=== PATIENT | female | born 1960 | race Caucasian/White ===

== ENCOUNTER → 2017-11-23 | Outpatient (CLI) | payer OTHER | LOC: M SLEEP 19:18 | DX: G47.30 Sleep apnea, unspecified (principal) | CPT/HCPCS: 95810 ==

== ENCOUNTER 2018-07-24 17:16 | Inpatient (IN) | payer OTHER ==
[~2018-07-24] VITALS: Ht 167.6 cm; Wt 96.4 kg
[~2018-07-24 17:16] MED LIST: ASPI-161 PO; ASPI1TAB15 PO; ATOR40TA75 PO; CIPR-249 PO; CIPR250T3 PO; FLOM0.4C39 PO; FURO40TA2 PO; HYDR-3713 PO; LISI2.5T5 PO; METF500T13 PO; NIAC250C13 PO; OXYC-517 PO; PERC5TAB12 PO; PERCOCET PO; SOTA80TA2 PO; VICO5TAB16 PO; [UNRECOGNIZED DRUG - OTHER] TOP
--- NOTE | 2018-07-24 18:03 | REP ---
Clinical: Cough and dyspnea. Comparison: None. Findings: Cardiomegaly is appreciated. Indistinct pulmonary vasculature with cephalization along with bibasilar opacities suggesting atelectasis and effusions. No pneumothorax. Skeletal structures are intact. Impression: No prior examinations available for comparison. Findings suggest pulmonary vascular congestion including bibasilar opacities and pleural effusions. Correlation is required. Differential diagnosis would include multifocal pneumonia and chronic cardiomegaly. Electronically Signed by Renato Hatfield MD 07/24/2018 05:55 P
[2018-07-24 18:07] LABS: BASO % 0.3 % (0.0-1.0); EOS # 0.1 10^3/uL (0.0-0.50); EOS % 0.8 % (0.0-3.0); HEMATOCRIT 31.2 % (36.0-47.0); HEMOGLOBIN 8.8 g/dl (12.0-15.5); LYMPH # 1.3 10^3/uL (1.5-4.5); LYMPH % 17.4 % (24.0-44.0); MEAN CORPUSCULAR HEMOGLOBIN 29.4 pg (27.0-33.0); MEAN CORPUSCULAR HGB CONC 28.2 g/dl (32.0-36.5); MEAN CORPUSCULAR VOLUME 104.3 fl (80.0-96.0); MONO # 0.5 10^3/uL (0.0-0.8); MONO % 6.9 % (0.0-5.0); NEUTROPHILS # 5.4 10^3/uL (1.8-7.7); NEUTROPHILS % 74.2 % (36.0-66.0); PLATELET COUNT, AUTOMATED 248 10^3/uL (150-450); RED BLOOD COUNT 2.99 10^6/uL (4.00-5.40); WHITE BLOOD COUNT 7.2 10^3/uL (4.0-10.0)
[2018-07-24] MEDS ORDERED: FUROSEMIDE 100 MG/10 ML VIAL (J1940) IV ONE (18:15)
[2018-07-24 18:27] LABS: INR 1.19; PROTHROMBIN TIME 15.3 SECONDS (12.1-14.4)
[2018-07-24 18:34] LABS: ABG BASE EXCESS 3.9 (-2.0-2.0); ABG HCO3 31.3 MEQ/L (22.0-26.0); ABG O2 SATURATION 91.4 % (95.0-99.0); ABG PARTIAL PRESSURE O2 63.4 mmHg (75.0-100.0); ABG STANDARD HCO3 27.9 MEQ/L (22.0-26.0); ABG TOTAL CO2 33.3 MEQ/L (22.0-29.0); ABG pH (ARTERIAL) 7.305 UNITS (7.350-7.450)
[2018-07-24 18:34] LABS: ALBUMIN 3.2 GM/DL (3.2-5.2); BILIRUBIN,DIRECT 0.2 MG/DL (0.0-0.2); BILIRUBIN,TOTAL 0.6 MG/DL (0.2-1.0); CALCIUM LEVEL 9.1 MG/DL (8.5-10.1); CREATININE FOR GFR 1.12 MG/DL (0.55-1.30); GLOMERULAR FILTRATION RATE 53.6 (>51); POTASSIUM SERUM 4.5 MEQ/L (3.5-5.1); THYROID STIMULATING HORMONE 2.48 uIU/ML (0.358-3.740); TOTAL PROTEIN 6.5 GM/DL (6.4-8.2); TROPONIN I 0.02 NG/ML (< 0.10)
[2018-07-24 18:36] LABS: ABG PARTIAL PRESSURE CO2 64.4 mmHg (35.0-45.0)
--- NOTE | 2018-07-24 18:44 | REP ---
Clinical: Bilateral lower extremity swelling . Technique: Archuleta scale and color Doppler evaluation using linear high frequency transducer. Findings: Ultrasound examination of the right and left lower extremity deep venous structures from the common femoral vein to the popliteal vein demonstrates normal compressibility flow and wave patterns in response to respiration and augmentation. There is no evidence for deep venous thrombosis. Incidental bilateral duplicated mid femoral veins. Impression: No evidence for deep venous thrombosis. Electronically Signed by Renato Hatfield MD 07/24/2018 06:36 P
[2018-07-24] MEDS ORDERED: GLIM2TAB PO (19:02)
[2018-07-24] MEDS ORDERED: ASPI1TAB PO (19:02)
[2018-07-24] MEDS ORDERED: FERR325T3 PO (19:02)
[2018-07-24] MEDS ORDERED: METF-881 PO (19:02)
--- NOTE | 2018-07-24 19:26 | REP ---
Clinical: Hypoxia. Technique: Axial noncontrast images from the thoracic inlet to the upper abdomen with coronal and sagittal re-formations. Comparison: None. Findings: Marked cardiomegaly is appreciated along with cephalization, prominent pulmonary vasculature and diffuse interstitial prominence as well as moderate bilateral ill-defined infiltrates extending from the dee to the right middle lobe, right lower lobe, lingula and left lower lobe with small pleural effusion. No pneumothorax. No significant adenopathy. Musculoskeletal structures are intact. Pacemaker noted. Upper abdomen with normal bilateral adrenal glands. Impression: Findings described above most compatible with CHF/pulmonary edema. Less likely differential diagnosis includes multifocal pneumonia. Electronically Signed by Renato Hatfield MD 07/24/2018 07:16 P
[2018-07-24] MEDS ORDERED: GLUCAGON FOR INJ 1 MG VIAL (J1610) SC PRN (19:45)
[2018-07-24] MEDS ORDERED: DEXTROSE 50% 50 ML SYRINGE IV PRN (19:45)
[2018-07-24] MEDS ORDERED: GLUCOSE 4 GM CHEW TABLET PO PRN (19:45)
[2018-07-24] MEDS ORDERED: BISACODYL 10 MG SUPP PR PRN (19:45)
[2018-07-24] MEDS ORDERED: BISACODYL 5 MG TAB PO PRN (19:45)
--- NOTE | 2018-07-24 20:28 | HPEPDOC ---
[facility] Medical History & Physical Date of Admission Jul 24, 2018 Attending Physician: CHRISTAL TIMMONS MD History and Physical CHIEF COMPLAINT: [Shortness of breath] HISTORY OF PRESENT ILLNESS: [57 year old female was in a few past medical history of COPD chronically on 2 L nasal cannula, obesity, HEYDI, CHF who has a defibrillator and pacemaker combination diabetes, hyperlipidemia who presented complaining of shortness of breath for 1 week duration that worsened today. Patient states that her shortness of breath is also was positional. Patient unable to lie flat without shortness of breath does worsen. Patient also has dry cough. She also complained of chronic lotion recently which is unchanged. Patient also received received a new kitten for [place], and this kitten has been scratching her lower extremity. Patient was evaluated in the emergency room noted to be hypoxemic on her regular 2 L nasal cannula and therefore oxygen was increased to 4 L with good saturation. Patient received Lasix in the emergency room with good urine output. Patient had checks x-ray and CT of the chest which showed pulmonary edema. Patient being admitted for further evaluation and treatment. Otherwise patient denies of any complaint at this time. No fever, no diarrhea, or dysuria. Called by PCU after pt shortly arriving to PCU for altered mentation. Evaluated by the hospitalist team and found patient to be awake, alert, oriented x3. Unchanged from ED. Later contacted by PCU because per staff, Pt found hypoxic and hospitalist contacted. ABG obtained. Respiratory treatment previously ordered via computer for both standing order and PRN order. Vapotherm ordered for better oxygenation. Patient already started on lasix and steriod therapy. Called staff for hypoxemia in ABG po2 38.5 but pt with nml mentation and unchanged, no arrthymia , and not respiratory distress on examination but complained of abdominal discomfort. Bladder scan show 900cc urine, fuentes place, and pt feeling better. Respiratory therapy treatment not given at time of initial verbal request. Asked again and again until given. Called by staff due to low BP and responding only sternal rub, pt evaluated and found pt easily responds to tactile and verbal stimuli and answers questions appropriately. Pt kept awake all night due to these events. Pt states she is tired and otherwise no complaints. BP manually checked SBP after fuentes and good urine output. Lasix orders are with parameters. Pt gerardo be transfer to ICU for closer monitoring. Review system: Point review systems negative other than those described in HPI PMH: COPD on 2L nc at home, obesity, Heydi, CHF, HLD, DM, kidney stone SMH: cataract, kidney stone extraction, PPM/defibrillator Social history: Denies of smoking, drinking, drug abuse Family medical history: Noncontributory ALLERGIES: Please see below. Med list: See below PHYSICAL EXAMINATION: VITAL SIGNS: Please see below GENERAL APPEARANCE: Resting comfortably on oxygen HEENT: Normocephalic, PERRLA, Mucous moist, CARDIOVASCULAR: S1,S2, pulse present, regularly, regular, LUNGS: Equal decreased air entry b/l, no wheezes or crackles at the base bilaterally ABDOMEN: Soft, BS present, no tenderness, no guarding GENITOURINARY: No Fuentes EXTREMITIES: B/L +1 pitting edema, capillary refill present , bilateral lotion may scratch vanessa from her cats, multiple scratches scabbing no active bleeding and no overt signs of infection. SKIN: Warm, No fever NEUROLOGICAL: Cranial nerves grossly intact PSYCHIATRIC: Normal mood and affect for current situation LABORATORY DATA: See below. IMAGING: [LE Doppler: No evidence for deep venous thrombosis. CXR: No prior examinations available for comparison. Findings suggest pulmonary vascular congestion including bibasilar opacities and pleural effusions. Correlation is required. Differential diagnosis would include multifocal pneumonia and chronic cardiomegaly. CT chest: Findings described above most compatible with CHF/pulmonary edema. Less likely differential diagnosis includes multifocal pneumonia.] MICROBIOLOGY: Please see below. Assessment and plan: 57 year old female was in a few past medical history of COPD chronically on 2 L nasal cannula, obesity, HEYDI, CHF who has a defibrillator and pacemaker combination, diabetes, hyperlipidemia who presented complaining of shortness of breath found to be hypoxemic and admitted for CHF exacerbation. Acute resp failure with Hypoxemia and hypercapnia with acidosis, acute on chronic CHF exacerbation with COPD exacerbation -chronically on 2 liters nasal cannula, obesity, HEYDI, copd, chf -Oxygen, Vapotherm, RT -Lasix IV utilize, hold lisinopril for now, monitor renal function -iv steriod, empiric abx -I and O, daily weight -Echocardiogram -Resume sotalol once Lasix has been maximized and acute CHF resolved -Resume aspirin -ICU for closer monitoring Diabetes -Finger sick monitoring, sliding scale, hold by mouth medications, utilize long- acting insulin as needed LE scratches -Bacitracin/polymyxin ointment Hyperlipidemia, resume home statin Chronic anemia, resume iron DVT prophylaxis heparin subcutaneous Vital Signs Vital Signs Date Time Temp Pulse Resp B/P (MAP) Pulse Ox O2 Delivery O2 Flow Rate FiO2 07/24/18 19:17 89 95 07/24/18 18:04 18 127/69 (88) Nasal Cannula 4.0 07/24/18 17:30 96.6 Laboratory Data Labs 24H Laboratory Tests 2 07/24/18 17:45: Immature Granulocyte % (Auto) 0.4, White Blood Count 7.2, Red Blood Count 2.99L, Hemoglobin 8.8L, Hematocrit 31.2L, Mean Corpuscular Volume 104.3H, Mean Corpuscular Hemoglobin 29.4, Mean Corpuscular Hemoglobin Concent 28.2L, Red Cell Distribution Width 13.7, Platelet Count 248, Neutrophils (%) (Auto) 74.2H, Lym phocytes (%) (Auto) 17.4L, Monocytes (%) (Auto) 6.9H, Eosinophils (%) (Auto) 0.8, Basophils (%) (Auto) 0.3, Neutrophils # (Auto) 5.4, Lymphocytes # (Auto) 1.3L, Monocytes # (Auto) 0.5, Eosinophils # (Auto) 0.1, Basophils # (Auto) 0.0, Nucleated Red Blood Cells % (auto) 0.0, Prothrombin Time 15.3H, Prothromb Time International Ratio 1.19, Anion Gap 5L, Glomerular Filtration Rate 53.6, Lactic Acid Level 1.4, Calcium Level 9.1, Aspartate Amino Transf (AST/SGOT) 25, Alanine Aminotransferase (ALT/SGPT) 32, Alkaline Phosphatase 101, Total Bilirubin 0.6, Direct Bilirubin 0.2, Total Creatine Kinase 54, Creatine Kinase MB 3.0, Creatine Kinase MB Relative Index 5.00H, Troponin I 0.02, LC-Omm-P-Type Natriuretic Peptide 08201I, Total Protein 6.5, Albumin 3.2, Albumin/Globulin Ratio 0.97L, Thyroid Stimulating Hormone (TSH) 2.480 07/24/18 18:10: Blood Gas Bicarbonate Standard 27.9H, Arterial Blood pH 7.305L, Arterial Blood Partial Pressure CO2 64.4*H, Arterial Blood Partial Pressure O2 63.4L, Arterial Blood Total CO2 33.3H, Arterial Blood HCO3 31.3H, Arterial Blood Base Excess 3.9H, Arterial Blood Oxygen Saturation 91.4L CBC/BMP Laboratory Tests 07/24/18 17:45 Red Blood Count 2.99 L, Mean Corpuscular Volume 104.3 H, Mean Corpuscular Hemoglobin 29.4, Mean Corpuscular Hemoglobin Concent 28.2 L, Red Cell Distribution Width 13.7, Neutrophils (%) (Auto) 74.2 H, Lymphocytes (%) (Auto) 17.4 L, Monocytes (%) (Auto) 6.9 H, Eosinophils (%) (Auto) 0.8, Basophils (%) (Auto) 0.3, Neutrophils # (Auto) 5.4, Lymphocytes # (Auto) 1.3 L, Monocytes # (Auto) 0.5, Eosinophils # (Auto) 0.1, Basophils # (Auto) 0.0 Microbiology Microbiology 07/24/18 Blood Culture, Received Pending 07/24/18 Blood Culture, Received Pending 07/24/18 Respiratory Virus Panel (PCR) ([facility]) - Final, Complete Home Medications Scheduled (Sotalol HCl) 80 Mg Tab, 40 MG PO BID Aspirin (Aspirin 81) 81 Mg Tab, 81 MG PO DAILY Atorvastatin Calcium (Atorvastatin Calcium) 40 Mg Tab, 40 MG PO QPM Ferrous Sulfate (Ferrous Sulfate) 325 Mg Tab, 325 MG PO DAILY Furosemide (Furosemide) 40 Mg Tab, 40 MG PO DAILY Glimepiride (Glimepiride) 2 Mg Tab, 2 MG PO DAILY Lisinopril (Lisinopril) 2.5 Mg Tab, 2.5 MG PO QPM Metformin Hydrochloride (Metformin Hydrochloride E) 500 Mg Tab, 500 MG PO BID Niacin (Niacin) 250 Mg Cap, 500 MG PO DAILY Allergies Coded Allergies: No Known Allergies (Unverified , 07/24/18) HARPAL VENEGAS MD Jul 24, 2018 20:10
[2018-07-24] MEDS: HumaLOG INSULIN (NovoLOG) PER UNIT SC SCH (21:00)
[2018-07-24] MEDS: ATORVASTATIN 20 MG TAB PO SCH (22:09)
[2018-07-24] MEDS: POLYSPORIN TOPICAL OINTMENT 15GM TOP SCH (22:09)
[2018-07-24 23:59] VITALS: BP 120/69
[2018-07-25] VITALS (20 sets, daily range): BP systolic 87–125; BP diastolic 49–79
[2018-07-25 00:26] LABS: ABG BASE EXCESS 3.7 (-2.0-2.0); ABG O2 SATURATION 88.6 % (95.0-99.0); ABG PARTIAL PRESSURE CO2 69.6 mmHg (35.0-45.0); ABG PARTIAL PRESSURE O2 59.6 mmHg (75.0-100.0); ABG STANDARD HCO3 27.6 MEQ/L (22.0-26.0); ABG TOTAL CO2 34.2 MEQ/L (22.0-29.0); ABG pH (ARTERIAL) 7.281 UNITS (7.350-7.450)
[2018-07-25] MEDS: FUROSEMIDE 40 MG/4 ML VIAL (J1940) IV SCH ×3 (01:08→07:59)
[2018-07-25 01:11] LABS: MB/CK RELATIVE INDEX 3.92 (< OR =4); TROPONIN I 0.03 NG/ML (< 0.10)
[2018-07-25] MEDS ORDERED: IPRATROPIUM 0.5MG/ALBUTEROL 2.5MG INH SOL UD 3ML (DUONEB)(J7620) NEB PRN (03:00)
[2018-07-25 03:35] LABS: ABG BASE EXCESS 4.1 (-2.0-2.0); ABG HCO3 31.5 MEQ/L (22.0-26.0); ABG O2 SATURATION 72.2 % (95.0-99.0); ABG STANDARD HCO3 27.6 MEQ/L (22.0-26.0); ABG TOTAL CO2 33.4 MEQ/L (22.0-29.0); ABG pH (ARTERIAL) 7.322 UNITS (7.350-7.450)
[2018-07-25 03:36] LABS: ABG PARTIAL PRESSURE CO2 62.2 mmHg (35.0-45.0)
[2018-07-25] MEDS: ACETAMINOPHEN TAB 650MG DOSE (2X325MG) PO PRN (03:36)
[2018-07-25 03:37] LABS: ABG PARTIAL PRESSURE O2 38.5 mmHg (75.0-100.0)
[2018-07-25] MEDS ORDERED: AZITHROMYCIN INJ 500 MG, VIAL MATE ADAPTER 1 EACH in D5W 250 ML IV SCH (04:00)
[2018-07-25] MEDS: methylPREDNISolone INJ 125 MG/2 ML VIAL (J2930) IV SCH ×2 (04:49→12:07)
[2018-07-25] MEDS: HEPARIN SOD (PORCINE) 5000 UNITS/ML VIAL SC SCH ×3 (04:50→22:27)
[2018-07-25 05:07] LABS: ABG BASE EXCESS 5.6 (-2.0-2.0); ABG O2 SATURATION 90.7 % (95.0-99.0); ABG PARTIAL PRESSURE O2 62.2 mmHg (75.0-100.0); ABG STANDARD HCO3 29.4 MEQ/L (22.0-26.0); ABG pH (ARTERIAL) 7.325 UNITS (7.350-7.450)
[2018-07-25 05:11] LABS: ABG PARTIAL PRESSURE CO2 64.8 mmHg (35.0-45.0)
[2018-07-25 06:02] LABS: HEMATOCRIT 37.6 % (36.0-47.0); HEMOGLOBIN 10.7 g/dl (12.0-15.5); MEAN CORPUSCULAR HEMOGLOBIN 29.2 pg (27.0-33.0); MEAN CORPUSCULAR HGB CONC 28.5 g/dl (32.0-36.5); MEAN CORPUSCULAR VOLUME 102.5 fl (80.0-96.0); PLATELET COUNT, AUTOMATED 232 10^3/uL (150-450); RED BLOOD COUNT 3.67 10^6/uL (4.00-5.40); WHITE BLOOD COUNT 7.7 10^3/uL (4.0-10.0)
[2018-07-25 06:22] LABS: CALCIUM LEVEL 8.7 MG/DL (8.5-10.1); CREATININE FOR GFR 1.36 MG/DL (0.55-1.30); FREE THYROXINE INDEX 2.8 % (1.3-4.8); GLOMERULAR FILTRATION RATE 42.8 (>51); POTASSIUM SERUM 4.3 MEQ/L (3.5-5.1); THYROID STIMULATING HORMONE 1.37 uIU/ML (0.358-3.740); THYROXINE (T4) 8.1 UG/DL (4.5-12.0)
[2018-07-25] MEDS: IPRATROPIUM 0.5MG/ALBUTEROL 2.5MG INH SOL UD 3ML (DUONEB)(J7620) NEB SCH ×3 (08:05→20:51)
--- NOTE | 2018-07-25 08:05 | ECGEPIP ---
Stationary ECG Study [facility] - ED Test Date: 2018-07-24 Pat Name: GLADYS RODARTE Department: Room: [place] [address] Gender: F Chief Operating Officer: francisco javier : 1960 Requested By: Mable Madrigal Order Number: [id number] Reading MD: Mable Madrigal Measurements Intervals [place] Rate: 83 P: 54 OR: 164 QRS: 215 QRSD: 232 T: 78 QT: 492 QTc: 579 Interpretive Statements ELECTRONIC VENTRICULAR PACEMAKER ABNORMAL RHYTHM ECG UNDERLYING SINUS RHYTHM INCREASED RATE 05/31/12 Electronically Signed On 07-25-2018 8:04:44 EST by Mable Madrigal
[2018-07-25 08:56] LABS: ABG BASE EXCESS 4.4 (-2.0-2.0); ABG HCO3 32.3 MEQ/L (22.0-26.0); ABG O2 SATURATION 94.2 % (95.0-99.0); ABG PARTIAL PRESSURE O2 77.1 mmHg (75.0-100.0); ABG STANDARD HCO3 28.4 MEQ/L (22.0-26.0); ABG TOTAL CO2 34.3 MEQ/L (22.0-29.0); ABG pH (ARTERIAL) 7.305 UNITS (7.350-7.450)
[2018-07-25 08:58] LABS: ABG PARTIAL PRESSURE CO2 66.3 mmHg (35.0-45.0)
[2018-07-25 09:29] LABS: MB/CK RELATIVE INDEX 6.67 (< OR =4); TROPONIN I 0.35 NG/ML (< 0.10)
[2018-07-25] MEDS: POLYSPORIN TOPICAL OINTMENT 15GM TOP SCH ×3 (09:31→20:43)
[2018-07-25] MEDS: NYSTATIN 100,000 UNITS/GM TOPICAL PWD 15 GM TOP SCH ×2 (09:31→20:42)
[2018-07-25] MEDS: ASPIRIN 81 MG ENTERIC TAB PO SCH (09:33)
[2018-07-25] MEDS: HumaLOG INSULIN (NovoLOG) PER UNIT SC SCH ×4 (09:33→20:43)
[2018-07-25] MEDS: FERROUS SULFATE 325MG TAB PO SCH (09:33)
[2018-07-25] MEDS ORDERED: FLUCONAZOLE 200 MG in APPROPRIATE DILUENT 1 EA IV ONE (11:00)
--- NOTE | 2018-07-25 13:11 | IPNPDOC ---
Text Note Date of Service The patient was seen on 07/25/18. NOTE SUBJECTIVE: Patient very somnolent again this am as per nurses difficult to wake her up. During my interview i could wake her up by sternal rub one and calling her name and some shaking of her shoulders. After waking up she was conversant, oriented and could give a correct history. Knew where she was. Denied any weakness any where, denied any pain , denied any swallowing difficulty or any difficulty in speaking. Said her breathing was better. Says she has been having trouble breathing for a week and worst over the past 3 days. Said that she was very tired so was sleeping deeply. Repeat ABG did not show any significant change from prior. PHYSICAL EXAMINATION: VITAL SIGNS: Please see below GENERAL APPEARANCE: Resting comfortably on oxygen HEENT: Normocephalic, PERRLA, Mucous moist, CARDIOVASCULAR: S1,S2, pulse present, regularly, regular, LUNGS: Equal decreased air entry b/l, no wheezes or crackles at the base bilaterally ABDOMEN: Soft, BS present, no tenderness, no guarding GENITOURINARY: No Mcleod EXTREMITIES: trace edema, capillary refill present , bilateral lotion may scratch vanessa from her cats, multiple scratches scabbing no active bleeding and no overt signs of infection. SKIN: Warm, No fever NEUROLOGICAL: Cranial nerves grossly intact PSYCHIATRIC: Normal mood and affect for current situation LABORATORY DATA adn RADIOLOGY : Reviewed Assessment and plan: 57 year old female was in a few past medical history of COPD chronically on 2 L nasal cannula, obesity, HEYDI, CHF who has a defibrillator and pacemaker combination diabetes, hyperlipidemia who presented complaining of shortness of breath for 1 week duration that worsened today. Patient states that her shortness of breath is also was positional. Patient unable to lie flat without shortness of breath does worsen. Patient also has dry cough. She also complained of chronic lotion recently which is unchanged. Patient also received received a new kitten for [employer], and this kitten has been scratching her lower extremity. Patient was evaluated in the emergency room noted to be hypoxemic on her regular 2 L nasal cannula and therefore oxygen was increased to 4 L with good saturation. Patient received Lasix in the emergency room with good urine output. Patient had checks x-ray and CT of the chest which showed pulmonary edema. Patient being admitted for further evaluation and treatment. Otherwise patient denies of any complaint at this time. No fever, no diarrhea, or dysuria. Acute on chronic Resp failure with Hypoxemia and hypercapnia due to CHF exacerbation which precipitated copd exacerbation. continue vapotherm continue lasix and nebs and steroids and azithromycin. CHF with AICD in place now with exacerbation had good diuresis overnight. will reduced dose of lasix. I and O, daily weight Echocardiogram COPD with chronic hypoxic respiratory failure. continue with oxygen supplementation to keep sats around 88. continue steroids, nebs and azithromycin. Intertriginous candidiasis will give fluconazole and nystatin. Obesity complicating care. patient does not have HEYDI. Sleep study showed normal sleep pattern with snoring. Diabetes Finger sick monitoring, sliding scale, utilize long-acting insulin as needed continue glimepiride. Afib will resume betablocker H/O bilateral stag horn calculi s/p b/l lithotripsy in the past. LE scratches Bacitracin/polymyxin ointment Hyperlipidemia, resume home statin Chronic anemia, resume iron DVT prophylaxis heparin subcutaneous VS,Fishbone, I+O VS, Fishbone, I+O Laboratory Tests 07/24/18 17:45 Red Blood Count 2.99 L, Mean Corpuscular Volume 104.3 H, Mean Corpuscular Hemoglobin 29.4, Mean Corpuscular Hemoglobin Concent 28.2 L, Red Cell Distribution Width 13.7, Neutrophils (%) (Auto) 74.2 H, Lymphocytes (%) (Auto) 17.4 L, Monocytes (%) (Auto) 6.9 H, Eosinophils (%) (Auto) 0.8, Basophils (%) (Auto) 0.3, Neutrophils # (Auto) 5.4, Lymphocytes # (Auto) 1.3 L, Monocytes # (Auto) 0.5, Eosinophils # (Auto) 0.1, Basophils # (Auto) 0.0 07/25/18 05:35 Red Blood Count 3.67 L, Mean Corpuscular Volume 102.5 H, Mean Corpuscular Hemoglobin 29.2, Mean Corpuscular Hemoglobin Concent 28.5 L, Red Cell Distribution Width 13.6, Calcium Level 8.7 Vital Signs Date Time Temp Pulse Resp B/P (MAP) Pulse Ox O2 Delivery O2 Flow Rate FiO2 07/25/18 11:52 92 30.0 55 07/25/18 11:09 78 103/55 (71) 07/25/18 06:47 99.1 15 07/25/18 00:00 Nasal Cannula I&O- Last 24 Hours up to 6 AM 07/25/18 06:00 Output Total 1050 ml Balance -1050 ml CHRISTAL TIMMONS MD Jul 25, 2018 13:11
[2018-07-25] MEDS ORDERED: FUROSEMIDE 40 MG/4 ML VIAL (J1940) IV SCH (17:00)
[2018-07-25 17:01] LABS: MB/CK RELATIVE INDEX 6.18 (< OR =4); TROPONIN I 0.41 NG/ML (< 0.10)
[2018-07-25] MEDS: ATORVASTATIN 20 MG TAB PO SCH (20:43)
[2018-07-25] MEDS: methylPREDNISolone INJ 40 MG/1 ML VIAL (J2920) IV SCH (20:44)
[2018-07-25 23:36] LABS: MB/CK RELATIVE INDEX 4.7 (< OR =4); TROPONIN I 0.26 NG/ML (< 0.10)
[2018-07-26] VITALS (12 sets, daily range): BP systolic 84–130; BP diastolic 47–77
[2018-07-26] MEDS: IPRATROPIUM 0.5MG/ALBUTEROL 2.5MG INH SOL UD 3ML (DUONEB)(J7620) NEB SCH ×4 (02:11→20:11)
[2018-07-26] MEDS: methylPREDNISolone INJ 40 MG/1 ML VIAL (J2920) IV SCH ×3 (04:43→19:57)
[2018-07-26 04:52] LABS: HEMATOCRIT 32.7 % (36.0-47.0); HEMOGLOBIN 9.5 g/dl (12.0-15.5); MEAN CORPUSCULAR HEMOGLOBIN 29.1 pg (27.0-33.0); MEAN CORPUSCULAR HGB CONC 29.1 g/dl (32.0-36.5); PLATELET COUNT, AUTOMATED 268 10^3/uL (150-450); RED BLOOD COUNT 3.27 10^6/uL (4.00-5.40); WHITE BLOOD COUNT 4.5 10^3/uL (4.0-10.0)
[2018-07-26 04:58] LABS: CALCIUM LEVEL 8.8 MG/DL (8.5-10.1); CREATININE FOR GFR 1.45 MG/DL (0.55-1.30); GLOMERULAR FILTRATION RATE 39.8 (>51); POTASSIUM SERUM 4.1 MEQ/L (3.5-5.1)
[2018-07-26] MEDS: HEPARIN SOD (PORCINE) 5000 UNITS/ML VIAL SC SCH ×3 (05:51→21:48)
--- NOTE | 2018-07-26 06:22 | ECHO ---
DATE OF PROCEDURE: 07/25/2018 DATE OF : 1960 AGE: 57 GENDER: Female. HEIGHT: 66 inches WEIGHT: 213 pounds BODY SURFACE AREA: 2.05 meters squared INPATIENT: ICU Room 3209 REFERRING PHYSICIAN: Dr. Andra Núñez INDICATION: Dyspnea. MEASUREMENTS: 2-D Measurements: RV: 4.0 cm LV: 6.6 cm Septum: 1.2 cm Posterior wall: 1.2 cm Aortic root: 2.5 cm LA: 5.5 cm LVEF: 15% Doppler Measurements: AV: 1.5 m/s LVOT: 0.88 m/s LVOT diameter: 2.0 cm MV - E 100 A 57 EA 1.8:1 Early mitral deceleration time: 158 ms E prime: 6 E/E prime ratio: 16.7 PV: 0.7 m/s RVSP: 50-55 mmHg IVC: 2.2 cm COMMENTS: Normal sinus rhythm with atrial sensing and tracking and biventricular pacing with paced QRS complexes having a right bundle branch block (RBBB) configuration. Technically difficult study in light of the patient's body habitus, but diagnostically useful information was still obtained. Prominently dilated left ventricle with borderline left ventricular hypertrophy. Multiple segmental wall motion abnormalities: Preserved proximal and mid anterior and septal motion with akinesis of the distal anterior wall apex and most of the inferior wall. Prominently dilated left atrium with Doppler evidence of an impairment of LV diastolic function and elevated mean left atrial pressure in the range of 20 mmHg. Right heart chambers upper limits of normal with normal right ventricular free wall motion with Doppler evidence of at least moderate pulmonary hypertension. IVC size upper limits of normal with reduced respiratory collapse in keeping with elevated central venous pressure. Mild aortic valvular sclerosis with adequate separation, but premature cusp closure in keeping with reduced forward stroke volume. Normal aortic root size. Moderate calcification with thickening of the mitral annulus with "low flow" appearance to leaflet excursion, but no more than very mild mitral insufficiency. Normal appearing tricuspid valve with mild insufficiency. Pacing leads could be visualized traversing right heart structures, but no other apparent intracardiac mass. Small pericardial effusion posteriorly with no evidence of cardiac chamber compression.
[2018-07-26] MEDS: GLIMEPIRIDE 2 MG TAB PO SCH (07:59)
[2018-07-26] MEDS: HumaLOG INSULIN (NovoLOG) PER UNIT SC SCH ×4 (08:00→20:12)
[2018-07-26 08:02] LABS: ABG BASE EXCESS 9.3 (-2.0-2.0); ABG HCO3 35.4 MEQ/L (22.0-26.0); ABG O2 SATURATION 91.6 % (95.0-99.0); ABG PARTIAL PRESSURE CO2 57.3 mmHg (35.0-45.0); ABG PARTIAL PRESSURE O2 61.6 mmHg (75.0-100.0); ABG STANDARD HCO3 32.9 MEQ/L (22.0-26.0); ABG TOTAL CO2 37.2 MEQ/L (22.0-29.0); ABG pH (ARTERIAL) 7.409 UNITS (7.350-7.450)
[2018-07-26] MEDS: FERROUS SULFATE 325MG TAB PO SCH (09:10)
[2018-07-26] MEDS: LEVEMIR (INSULIN DETEMIR) 1 UNITS/0.01ML SC SCH (09:10)
[2018-07-26] MEDS: ASPIRIN 81 MG ENTERIC TAB PO SCH (09:10)
[2018-07-26] MEDS: AZITHROMYCIN 250 MG TAB PO SCH (09:10)
[2018-07-26] MEDS: NYSTATIN 100,000 UNITS/GM TOPICAL PWD 15 GM TOP SCH ×2 (09:10→19:58)
[2018-07-26] MEDS: POLYSPORIN TOPICAL OINTMENT 15GM TOP SCH ×3 (09:11→19:59)
[2018-07-26] MEDS: FLUCONAZOLE 50MG TABLET PO SCH (12:28)
--- NOTE | 2018-07-26 21:02 | IPNPDOC ---
Text Note Date of Service The patient was seen on 07/26/18. NOTE SUBJECTIVE: Patient awake and alert this am . sitting up in bed says feels bet cj, says that feels more awake and can focus normally which she said she could not do yesterday. No fever or chills, good urine output PHYSICAL EXAMINATION: VITAL SIGNS: Please see below GENERAL APPEARANCE: Resting comfortably on oxygen HEENT: Normocephalic, PERRLA, Mucous moist, CARDIOVASCULAR: S1,S2, pulse present, regularly, regular, LUNGS: Equal decreased air entry b/l, no wheezes or crackles at the base bilaterally ABDOMEN: Soft, BS present, no tenderness, no guarding GENITOURINARY: No Mcleod EXTREMITIES: trace edema, capillary refill present , bilateral lotion may scratch vanessa from her cats, multiple scratches scabbing no active bleeding and no overt signs of infection. SKIN: Warm, No fever NEUROLOGICAL: Cranial nerves grossly intact PSYCHIATRIC: Normal mood and affect for current situation LABORATORY DATA adn RADIOLOGY : Reviewed Assessment and plan: 57 year old female was in a few past medical history of COPD chronically on 2 L nasal cannula, obesity, HEYDI, CHF who has a defibrillator and pacemaker combination diabetes, hyperlipidemia who presented complaining of shortness of breath for 1 week duration that worsened today. Patient states that her shortness of breath is also was positional. Patient unable to lie flat without shortness of breath does worsen. Patient also has dry cough. She also complained of chronic lotion recently which is unchanged. Patient also received received a new kitten for [employer], and this kitten has been scratching her lower extremity. Patient was evaluated in the emergency room noted to be hypoxemic on her regular 2 L nasal cannula and therefore oxygen was increased to 4 L with good saturation. Patient received Lasix in the emergency room with good urine output. Patient had checks x-ray and CT of the chest which showed pulmonary edema. Patient being admitted for further evaluation and treatment. Otherwise patient denies of any complaint at this time. No fever, no diarrhea, or dysuria. Acute on chronic Resp failure with Hypoxemia and hypercapnia due to CHF exacerbation which precipitated copd exacerbation. Off vapotherm was on CPAP overnight. Patient does not Hve CPAP at night. Will get ABG in the Pm. Am ABG showed improvement. continue lasix and nebs and steroids and azithromycin. Acute on chronic systolic and diastolic CHF with AICD in place now with exacerbation Ef of 15% had good diuresis overnight. will reduced dose of lasix. I and O, daily weight Echocardiogram Elevated troponin due to CHF exacerbation with demand ischemia. Elevation had a flat curve no high peak. COPD with chronic hypoxic respiratory failure with moderate to severe pulmonary hypertension continue with oxygen supplementation to keep sats around 88. continue steroids, nebs and azithromycin. Intertriginous candidiasis will give fluconazole and nystatin. Obesity complicating care. patient does not have HYEDI. Sleep study showed normal sleep pattern with snoring. Diabetes Finger sick monitoring, sliding scale, utilize long-acting insulin as needed continue glimepiride. Afib will resume betablocker H/O bilateral stag horn calculi s/p b/l lithotripsy in the past. LE scratches Bacitracin/polymyxin ointment Hyperlipidemia, resume home statin Chronic anemia, resume iron DVT prophylaxis heparin subcutaneous VS,Fishbone, I+O VS, Fishbone, I+O Laboratory Tests 07/26/18 04:06 Red Blood Count 3.27 L, Mean Corpuscular Volume 100.0 H, Mean Corpuscular Hemoglobin 29.1, Mean Corpuscular Hemoglobin Concent 29.1 L, Red Cell Distribution Width 13.6, Calcium Level 8.8 Vital Signs Date Time Temp Pulse Resp B/P (MAP) Pulse Ox O2 Delivery O2 Flow Rate FiO2 07/26/18 16:00 2.0 07/26/18 16:00 101 20 127/72 (90) 96 Nasal Cannula 07/26/18 12:00 98.0 07/26/18 02:10 35 I&O- Last 24 Hours up to 6 AM 07/26/18 06:00 Intake Total 955 ml Output Total 2435 ml Balance -1480 ml CHRISTAL TIMMONS MD Jul 26, 2018 21:01
[2018-07-27] MEDS: methylPREDNISolone INJ 40 MG/1 ML VIAL (J2920) IV SCH ×2 (03:46→12:13)
[2018-07-27] MEDS: IPRATROPIUM 0.5MG/ALBUTEROL 2.5MG INH SOL UD 3ML (DUONEB)(J7620) NEB SCH ×4 (03:49→20:00)
[2018-07-27 04:00] VITALS: BP 105/58
[2018-07-27 05:00] LABS: HEMATOCRIT 33.3 % (36.0-47.0); HEMOGLOBIN 9.8 g/dl (12.0-15.5); MEAN CORPUSCULAR HEMOGLOBIN 29.3 pg (27.0-33.0); MEAN CORPUSCULAR HGB CONC 29.4 g/dl (32.0-36.5); MEAN CORPUSCULAR VOLUME 99.4 fl (80.0-96.0); PLATELET COUNT, AUTOMATED 289 10^3/uL (150-450); RED BLOOD COUNT 3.35 10^6/uL (4.00-5.40); WHITE BLOOD COUNT 5.1 10^3/uL (4.0-10.0)
[2018-07-27 05:23] LABS: CREATININE FOR GFR 1.27 MG/DL (0.55-1.30); GLOMERULAR FILTRATION RATE 46.3 (>51); POTASSIUM SERUM 3.7 MEQ/L (3.5-5.1)
[2018-07-27] MEDS: HEPARIN SOD (PORCINE) 5000 UNITS/ML VIAL SC SCH ×3 (05:57→20:53)
[2018-07-27 08:00] VITALS: BP 103/57
[2018-07-27] MEDS: FLUCONAZOLE 50MG TABLET PO SCH (08:39)
[2018-07-27] MEDS: ASPIRIN 81 MG ENTERIC TAB PO SCH (08:39)
[2018-07-27] MEDS: AZITHROMYCIN 250 MG TAB PO SCH (08:40)
[2018-07-27] MEDS: LEVEMIR (INSULIN DETEMIR) 1 UNITS/0.01ML SC SCH ×2 (08:40→20:54)
[2018-07-27] MEDS: FERROUS SULFATE 325MG TAB PO SCH (08:40)
[2018-07-27] MEDS: GLIMEPIRIDE 2 MG TAB PO SCH (08:40)
[2018-07-27] MEDS: NYSTATIN 100,000 UNITS/GM TOPICAL PWD 15 GM TOP SCH ×2 (08:41→20:53)
[2018-07-27] MEDS: POLYSPORIN TOPICAL OINTMENT 15GM TOP SCH ×3 (08:42→20:53)
[2018-07-27] MEDS: HumaLOG INSULIN (NovoLOG) PER UNIT SC SCH ×4 (08:52→20:54)
[2018-07-27] MEDS ORDERED: FUROSEMIDE 40 MG/4 ML VIAL (J1940) IV SCH (09:00)
[2018-07-27 09:32] LABS: ABG BASE EXCESS 10.5 (-2.0-2.0); ABG HCO3 37.5 MEQ/L (22.0-26.0); ABG O2 SATURATION 98.7 % (95.0-99.0); ABG PARTIAL PRESSURE O2 149.3 mmHg (75.0-100.0); ABG STANDARD HCO3 34.3 MEQ/L (22.0-26.0); ABG TOTAL CO2 39.5 MEQ/L (22.0-29.0); ABG pH (ARTERIAL) 7.383 UNITS (7.350-7.450)
[2018-07-27 09:35] LABS: ABG PARTIAL PRESSURE CO2 64.4 mmHg (35.0-45.0)
[2018-07-27] MEDS: ACETAMINOPHEN TAB 650MG DOSE (2X325MG) PO PRN (09:51)
[2018-07-27 12:00] VITALS: BP 119/67
--- NOTE | 2018-07-27 12:43 | IPNPDOC ---
Text Note Date of Service The patient was seen on 07/27/18. NOTE SUBJECTIVE: Patient awake and alert this am . sitting up in bed says feels bet ter. No complaints this morning. No fever or chills, goood urine output, sugars are uncontrolled. No Chest pain or cough. PHYSICAL EXAMINATION: VITAL SIGNS: Please see below GENERAL APPEARANCE: Resting comfortably on oxygen HEENT: Normocephalic, PERRLA, Mucous moist, CARDIOVASCULAR: S1,S2, pulse present, regularly, regular, LUNGS: Equal decreased air entry b/l, no wheezes or crackles at the base bilaterally ABDOMEN: Soft, BS present, no tenderness, no guarding GENITOURINARY: No Mcleod EXTREMITIES: trace edema, capillary refill present , bilateral lotion may scratch vanessa from her cats, multiple scratches scabbing no active bleeding and no overt signs of infection. SKIN: Warm, No fever NEUROLOGICAL: Cranial nerves grossly intact PSYCHIATRIC: Normal mood and affect for current situation LABORATORY DATA adn RADIOLOGY : Reviewed Assessment and plan: 57 year old female was in a few past medical history of COPD chronically on 2 L nasal cannula, obesity, HEYDI, CHF who has a defibrillator and pacemaker combination diabetes, hyperlipidemia who presented complaining of shortness of breath for 1 week duration that worsened today. Patient states that her shortness of breath is also was positional. Patient unable to lie flat without shortness of breath does worsen. Patient also has dry cough. She also complained of chronic lotion recently which is unchanged. Patient also received received a new kitten for [employer], and this kitten has been scratching her lower extremity. Patient was evaluated in the emergency room noted to be hypoxemic on her regular 2 L nasal cannula and therefore oxygen was increased to 4 L with good saturation. Patient received Lasix in the emergency room with good urine output. Patient had checks x-ray and CT of the chest which showed pulmonary edema. Patient being admitted for further evaluation and treatment. Otherwise patient denies of any complaint at this time. No fever, no diarrhea, or dysuria. Acute on chronic Resp failure with Hypoxemia and hypercapnia due to CHF exacerbation which precipitated copd exacerbation. Off vapotherm was on CPAP overnight. Patient does not Hve CPAP at night. Will get ABG in the Pm. Am ABG showed improvement. continue lasix and nebs and steroids and azithromycin. Acute on chronic systolic and diastolic CHF with AICD in place now with exacerbation Ef of 15% had good diuresis overnight. will reduced dose of lasix. I and O, daily weight Elevated troponin due to CHF exacerbation with demand ischemia. Elevation had a flat curve no high peak. COPD with chronic hypoxic respiratory failure with moderate to severe pulmonary hypertension continue with oxygen supplementation to keep sats around 88. continue steroids, nebs and azithromycin. Intertriginous candidiasis will give fluconazole and nystatin. Obesity complicating care. patient does not have HEYDI. Sleep study showed normal sleep pattern with snoring. Diabetes uncontrolled now due to steroids. Finger sick monitoring, sliding scale, Levemir bid. continue glimepiride. Afib has pacemaker and AICD in place all paced complexes. betablocker on hold. H/O bilateral stag horn calculi s/p b/l lithotripsy in the past. LE scratches Bacitracin/polymyxin ointment Hyperlipidemia, resume home statin Chronic anemia, resume iron DVT prophylaxis heparin subcutaneous VS,Fishbone, I+O VS, Fishbone, I+O Laboratory Tests 07/27/18 04:39 Red Blood Count 3.35 L, Mean Corpuscular Volume 99.4 H, Mean Corpuscular Hemoglobin 29.3, Mean Corpuscular Hemoglobin Concent 29.4 L, Red Cell Distribution Width 13.9, Calcium Level 9.0 Vital Signs Date Time Temp Pulse Resp B/P (MAP) Pulse Ox O2 Delivery O2 Flow Rate FiO2 07/27/18 08:00 2.0 07/27/18 08:00 97.1 76 18 103/57 (72) 97 Nasal Cannula 07/26/18 02:10 35 I&O- Last 24 Hours up to 6 AM 07/27/18 06:00 Intake Total 600 ml Output Total 1675 ml Balance -1075 ml CHRISTAL TIMMONS MD Jul 27, 2018 12:43
[2018-07-27 16:00] VITALS: BP 122/78
[2018-07-27 18:00] VITALS: BP 125/78
[2018-07-27 22:00] VITALS: BP 134/63
[2018-07-28] VITALS (7 sets, daily range): BP systolic 116–126; BP diastolic 68–79
[2018-07-28] MEDS ORDERED: methylPREDNISolone INJ 40 MG/1 ML VIAL (J2920) IV SCH
[2018-07-28] MEDS: IPRATROPIUM 0.5MG/ALBUTEROL 2.5MG INH SOL UD 3ML (DUONEB)(J7620) NEB SCH ×4 (02:00→20:57)
[2018-07-28] MEDS: HEPARIN SOD (PORCINE) 5000 UNITS/ML VIAL SC SCH ×3 (05:40→21:28)
[2018-07-28 05:57] LABS: ABG BASE EXCESS 11.4 (-2.0-2.0); ABG HCO3 38.8 MEQ/L (22.0-26.0); ABG O2 SATURATION 92.9 % (95.0-99.0); ABG PARTIAL PRESSURE O2 70.8 mmHg (75.0-100.0); ABG TOTAL CO2 40.9 MEQ/L (22.0-29.0); ABG pH (ARTERIAL) 7.376 UNITS (7.350-7.450)
[2018-07-28 06:00] LABS: HEMATOCRIT 33.8 % (36.0-47.0); HEMOGLOBIN 9.8 g/dl (12.0-15.5); MEAN CORPUSCULAR HEMOGLOBIN 29.1 pg (27.0-33.0); MEAN CORPUSCULAR VOLUME 100.3 fl (80.0-96.0); PLATELET COUNT, AUTOMATED 253 10^3/uL (150-450); RED BLOOD COUNT 3.37 10^6/uL (4.00-5.40); WHITE BLOOD COUNT 5.8 10^3/uL (4.0-10.0)
[2018-07-28 06:02] LABS: ABG PARTIAL PRESSURE CO2 67.7 mmHg (35.0-45.0)
[2018-07-28 06:24] LABS: CALCIUM LEVEL 8.6 MG/DL (8.5-10.1); CREATININE FOR GFR 1.36 MG/DL (0.55-1.30); GLOMERULAR FILTRATION RATE 42.8 (>51); POTASSIUM SERUM 3.9 MEQ/L (3.5-5.1)
[2018-07-28] MEDS: FLUCONAZOLE 50MG TABLET PO SCH (08:40)
[2018-07-28] MEDS: ASPIRIN 81 MG ENTERIC TAB PO SCH (08:40)
[2018-07-28] MEDS: AZITHROMYCIN 250 MG TAB PO SCH (08:40)
[2018-07-28] MEDS: GLIMEPIRIDE 2 MG TAB PO SCH (08:40)
[2018-07-28] MEDS: FERROUS SULFATE 325MG TAB PO SCH (08:40)
[2018-07-28] MEDS: LEVEMIR (INSULIN DETEMIR) 1 UNITS/0.01ML SC SCH ×2 (08:41→21:29)
[2018-07-28] MEDS: HumaLOG INSULIN (NovoLOG) PER UNIT SC SCH ×4 (08:41→21:29)
[2018-07-28] MEDS: NYSTATIN 100,000 UNITS/GM TOPICAL PWD 15 GM TOP SCH ×2 (08:42→21:30)
[2018-07-28] MEDS: POLYSPORIN TOPICAL OINTMENT 15GM TOP SCH ×3 (08:42→21:30)
--- NOTE | 2018-07-28 15:04 | IPNPDOC ---
Text Note Date of Service The patient was seen on 07/28/18. NOTE SUBJECTIVE: Patientsays feels very good today. Had a good nights rest. Sitting up by the side of the bed. No complaints this morning. No fever or chills, goood urine output, sugars are uncontrolled. No Chest pain or cough. PHYSICAL EXAMINATION: VITAL SIGNS: Please see below GENERAL APPEARANCE: sitting comfortably on oxygen by the side of the bed HEENT: Normocephalic, PERRLA, Mucous moist, CARDIOVASCULAR: S1,S2, pulse present, regularly, regular, LUNGS: Equal decreased air entry b/l, no wheezes or crackles at the base bilaterally ABDOMEN: Soft, BS present, no tenderness, no guarding GENITOURINARY: No Mcleod EXTREMITIES: trace edema, capillary refill present , bilateral lotion may scratch vanessa from her cats, multiple scratches scabbing no active bleeding and no overt signs of infection. SKIN: Warm, No fever NEUROLOGICAL: Cranial nerves grossly intact PSYCHIATRIC: Normal mood and affect for current situation LABORATORY DATA adn RADIOLOGY : Reviewed Assessment and plan: 57 year old female was in a few past medical history of COPD chronically on 2 L nasal cannula, obesity, HEYDI, CHF who has a defibrillator and pacemaker combination diabetes, hyperlipidemia who presented complaining of shortness of breath for 1 week duration that worsened today. Patient states that her shortness of breath is also was positional. Patient unable to lie flat without shortness of breath does worsen. Patient also has dry cough. She also complained of chronic lotion recently which is unchanged. Patient also received received a new kitten for [employer], and this kitten has been scratching her lower extremity. Patient was evaluated in the emergency room noted to be hypoxemic on her regular 2 L nasal cannula and therefore oxygen was increased to 4 L with good saturation. Patient received Lasix in the emergency room with good urine output. Patient had checks x-ray and CT of the chest which showed pulmonary edema. Patient being admitted for further evaluation and treatment. Otherwise patient denies of any complaint at this time. No fever, no diarrhea, or dysuria. Acute on chronic Resp failure with Hypoxemia and hypercapnia due to CHF exacerbation which precipitated copd exacerbation. ABG stable with chronic CO2 retensionin 60s and hypoxia reuiring 2 liters of oxygen. continue nebs and steroids and azithromycin. Acute on chronic systolic and diastolic CHF with AICD in place now with exacerbation Ef of 15% had good diuresis overnight. will hold lasix today I and O, daily weight Elevated troponin due to CHF exacerbation with demand ischemia. Elevation had a flat curve no high peak. COPD with chronic hypoxic and hypercarbic respiratory failure with moderate to severe pulmonary hypertension continue with oxygen supplementation to keep sats around 88. continue steroids, nebs and azithromycin. Funguria patient already on fluconazole for intertriginous candidiasis Intertriginous candidiasis will give fluconazole and nystatin. Obesity with possibly obesity hypoventilation with chronic CO2 retention. complicating care. patient does not have HEYDI. Sleep study showed normal sleep pattern with snoring. Diabetes uncontrolled now due to steroids. Finger sick monitoring, sliding scale, Levemir bid. continue glimepiride. Afib has pacemaker and AICD in place all paced complexes. betablocker on hold. H/O bilateral stag horn calculi s/p b/l lithotripsy in the past. LE scratches Bacitracin/polymyxin ointment Hyperlipidemia, resume home statin Chronic anemia, resume iron DVT prophylaxis heparin subcutaneous VS,Fishbone, I+O VS, Fishbone, I+O Laboratory Tests 07/28/18 05:40 Red Blood Count 3.37 L, Mean Corpuscular Volume 100.3 H, Mean Corpuscular Hemoglobin 29.1, Mean Corpuscular Hemoglobin Concent 29.0 L, Red Cell Distribution Width 14.0, Calcium Level 8.6 Vital Signs Date Time Temp Pulse Resp B/P (MAP) Pulse Ox O2 Delivery O2 Flow Rate FiO2 07/28/18 14:00 98.3 94 20 119/77 (91) 97 Nasal Cannula 2.0 07/26/18 02:10 35 I&O- Last 24 Hours up to 6 AM 07/28/18 06:00 Intake Total 960 ml Output Total 2014 ml Balance -1055 ml CHRISTAL TIMMONS MD Jul 28, 2018 15:04
[2018-07-29 02:00] VITALS: BP 107/65
[2018-07-29] MEDS: IPRATROPIUM 0.5MG/ALBUTEROL 2.5MG INH SOL UD 3ML (DUONEB)(J7620) NEB SCH ×2 (02:23→08:17)
[2018-07-29 06:00] VITALS: BP 117/73
[2018-07-29] MEDS: HEPARIN SOD (PORCINE) 5000 UNITS/ML VIAL SC SCH ×3 (06:17→22:02)
[2018-07-29 06:28] LABS: HEMATOCRIT 34.7 % (36.0-47.0); HEMOGLOBIN 10.2 g/dl (12.0-15.5); MEAN CORPUSCULAR HEMOGLOBIN 29.7 pg (27.0-33.0); MEAN CORPUSCULAR HGB CONC 29.4 g/dl (32.0-36.5); MEAN CORPUSCULAR VOLUME 100.9 fl (80.0-96.0); PLATELET COUNT, AUTOMATED 247 10^3/uL (150-450); RED BLOOD COUNT 3.44 10^6/uL (4.00-5.40); WHITE BLOOD COUNT 6.7 10^3/uL (4.0-10.0)
[2018-07-29 06:58] LABS: CALCIUM LEVEL 8.7 MG/DL (8.5-10.1); CREATININE FOR GFR 1.24 MG/DL (0.55-1.30); GLOMERULAR FILTRATION RATE 47.6 (>51); POTASSIUM SERUM 3.5 MEQ/L (3.5-5.1)
[2018-07-29] MEDS ORDERED: predniSONE 20 MG TAB PO SCH (09:00)
[2018-07-29] MEDS: ASPIRIN 81 MG ENTERIC TAB PO SCH (09:01)
[2018-07-29] MEDS: AZITHROMYCIN 250 MG TAB PO SCH (09:01)
[2018-07-29] MEDS: FLUCONAZOLE 50MG TABLET PO SCH (09:01)
[2018-07-29] MEDS: FERROUS SULFATE 325MG TAB PO SCH (09:01)
[2018-07-29] MEDS: GLIMEPIRIDE 2 MG TAB PO SCH (09:02)
[2018-07-29] MEDS: NYSTATIN 100,000 UNITS/GM TOPICAL PWD 15 GM TOP SCH ×2 (09:03→22:04)
[2018-07-29] MEDS: LEVEMIR (INSULIN DETEMIR) 1 UNITS/0.01ML SC SCH ×2 (09:03→22:04)
[2018-07-29] MEDS: HumaLOG INSULIN (NovoLOG) PER UNIT SC SCH ×4 (09:03→21:00)
[2018-07-29] MEDS: POLYSPORIN TOPICAL OINTMENT 15GM TOP SCH ×3 (09:04→22:05)
[2018-07-29] MEDS ORDERED: MIRALAX *UNIT DOSE* 17GM PACKET PO ONE (11:00)
--- NOTE | 2018-07-29 12:58 | IPNPDOC ---
Text Note Date of Service The patient was seen on 07/29/18. NOTE SUBJECTIVE: Patient says feels very good today. Had a good nights rest. No co mplaints this morning. No fever or chills, good urine output, sugars are uncontrolled. No Chest pain or cough. PHYSICAL EXAMINATION: VITAL SIGNS: Please see below GENERAL APPEARANCE: sitting comfortably on oxygen by the side of the bed HEENT: Normocephalic, PERRLA, Mucous moist, CARDIOVASCULAR: S1,S2, pulse present, regularly, regular, LUNGS: Equal decreased air entry b/l, no wheezes or crackles at the base bilaterally ABDOMEN: Soft, BS present, no tenderness, no guarding GENITOURINARY: No Mcleod EXTREMITIES: trace edema, capillary refill present , bilateral lotion may scratch vanessa from her cats, multiple scratches scabbing no active bleeding and no overt signs of infection. SKIN: Warm, No fever NEUROLOGICAL: Cranial nerves grossly intact PSYCHIATRIC: Normal mood and affect for current situation LABORATORY DATA adn RADIOLOGY : Reviewed Assessment and plan: 57 year old female was in a few past medical history of COPD chronically on 2 L nasal cannula, obesity, HEYDI, CHF who has a defibrillator and pacemaker combination diabetes, hyperlipidemia who presented complaining of shortness of breath for 1 week duration that worsened today. Patient states that her shortness of breath is also was positional. Patient unable to lie flat without shortness of breath does worsen. Patient also has dry cough. She also complained of chronic lotion recently which is unchanged. Patient also received received a new kitten for [employer], and this kitten has been scratching her lower extremity. Patient was evaluated in the emergency room noted to be hypoxemic on her regular 2 L nasal cannula and therefore oxygen was increased to 4 L with good saturation. Patient received Lasix in the emergency room with good urine output. Patient had checks x-ray and CT of the chest which showed pulmonary edema. Patient being admitted for further evaluation and treatment. Otherwise patient denies of any complaint at this time. No fever, no diarrhea, or dysuria. Acute on chronic Resp failure with Hypoxemia and hypercapnia due to CHF exacerbation which precipitated copd exacerbation. ABG stable with chronic CO2 retention in 60s and hypoxia requiring 2 liters of oxygen. continue nebs and steroids and azithromycin. Acute on chronic systolic and diastolic CHF with AICD in place now with exacerbation Ef of 15% had good diuresis overnight. will hold lasix today I and O, daily weight Elevated troponin due to CHF exacerbation with demand ischemia. Elevation had a flat curve no high peak. COPD with chronic hypoxic and hypercarbic respiratory failure with moderate to severe pulmonary hypertension continue with oxygen supplementation to keep sats around 88. continue steroids, nebs and azithromycin. Funguria patient already on fluconazole for intertriginous candidiasis Intertriginous candidiasis will give fluconazole and nystatin. Obesity with possibly obesity hypoventilation with chronic CO2 retention. complicating care. patient does not have HEYDI. Sleep study showed normal sleep pattern with snoring. Diabetes uncontrolled now due to steroids. Finger sick monitoring, sliding scale, Levemir bid. continue glimepiride. Afib has pacemaker and AICD in place all paced complexes. betablocker on hold. H/O bilateral stag horn calculi s/p b/l lithotripsy in the past. LE scratches Bacitracin/polymyxin ointment Hyperlipidemia, resume home statin Chronic anemia, resume iron DVT prophylaxis heparin subcutaneous VS,Fishbone, I+O VS, Fishbone, I+O Laboratory Tests 07/29/18 06:08 Red Blood Count 3.44 L, Mean Corpuscular Volume 100.9 H, Mean Corpuscular Hemoglobin 29.7, Mean Corpuscular Hemoglobin Concent 29.4 L, Red Cell Distribution Width 13.9, Calcium Level 8.7 Vital Signs Date Time Temp Pulse Resp B/P (MAP) Pulse Ox O2 Delivery O2 Flow Rate FiO2 07/29/18 06:00 96.4 87 16 117/73 (88) 96 Nasal Cannula 2.0 07/26/18 02:10 35 I&O- Last 24 Hours up to 6 AM 07/29/18 06:00 Intake Total 2170 ml Output Total 1780 ml Balance 390 ml CHRISTAL TIMMONS MD Jul 29, 2018 12:58
[2018-07-29 14:00] VITALS: BP 123/73
[2018-07-29 22:00] VITALS: BP 120/74
[2018-07-30] MEDS: IPRATROPIUM 0.5MG/ALBUTEROL 2.5MG INH SOL UD 3ML (DUONEB)(J7620) NEB SCH ×4 (00:47→23:00)
[2018-07-30] MEDS: HEPARIN SOD (PORCINE) 5000 UNITS/ML VIAL SC SCH ×3 (05:11→22:27)
[2018-07-30 06:00] VITALS: BP 124/77
[2018-07-30 06:16] LABS: HEMATOCRIT 37.5 % (36.0-47.0); MEAN CORPUSCULAR HEMOGLOBIN 29.5 pg (27.0-33.0); MEAN CORPUSCULAR HGB CONC 29.3 g/dl (32.0-36.5); MEAN CORPUSCULAR VOLUME 100.5 fl (80.0-96.0); PLATELET COUNT, AUTOMATED 313 10^3/uL (150-450); RED BLOOD COUNT 3.73 10^6/uL (4.00-5.40); WHITE BLOOD COUNT 9.8 10^3/uL (4.0-10.0)
[2018-07-30 06:33] LABS: CALCIUM LEVEL 9.4 MG/DL (8.5-10.1); CREATININE FOR GFR 1.09 MG/DL (0.55-1.30); GLOMERULAR FILTRATION RATE 55.3 (>51); POTASSIUM SERUM 3.8 MEQ/L (3.5-5.1)
[2018-07-30] MEDS: FERROUS SULFATE 325MG TAB PO SCH (08:40)
[2018-07-30] MEDS: GLIMEPIRIDE 2 MG TAB PO SCH (08:40)
[2018-07-30] MEDS: FLUCONAZOLE 50MG TABLET PO SCH (08:41)
[2018-07-30] MEDS: predniSONE 10 MG TAB PO SCH (08:41)
[2018-07-30] MEDS: AZITHROMYCIN 250 MG TAB PO SCH (08:41)
[2018-07-30] MEDS: ASPIRIN 81 MG ENTERIC TAB PO SCH (08:41)
[2018-07-30] MEDS: HumaLOG INSULIN (NovoLOG) PER UNIT SC SCH ×4 (08:42→21:00)
[2018-07-30] MEDS: POLYSPORIN TOPICAL OINTMENT 15GM TOP SCH ×3 (08:43→22:28)
[2018-07-30] MEDS: LEVEMIR (INSULIN DETEMIR) 1 UNITS/0.01ML SC SCH ×2 (08:43→22:28)
[2018-07-30] MEDS: NYSTATIN 100,000 UNITS/GM TOPICAL PWD 15 GM TOP SCH ×2 (08:43→22:29)
[2018-07-30] MEDS: FUROSEMIDE 40 MG TAB PO SCH (12:41)
[2018-07-30 14:00] VITALS: BP 125/82
--- NOTE | 2018-07-30 20:20 | IPNPDOC ---
Text Note Date of Service The patient was seen on 07/30/18. NOTE SUBJECTIVE: No complaints this morning. sleeping comfortably. Appetite improv ing, no bowel movements today. No fever or chills, good urine output, sugars are uncontrolled. No Chest pain or cough. Having good urine output aftr removing the fuentes cath yesterday. PHYSICAL EXAMINATION: VITAL SIGNS: Please see below GENERAL APPEARANCE: lying in bed in no acute distress. HEENT: Normocephalic, PERRLA, Mucous moist, CARDIOVASCULAR: S1,S2, pulse present, regularly, regular, LUNGS: Equal decreased air entry b/l, no wheezes or crackles at the base bilaterally ABDOMEN: Soft, BS present, no tenderness, no guarding GENITOURINARY: No Fuentes EXTREMITIES: trace edema, capillary refill present , bilateral lotion may scratch vanessa from her cats, multiple scratches scabbing no active bleeding and no overt signs of infection. SKIN: Warm, No fever NEUROLOGICAL: Cranial nerves grossly intact PSYCHIATRIC: Normal mood and affect for current situation LABORATORY DATA adn RADIOLOGY : Reviewed Assessment and plan: 57 year old female was in a few past medical history of COPD chronically on 2 L nasal cannula, obesity, HEYDI, CHF who has a defibrillator and pacemaker combination diabetes, hyperlipidemia who presented complaining of shortness of breath for 1 week duration that worsened today. Patient states that her shortness of breath is also was positional. Patient unable to lie flat without shortness of breath does worsen. Patient also has dry cough. She also complained of chronic lotion recently which is unchanged. Patient also received received a new kitten for [employer], and this kitten has been scratching her lower extremity. Patient was evaluated in the emergency room noted to be hypoxemic on her regular 2 L nasal cannula and therefore oxygen was increased to 4 L with good saturation. Patient received Lasix in the emergency room with good urine output. Patient had checks x-ray and CT of the chest which showed pulmonary edema. Patient being admitted for further evaluation and treatment. Otherwise patient denies of any complaint at this time. No fever, no diarrhea, or dysuria. Acute on chronic Resp failure with Hypoxemia and hypercapnia due to CHF exacerbation which precipitated copd exacerbation. ABG stable with chronic CO2 retention in 60s and hypoxia requiring 2 liters of oxygen. continue nebs and steroids and azithromycin. Acute on chronic systolic and diastolic CHF with AICD in place now with exacerbation Ef of 15% resume home dose of lasix. I and O, daily weight Elevated troponin due to CHF exacerbation with demand ischemia. Elevation had a flat curve no high peak. COPD with chronic hypoxic and hypercarbic respiratory failure with moderate to severe pulmonary hypertension continue with oxygen supplementation to keep sats around 88. continue steroids, nebs , finished course of azithromycin. Funguria patient already on fluconazole for intertriginous candidiasis Intertriginous candidiasis will give fluconazole and nystatin. Obesity with possibly obesity hypoventilation with chronic CO2 retention. complicating care. patient does not have HEYDI. Sleep study showed normal sleep pattern with snoring. Diabetes uncontrolled now due to steroids. Finger sick monitoring, sliding scale, Levemir bid. continue glimepiride. Afib has pacemaker and AICD in place all paced complexes. will restart sotalol H/O bilateral stag horn calculi s/p b/l lithotripsy in the past. LE scratches Bacitracin/polymyxin ointment Hyperlipidemia, resume home statin Chronic anemia, resume iron DVT prophylaxis heparin subcutaneous VS,Fishbone, I+O VS, Fishbone, I+O Laboratory Tests 07/30/18 05:48 Red Blood Count 3.73 L, Mean Corpuscular Volume 100.5 H, Mean Corpuscular Hemoglobin 29.5, Mean Corpuscular Hemoglobin Concent 29.3 L, Red Cell Distribution Width 13.9, Calcium Level 9.4 Vital Signs Date Time Temp Pulse Resp B/P (MAP) Pulse Ox O2 Delivery O2 Flow Rate FiO2 07/30/18 14:00 96.8 91 20 125/82 (96) 95 Nasal Cannula 0.5 07/26/18 02:10 35 I&O- Last 24 Hours up to 6 AM 07/30/18 06:00 Intake Total 1786 ml Output Total 1050 ml Balance 736 ml CHRISTAL TIMMONS MD Jul 30, 2018 20:20
[2018-07-30 22:00] VITALS: BP 120/75
[2018-07-30] MEDS: SOTALOL 40MG PER 1/2 TABLET PO SCH (22:27)
[2018-07-31] MEDS: ACETAMINOPHEN TAB 650MG DOSE (2X325MG) PO PRN (02:39)
[2018-07-31 05:57] LABS: HEMATOCRIT 34.5 % (36.0-47.0); HEMOGLOBIN 10.4 g/dl (12.0-15.5); MEAN CORPUSCULAR HEMOGLOBIN 29.6 pg (27.0-33.0); MEAN CORPUSCULAR HGB CONC 30.1 g/dl (32.0-36.5); MEAN CORPUSCULAR VOLUME 98.3 fl (80.0-96.0); PLATELET COUNT, AUTOMATED 261 10^3/uL (150-450); RED BLOOD COUNT 3.51 10^6/uL (4.00-5.40)
[2018-07-31 06:00] VITALS: BP 116/78
[2018-07-31 06:09] LABS: CALCIUM LEVEL 8.9 MG/DL (8.5-10.1); CREATININE FOR GFR 1.1 MG/DL (0.55-1.30); GLOMERULAR FILTRATION RATE 54.7 (>51); POTASSIUM SERUM 3.9 MEQ/L (3.5-5.1)
[2018-07-31] MEDS: HEPARIN SOD (PORCINE) 5000 UNITS/ML VIAL SC SCH ×3 (06:35→22:31)
[2018-07-31] MEDS: HumaLOG INSULIN (NovoLOG) PER UNIT SC SCH ×4 (07:30→21:00)
[2018-07-31] MEDS: IPRATROPIUM 0.5MG/ALBUTEROL 2.5MG INH SOL UD 3ML (DUONEB)(J7620) NEB SCH ×3 (08:11→20:25)
[2018-07-31 08:37] LABS: ABG BASE EXCESS 11.9 (-2.0-2.0); ABG HCO3 37.9 MEQ/L (22.0-26.0); ABG O2 SATURATION 96.9 % (95.0-99.0); ABG PARTIAL PRESSURE O2 84.3 mmHg (75.0-100.0); ABG STANDARD HCO3 35.6 MEQ/L (22.0-26.0); ABG TOTAL CO2 39.6 MEQ/L (22.0-29.0); ABG pH (ARTERIAL) 7.448 UNITS (7.350-7.450)
[2018-07-31] MEDS: POLYSPORIN TOPICAL OINTMENT 15GM TOP SCH ×3 (08:37→22:33)
[2018-07-31] MEDS: NYSTATIN 100,000 UNITS/GM TOPICAL PWD 15 GM TOP SCH ×2 (08:37→22:32)
[2018-07-31] MEDS: FUROSEMIDE 40 MG TAB PO SCH (08:37)
[2018-07-31] MEDS: BISACODYL 5 MG TAB PO SCH (08:38)
[2018-07-31] MEDS: predniSONE 10 MG TAB PO SCH (08:38)
[2018-07-31] MEDS: FLUCONAZOLE 50MG TABLET PO SCH (08:38)
[2018-07-31] MEDS: ASPIRIN 81 MG ENTERIC TAB PO SCH (08:38)
[2018-07-31] MEDS: FERROUS SULFATE 325MG TAB PO SCH (08:38)
[2018-07-31] MEDS: GLIMEPIRIDE 2 MG TAB PO SCH (08:38)
[2018-07-31] MEDS: LEVEMIR (INSULIN DETEMIR) 1 UNITS/0.01ML SC SCH ×2 (08:39→22:32)
[2018-07-31] MEDS: SOTALOL 40MG PER 1/2 TABLET PO SCH ×2 (08:39→22:33)
[2018-07-31] MEDS ORDERED: BISACODYL 5 MG TAB PO SCH (09:00)
--- NOTE | 2018-07-31 10:57 | IPNPDOC ---
Text Note Date of Service The patient was seen on 07/31/18. NOTE SUBJECTIVE: No complaints this morning. sleeping comfortably. Appetite improv ing, no bowel movements today. No fever or chills, good urine output, sugars are uncontrolled. No Chest pain or cough. Having good urine output after removing the fuentes cath . Said she sat up in chair yesterday and had gone for a walk. Her ABG this morning looks good with CO2 level lower than before. Pateint has not been on any CPAP support last 3 days. PHYSICAL EXAMINATION: VITAL SIGNS: Please see below GENERAL APPEARANCE: lying in bed in no acute distress. HEENT: Normocephalic, PERRLA, Mucous moist, CARDIOVASCULAR: S1,S2, pulse present, regularly, regular, LUNGS: Equal decreased air entry b/l, no wheezes or crackles at the base bilaterally ABDOMEN: Soft, BS present, no tenderness, no guarding GENITOURINARY: No Fuentes EXTREMITIES: trace edema, capillary refill present , bilateral lotion may scratch vanessa from her cats, multiple scratches scabbing no active bleeding and no overt signs of infection. SKIN: Warm, No fever NEUROLOGICAL: Cranial nerves grossly intact PSYCHIATRIC: Normal mood and affect for current situation LABORATORY DATA adn RADIOLOGY : Reviewed Assessment and plan: 57 year old female was in a few past medical history of COPD chronically on 2 L nasal cannula, obesity, HEYDI, CHF who has a defibrillator and pacemaker combination diabetes, hyperlipidemia who presented complaining of shortness of breath for 1 week duration that worsened today. Patient states that her shortness of breath is also was positional. Patient unable to lie flat without shortness of breath does worsen. Patient also has dry cough. She also complained of chronic lotion recently which is unchanged. Patient also received received a new kitten for [employer], and this kitten has been scratching her lower extremity. Patient was evaluated in the emergency room noted to be hypoxemic on her regular 2 L nasal cannula and therefore oxygen was increased to 4 L with good saturation. Patient received Lasix in the emergency room with good urine output. Patient had checks x-ray and CT of the chest which showed pulmonary edema. Patient being admitted for further evaluation and treatment. Otherwise patient denies of any complaint at this time. No fever, no diarrhea, or dysuria. Acute on chronic Resp failure with Hypoxemia and hypercapnia due to CHF exacerbation which precipitated copd exacerbation. ABG stable with chronic CO2 retention in 60s and hypoxia requiring 2 liters of oxygen. continue nebs and steroids and azithromycin. Acute on chronic systolic and diastolic CHF with AICD in place now with exacerbation Ef of 15% resume home dose of lasix. I and O, daily weight Elevated troponin due to CHF exacerbation with demand ischemia. Elevation had a flat curve no high peak. COPD with chronic hypoxic and hypercarbic respiratory failure with moderate to severe pulmonary hypertension continue with oxygen supplementation to keep sats around 88. continue steroids, nebs , finished course of azithromycin. Funguria finished 7 days of fluconazole Intertriginous candidiasis finished 7 days of fluconazole continue nystatin. Obesity with possibly obesity hypoventilation with chronic CO2 retention. complicating care. patient does not have HEYDI. Sleep study showed normal sleep pattern with snoring. Diabetes uncontrolled now due to steroids. Finger sick monitoring, sliding scale, Levemir bid. continue glimepiride. Afib has pacemaker and AICD in place all paced complexes. will restart sotalol H/O bilateral stag horn calculi s/p b/l lithotripsy in the past. LE scratches Bacitracin/polymyxin ointment Hyperlipidemia, resume home statin Chronic anemia, resume iron DVT prophylaxis heparin subcutaneous VS,Fishbone, I+O VS, Fishbone, I+O Laboratory Tests 07/31/18 05:29 Red Blood Count 3.51 L, Mean Corpuscular Volume 98.3 H, Mean Corpuscular Hemoglobin 29.6, Mean Corpuscular Hemoglobin Concent 30.1 L, Red Cell Distribution Width 13.8, Calcium Level 8.9 Vital Signs Date Time Temp Pulse Resp B/P (MAP) Pulse Ox O2 Delivery O2 Flow Rate FiO2 07/31/18 08:47 2.0 07/31/18 08:39 87 120/67 07/31/18 06:00 97.3 16 96 Room Air 07/26/18 02:10 35 I&O- Last 24 Hours up to 6 AM 07/31/18 06:00 Intake Total 1456 ml Output Total 1550 ml Balance -94 ml CHRISTAL TIMMONS MD Jul 31, 2018 10:57
[2018-07-31 14:00] VITALS: BP 140/62
[2018-07-31 22:00] VITALS: BP 99/60
[2018-08-01] MEDS: HEPARIN SOD (PORCINE) 5000 UNITS/ML VIAL SC SCH ×3 (05:41→21:10)
[2018-08-01 06:00] VITALS: BP 108/66
[2018-08-01 06:02] LABS: HEMATOCRIT 34.9 % (36.0-47.0); HEMOGLOBIN 10.4 g/dl (12.0-15.5); MEAN CORPUSCULAR HEMOGLOBIN 29.3 pg (27.0-33.0); MEAN CORPUSCULAR HGB CONC 29.8 g/dl (32.0-36.5); MEAN CORPUSCULAR VOLUME 98.3 fl (80.0-96.0); PLATELET COUNT, AUTOMATED 217 10^3/uL (150-450); RED BLOOD COUNT 3.55 10^6/uL (4.00-5.40); WHITE BLOOD COUNT 6.6 10^3/uL (4.0-10.0)
[2018-08-01 06:36] LABS: CALCIUM LEVEL 9.1 MG/DL (8.5-10.1); CREATININE FOR GFR 1.03 MG/DL (0.55-1.30); MB/CK RELATIVE INDEX 3.59 (< OR =4); POTASSIUM SERUM 3.7 MEQ/L (3.5-5.1); TROPONIN I 0.08 NG/ML (< 0.10)
[2018-08-01] MEDS: GLIMEPIRIDE 2 MG TAB PO SCH (07:24)
[2018-08-01] MEDS: HumaLOG INSULIN (NovoLOG) PER UNIT SC SCH ×4 (07:24→21:10)
[2018-08-01] MEDS: IPRATROPIUM 0.5MG/ALBUTEROL 2.5MG INH SOL UD 3ML (DUONEB)(J7620) NEB SCH ×3 (08:03→23:44)
[2018-08-01] MEDS: LEVEMIR (INSULIN DETEMIR) 1 UNITS/0.01ML SC SCH ×2 (09:00→21:11)
[2018-08-01] MEDS: FUROSEMIDE 40 MG TAB PO SCH (09:26)
[2018-08-01] MEDS: predniSONE 10 MG TAB PO SCH (09:26)
[2018-08-01] MEDS: ASPIRIN 81 MG ENTERIC TAB PO SCH (09:26)
[2018-08-01] MEDS: SOTALOL 40MG PER 1/2 TABLET PO SCH ×2 (09:26→21:09)
[2018-08-01] MEDS: FERROUS SULFATE 325MG TAB PO SCH (09:26)
[2018-08-01] MEDS: BISACODYL 5 MG TAB PO SCH (09:26)
[2018-08-01] MEDS: POLYSPORIN TOPICAL OINTMENT 15GM TOP SCH ×3 (09:27→21:11)
[2018-08-01] MEDS: NYSTATIN 100,000 UNITS/GM TOPICAL PWD 15 GM TOP SCH ×2 (09:27→21:10)
--- NOTE | 2018-08-01 10:26 | IPNPDOC ---
Date Seen The patient was seen on 08/01/18. Progress Note SUBJECTIVE: failed voiding trial with 900 ml pvr per rn. had good bm. still w difficulty ambulating w le weakness. no c/o dizziness or lightheadedness. no chest pain pressure or tightness. sob unchanged from yesterday. PHYSICAL EXAMINATION: VITAL SIGNS: Please see below GENERAL APPEARANCE: lying in bed in no acute distress. HEENT: Normocephalic, PERRLA, Mucous moist, CARDIOVASCULAR: S1,S2, pulse present, regularly, regular, LUNGS: Equal decreased air entry b/l, no wheezes or crackles at the base bilaterally ABDOMEN: Soft, BS present, no tenderness, no guarding GENITOURINARY: No Mcleod EXTREMITIES: trace edema, capillary refill present , bilateral lotion may scratch vanessa from her cats, multiple scratches scabbing no active bleeding and no overt signs of infection. SKIN: Warm, No fever NEUROLOGICAL: Cranial nerves grossly intact PSYCHIATRIC: Normal mood and affect for current situation LABORATORY DATA adn RADIOLOGY : Reviewed Assessment and plan: 57 year old female was in a few past medical history of COPD chronically on 2 L nasal cannula, obesity, HEYDI, CHF who has a defibrillator and pacemaker combination diabetes, hyperlipidemia who presented complaining of shortness of breath for 1 week duration that worsened today. Patient states that her shortness of breath is also was positional. Patient unable to lie flat without shortness of breath does worsen. Patient also has dry cough. She also complained of chronic lotion recently which is unchanged. Patient also received received a new kitten for [employer], and this kitten has been scratching her lower extremity. Patient was evaluated in the emergency room noted to be hypoxemic on her regular 2 L nasal cannula and therefore oxygen was increased to 4 L with good saturation. Patient received Lasix in the emergency room with good urine output. Patient had checks x-ray and CT of the chest which showed pulmonary edema. Patient being admitted for further evaluation and treatment. Otherwise patient denies of any complaint at this time. No fever, no diarrhea, or dysuria. Acute on chronic Resp failure with Hypoxemia and hypercapnia due to CHF exacerbation which precipitated copd exacerbation. ABG stable with chronic CO2 retention in 60s and hypoxia requiring 2 liters of oxygen. continue nebs and steroids and azithromycin. Acute on chronic systolic and diastolic CHF with AICD in place now with exacerbation Ef of 15% resume home dose of lasix. I and O, daily weight add spironolactone. fluid restrict Elevated troponin due to CHF exacerbation with demand ischemia. Elevation had a flat curve no high peak. COPD with chronic hypoxic and hypercarbic respiratory failure with moderate to severe pulmonary hypertension continue with oxygen supplementation to keep sats around 88. continue steroids, nebs , finished course of azithromycin. Funguria finished 7 days of fluconazole Intertriginous candidiasis finished 7 days of fluconazole continue nystatin. Obesity with possibly obesity hypoventilation with chronic CO2 retention. complicating care. patient does not have HEYDI. Sleep study showed normal sleep pattern with snoring. Diabetes uncontrolled now due to steroids. Finger sick monitoring, sliding scale, Levemir bid. continue glimepiride. Afib has pacemaker and AICD in place all paced complexes. will restart sotalol H/O bilateral stag horn calculi s/p b/l lithotripsy in the past. LE scratches Bacitracin/polymyxin ointment Hyperlipidemia, resume home statin Chronic anemia, resume iron DVT prophylaxis heparin subcutaneous VS, Fishbone, I+O VS, I&O, 24H, Fishbone Vital Signs/I&O Vital Signs Date Time Temp Pulse Resp B/P (MAP) Pulse Ox O2 Delivery O2 Flow Rate FiO2 08/01/18 09:26 63 108/66 08/01/18 06:00 96.5 16 94 Nasal Cannula 2.0 07/26/18 02:10 35 I&O- Last 24 Hours up to 6 AM 08/01/18 05:59 Intake Total 1540 ml Output Total 2935 ml Balance -1395 ml Laboratory Data 24H LABS Laboratory Tests 2 07/31/18 11:25: Bedside Glucose (Misc Panel) 145H 07/31/18 16:31: Bedside Glucose (Misc Panel) 207H 07/31/18 21:41: Bedside Glucose (Misc Panel) 161H 08/01/18 05:43: Nucleated Red Blood Cells % (auto) 0.0, Anion Gap 6L, Glomerular Filtration Rate 59.0, Blood Urea Nitrogen 48H, Creatinine 1.03, Sodium Level 145, Potassium Level 3.7, Chloride Level 99, Carbon Dioxide Level 40H, Calcium Level 9.1, Total Creatine Kinase 39, Creatine Kinase MB 1.0, Creatine Kinase MB Relative Index 3.59, Troponin I 0.08, IA-Vyj-D-Type Natriuretic Peptide 10769M CBC/BMP Laboratory Tests 08/01/18 05:43 Red Blood Count 3.55 L, Mean Corpuscular Volume 98.3 H, Mean Corpuscular Hemoglobin 29.3, Mean Corpuscular Hemoglobin Concent 29.8 L, Red Cell Distribution Width 13.7, Calcium Level 9.1, Total Creatine Kinase 39 Microbiology Microbiology 07/24/18 Blood Culture - Final, Complete NO GROWTH AFTER 5 DAYS 07/24/18 Blood Culture - Final, Complete NO GROWTH AFTER 5 DAYS 07/24/18 Respiratory Virus Panel (PCR) (JUMANA) - Final, Complete 07/27/18 Urine Culture - Final, Complete Yeast Like Organism JOAQUIN DOCKERY MD Aug 01, 2018 10:26
[2018-08-01] MEDS: SPIRONOLACTONE 25 MG TAB PO SCH ×2 (12:57→18:09)
[2018-08-01 14:00] VITALS: BP 112/72
[2018-08-01 22:00] VITALS: BP 112/68
[2018-08-02] MEDS: HEPARIN SOD (PORCINE) 5000 UNITS/ML VIAL SC SCH ×3 (05:12→21:13)
[2018-08-02 06:00] VITALS: BP 107/64
[2018-08-02] MEDS ORDERED: TAMSULOSIN 0.4 MG CAP PO ONE (06:15)
[2018-08-02 06:29] LABS: HEMATOCRIT 37.1 % (36.0-47.0); HEMOGLOBIN 11.1 g/dl (12.0-15.5); MEAN CORPUSCULAR HEMOGLOBIN 29.4 pg (27.0-33.0); MEAN CORPUSCULAR HGB CONC 29.9 g/dl (32.0-36.5); MEAN CORPUSCULAR VOLUME 98.1 fl (80.0-96.0); PLATELET COUNT, AUTOMATED 266 10^3/uL (150-450); RED BLOOD COUNT 3.78 10^6/uL (4.00-5.40); WHITE BLOOD COUNT 9.4 10^3/uL (4.0-10.0)
[2018-08-02 06:51] LABS: CALCIUM LEVEL 9.2 MG/DL (8.5-10.1); CREATININE FOR GFR 1.16 MG/DL (0.55-1.30); GLOMERULAR FILTRATION RATE 51.4 (>51)
[2018-08-02] MEDS: IPRATROPIUM 0.5MG/ALBUTEROL 2.5MG INH SOL UD 3ML (DUONEB)(J7620) NEB SCH ×2 (07:19→15:38)
[2018-08-02] MEDS: HumaLOG INSULIN (NovoLOG) PER UNIT SC SCH ×4 (07:30→21:13)
[2018-08-02] MEDS: SPIRONOLACTONE 25 MG TAB PO SCH ×2 (09:39→17:00)
[2018-08-02 09:40] VITALS: BP 130/68
[2018-08-02] MEDS: SOTALOL 40MG PER 1/2 TABLET PO SCH ×2 (09:42→21:12)
[2018-08-02] MEDS: ASPIRIN 81 MG ENTERIC TAB PO SCH (09:44)
[2018-08-02] MEDS: BISACODYL 5 MG TAB PO SCH (09:44)
[2018-08-02] MEDS: predniSONE 10 MG TAB PO SCH (09:44)
[2018-08-02] MEDS: FERROUS SULFATE 325MG TAB PO SCH (09:44)
[2018-08-02] MEDS: GLIMEPIRIDE 2 MG TAB PO SCH (09:44)
[2018-08-02] MEDS: FUROSEMIDE 40 MG TAB PO SCH (09:44)
[2018-08-02] MEDS: LEVEMIR (INSULIN DETEMIR) 1 UNITS/0.01ML SC SCH ×2 (09:45→21:12)
[2018-08-02] MEDS: POLYSPORIN TOPICAL OINTMENT 15GM TOP SCH ×3 (09:45→21:14)
[2018-08-02] MEDS: NYSTATIN 100,000 UNITS/GM TOPICAL PWD 15 GM TOP SCH ×2 (09:45→21:14)
--- NOTE | 2018-08-02 10:58 | IPNPDOC ---
Date Seen The patient was seen on 08/02/18. Progress Note SUBJECTIVE: Pt continues to have urine retention with high post void residuals requiring catheterization. no c/o chest pain, pressure, tightness, dizziness or lightheadedness. no significant weight loss despite increased dose of spironolactone and lasix. lasix changed to iv q6hrs with holding parameters for better diuresis. PHYSICAL EXAMINATION: VITAL SIGNS: Please see below GENERAL APPEARANCE: lying in bed in no acute distress. HEENT: Normocephalic, PERRLA, Mucous moist, CARDIOVASCULAR: S1,S2, pulse present, regularly, regular, LUNGS: Equal decreased air entry b/l, no wheezes or crackles at the base bilaterally ABDOMEN: Soft, BS present, no tenderness, no guarding GENITOURINARY: No Mcleod EXTREMITIES: trace edema, capillary refill present , bilateral lotion may scratch vanessa from her cats, multiple scratches scabbing no active bleeding and no overt signs of infection. SKIN: Warm, No fever NEUROLOGICAL: Cranial nerves grossly intact PSYCHIATRIC: Normal mood and affect for current situation LABORATORY DATA adn RADIOLOGY : Reviewed Assessment and plan: 57 year old female was in a few past medical history of COPD chronically on 2 L nasal cannula, obesity, HEYDI, CHF who has a defibrillator and pacemaker combination diabetes, hyperlipidemia who presented complaining of shortness of breath for 1 week duration that worsened today. Patient states that her shortness of breath is also was positional. Patient unable to lie flat without shortness of breath does worsen. Patient also has dry cough. She also complained of chronic lotion recently which is unchanged. Patient also received received a new kitten for [employer], and this kitten has been scratching her lower extremity. Patient was evaluated in the emergency room noted to be hypoxemic on her regular 2 L nasal cannula and therefore oxygen was increased to 4 L with good saturation. Patient received Lasix in the emergency room with good urine output. Patient had checks x-ray and CT of the chest which showed pulmonar y edema. Patient being admitted for further evaluation and treatment. Otherwise patient denies of any complaint at this time. No fever, no diarrhea, or dysuria. Acute on chronic Resp failure with Hypoxemia and hypercapnia due to CHF exacerbation which precipitated copd exacerbation. ABG stable with chronic CO2 retention in 60s and hypoxia requiring 2 liters of oxygen. continue nebs and steroids and azithromycin. Acute on chronic systolic and diastolic CHF with AICD in place now with exacer bation Ef of 15% lasix iv q6hrs. I and O, daily weight spironolactone. fluid restrict Urine retention requiring frequent catheterization started onflomax 08/02/17 Elevated troponin due to CHF exacerbation with demand ischemia. Elevation had a flat curve no high peak. COPD with chronic hypoxic and hypercarbic respiratory failure with moderate to severe pulmonary hypertension continue with oxygen supplementation to keep sats around 88. continue steroids, nebs , finished course of azithromycin. Funguria finished 7 days of fluconazole Intertriginous candidiasis finished 7 days of fluconazole continue nystatin. Obesity with possibly obesity hypoventilation with chronic CO2 retention. complicating care. patient does not have HEYDI. Sleep study showed normal sleep pattern with snoring. Diabetes uncontrolled now due to steroids. Finger sick monitoring, sliding scale, Levemir bid. continue glimepiride. Afib has pacemaker and AICD in place all paced complexes. will restart sotalol H/O bilateral stag horn calculi s/p b/l lithotripsy in the past. LE scratches Bacitracin/polymyxin ointment Hyperlipidemia, resume home statin Chronic anemia, resume iron DVT prophylaxis heparin subcutaneous disposition: await PT clearance. pending clinical improvement. potentially tuesday. VS, I&O, 24H, Fishbone Vital Signs/I&O Vital Signs Date Time Temp Pulse Resp B/P (MAP) Pulse Ox O2 Delivery O2 Flow Rate FiO2 08/02/18 09:42 80 138/68 08/02/18 07:19 Nasal Cannula 08/02/18 06:00 97.0 16 100 2.0 I&O- Last 24 Hours up to 6 AM 08/02/18 05:59 Intake Total 1300 ml Output Total 1225 ml Balance 75 ml Laboratory Data 24H LABS Laboratory Tests 2 08/01/18 12:15: Bedside Glucose (Misc Panel) 233H 08/01/18 17:07: Bedside Glucose (Misc Panel) 264H 08/01/18 20:56: Bedside Glucose (Misc Panel) 266H 08/02/18 06:05: Nucleated Red Blood Cells % (auto) 0.0, Anion Gap 4L, Glomerular Filtration Rate 51.4, Blood Urea Nitrogen 52H, Creatinine 1.16, Sodium Level 144, Potassium Level 4.0, Chloride Level 99, Carbon Dioxide Level 41H, Calcium Level 9.2 CBC/BMP Laboratory Tests 08/02/18 06:05 Red Blood Count 3.78 L, Mean Corpuscular Volume 98.1 H, Mean Corpuscular Hemoglobin 29.4, Mean Corpuscular Hemoglobin Concent 29.9 L, Red Cell Distribution Width 13.7, Calcium Level 9.2 Microbiology Microbiology 07/24/18 Blood Culture - Final, Complete NO GROWTH AFTER 5 DAYS 07/24/18 Blood Culture - Final, Complete NO GROWTH AFTER 5 DAYS 07/24/18 Respiratory Virus Panel (PCR) (JUMANA) - Final, Complete 07/27/18 Urine Culture - Final, Complete Yeast Like Organism JOAQUIN DOCKERY MD Aug 02, 2018 10:52
[2018-08-02] MEDS: FUROSEMIDE 20 MG/2 ML VIAL (J1940) IV SCH ×2 (12:31→18:00)
[2018-08-02 14:00] VITALS: BP 110/80
[2018-08-02] MEDS: ATORVASTATIN 20 MG TAB PO SCH (21:12)
[2018-08-02 22:00] VITALS: BP 111/56
[2018-08-03] MEDS: FUROSEMIDE 20 MG/2 ML VIAL (J1940) IV SCH
[2018-08-03 00:01] LABS: CREATININE FOR GFR 1.69 MG/DL (0.55-1.30); GLOMERULAR FILTRATION RATE 33.3 (>51)
[2018-08-03 00:02] LABS: CALCIUM LEVEL 8.9 MG/DL (8.5-10.1); MAGNESIUM LEVEL 2.1 MG/DL (1.8-2.4); POTASSIUM SERUM 4.3 MEQ/L (3.5-5.1)
[2018-08-03 06:00] VITALS: BP 156/89
[2018-08-03] MEDS: HEPARIN SOD (PORCINE) 5000 UNITS/ML VIAL SC SCH ×3 (06:36→21:54)
[2018-08-03 06:38] LABS: HEMATOCRIT 34.3 % (36.0-47.0); HEMOGLOBIN 10.1 g/dl (12.0-15.5); MEAN CORPUSCULAR HEMOGLOBIN 28.9 pg (27.0-33.0); MEAN CORPUSCULAR HGB CONC 29.4 g/dl (32.0-36.5); MEAN CORPUSCULAR VOLUME 98.3 fl (80.0-96.0); PLATELET COUNT, AUTOMATED 225 10^3/uL (150-450); RED BLOOD COUNT 3.49 10^6/uL (4.00-5.40)
[2018-08-03 07:02] LABS: CALCIUM LEVEL 9.2 MG/DL (8.5-10.1); CREATININE FOR GFR 1.31 MG/DL (0.55-1.30); GLOMERULAR FILTRATION RATE 44.7 (>51); POTASSIUM SERUM 3.8 MEQ/L (3.5-5.1)
[2018-08-03] MEDS: HumaLOG INSULIN (NovoLOG) PER UNIT SC SCH ×4 (07:30→21:55)
[2018-08-03] MEDS: IPRATROPIUM 0.5MG/ALBUTEROL 2.5MG INH SOL UD 3ML (DUONEB)(J7620) NEB SCH ×2 (07:42)
[2018-08-03] MEDS: NYSTATIN 100,000 UNITS/GM TOPICAL PWD 15 GM TOP SCH ×2 (09:00→22:51)
[2018-08-03] MEDS ORDERED: FUROSEMIDE 40 MG TAB PO SCH (09:00)
[2018-08-03] MEDS: POLYSPORIN TOPICAL OINTMENT 15GM TOP SCH ×3 (09:00→21:54)
[2018-08-03 09:07] VITALS: BP 83/47
--- NOTE | 2018-08-03 09:13 | IPNPDOC ---
Date Seen The patient was seen on 08/03/18. Progress Note SUBJECTIVE: Pt had better diuresis but has hypotension this morning. no c/o dizziness or lightheadedness. pt's creatinine is improved. being given ns 500 ml iv bolus for hypotension. c/o fatigue. no c/o sob or chest pain. discharge postponed until blood pressure is improved and physical therapy has cleared the patient. PHYSICAL EXAMINATION: VITAL SIGNS: Please see below GENERAL APPEARANCE: lying in bed in no acute distress. HEENT: Normocephalic, PERRLA, Mucous moist, CARDIOVASCULAR: S1,S2, pulse present, regularly, regular, LUNGS: Equal decreased air entry b/l, no wheezes or crackles at the base bilaterally ABDOMEN: Soft, BS present, no tenderness, no guarding GENITOURINARY: No Mcleod EXTREMITIES: trace edema, capillary refill present , bilateral lotion may scratch vanessa from her cats, multiple scratches scabbing no active bleeding and no overt signs of infection. SKIN: Warm, No fever NEUROLOGICAL: Cranial nerves grossly intact PSYCHIATRIC: Normal mood and affect for current situation LABORATORY DATA adn RADIOLOGY : Reviewed Assessment and plan: 57 year old female was in a few past medical history of COPD chronically on 2 L nasal cannula, obesity, HEYDI, CHF who has a defibrillator and pacemaker combination diabetes, hyperlipidemia who presented complaining of shortness of breath for 1 week duration that worsened today. Patient states that her shortness of breath is also was positional. Patient unable to lie flat without shortness of breath does worsen. Patient also has dry cough. She also complained of chronic lotion recently which is unchanged. Patient also received received a new kitten for [employer], and this kitten has been scratching her lower extremity. Patient was evaluated in the emergency room noted to be hypoxemic on her regular 2 L nasal cannula and therefore oxygen was increased to 4 L with good saturation. Patient received Lasix in the emergency room with good urine output. Patient had checks x-ray and CT of the chest which showed pulmonary edema. Patient being admitted for further evaluation and treatment. Otherwise patient denies of any complaint at this time. No fever, no diarrhea, or dysuria. Acute on chronic Resp failure with Hypoxemia and hypercapnia due to CHF exacerbation which precipitated copd exacerbation. ABG stable with chronic CO2 retention in 60s and hypoxia requiring 2 liters of oxygen. continue nebs and steroids and azithromycin. Acute on chronic systolic and diastolic CHF with AICD in place now with exacerbation Ef of 15% s/p lasix iv q6hrs. I and O, daily weight s/p spironolactone. fluid restrict Hypotension due to overdiuresis 08/03/18 s/p ns 500ml iv bolus 08/03/18, lasix and spironolactone discontinued. sotalol with holding parameters. no signs of infection no ischemic complaints and denies chest pain or sob. no dizziness or lightheadedness. Urine retention requiring frequent catheterization started onflomax 08/02/17 Elevated troponin due to CHF exacerbation with demand ischemia. Elevation had a flat curve no high peak. COPD with chronic hypoxic and hypercarbic respiratory failure with moderate to severe pulmonary hypertension continue with oxygen supplementation to keep sats around 88. continue steroids, nebs , finished course of azithromycin. Funguria finished 7 days of fluconazole Intertriginous candidiasis finished 7 days of fluconazole continue nystatin. Obesity with possibly obesity hypoventilation with chronic CO2 retention. complicating care. patient does not have HEYDI. Sleep study showed normal sleep pattern with snoring. Diabetes uncontrolled now due to steroids. Finger sick monitoring, sliding scale, Levemir bid. continue glimepiride. Afib has pacemaker and AICD in place all paced complexes. will restart sotalol H/O bilateral stag horn calculi s/p b/l lithotripsy in the past. LE scratches Bacitracin/polymyxin ointment Hyperlipidemia, resume home statin Chronic anemia, resume iron DVT prophylaxis heparin subcutaneous disposition: await PT clearance. pending clinical improvement. VS, I&O, 24H, Laureanobone Vital Signs/I&O Vital Signs Date Time Temp Pulse Resp B/P (MAP) Pulse Ox O2 Delivery O2 Flow Rate FiO2 08/03/18 06:00 96.7 64 17 156/89 (111) 97 Nasal Cannula 2.0 I&O- Last 24 Hours up to 6 AM 08/03/18 06:00 Intake Total 820 ml Output Total 2350 ml Balance -1530 ml Laboratory Data 24H LABS Laboratory Tests 2 08/02/18 11:18: Bedside Glucose (Misc Panel) 175H 08/02/18 16:35: Bedside Glucose (Misc Panel) 305H 08/02/18 19:32: Bedside Glucose (Misc Panel) 320H 08/02/18 22:49: Anion Gap 5L, Glomerular Filtration Rate 33.3L, Blood Urea Nitrogen 60H, Creatinine 1.69H, Sodium Level 141, Potassium Level 4.3, Chloride Level 97L, Carbon Dioxide Level 39H, Calcium Level 8.9, Magnesium Level 2.1 08/03/18 06:11: Nucleated Red Blood Cells % (auto) 0.0, Anion Gap 3L, Glomerular Filtration Rate 44.7L, Blood Urea Nitrogen 55H, Creatinine 1.31H, Sodium Level 142, Potassium Level 3.8, Chloride Level 98, Carbon Dioxide Level 41H, Calcium Level 9.2 CBC/BMP Laboratory Tests 08/02/18 22:49 Calcium Level 8.9 08/03/18 06:11 Calcium Level 9.2, Red Blood Count 3.49 L, Mean Corpuscular Volume 98.3 H, Mean Corpuscular Hemoglobin 28.9, Mean Corpuscular Hemoglobin Concent 29.4 L, Red Cell Distribution Width 13.8 Microbiology Microbiology 07/24/18 Blood Culture - Final, Complete NO GROWTH AFTER 5 DAYS 07/24/18 Blood Culture - Final, Complete NO GROWTH AFTER 5 DAYS 07/24/18 Respiratory Virus Panel (PCR) (JUMANA) - Final, Complete 07/27/18 Urine Culture - Final, Complete Yeast Like Organism JOAQUIN DOCKERY MD Aug 03, 2018 08:44
[2018-08-03] MEDS ORDERED: NS 500 ML IV ONE ×2 (09:15→20:30)
[2018-08-03] MEDS: ASPIRIN 81 MG ENTERIC TAB PO SCH (09:58)
[2018-08-03] MEDS: FERROUS SULFATE 325MG TAB PO SCH (09:58)
[2018-08-03] MEDS: predniSONE 10 MG TAB PO SCH (09:58)
[2018-08-03] MEDS: GLIMEPIRIDE 2 MG TAB PO SCH (09:59)
[2018-08-03] MEDS: BISACODYL 5 MG TAB PO SCH (09:59)
[2018-08-03] MEDS: LEVEMIR (INSULIN DETEMIR) 1 UNITS/0.01ML SC SCH ×2 (10:00→21:54)
[2018-08-03 10:15] VITALS: BP 93/62
[2018-08-03 10:59] VITALS: BP_SYST 103; BP_SYST 109; BP_DIAS 58
[2018-08-03 13:50] VITALS: BP 98/60
[2018-08-03 16:32] LABS: CALCIUM LEVEL 8.6 MG/DL (8.5-10.1); CREATININE FOR GFR 1.61 MG/DL (0.55-1.30); GLOMERULAR FILTRATION RATE 35.2 (>51)
[2018-08-03 16:33] LABS: POTASSIUM SERUM 4.8 MEQ/L (3.5-5.1)
[2018-08-03] MEDS: ATORVASTATIN 20 MG TAB PO SCH (21:53)
[2018-08-03] MEDS: TAMSULOSIN 0.4 MG CAP PO SCH (21:53)
[2018-08-03 22:00] VITALS: BP 104/58
[2018-08-04 00:19] LABS: CALCIUM LEVEL 8.7 MG/DL (8.5-10.1); CREATININE FOR GFR 1.5 MG/DL (0.55-1.30); GLOMERULAR FILTRATION RATE 38.2 (>51); POTASSIUM SERUM 4.7 MEQ/L (3.5-5.1)
[2018-08-04 05:31] LABS: HEMATOCRIT 33.6 % (36.0-47.0); MEAN CORPUSCULAR HEMOGLOBIN 29.6 pg (27.0-33.0); MEAN CORPUSCULAR HGB CONC 29.8 g/dl (32.0-36.5); MEAN CORPUSCULAR VOLUME 99.4 fl (80.0-96.0); PLATELET COUNT, AUTOMATED 233 10^3/uL (150-450); RED BLOOD COUNT 3.38 10^6/uL (4.00-5.40); WHITE BLOOD COUNT 7.6 10^3/uL (4.0-10.0)
[2018-08-04] MEDS: HEPARIN SOD (PORCINE) 5000 UNITS/ML VIAL SC SCH ×3 (05:39→22:04)
[2018-08-04 05:57] LABS: CALCIUM LEVEL 8.5 MG/DL (8.5-10.1); CREATININE FOR GFR 1.14 MG/DL (0.55-1.30); GLOMERULAR FILTRATION RATE 52.5 (>51); POTASSIUM SERUM 4.4 MEQ/L (3.5-5.1)
[2018-08-04 06:00] VITALS: BP 108/61
[2018-08-04] MEDS: IPRATROPIUM 0.5MG/ALBUTEROL 2.5MG INH SOL UD 3ML (DUONEB)(J7620) NEB SCH ×3 (08:38→15:24)
[2018-08-04] MEDS: BISACODYL 5 MG TAB PO SCH (08:40)
[2018-08-04] MEDS: GLIMEPIRIDE 2 MG TAB PO SCH (08:40)
[2018-08-04] MEDS: predniSONE 10 MG TAB PO SCH (08:40)
[2018-08-04] MEDS: FERROUS SULFATE 325MG TAB PO SCH (08:40)
[2018-08-04] MEDS: ASPIRIN 81 MG ENTERIC TAB PO SCH (08:41)
[2018-08-04] MEDS: LEVEMIR (INSULIN DETEMIR) 1 UNITS/0.01ML SC SCH ×2 (08:41→22:03)
[2018-08-04] MEDS: NYSTATIN 100,000 UNITS/GM TOPICAL PWD 15 GM TOP SCH ×2 (08:42→22:04)
[2018-08-04] MEDS: HumaLOG INSULIN (NovoLOG) PER UNIT SC SCH ×4 (08:42→22:03)
[2018-08-04] MEDS: POLYSPORIN TOPICAL OINTMENT 15GM TOP SCH ×3 (08:42→22:04)
--- NOTE | 2018-08-04 09:34 | REP ---
Chest x-ray: Two views. History: Shortness of breath. Rule out CHF. Comparison study: July 24, 2018. Findings: A multi lead pacemaker is again noted in the right heart via the left side. Cardiomegaly is observed unchanged. There is bilateral perihilar plate-like atelectasis. There is no visible pleural effusion or pulmonary edema. Pulmonary vasculature is not increased. Impression: Cardiomegaly with multi lead pacemaker. Bilateral perihilar plate-like atelectasis. No evidence of pleural effusion or pulmonary edema. Electronically Signed by Vincent Burgos MD 08/04/2018 09:25 A
[2018-08-04] MEDS: FUROSEMIDE 20 MG/2 ML VIAL (J1940) IV SCH ×2 (10:34→17:41)
[2018-08-04] MEDS: SOTALOL 40MG PER 1/2 TABLET PO SCH (10:34)
--- NOTE | 2018-08-04 12:04 | IPNPDOC ---
Date Seen The patient was seen on 08/04/18. Progress Note SUBJECTIVE: Lasix and sotalol were discontinued on 08/03/18 due to severe hypotension requiring 1liter ns iv bolus. no c/o sob overnight. states she is feeling better but very weak, and unstable on her feet. "I feel unsteady." Pt has not passed physical therapy and remains fatigued. No c/o chest pain, sob, palpitations, lightheadedness, nausea, vomiting, feeling of impending doom, epigastric discomfort, diaphoresis, fever, or chills. No other issues per RN. low dose lasix and sotalol resumed this morning with holding paramaters, and discharge postponed due to severe weakness, with patient most likely being discharged to acute rehab either at [facility] or at a different facility next week. no discharge plans over the weekend, will await clinical improvement. Creatinine is back to baseline, but will need to further monitor pt's respiratory status in light of CHF and renal failure. PHYSICAL EXAMINATION: VITAL SIGNS: Please see below GENERAL APPEARANCE: lying in bed in no acute distress. HEENT: Normocephalic, PERRLA, Mucous moist, CARDIOVASCULAR: S1,S2, pulse present, regularly, regular, LUNGS: Equal decreased air entry b/l, no wheezes or crackles at the base bilaterally ABDOMEN: Soft, BS present, no tenderness, no guarding GENITOURINARY: No Mcleod EXTREMITIES: trace edema, capillary refill present , bilateral lotion may scratch vanessa from her cats, multiple scratches scabbing no active bleeding and no overt signs of infection. SKIN: Warm, No fever NEUROLOGICAL: Cranial nerves grossly intact PSYCHIATRIC: Normal mood and affect for current situation LABORATORY DATA adn RADIOLOGY : Reviewed Assessment and plan: 57 year old female was in a few past medical history of COPD chronically on 2 L nasal cannula, obesity, HEYDI, CHF who has a defibrillator and pacemaker combination diabetes, hyperlipidemia who presented complaining of shortness of breath for 1 week duration that worsened today. Patient states that her shortness of breath is also was positional. Patient unable to lie flat without shortness of breath does worsen. Patient also has dry cough. She also complained of chronic lotion recently which is unchanged. Patient also received received a new kitten for [employer], and this kitten has been scratching her lower extremity. Patient was evaluated in the emergency room noted to be hypoxemic on her regular 2 L nasal cannula and therefore oxygen was increased to 4 L with good saturation. Patient received Lasix in the emergency room with good urine output. Patient had checks x-ray and CT of the chest which showed pulmonary edema. Patient being admitted for further evaluation and treatment. Otherwise patient denies of any complaint at this time. No fever, no diarrhea, or dysuria. Acute on chronic Resp failure with Hypoxemia and hypercapnia due to CHF exacerbation which precipitated copd exacerbation. ABG stable with chronic CO2 retention in 60s and hypoxia requiring 2 liters of oxygen. continue nebs and steroids and azithromycin. Acute on chronic systolic and diastolic CHF with AICD in place now with exacerbation Ef of 15% s/p lasix iv q6hrs. s/p 1liter ns bolus on 08/03/18 due to hypotension. resumed low dose lasix 08/04/18 once creatinine returned to baseline with holding parameter on lasix to prevent further overdiuresis and dehydration. I and O, daily weight s/p spironolactone. fluid restrict Hypotension due to overdiuresis 08/03/18 s/p ns 500ml iv bolus 08/03/18, lasix and spironolactone discontinued. sotalol with holding parameters. no signs of infection no ischemic complaints and denies chest pain or sob. no dizziness or lightheadedness. Urine retention requiring frequent catheterization started onflomax 08/02/17 Elevated troponin due to CHF exacerbation with demand ischemia. Elevation had a flat curve no high peak. COPD with chronic hypoxic and hypercarbic respiratory failure with moderate to severe pulmonary hypertension continue with oxygen supplementation to keep sats around 88. continue steroids, nebs , finished course of azithromycin. Funguria finished 7 days of fluconazole Intertriginous candidiasis finished 7 days of fluconazole continue nystatin. Obesity with possibly obesity hypoventilation with chronic CO2 retention. complicating care. patient does not have HEYDI. Sleep study showed normal sleep pattern with snoring. Diabetes uncontrolled now due to steroids. Finger sick monitoring, sliding scale, Levemir bid. continue glimepiride. Afib has pacemaker and AICD in place all paced complexes. will restart sotalol H/O bilateral stag horn calculi s/p b/l lithotripsy in the past. LE scratches Bacitracin/polymyxin ointment Hyperlipidemia, resume home statin Chronic anemia, resume iron DVT prophylaxis heparin subcutaneous disposition: await PT clearance. pending clinical improvement. no plans for discharge this weekend. most likely will need acute rehab. VS, I&O, 24H, Fishbone Vital Signs/I&O Vital Signs Date Time Temp Pulse Resp B/P (MAP) Pulse Ox O2 Delivery O2 Flow Rate FiO2 08/04/18 10:34 84 96/50 08/04/18 06:00 96.8 18 93 Nasal Cannula 2.0 08/03/18 11:20 99 I&O- Last 24 Hours up to 6 AM 08/04/18 05:59 Intake Total 1140 ml Output Total 825 ml Balance 315 ml Laboratory Data 24H LABS Laboratory Tests 2 08/03/18 15:59: Anion Gap 6L, Glomerular Filtration Rate 35.2L, Blood Urea Nitrogen 59H, Crea tinine 1.61H, Sodium Level 143, Potassium Level 4.8#, Chloride Level 99, Carbon Dioxide Level 38H, Calcium Level 8.6 08/03/18 23:43: Anion Gap 5L, Glomerular Filtration Rate 38.2L, Blood Urea Nitrogen 62H, Creatinine 1.50H, Sodium Level 144, Potassium Level 4.7, Chloride Level 101, Carbon Dioxide Level 38H, Calcium Level 8.7, QY-Fda-C-Type Natriuretic Peptide 6226H 08/04/18 05:19: Anion Gap 3L, Glomerular Filtration Rate 52.5, Blood Urea Nitrogen 58H, Cr eatinine 1.14, Sodium Level 145, Potassium Level 4.4, Chloride Level 102, Carbon Dioxide Level 40H, Calcium Level 8.5, Nucleated Red Blood Cells % (auto) 0.0 CBC/BMP Laboratory Tests 08/03/18 15:59 Calcium Level 8.6 08/03/18 23:43 Calcium Level 8.7 08/04/18 05:19 Calcium Level 8.5, Red Blood Count 3.38 L, Mean Corpuscular Volume 99.4 H, Mean Corpuscular Hemoglobin 29.6, Mean Corpuscular Hemoglobin Concent 29.8 L, Red Cell Distribution Width 13.8 Microbiology Microbiology 07/27/18 Urine Culture - Final, Complete Yeast Like Organism JOAQUIN DOCKERY MD Aug 04, 2018 12:04
[2018-08-04 14:00] VITALS: BP 117/66
[2018-08-04 17:42] VITALS: BP 129/76
[2018-08-04 22:00] VITALS: BP 114/57
[2018-08-04] MEDS: ATORVASTATIN 20 MG TAB PO SCH (22:02)
[2018-08-04] MEDS: TAMSULOSIN 0.4 MG CAP PO SCH (22:02)
[2018-08-05] MEDS: HEPARIN SOD (PORCINE) 5000 UNITS/ML VIAL SC SCH ×3 (05:31→21:53)
[2018-08-05 06:00] VITALS: BP 112/62
[2018-08-05 06:07] LABS: HEMATOCRIT 32.5 % (36.0-47.0); HEMOGLOBIN 9.7 g/dl (12.0-15.5); MEAN CORPUSCULAR HEMOGLOBIN 29.6 pg (27.0-33.0); MEAN CORPUSCULAR HGB CONC 29.8 g/dl (32.0-36.5); MEAN CORPUSCULAR VOLUME 99.1 fl (80.0-96.0); PLATELET COUNT, AUTOMATED 227 10^3/uL (150-450); RED BLOOD COUNT 3.28 10^6/uL (4.00-5.40); WHITE BLOOD COUNT 6.8 10^3/uL (4.0-10.0)
[2018-08-05 06:27] LABS: CALCIUM LEVEL 9.2 MG/DL (8.5-10.1); CREATININE FOR GFR 1.14 MG/DL (0.55-1.30); GLOMERULAR FILTRATION RATE 52.5 (>51)
[2018-08-05] MEDS: HumaLOG INSULIN (NovoLOG) PER UNIT SC SCH ×4 (07:30→21:54)
[2018-08-05] MEDS: POLYSPORIN TOPICAL OINTMENT 15GM TOP SCH ×3 (08:09→21:54)
[2018-08-05] MEDS: NYSTATIN 100,000 UNITS/GM TOPICAL PWD 15 GM TOP SCH ×2 (08:09→21:54)
[2018-08-05] MEDS: SOTALOL 40MG PER 1/2 TABLET PO SCH (08:10)
[2018-08-05] MEDS: ASPIRIN 81 MG ENTERIC TAB PO SCH (08:10)
[2018-08-05] MEDS: predniSONE 10 MG TAB PO SCH (08:11)
[2018-08-05] MEDS: FERROUS SULFATE 325MG TAB PO SCH (08:11)
[2018-08-05] MEDS: GLIMEPIRIDE 2 MG TAB PO SCH (08:11)
[2018-08-05] MEDS: FUROSEMIDE 20 MG/2 ML VIAL (J1940) IV SCH ×2 (08:12→17:09)
[2018-08-05] MEDS: LEVEMIR (INSULIN DETEMIR) 1 UNITS/0.01ML SC SCH ×2 (08:12→21:53)
[2018-08-05] MEDS: BISACODYL 5 MG TAB PO SCH (08:13)
[2018-08-05] MEDS: IPRATROPIUM 0.5MG/ALBUTEROL 2.5MG INH SOL UD 3ML (DUONEB)(J7620) NEB SCH ×4 (08:25→15:41)
--- NOTE | 2018-08-05 10:17 | IPNPDOC ---
Date Seen The patient was seen on 08/05/18. Progress Note SUBJECTIVE: "I feel alright." no issues overnight. denies PND, orthopnea or dyspnea on exertion. no c/o sob overnight. states she is feeling better but very weak, and unstable on her feet. "I feel unsteady." Pt has not passed physical therapy and remains fatigued. No c/o chest pain, sob, palpitations, lightheadedness, nausea, vomiting, feeling of impending doom, epigastric discomfort, diaphoresis, fever, or chills. No other issues per RN. low dose lasix and sotalol resumed with holding paramaters, and discharge postponed due to severe weakness, with patient most likely being discharged to acute rehab either at [facility] or at a different facility next week. no discharge plans over the weekend, will await clinical improvement. Creatinine is back to baseline, but will need to further monitor pt's respiratory status in light of CHF and renal failure. PHYSICAL EXAMINATION: VITAL SIGNS: Please see below GENERAL APPEARANCE: lying in bed in no acute distress. HEENT: Normocephalic, PERRLA, Mucous moist, CARDIOVASCULAR: S1,S2, pulse present, regularly, regular, LUNGS: Equal decreased air entry b/l, no wheezes or crackles at the base bilaterally ABDOMEN: Soft, BS present, no tenderness, no guarding GENITOURINARY: No Mcleod EXTREMITIES: trace edema, capillary refill present , bilateral lotion may scratch vanessa from her cats, multiple scratches scabbing no active bleeding and no overt signs of infection. SKIN: Warm, No fever NEUROLOGICAL: Cranial nerves grossly intact PSYCHIATRIC: Normal mood and affect for current situation LABORATORY DATA adn RADIOLOGY : Reviewed Assessment and plan: 57 year old female was in a few past medical history of COPD chronically on 2 L nasal cannula, obesity, HEYDI, CHF who has a defibrillator and pacemaker combination diabetes, hyperlipidemia who presented complaining of shortness of breath for 1 week duration that worsened today. Patient states that her shortness of breath is also was positional. Patient unable to lie flat without shortness of breath does worsen. Patient also has dry cough. She also complained of chronic lotion recently which is unchanged. Patient also received received a new kitten for [employer], and this kitten has been scratching her lower extremity. Patient was evaluated in the emergency room noted to be hypoxemic on her regular 2 L nasal cannula and therefore oxygen was increased to 4 L with good saturation. Patient received Lasix in the emergency room with good urine output. Patient had checks x-ray and CT of the chest which showed pulmonary edema. Patient being admitted for further evaluation and treatment. O therwise patient denies of any complaint at this time. No fever, no diarrhea, or dysuria. Acute on chronic Resp failure with Hypoxemia and hypercapnia due to CHF exacerbation which precipitated copd exacerbation. ABG stable with chronic CO2 retention in 60s and hypoxia requiring 2 liters of oxygen. continue nebs and steroids and azithromycin. Acute on chronic systolic and diastolic CHF with AICD in place now with exacerbation Ef of 15% s/p lasix iv q6hrs. s/p 1liter ns bolus on 08/03/18 due to hypotension. resumed low dose lasix 08/04/18 once creatinine returned to baseline with holding parameter on lasix to prevent further overdiuresis and dehydration. I and O, daily weight s/p spironolactone. fluid restrict Hypotension due to overdiuresis 08/03/18 s/p ns 500ml iv bolus 08/03/18, lasix and spironolactone discontinued. sotalol with holding parameters. no signs of infection no ischemic complaints and denies chest pain or sob. no dizziness or lightheadedness. Urine retention requiring frequent catheterization started onflomax 08/02/17 Elevated troponin due to CHF exacerbation with demand ischemia. Elevation had a flat curve no high peak. COPD with chronic hypoxic and hypercarbic respiratory failure with moderate to severe pulmonary hypertension continue with oxygen supplementation to keep sats around 88. continue steroids, nebs , finished course of azithromycin. Funguria finished 7 days of fluconazole Intertriginous candidiasis finished 7 days of fluconazole continue nystatin. Obesity with possibly obesity hypoventilation with chronic CO2 retention. complicating care. patient does not have HEYDI. Sleep study showed normal sleep pattern with snoring. Diabetes uncontrolled now due to steroids. Finger sick monitoring, sliding scale, Levemir bid. continue glimepiride. Afib has pacemaker and AICD in place all paced complexes. will restart sotalol H/O bilateral stag horn calculi s/p b/l lithotripsy in the past. LE scratches Bacitracin/polymyxin ointment Hyperlipidemia, resume home statin Chronic anemia, resume iron DVT prophylaxis heparin subcutaneous disposition: await PT clearance. pending clinical improvement. no plans for discharge this weekend. most likely will need acute rehab. VS, I&O, 24H, Fishbone Vital Signs/I&O Vital Signs Date Time Temp Pulse Resp B/P (MAP) Pulse Ox O2 Delivery O2 Flow Rate FiO2 08/05/18 09:00 2.0 99 08/05/18 08:10 82 125/74 08/05/18 06:00 96.9 18 98 Nasal Cannula I&O- Last 24 Hours up to 6 AM 08/05/18 06:00 Intake Total 980 ml Output Total 1475 ml Balance -495 ml Laboratory Data 24H LABS Laboratory Tests 2 08/04/18 16:36: Bedside Glucose (Misc Panel) 307H 08/05/18 05:28: Nucleated Red Blood Cells % (auto) 0.0, Anion Gap 5L, Glomerular Filtration Rate 52.5, Blood Urea Nitrogen 52H, Creatinine 1.14, Sodium Level 144, Potassium Level 4.0, Chloride Level 101, Carbon Dioxide Level 38H, Calcium Level 9.2 CBC/BMP Laboratory Tests 08/05/18 05:28 Red Blood Count 3.28 L, Mean Corpuscular Volume 99.1 H, Mean Corpuscular Hemoglobin 29.6, Mean Corpuscular Hemoglobin Concent 29.8 L, Red Cell Distribution Width 13.9, Calcium Level 9.2 Microbiology Microbiology 07/27/18 Urine Culture - Final, Complete Yeast Like Organism JOAQUIN DOCKERY MD Aug 05, 2018 10:17
[2018-08-05 10:26] VITALS: BP 107/58
[2018-08-05 14:41] VITALS: BP 114/66
[2018-08-05] MEDS: TAMSULOSIN 0.4 MG CAP PO SCH (21:53)
[2018-08-05] MEDS: ATORVASTATIN 20 MG TAB PO SCH (21:53)
[2018-08-05 22:00] VITALS: BP 105/60
[2018-08-06] MEDS: HEPARIN SOD (PORCINE) 5000 UNITS/ML VIAL SC SCH ×3 (05:05→20:47)
[2018-08-06 06:00] VITALS: BP 100/61
[2018-08-06] MEDS: HumaLOG INSULIN (NovoLOG) PER UNIT SC SCH ×4 (07:30→20:48)
[2018-08-06 07:42] LABS: BASO % 0.1 % (0.0-1.0); EOS % 0.1 % (0.0-3.0); HEMATOCRIT 34.3 % (36.0-47.0); LYMPH # 1.8 10^3/uL (1.5-4.5); MEAN CORPUSCULAR HEMOGLOBIN 29.2 pg (27.0-33.0); MEAN CORPUSCULAR HGB CONC 29.2 g/dl (32.0-36.5); MEAN CORPUSCULAR VOLUME 100.3 fl (80.0-96.0); MONO # 0.5 10^3/uL (0.0-0.8); MONO % 6.5 % (0.0-5.0); NEUTROPHILS # 5.5 10^3/uL (1.8-7.7); NEUTROPHILS % 68.9 % (36.0-66.0); PLATELET COUNT, AUTOMATED 247 10^3/uL (150-450); RED BLOOD COUNT 3.42 10^6/uL (4.00-5.40)
[2018-08-06] MEDS: FUROSEMIDE 20 MG/2 ML VIAL (J1940) IV SCH (07:48)
[2018-08-06] MEDS: SOTALOL 40MG PER 1/2 TABLET PO SCH (07:48)
[2018-08-06 07:49] LABS: CALCIUM LEVEL 9.3 MG/DL (8.5-10.1); CREATININE FOR GFR 1.18 MG/DL (0.55-1.30); GLOMERULAR FILTRATION RATE 50.4 (>51); POTASSIUM SERUM 4.4 MEQ/L (3.5-5.1)
[2018-08-06] MEDS: IPRATROPIUM 0.5MG/ALBUTEROL 2.5MG INH SOL UD 3ML (DUONEB)(J7620) NEB SCH ×3 (08:01→11:47)
[2018-08-06] MEDS: GLIMEPIRIDE 2 MG TAB PO SCH (08:51)
[2018-08-06] MEDS: ASPIRIN 81 MG ENTERIC TAB PO SCH (08:51)
[2018-08-06] MEDS: predniSONE 10 MG TAB PO SCH (08:51)
[2018-08-06] MEDS: FERROUS SULFATE 325MG TAB PO SCH (08:52)
[2018-08-06] MEDS: POLYSPORIN TOPICAL OINTMENT 15GM TOP SCH ×3 (08:52→20:48)
[2018-08-06] MEDS: BISACODYL 5 MG TAB PO SCH (08:52)
[2018-08-06] MEDS: LEVEMIR (INSULIN DETEMIR) 1 UNITS/0.01ML SC SCH ×2 (08:52→20:48)
[2018-08-06] MEDS: NYSTATIN 100,000 UNITS/GM TOPICAL PWD 15 GM TOP SCH ×2 (08:52→20:48)
[2018-08-06 14:00] VITALS: BP 114/60
--- NOTE | 2018-08-06 16:24 | IPNPDOC ---
Date Seen The patient was seen on 08/06/18. Progress Note SUBJECTIVE: "I'm doing alright." no issues overnight. denies PND, orthopnea or dyspnea on exertion. pt has been net negative for the past 48hours. on fluid restriction and strict i/o. no c/o sob overnight. states she is feeling better but very weak, and unstable on her feet. "I feel unsteady." Pt has not passed physical therapy and remains fatigued. No c/o chest pain, sob, palpitations, lightheadedness, nausea, vomiting, feeling of impending doom, epigastric discomfort, diaphoresis, fever, or chills. No other issues per RN. low dose lasix and sotalol resumed with holding paramaters, and discharge postponed due to severe weakness, with patient most likely being discharged to acute rehab either at [facility] or at a different facility next week. no discharge plans over the weekend, will await clinical improvement. Creatinine is back to baseline, but will need to further monitor pt's respiratory status in light of CHF and renal failure. PHYSICAL EXAMINATION: VITAL SIGNS: Please see below GENERAL APPEARANCE: lying in bed in no acute distress. HEENT: Normocephalic, PERRLA, Mucous moist, CARDIOVASCULAR: S1,S2, pulse present, regularly, regular, LUNGS: Equal decreased air entry b/l, no wheezes or crackles at the base bilaterally ABDOMEN: Soft, BS present, no tenderness, no guarding GENITOURINARY: No Mcleod EXTREMITIES: trace edema, capillary refill present , bilateral lotion may scra tch vanessa from her cats, multiple scratches scabbing no active bleeding and no overt signs of infection. SKIN: Warm, No fever NEUROLOGICAL: Cranial nerves grossly intact PSYCHIATRIC: Normal mood and affect for current situation LABORATORY DATA adn RADIOLOGY : Reviewed Assessment and plan: 57 year old female was in a few past medical history of COPD chronically on 2 L nasal cannula, obesity, HEYDI, CHF who has a defibrillator and pacemaker combination diabetes, hyperlipidemia who presented complaining of shortness of breath for 1 week duration that worsened today. Patient states that her shortness of breath is also was positional. Patient unable to lie flat without shortness of breath does worsen. Patient also has dry cough. She also complained of chronic lotion recently which is unchanged. Patient also received received a new kitten for [employer], and this kitten has been scratching her lower extremity. Patient was evaluated in the emergency room noted to be hypoxemic on her regular 2 L nasal cannula and therefore oxygen was increased to 4 L with good saturation. Patient received Lasix in the emergency room with good urine output. Patient had checks x-ray and CT of the chest which showed pulmonary edema. Patient being admitted for further evaluation and treatment. Otherwise patient denies of any complaint at this time. No fever, no diarrhea, or dysuria. Acute on chronic Resp failure with Hypoxemia and hypercapnia due to CHF exacerbation which precipitated copd exacerbation. ABG stable with chronic CO2 retention in 60s and hypoxia requiring 2 liters of oxygen. continue nebs and steroids and azithromycin. Acute on chronic systolic and diastolic CHF with AICD in place now with exacerbation Ef of 15% s/p lasix iv q6hrs. s/p 1liter ns bolus on 08/03/18 due to hypotension. resumed low dose lasix 08/04/18 once creatinine returned to baseline with holding parameter on lasix to prevent further overdiuresis and dehydration. I and O, daily weight s/p spironolactone. fluid restrict Hypotension due to overdiuresis 08/03/18 s/p ns 500ml iv bolus 08/03/18, lasix and spironolactone discontinued. sotalol with holding parameters. no signs of infection no ischemic complaints and denies chest pain or sob. no dizziness or lightheadedness. Urine retention requiring frequent catheterization started onflomax 08/02/17 Elevated troponin due to CHF exacerbation with demand ischemia. Elevation had a flat curve no high peak. COPD with chronic hypoxic and hypercarbic respiratory failure with moderate to severe pulmonary hypertension continue with oxygen supplementation to keep sats around 88. continue steroids, nebs , finished course of azithromycin. Funguria finished 7 days of fluconazole Intertriginous candidiasis finished 7 days of fluconazole continue nystatin. Obesity with possibly obesity hypoventilation with chronic CO2 retention. complicating care. patient does not have HEYDI. Sleep study showed normal sleep pattern with snoring. Diabetes uncontrolled now due to steroids. Finger sick monitoring, sliding scale, Levemir bid. continue glimepiride. Afib has pacemaker and AICD in place all paced complexes. will restart sotalol H/O bilateral stag horn calculi s/p b/l lithotripsy in the past. LE scratches Bacitracin/polymyxin ointment Hyperlipidemia, resume home statin Chronic anemia, resume iron DVT prophylaxis heparin subcutaneous disposition: await PT clearance. pending clinical improvement. no plans for discharge this weekend. most likely will need acute rehab. VS, I&O, 24H, Fishbone Vital Signs/I&O Vital Signs Date Time Temp Pulse Resp B/P (MAP) Pulse Ox O2 Delivery O2 Flow Rate FiO2 08/06/18 14:00 98.8 78 20 114/60 (78) 97 Nasal Cannula 2.0 08/06/18 09:00 I&O- Last 24 Hours up to 6 AM 08/06/18 06:00 Intake Total 960 ml Output Total 2050 ml Balance -1090 ml Laboratory Data 24H LABS Laboratory Tests 2 08/05/18 20:32: Bedside Glucose (Misc Panel) 282H 08/06/18 06:07: Bedside Glucose (Misc Panel) 100 08/06/18 07:08: Immature Granulocyte % (Auto) 1.4, White Blood Count 8.0, Red Blood Count 3.42L, Hemoglobin 10.0L, Hematocrit 34.3L, Mean Corpuscular Volume 100.3H, Mean Corpuscular Hemoglobin 29.2, Mean Corpuscular Hemoglobin Concent 29.2L, Red Cell Distribution Width 13.9, Platelet Count 247, Neutrophils (%) (Auto) 68.9H, Lymphocytes (%) (Auto) 23.0L, Monocytes (%) (Auto) 6.5H, Eosinophils (%) (Auto) 0.1, Basophils (%) (Auto) 0.1, Neutrophils # (Auto) 5.5, Lymphocytes # (Auto) 1.8, Monocytes # (Auto) 0.5, Eosinophils # (Auto) 0.0, Basophils # (Auto) 0.0, Nucleated Red Blood Cells % (auto) 0.0, Anion Gap 5L, Glomerular Filtration Rate 50.4L, Blood Urea Nitrogen 57H, Creatinine 1.18, Sodium Level 145, Potassium Level 4.4, Chloride Level 101, Carbon Dioxide Level 39H, Calcium Level 9.3, Magnesium Level 2.0 CBC/BMP Laboratory Tests 08/06/18 07:08 Red Blood Count 3.42 L, Mean Corpuscular Volume 100.3 H, Mean Corpuscular Hemoglobin 29.2, Mean Corpuscular Hemoglobin Concent 29.2 L, Red Cell Distribution Width 13.9, Neutrophils (%) (Auto) 68.9 H, Lymphocytes (%) (Auto) 23.0 L, Monocytes (%) (Auto) 6.5 H, Eosinophils (%) (Auto) 0.1, Basophils (%) (Auto) 0.1, Neutrophils # (Auto) 5.5, Lymphocytes # (Auto) 1.8, Monocytes # (Auto) 0.5, Eosinophils # (Auto) 0.0, Basophils # (Auto) 0.0, Calcium Level 9.3 Microbiology Microbiology 07/27/18 Urine Culture - Final, Complete Yeast Like Organism JOAQUIN DOCKERY MD Aug 06, 2018 16:21
[2018-08-06] MEDS: TAMSULOSIN 0.4 MG CAP PO SCH (20:47)
[2018-08-06] MEDS: ATORVASTATIN 20 MG TAB PO SCH (20:47)
[2018-08-06 22:00] VITALS: BP 113/68
[2018-08-07] MEDS: HEPARIN SOD (PORCINE) 5000 UNITS/ML VIAL SC SCH ×3 (05:07→20:40)
[2018-08-07 06:00] VITALS: BP 113/68
[2018-08-07] MEDS: IPRATROPIUM 0.5MG/ALBUTEROL 2.5MG INH SOL UD 3ML (DUONEB)(J7620) NEB SCH ×4 (07:24→20:28)
[2018-08-07] MEDS: HumaLOG INSULIN (NovoLOG) PER UNIT SC SCH ×4 (07:30→20:42)
[2018-08-07] MEDS ORDERED: ONDANSETRON 4MG/2ML VIAL (J2405) As Ordered ONE (08:12)
[2018-08-07] MEDS ORDERED: dexameTHASONE 4 MG/ML 1ML VIAL (J1100) As Ordered ONE (08:12)
[2018-08-07] MEDS ORDERED: MORPHINE PRES-FREE INJ 10 MG/10 ML VIAL (J2274) As Ordered ONE (08:12)
[2018-08-07] MEDS ORDERED: KETOROLAC 60 MG/2 ML VIAL (J1885) As Ordered ONE (08:12)
[2018-08-07] MEDS ORDERED: OXYTOCIN INJ 10 UNITS/ML VIAL (J2590) As Ordered ONE (08:12)
[2018-08-07] MEDS ORDERED: PHENYLephrine HCL 500 MCG/5 ML (100MCG/ML) SYRINGE (J2370) As Ordered ONE (08:12)
[2018-08-07] MEDS ORDERED: ePHEDrine SULFATE 25 MG/5 ML(5MG/ML) SYRINGE As Ordered ONE (08:12)
[2018-08-07] MEDS: GLIMEPIRIDE 2 MG TAB PO SCH (08:16)
[2018-08-07 08:32] VITALS: BP 102/64
[2018-08-07] MEDS ORDERED: LEVEMIR (INSULIN DETEMIR) 1 UNITS/0.01ML As Ordered ONE (10:40)
[2018-08-07] MEDS: SOTALOL 40MG PER 1/2 TABLET PO SCH (10:46)
[2018-08-07] MEDS: FUROSEMIDE 20 MG TAB PO SCH (10:47)
[2018-08-07] MEDS: BISACODYL 5 MG TAB PO SCH (10:47)
[2018-08-07] MEDS: FERROUS SULFATE 325MG TAB PO SCH (10:48)
[2018-08-07] MEDS: ASPIRIN 81 MG ENTERIC TAB PO SCH (10:48)
[2018-08-07] MEDS: LEVEMIR (INSULIN DETEMIR) 1 UNITS/0.01ML SC SCH ×2 (10:48→20:40)
[2018-08-07] MEDS: predniSONE 10 MG TAB PO SCH (10:48)
--- NOTE | 2018-08-07 10:48 | IPNPDOC ---
Date Seen The patient was seen on 08/07/18. Progress Note SUBJECTIVE: Pt was started on Diflucan for Yeast in the urine. "I'm doing alright." no issues overnight. denies PND, orthopnea or dyspnea on exertion. pt has been net negative for the past 48hours. on fluid restriction and strict i/o.no c/o sob overnight. states she is feeling better but very weak, and unstable on her feet. "I feel unsteady." Pt has not passed physical therapy and remains fatigued. No c/o chest pain, sob, palpitations, lightheadedness, nausea, vomiting, feeling of impending doom, epigastric discomfort, diaphoresis, fever, or chills. No other issues per RN. low dose lasix and sotalol resumed with holding paramaters, and discharge postponed due to severe weakness, with patient most likely being discharged to acute rehab either at [facility] or at a different facility next week. no discharge plans over the weekend, will await clinical improvement. Creatinine is back to baseline, but will need to further monitor pt's respiratory status in light of CHF and renal failure. PHYSICAL EXAMINATION: VITAL SIGNS: Please see below GENERAL APPEARANCE: lying in bed in no acute distress. HEENT: Normocephalic, PERRLA, Mucous moist, CARDIOVASCULAR: S1,S2, pulse present, regularly, regular, LUNGS: Equal decreased air entry b/l, no wheezes or crackles at the base bilaterally ABDOMEN: Soft, BS present, no tenderness, no guarding GENITOURINARY: No Mcleod EXTREMITIES: trace edema, capillary refill present , bilateral lotion may scratch vanessa from her cats, multiple scratches scabbing no active bleeding and no overt signs of infection. SKIN: Warm, No fever NEUROLOGICAL: Cranial nerves grossly intact PSYCHIATRIC: Normal mood and affect for current situation LABORATORY DATA adn RADIOLOGY : Reviewed Assessment and plan: 57 year old female was in a few past medical history of COPD chronically on 2 L nasal cannula, obesity, HEYDI, CHF who has a defibrillator and pacemaker combination diabetes, hyperlipidemia who presented complaining of shortness of breath for 1 week duration that worsened today. Patient states that her shortness of breath is also was positional. Patient unable to lie flat without shortness of breath does worsen. Patient also has dry cough. She also complained of chronic lotion recently which is unchanged. Patient also received received a new kitten for [employer], and this kitten has been scratching her lower extremity. Patient was evaluated in the emergency room noted to be hypoxemic on her regular 2 L nasal cannula and therefore oxygen was increased to 4 L with good saturation. Patient received Lasix in the emergency room with good urine output. Patient had checks x-ray and CT of the chest which showed pulmonary edema. Patient being admitted for further evaluation and treatment. Otherwise patient denies of any complaint at this time. No fever, no diarrhea, or dysuria. Acute on chronic Resp failure with Hypoxemia and hypercapnia due to CHF exacerbation which precipitated copd exacerbation. ABG stable with chronic CO2 retention in 60s and hypoxia requiring 2 liters of oxygen. continue nebs and steroids and azithromycin. Acute on chronic systolic and diastolic CHF with AICD in place now with exacerbation Ef of 15% s/p lasix iv q6hrs. s/p 1liter ns bolus on 08/03/18 due to hypotension. resumed low dose lasix 08/04/18 once creatinine returned to baseline with holding parameter on lasix to prevent further overdiuresis and dehydration. I and O, daily weight s/p spironolactone. fluid restrict Yeast in urine diflucan x 7days. Hypotension due to overdiuresis 08/03/18 s/p ns 500ml iv bolus 08/03/18, lasix and spironolactone discontinued. sotalol with holding parameters. no signs of infection no ischemic complaints and denies chest pain or sob. no dizziness or lightheadedness. Urine retention requiring frequent catheterization started onflomax 08/02/17 Elevated troponin due to CHF exacerbation with demand ischemia. Elevation had a flat curve no high peak. COPD with chronic hypoxic and hypercarbic respiratory failure with moderate to severe pulmonary hypertension continue with oxygen supplementation to keep sats around 88. continue steroids, nebs , finished course of azithromycin. Funguria finished 7 days of fluconazole Intertriginous candidiasis finished 7 days of fluconazole continue nystatin. Obesity with possibly obesity hypoventilation with chronic CO2 retention. complicating care. patient does not have HEYDI. Sleep study showed normal sleep pattern with snoring. Diabetes uncontrolled now due to steroids. Finger sick monitoring, sliding scale, Levemir bid. continue glimepiride. Afib has pacemaker and AICD in place all paced complexes. will restart sotalol H/O bilateral stag horn calculi s/p b/l lithotripsy in the past. LE scratches Bacitracin/polymyxin ointment Hyperlipidemia, resume home statin Chronic anemia, resume iron DVT prophylaxis heparin subcutaneous disposition: await PT clearance. pending clinical improvement. no plans for discharge this weekend. most likely will need acute rehab. VS, I&O, 24H, Fishbone Vital Signs/I&O Vital Signs Date Time Temp Pulse Resp B/P (MAP) Pulse Ox O2 Delivery O2 Flow Rate FiO2 08/07/18 06:00 97.1 68 20 113/68 (83) 100 Nasal Cannula 2.0 08/06/18 09:00 I&O- Last 24 Hours up to 6 AM 08/07/18 06:00 Intake Total 1248 ml Output Total 2660 ml Balance -1412 ml Laboratory Data 24H LABS Laboratory Tests 2 08/07/18 05:55: Bedside Glucose (Misc Panel) 102 JOAQUIN DOCKERY MD Aug 07, 2018 08:52
[2018-08-07] MEDS: FLUCONAZOLE 100 MG TAB PO SCH (10:49)
[2018-08-07] MEDS: NYSTATIN 100,000 UNITS/GM TOPICAL PWD 15 GM TOP SCH ×2 (10:49→20:42)
[2018-08-07] MEDS: POLYSPORIN TOPICAL OINTMENT 15GM TOP SCH ×3 (10:49→20:42)
[2018-08-07 12:55] VITALS: BP 115/69
[2018-08-07 14:00] VITALS: BP 117/65
[2018-08-07] MEDS: ATORVASTATIN 20 MG TAB PO SCH (20:39)
[2018-08-07] MEDS: TAMSULOSIN 0.4 MG CAP PO SCH (20:40)
[2018-08-07 22:00] VITALS: BP 116/58
[2018-08-08] MEDS: HEPARIN SOD (PORCINE) 5000 UNITS/ML VIAL SC SCH ×3 (05:30→20:44)
[2018-08-08 06:00] VITALS: BP 133/74
[2018-08-08] MEDS: GLIMEPIRIDE 2 MG TAB PO SCH (08:01)
[2018-08-08] MEDS: predniSONE 10 MG TAB PO SCH (08:02)
[2018-08-08] MEDS: HumaLOG INSULIN (NovoLOG) PER UNIT SC SCH ×4 (08:02→20:44)
[2018-08-08] MEDS: FLUCONAZOLE 100 MG TAB PO SCH (08:02)
[2018-08-08] MEDS: SOTALOL 40MG PER 1/2 TABLET PO SCH (08:02)
[2018-08-08] MEDS: FUROSEMIDE 20 MG TAB PO SCH (08:03)
[2018-08-08] MEDS: ASPIRIN 81 MG ENTERIC TAB PO SCH (08:03)
[2018-08-08] MEDS: FERROUS SULFATE 325MG TAB PO SCH (08:03)
[2018-08-08] MEDS: POLYSPORIN TOPICAL OINTMENT 15GM TOP SCH ×3 (08:04→20:44)
[2018-08-08] MEDS: NYSTATIN 100,000 UNITS/GM TOPICAL PWD 15 GM TOP SCH ×2 (08:04→20:44)
[2018-08-08] MEDS: LEVEMIR (INSULIN DETEMIR) 1 UNITS/0.01ML SC SCH ×2 (08:04→20:46)
[2018-08-08] MEDS: IPRATROPIUM 0.5MG/ALBUTEROL 2.5MG INH SOL UD 3ML (DUONEB)(J7620) NEB SCH ×3 (08:10→23:16)
[2018-08-08] MEDS: BISACODYL 5 MG TAB PO SCH (08:13)
[2018-08-08 14:00] VITALS: BP 106/62
[2018-08-08] MEDS: TAMSULOSIN 0.4 MG CAP PO SCH (20:46)
[2018-08-08] MEDS: ATORVASTATIN 20 MG TAB PO SCH (20:46)
[2018-08-08 22:00] VITALS: BP 125/72
--- NOTE | 2018-08-09 00:27 | IPNPDOC ---
Text Note Date of Service The patient was seen on 08/09/18. NOTE SUBJECTIVE: Pateint slowly getting stronger. She says that she had gone for walks in the corridor. No fever or chills, no chest pain or sob . Continue to have indwelling fuentes. PHYSICAL EXAMINATION: VITAL SIGNS: Please see below GENERAL APPEARANCE: lying in bed in no acute distress. HEENT: Normocephalic, PERRLA, Mucous moist, CARDIOVASCULAR: S1,S2, pulse present, regularly, regular, LUNGS: Equal decreased air entry b/l, no wheezes or crackles at the base bilaterally ABDOMEN: Soft, BS present, no tenderness, no guarding GENITOURINARY: No Fuentes EXTREMITIES: trace edema, capillary refill present , bilateral lotion may scratch vanessa from her cats, multiple scratches scabbing no active bleeding and no overt signs of infection. SKIN: Warm, No fever NEUROLOGICAL: Cranial nerves grossly intact PSYCHIATRIC: Normal mood and affect for current situation LABORATORY DATA adn RADIOLOGY : Reviewed Assessment and plan: 57 year old female was in a few past medical history of COPD chronically on 2 L nasal cannula, obesity, HEYDI, CHF who has a defibrillator and pacemaker combination diabetes, hyperlipidemia who presented complaining of shortness of breath for 1 week duration that worsened today. Patient states that her shortness of breath is also was positional. Patient unable to lie flat without shortness of breath does worsen. Patient also has dry cough. She also complained of chronic lotion recently which is unchanged. Patient also received received a new kitten for [employer], and this kitten has been scratching her lower extremity. Patient was evaluated in the emergency room noted to be hypoxemic on her regular 2 L nasal cannula and therefore oxygen was increased to 4 L with good saturation. Patient received Lasix in the emergency room with good urine output. Patient had checks x-ray and CT of the chest which showed pulmonary edema. Patient being admitted for further evaluation and treatment. Otherwise patient denies of any complaint at this time. No fever, no diarrhea, or dysuria. Acute on chronic Resp failure with Hypoxemia and hypercapnia due to CHF exacerbation which precipitated copd exacerbation. ABG stable with chronic CO2 retention in 60s and hypoxia requiring 2 liters of oxygen. continue nebs and steroids and azithromycin. Acute on chronic systolic and diastolic CHF with AICD in place now with exacerbation EF of 15% Patient was initially aggressively diuresed and this this lead to overdiuresis with hypotension needing s/p 1liter ns bolus on 08/03/18 due to hypotension. resumed low dose lasix 08/04/18 I and O, daily weight Funguria finished 7 days of fluconazole from Jul 25 to Jul 30 will stop the new course now. Urine retention requiring frequent catheterization failed trial of void twice in this hospitalization started on flomax 08/02/17. Will retry after 7 days of flomax. Elevated troponin due to CHF exacerbation with demand ischemia. Elevation had a flat curve no high peak. COPD with chronic hypoxic and hypercarbic respiratory failure with moderate to severe pulmonary hypertension continue with oxygen supplementation to keep sats around 88. continue steroids, nebs , finished course of azithromycin. will continue to slow wean prednisone . Now dose educed to 20 mg. Intertriginous candidiasis finished 7 days of fluconazole continue nystatin. Obesity with possibly obesity hypoventilation with chronic CO2 retention. complicating care. patient does not have HEYDI. Sleep study showed normal sleep pattern with snoring. Diabetes uncontrolled now due to steroids. Finger sick monitoring, sliding scale, Levemir bid. continue glimepiride. Afib has pacemaker and AICD in place all paced complexes. On sotalol H/O bilateral stag horn calculi s/p b/l lithotripsy in the past. LE scratches Bacitracin/polymyxin ointment Hyperlipidemia, resume home statin Chronic anemia, resume iron DVT prophylaxis heparin subcutaneous disposition: await PT clearance. VS,Fishbone, I+O VS, Fishbone, I+O Vital Signs Date Time Temp Pulse Resp B/P (MAP) Pulse Ox O2 Delivery O2 Flow Rate FiO2 08/08/18 22:00 98.2 79 18 125/72 (89) 99 Nasal Cannula 2.0 08/06/18 09:00 I&O- Last 24 Hours up to 6 AM 08/09/18 06:00 Intake Total 720 ml Output Total 950 ml Balance -230 ml CHRISTAL TIMMONS MD Aug 09, 2018 00:27
[2018-08-09 05:39] LABS: EOS % 0.1 % (0.0-3.0); HEMATOCRIT 30.6 % (36.0-47.0); HEMOGLOBIN 9.3 g/dl (12.0-15.5); LYMPH # 1.5 10^3/uL (1.5-4.5); LYMPH % 19.2 % (24.0-44.0); MEAN CORPUSCULAR HEMOGLOBIN 29.2 pg (27.0-33.0); MEAN CORPUSCULAR HGB CONC 30.4 g/dl (32.0-36.5); MEAN CORPUSCULAR VOLUME 96.2 fl (80.0-96.0); MONO # 0.5 10^3/uL (0.0-0.8); MONO % 5.7 % (0.0-5.0); NEUTROPHILS # 5.9 10^3/uL (1.8-7.7); PLATELET COUNT, AUTOMATED 219 10^3/uL (150-450); RED BLOOD COUNT 3.18 10^6/uL (4.00-5.40)
[2018-08-09] MEDS: HEPARIN SOD (PORCINE) 5000 UNITS/ML VIAL SC SCH ×3 (05:48→21:43)
[2018-08-09 06:00] VITALS: BP 131/69
[2018-08-09 06:00] LABS: CREATININE FOR GFR 1.26 MG/DL (0.55-1.30); GLOMERULAR FILTRATION RATE 46.8 (>51); POTASSIUM SERUM 4.7 MEQ/L (3.5-5.1)
[2018-08-09] MEDS: HumaLOG INSULIN (NovoLOG) PER UNIT SC SCH ×4 (07:30→21:43)
[2018-08-09] MEDS: IPRATROPIUM 0.5MG/ALBUTEROL 2.5MG INH SOL UD 3ML (DUONEB)(J7620) NEB SCH ×2 (08:01→15:28)
[2018-08-09] MEDS: LEVEMIR (INSULIN DETEMIR) 1 UNITS/0.01ML SC SCH (08:35)
[2018-08-09] MEDS: BISACODYL 5 MG TAB PO SCH (08:36)
[2018-08-09] MEDS: predniSONE 10 MG TAB PO SCH (08:36)
[2018-08-09] MEDS: FERROUS SULFATE 325MG TAB PO SCH (08:36)
[2018-08-09] MEDS: SOTALOL 40MG PER 1/2 TABLET PO SCH (08:36)
[2018-08-09] MEDS: GLIMEPIRIDE 2 MG TAB PO SCH (08:37)
[2018-08-09] MEDS: NYSTATIN 100,000 UNITS/GM TOPICAL PWD 15 GM TOP SCH ×2 (08:37→21:44)
[2018-08-09] MEDS: FUROSEMIDE 20 MG TAB PO SCH (08:37)
[2018-08-09] MEDS: POLYSPORIN TOPICAL OINTMENT 15GM TOP SCH ×3 (08:37→21:44)
[2018-08-09] MEDS: ASPIRIN 81 MG ENTERIC TAB PO SCH (08:37)
--- NOTE | 2018-08-09 12:26 | IPNPDOC ---
Text Note Date of Service The patient was seen on 08/09/18. NOTE SUBJECTIVE: Patient slowly getting stronger. She says that she had gone for w alks in the corridor. No fever or chills, no chest pain or sob . Continue to have indwelling fuentes. will give trial of void tomorrow. PHYSICAL EXAMINATION: VITAL SIGNS: Please see below GENERAL APPEARANCE: lying in bed in no acute distress. HEENT: Normocephalic, PERRLA, Mucous moist, CARDIOVASCULAR: S1,S2, pulse present, regularly, regular, LUNGS: Equal decreased air entry b/l, no wheezes or crackles at the base bilaterally ABDOMEN: Soft, BS present, no tenderness, no guarding GENITOURINARY: No Fuentes EXTREMITIES: trace edema, capillary refill present , bilateral lotion may scratch vanessa from her cats, multiple scratches scabbing no active bleeding and no overt signs of infection. SKIN: Warm, No fever NEUROLOGICAL: Cranial nerves grossly intact PSYCHIATRIC: Normal mood and affect for current situation LABORATORY DATA adn RADIOLOGY : Reviewed Assessment and plan: 57 year old female was in a few past medical history of COPD chronically on 2 L nasal cannula, obesity, HEYDI, CHF who has a defibrillator and pacemaker combination diabetes, hyperlipidemia who presented complaining of shortness of breath for 1 week duration that worsened today. Patient states that her shortness of breath is also was positional. Patient unable to lie flat without shortness of breath does worsen. Patient also has dry cough. She also complained of chronic lotion recently which is unchanged. Patient also received received a new kitten for [employer], and this kitten has been scratching her lower extremity. Patient was evaluated in the emergency room noted to be hypoxemic on her regular 2 L nasal cannula and therefore oxygen was increased to 4 L with good saturation. Patient received Lasix in the emergency room with good urine output. Patient had checks x-ray and CT of the chest which showed pulm onary edema. Patient being admitted for further evaluation and treatment. Otherwise patient denies of any complaint at this time. No fever, no diarrhea, or dysuria. Acute on chronic Resp failure with Hypoxemia and hypercapnia due to CHF exacerbation which precipitated copd exacerbation. ABG stable with chronic CO2 retention in 60s and hypoxia requiring 2 liters of oxygen. continue nebs and steroids and azithromycin. Acute on chronic systolic and diastolic CHF with AICD in place now with exa cerbation EF of 15% Patient was initially aggressively diuresed and this this lead to overdiuresis w ith hypotension needing s/p 1liter ns bolus on 08/03/18 due to hypotension. resumed low dose lasix 08/04/18 I and O, daily weight Funguria finished 7 days of fluconazole from Jul 25 to Jul 30 will stop the new course now. Urine retention requiring frequent catheterization failed trial of void twice in this hospitalization started on flomax 08/02/17. Will retry after 7 days of flomax. Elevated troponin due to CHF exacerbation with demand ischemia. Elevation had a flat curve no high peak. COPD with chronic hypoxic and hypercarbic respiratory failure with moderate to severe pulmonary hypertension continue with oxygen supplementation to keep sats around 88. continue steroids, nebs , finished course of azithromycin. will continue to slow wean prednisone . Now dose educed to 20 mg. Intertriginous candidiasis finished 7 days of fluconazole continue nystatin. Obesity with possibly obesity hypoventilation with chronic CO2 retention. complicating care. patient does not have HEYDI. Sleep study showed normal sleep pattern with snoring. Diabetes uncontrolled now due to steroids. Finger sick monitoring, sliding scale, Levemir bid. continue glimepiride. Afib has pacemaker and AICD in place all paced complexes. On sotalol H/O bilateral stag horn calculi s/p b/l lithotripsy in the past. LE scratches Bacitracin/polymyxin ointment Hyperlipidemia, resume home statin Chronic anemia, resume iron DVT prophylaxis heparin subcutaneous disposition: await PT clearance. VS,Laureanobone, I+O VS, Fishbone, I+O Laboratory Tests 08/09/18 05:24 Red Blood Count 3.18 L, Mean Corpuscular Volume 96.2 H, Mean Corpuscular Hemoglobin 29.2, Mean Corpuscular Hemoglobin Concent 30.4 L, Red Cell Distribution Width 13.7, Neutrophils (%) (Auto) 74.0 H, Lymphocytes (%) (Auto) 19.2 L, Monocytes (%) (Auto) 5.7 H, Eosinophils (%) (Auto) 0.1, Basophils (%) (Auto) 0.0, Neutrophils # (Auto) 5.9, Lymphocytes # (Auto) 1.5, Monocytes # (Auto) 0.5, Eosinophils # (Auto) 0.0, Basophils # (Auto) 0.0, Calcium Level 9.0 Vital Signs Date Time Temp Pulse Resp B/P (MAP) Pulse Ox O2 Delivery O2 Flow Rate FiO2 08/09/18 09:45 2.0 08/09/18 08:36 72 131/69 08/09/18 06:00 97.5 18 96 Nasal Cannula 08/06/18 09:00 I&O- Last 24 Hours up to 6 AM 08/09/18 06:00 Intake Total 870 ml Output Total 1450 ml Balance -580 ml CHRISTAL TIMMONS MD Aug 09, 2018 12:26
[2018-08-09 14:00] VITALS: BP 105/60
[2018-08-09] MEDS: TAMSULOSIN 0.4 MG CAP PO SCH (21:43)
[2018-08-09] MEDS: ATORVASTATIN 20 MG TAB PO SCH (21:43)
[2018-08-09 22:00] VITALS: BP 110/70
[2018-08-10 06:00] VITALS: BP 107/54
[2018-08-10] MEDS: HEPARIN SOD (PORCINE) 5000 UNITS/ML VIAL SC SCH ×3 (06:00→21:32)
[2018-08-10 06:32] LABS: BASO % 0.1 % (0.0-1.0); EOS % 0.3 % (0.0-3.0); HEMATOCRIT 32.1 % (36.0-47.0); HEMOGLOBIN 9.6 g/dl (12.0-15.5); LYMPH # 1.6 10^3/uL (1.5-4.5); LYMPH % 22.4 % (24.0-44.0); MEAN CORPUSCULAR HEMOGLOBIN 29.4 pg (27.0-33.0); MEAN CORPUSCULAR HGB CONC 29.9 g/dl (32.0-36.5); MEAN CORPUSCULAR VOLUME 98.5 fl (80.0-96.0); MONO # 0.5 10^3/uL (0.0-0.8); MONO % 6.6 % (0.0-5.0); NEUTROPHILS # 4.9 10^3/uL (1.8-7.7); PLATELET COUNT, AUTOMATED 201 10^3/uL (150-450); RED BLOOD COUNT 3.26 10^6/uL (4.00-5.40); WHITE BLOOD COUNT 6.9 10^3/uL (4.0-10.0)
[2018-08-10 07:04] LABS: CALCIUM LEVEL 8.8 MG/DL (8.5-10.1); CREATININE FOR GFR 1.26 MG/DL (0.55-1.30); GLOMERULAR FILTRATION RATE 46.8 (>51); POTASSIUM SERUM 4.3 MEQ/L (3.5-5.1)
[2018-08-10] MEDS: IPRATROPIUM 0.5MG/ALBUTEROL 2.5MG INH SOL UD 3ML (DUONEB)(J7620) NEB SCH ×3 (08:01→15:40)
[2018-08-10] MEDS: LEVEMIR (INSULIN DETEMIR) 1 UNITS/0.01ML SC SCH (08:52)
[2018-08-10] MEDS: predniSONE 10 MG TAB PO SCH (08:52)
[2018-08-10] MEDS: BISACODYL 5 MG TAB PO SCH (08:52)
[2018-08-10] MEDS: ASPIRIN 81 MG ENTERIC TAB PO SCH (08:52)
[2018-08-10] MEDS: GLIMEPIRIDE 2 MG TAB PO SCH (08:52)
[2018-08-10] MEDS: NYSTATIN 100,000 UNITS/GM TOPICAL PWD 15 GM TOP SCH ×2 (08:53→21:30)
[2018-08-10] MEDS: SOTALOL 40MG PER 1/2 TABLET PO SCH (08:53)
[2018-08-10] MEDS: POLYSPORIN TOPICAL OINTMENT 15GM TOP SCH ×3 (08:53→21:30)
[2018-08-10] MEDS: FERROUS SULFATE 325MG TAB PO SCH (08:54)
[2018-08-10] MEDS: FUROSEMIDE 20 MG TAB PO SCH (09:00)
[2018-08-10] MEDS: HumaLOG INSULIN (NovoLOG) PER UNIT SC SCH ×4 (09:02→21:32)
[2018-08-10 10:00] VITALS: BP 117/65
[2018-08-10 14:00] VITALS: BP 130/61
[2018-08-10] MEDS: ATORVASTATIN 20 MG TAB PO SCH (21:29)
[2018-08-10] MEDS: TAMSULOSIN 0.4 MG CAP PO SCH (21:29)
[2018-08-10 22:00] VITALS: BP 124/66
--- NOTE | 2018-08-10 23:22 | IPNPDOC ---
Text Note Date of Service The patient was seen on 08/10/18. NOTE SUBJECTIVE: Patient slowly getting stronger. She says that she had gone for w alks in the corridor. No fever or chills, no chest pain or sob . getting a trial of void today. PHYSICAL EXAMINATION: VITAL SIGNS: Please see below GENERAL APPEARANCE: lying in bed in no acute distress. HEENT: Normocephalic, PERRLA, Mucous moist, CARDIOVASCULAR: S1,S2, pulse present, regularly, regular, LUNGS: Equal decreased air entry b/l, no wheezes or crackles at the base bilaterally ABDOMEN: Soft, BS present, no tenderness, no guarding GENITOURINARY: No Mcleod EXTREMITIES: trace edema, capillary refill present , bilateral lotion may scratch vanessa from her cats, multiple scratches scabbing no active bleeding and no overt signs of infection. SKIN: Warm, No fever NEUROLOGICAL: Cranial nerves grossly intact PSYCHIATRIC: Normal mood and affect for current situation LABORATORY DATA adn RADIOLOGY : Reviewed Assessment and plan: 57 year old female was in a few past medical history of C OPD chronically on 2 L nasal cannula, obesity, HEYDI, CHF who has a defibrillator and pacemaker combination diabetes, hyperlipidemia who presented complaining of shortness of breath for 1 week duration that worsened today. Patient states that her shortness of breath is also was positional. Patient unable to lie flat without shortness of breath does worsen. Patient also has dry cough. She also complained of chronic lotion recently which is unchanged. Patient also received received a new kitten for [employer], and this kitten has been scratching her lower extremity. Patient was evaluated in the emergency room noted to be hypoxemic on her regular 2 L nasal cannula and therefore oxygen was increased to 4 L with good saturation. Patient received Lasix in the emergency room with good urine output. Patient had checks x-ray and CT of the chest which showed pulmonary edema. Patient being admitted for further evaluation and treatment. Otherwise patient denies of any complaint at this time. No fever, no diarrhea, or dysuria. Acute on chronic Resp failure with Hypoxemia and hypercapnia due to CHF exacerbation which precipitated copd exacerbation. ABG stable with chronic CO2 retention in 60s and hypoxia requiring 2 liters of oxygen. continue nebs and steroids and azithromycin. Acute on chronic systolic and diastolic CHF with AICD in place now with exacerbation EF of 15% Patient was initially aggressively diuresed and this this lead to overdiuresis with hypotension needing s/p 1liter ns bolus on 08/03/18 due to hypotension. resumed low dose lasix 08/04/18 I and O, daily weight Funguria finished 7 days of fluconazole from Jul 25 to Jul 30 will stop the new course now. Urine retention requiring frequent catheterization failed trial of void twice in this hospitalization started on flomax 08/02/17. will give trial of void today. Elevated troponin due to CHF exacerbation with demand ischemia. Elevation had a flat curve no high peak. COPD with chronic hypoxic and hypercarbic respiratory failure with moderate to severe pulmonary hypertension continue with oxygen supplementation to keep sats around 88. continue steroids, nebs , finished course of azithromycin. will continue to slow wean prednisone . Now dose educed to 20 mg. Intertriginous candidiasis finished 7 days of fluconazole continue nystatin. Obesity with possibly obesity hypoventilation with chronic CO2 retention. complicating care. patient does not have HEYDI. Sleep study showed normal sleep pattern with snoring. Diabetes uncontrolled now due to steroids. Finger sick monitoring, sliding scale, Levemir bid. continue glimepiride. Afib has pacemaker and AICD in place all paced complexes. On sotalol H/O bilateral stag horn calculi s/p b/l lithotripsy in the past. LE scratches Bacitracin/polymyxin ointment Hyperlipidemia, resume home statin Chronic anemia, resume iron DVT prophylaxis heparin subcutaneous disposition: await PT clearance. VS,Fishbone, I+O VS, Fishbone, I+O Laboratory Tests 08/10/18 05:17 Red Blood Count 3.26 L, Mean Corpuscular Volume 98.5 H, Mean Corpuscular Hemoglobin 29.4, Mean Corpuscular Hemoglobin Concent 29.9 L, Red Cell Distribution Width 14.0, Neutrophils (%) (Auto) 70.0 H, Lymphocytes (%) (Auto) 22.4 L, Monocytes (%) (Auto) 6.6 H, Eosinophils (%) (Auto) 0.3, Basophils (%) (Auto) 0.1, Neutrophils # (Auto) 4.9, Lymphocytes # (Auto) 1.6, Monocytes # (Auto) 0.5, Eosinophils # (Auto) 0.0, Basophils # (Auto) 0.0, Calcium Level 8.8 Vital Signs Date Time Temp Pulse Resp B/P (MAP) Pulse Ox O2 Delivery O2 Flow Rate FiO2 08/10/18 14:00 97.8 88 18 130/61 (84) 93 Nasal Cannula 2.0 08/06/18 09:00 I&O- Last 24 Hours up to 6 AM 08/10/18 06:00 Intake Total 2068 ml Output Total 1200 ml Balance 868 ml CHRISTAL TIMMONS MD Aug 10, 2018 23:22
[2018-08-11] MEDS: HEPARIN SOD (PORCINE) 5000 UNITS/ML VIAL SC SCH (05:55)
[2018-08-11 06:00] VITALS: BP 119/66
[2018-08-11 06:10] LABS: BASO % 0.1 % (0.0-1.0); EOS % 0.5 % (0.0-3.0); HEMOGLOBIN 9.5 g/dl (12.0-15.5); LYMPH # 1.8 10^3/uL (1.5-4.5); LYMPH % 20.6 % (24.0-44.0); MEAN CORPUSCULAR HEMOGLOBIN 29.3 pg (27.0-33.0); MEAN CORPUSCULAR HGB CONC 30.6 g/dl (32.0-36.5); MEAN CORPUSCULAR VOLUME 95.7 fl (80.0-96.0); MONO # 0.6 10^3/uL (0.0-0.8); MONO % 6.6 % (0.0-5.0); NEUTROPHILS # 6.1 10^3/uL (1.8-7.7); NEUTROPHILS % 71.5 % (36.0-66.0); PLATELET COUNT, AUTOMATED 223 10^3/uL (150-450); RED BLOOD COUNT 3.24 10^6/uL (4.00-5.40); WHITE BLOOD COUNT 8.5 10^3/uL (4.0-10.0)
[2018-08-11 06:46] LABS: CALCIUM LEVEL 9.5 MG/DL (8.5-10.1); CREATININE FOR GFR 1.27 MG/DL (0.55-1.30); GLOMERULAR FILTRATION RATE 46.3 (>51); POTASSIUM SERUM 4.9 MEQ/L (3.5-5.1)
[2018-08-11] MEDS ORDERED: FLOM0.4C39 PO (07:07)
[2018-08-11] MEDS ORDERED: SOTA80TA2 PO (07:07)
[2018-08-11] MEDS ORDERED: PRED10TA2 PO (07:07)
[2018-08-11] MEDS: HumaLOG INSULIN (NovoLOG) PER UNIT SC SCH ×2 (07:30→12:18)
[2018-08-11] MEDS: IPRATROPIUM 0.5MG/ALBUTEROL 2.5MG INH SOL UD 3ML (DUONEB)(J7620) NEB SCH ×2 (07:53)
[2018-08-11] MEDS: GLIMEPIRIDE 2 MG TAB PO SCH (08:31)
[2018-08-11] MEDS: FUROSEMIDE 20 MG TAB PO SCH (08:31)
[2018-08-11] MEDS: FERROUS SULFATE 325MG TAB PO SCH (08:31)
[2018-08-11] MEDS: NYSTATIN 100,000 UNITS/GM TOPICAL PWD 15 GM TOP SCH (08:32)
[2018-08-11] MEDS: BISACODYL 5 MG TAB PO SCH (08:32)
[2018-08-11] MEDS: ASPIRIN 81 MG ENTERIC TAB PO SCH (08:32)
[2018-08-11] MEDS: predniSONE 10 MG TAB PO SCH (08:32)
[2018-08-11] MEDS: POLYSPORIN TOPICAL OINTMENT 15GM TOP SCH (08:32)
[2018-08-11 08:33] VITALS: BP 119/66
[2018-08-11] MEDS: LEVEMIR (INSULIN DETEMIR) 1 UNITS/0.01ML SC SCH (08:33)
[2018-08-11] MEDS: SOTALOL 40MG PER 1/2 TABLET PO SCH (08:33)
--- NOTE | 2018-08-12 00:59 | DS.PDOC ---
Discharge Summary General Date of Admission Jul 24, 2018 at 19:41 Date of Discharge 08/11/18 Attending Physician: CHRISTAL TIMMONS MD Discharge Summary PROCEDURES PERFORMED DURING STAY: [None]. DISCHARGE DIAGNOSES: Acute on chronic systolic and diastolic heart failure AICD Copd exacerbation Acute on chronic respiratory failure with hypoxia and hypercarbia Urinary retention resolved Funguria Intertriginous candidiasis Obesity with possible obesity hypoventilation Diabetes Hypertension Hyperlipidemia Bilateral Stag horn renal calculi with h/o lithotripsy A fib chronic anemia COMPLICATIONS/CHIEF COMPLAINT: Acute Exacerbation Of Chf. HISTORY OF PRESENT ILLNESS: Please see history and physical HOSPITAL COURSE: 57 year old female was in a few past medical history of COPD chronically on 2 L nasal cannula, obesity, HEYDI, CHF who has a defibrillator and pacemaker combination diabetes, hyperlipidemia who presented complaining of shortness of breath for 1 week duration that worsened today. Patient states that her shortness of breath is also was positional. Patient unable to lie flat without shortness of breath does worsen. Patient also has dry cough. She also complained of chronic lotion recently which is unchanged. Patient also received received a new kitten for [employer], and this kitten has been scratching her lower extremity. Patient was evaluated in the emergency room noted to be hypoxemic on her regular 2 L nasal cannula and therefore oxygen was increased to 4 L with good saturation. Patient received Lasix in the emergency room with good urine output. Patient had checks x-ray and CT of the chest which showed pulmonary edema. Patient being admitted for CHF exacerbation. Acute on chronic Resp failure with Hypoxemia and hypercapnia due to CHF exacerbation which precipitated copd exacerbation. ABG stable with chronic CO2 retention in 50s and hypoxia requiring 2 liters of oxygen. continue nebs and steroids and azithromycin. Acute on chronic systolic and diastolic CHF with AICD in place now with exacerbation EF of 15% Patient was initially aggressively diuresed and this this lead to overdiuresis with hypotension needing s/p 1liter ns bolus on 08/03/18 due to hypotension. resumed low dose lasix 08/04/18 I and O, daily weight Funguria finished 7 days of fluconazole from Jul 25 to Jul 30 will stop the new course now. Urine retention requiring frequent catheterization failed trial of void twice in this hospitalization started on flomax 08/02/17. succesfully passed trial of void and cath was removed. Elevated troponin due to CHF exacerbation with demand ischemia. Elevation had a flat curve no high peak. COPD with chronic hypoxic and hypercarbic respiratory failure with moderate to severe pulmonary hypertension continue with oxygen supplementation to keep sats around 88. continue steroids, nebs , finished course of azithromycin. will continue to slow wean prednisone . Now dose educed to 20 mg. Intertriginous candidiasis finished 7 days of fluconazole continue nystatin. Obesity with possibly obesity hypoventilation with chronic CO2 retention. complicating care. patient does not have HEYDI. Sleep study showed normal sleep pattern with snoring. Diabetes uncontrolled now due to steroids. Finger sick monitoring, sliding scale, Levemir bid. continue glimepiride. Afib has pacemaker and AICD in place all paced complexes. On sotalol H/O bilateral stag horn calculi s/p b/l lithotripsy in the past. LE scratches Bacitracin/polymyxin ointment Hyperlipidemia, resume home statin Chronic anemia, resume iron DISCHARGE MEDICATIONS: Please see below. ALLERGIES: Please see below. PHYSICAL EXAMINATION ON DISCHARGE: VITAL SIGNS: Please see below. GENERAL APPEARANCE: lying in bed in no acute distress. HEENT: Normocephalic, PERRLA, Mucous moist, CARDIOVASCULAR: S1,S2, pulse present, regularly, regular, LUNGS: Equal decreased air entry b/l, no wheezes or crackles at the base bilaterally ABDOMEN: Soft, BS present, no tenderness, no guarding GENITOURINARY: No Mcleod EXTREMITIES: trace edema, capillary refill present , bilateral lotion may scratch vanessa from her cats, multiple scratches scabbing no active bleeding and no overt signs of infection. SKIN: Warm, No fever NEUROLOGICAL: Cranial nerves grossly intact PSYCHIATRIC: Normal mood and affect LABORATORY DATA: Please see below. PROGNOSIS: Fair ACTIVITY: [As tolerated]. DIET: As tolerated DISPOSITION: 01 Home, Self-Care. DISCHARGE INSTRUCTIONS: Follow up with PMD in 1 week DISCHARGE CONDITION: [Stable]. TIME SPENT ON DISCHARGE: Greater than 30 minutes. Vital Signs/I&Os Vital Signs Date Time Temp Pulse Resp B/P (MAP) Pulse Ox O2 Delivery O2 Flow Rate FiO2 08/11/18 09:00 2.0 08/11/18 08:33 74 119/66 08/11/18 06:00 96.8 20 96 Nasal Cannula 08/06/18 09:00 I&O- Last 24 Hours up to 6 AM 08/12/18 06:00 Intake Total 718 ml Output Total 475 ml Balance 243 ml Laboratory Data Labs 24H Laboratory Tests 2 08/11/18 05:20: Immature Granulocyte % (Auto) 0.7, White Blood Count 8.5, Red Blood Count 3.24L, Hemoglobin 9.5L, Hematocrit 31.0L, Mean Corpuscular Volume 95.7, Mean Corpuscular Hemoglobin 29.3, Mean Corpuscular Hemoglobin Concent 30.6L, Red Cell Distribution Width 14.2, Platelet Count 223, Neutrophils (%) (Auto) 71.5H, Lymphocytes (%) (Auto) 20.6L, Monocytes (%) (Auto) 6.6H, Eosinophils (%) (Auto) 0.5, Basophils (%) (Auto) 0.1, Neutrophils # (Auto) 6.1, Lymphocytes # (Auto) 1.8, Monocytes # (Auto) 0.6, Eosinophils # (Auto) 0.0, Basophils # (Auto) 0.0, Nucleated Red Blood Cells % (auto) 0.0, Anion Gap 5L, Glomerular Filtration Rate 46.3L, Blood Urea Nitrogen 59H, Creatinine 1.27, Sodium Level 142, Potassium Level 4.9, Chloride Level 103, Carbon Dioxide Level 34H, Calcium Level 9.5 08/11/18 11:21: Bedside Glucose (Misc Panel) 322H CBC/BMP Laboratory Tests 08/11/18 05:20 Red Blood Count 3.24 L, Mean Corpuscular Volume 95.7, Mean Corpuscular Hemoglobin 29.3, Mean Corpuscular Hemoglobin Concent 30.6 L, Red Cell Distribution Width 14.2, Neutrophils (%) (Auto) 71.5 H, Lymphocytes (%) (Auto) 20.6 L, Monocytes (%) (Auto) 6.6 H, Eosinophils (%) (Auto) 0.5, Basophils (%) (Auto) 0.1, Neutrophils # (Auto) 6.1, Lymphocytes # (Auto) 1.8, Monocytes # (Auto) 0.6, Eosinophils # (Auto) 0.0, Basophils # (Auto) 0.0, Calcium Level 9.5 FSBS Laboratory Tests Test 08/11/18 11:21 Range/Units Bedside Glucose (Misc Panel) 322 70-105 MG/DL Discharge Medications Scheduled (Sotalol HCl) 80 Mg Tab, 40 MG PO DAILY Aspirin (Aspirin 81) 81 Mg Tab, 81 MG PO DAILY, (Reported) Atorvastatin Calcium (Atorvastatin Calcium) 40 Mg Tab, 40 MG PO QPM, (Reported) Ferrous Sulfate (Ferrous Sulfate) 325 Mg Tab, 325 MG PO DAILY, (Reported) Furosemide (Furosemide) 40 Mg Tab, 40 MG PO DAILY, (Reported) Glimepiride (Glimepiride) 2 Mg Tab, 2 MG PO DAILY, (Reported) Lisinopril (Lisinopril) 2.5 Mg Tab, 2.5 MG PO QPM, (Reported) Metformin Hydrochloride (Metformin Hydrochloride E) 500 Mg Tab, 500 MG PO BID, (Reported) Niacin (Niacin) 250 Mg Cap, 500 MG PO DAILY, (Reported) Prednisone (Prednisone) 10 Mg Tab, 10 MG PO ASDIRECTED 1 tab daily for 7 days then 1/2 daily for 7 days then stop Tamsulosin Hydrochloride (Flomax) 0.4 Mg Cap, 0.4 MG PO QHS Allergies Coded Allergies: No Known Allergies (Unverified , 07/24/18) CHRISTAL TIMMONS MD Aug 12, 2018 00:59
== END 2018-08-11 13:13 | disposition home health service (06) | DRG 133 ==
LOC: M ED 17:16 → M ED INP 19:41 → M PCU 21:38 → M ICU 07-25 06:41 → M PCU 07-26 20:46 → M MSPAV 07-27 15:59
PROVIDERS: ADMIT Internal Medicine; ATTEND Internal Medicine Nephrology
DX: J96.21 Acute and chronic respiratory failure with hypoxia (principal); I50.43 Acute on chronic combined systolic (congestive) and diastolic (congestive) heart failure; I95.9 Hypotension, unspecified; E87.2 Acidosis; E66.2 Morbid (severe) obesity with alveolar hypoventilation; E11.65 Type 2 diabetes mellitus with hyperglycemia; I27.20 Pulmonary hypertension, unspecified; J44.1 Chronic obstructive pulmonary disease with (acute) exacerbation; I48.91 Unspecified atrial fibrillation; B37.2 Candidiasis of skin and nail; J96.22 Acute and chronic respiratory failure with hypercapnia; D64.9 Anemia, unspecified; E78.5 Hyperlipidemia, unspecified; Z98.1 Arthrodesis status; Z87.442 Personal history of urinary calculi; Z95.810 Presence of automatic (implantable) cardiac defibrillator; Z79.82 Long term (current) use of aspirin; Z79.84 Long term (current) use of oral hypoglycemic drugs; Z68.32 Body mass index [BMI] 32.0-32.9, adult; R33.9 Retention of urine, unspecified; B37.49 Other urogenital candidiasis; R26.89 Other abnormalities of gait and mobility; Z79.899 Other long term (current) drug therapy

== ENCOUNTER 2018-08-25 11:54 | Inpatient (IN) | payer OTHER ==
[2018-08-25] VITALS (17 sets, daily range): BP systolic 77–109; BP diastolic 41–63
[~2018-08-25] VITALS: Ht 167.6 cm; Wt 95.5 kg
[~2018-08-25 11:54] MED LIST changes: +ASPI1TAB PO; +FERR325T3 PO; +GLIM2TAB PO; +METF-881 PO; +PRED10TA2 PO
[2018-08-25] MEDS ORDERED: DILUENT IV ONE (12:15)
[2018-08-25] MEDS ORDERED: NS IV ONE (12:15)
[2018-08-25] MEDS ORDERED: cefTRIAXone SOD 2 GM in D5W MINI-BAG PLUS 50 ML IV ONE (12:15)
[2018-08-25 12:24] LABS: BASO % 0.1 % (0.0-1.0); EOS # 0.1 10^3/uL (0.0-0.50); HEMATOCRIT 32.3 % (36.0-47.0); HEMOGLOBIN 9.4 g/dl (12.0-15.5); LYMPH # 2.3 10^3/uL (1.5-4.5); LYMPH % 33.1 % (24.0-44.0); MEAN CORPUSCULAR HGB CONC 29.1 g/dl (32.0-36.5); MEAN CORPUSCULAR VOLUME 99.7 fl (80.0-96.0); MONO # 0.5 10^3/uL (0.0-0.8); MONO % 7.7 % (0.0-5.0); NEUTROPHILS % 57.4 % (36.0-66.0); PLATELET COUNT, AUTOMATED 203 10^3/uL (150-450); RED BLOOD COUNT 3.24 10^6/uL (4.00-5.40)
[2018-08-25 12:34] LABS: INR 1.16
[2018-08-25 12:35] LABS: PARTIAL THROMBOPLASTIN TIME 26.6 SECONDS (25.4-37.6)
--- NOTE | 2018-08-25 12:35 | REP ---
Clinical: Sepsis. Comparison: 08/04/2018. Findings: Examination is significantly limited by positioning and underpenetration. Cardiomegaly is again noted. Left lower lobe opacities suggesting elements of consolidation are suspected along with possible mild pulmonary vascular congestion. Impression: Cardiomegaly with findings to suggest pulmonary vascular congestion and left lower lobe consolidation. Electronically Signed by Renato Hatfield MD 08/25/2018 12:28 P
[2018-08-25 12:38] LABS: ABG BASE EXCESS -12.2 (-2.0-2.0); ABG HCO3 14.6 MEQ/L (22.0-26.0); ABG O2 SATURATION 96.3 % (95.0-99.0); ABG PARTIAL PRESSURE CO2 36.6 mmHg (35.0-45.0); ABG PARTIAL PRESSURE O2 90.6 mmHg (75.0-100.0); ABG STANDARD HCO3 14.7 MEQ/L (22.0-26.0); ABG TOTAL CO2 15.7 MEQ/L (22.0-29.0)
[2018-08-25 12:41] LABS: ABG pH (ARTERIAL) 7.218 UNITS (7.350-7.450)
[2018-08-25 12:59] LABS: ALBUMIN 2.9 GM/DL (3.2-5.2); ALT/SGPT 27 U/L (12-78); AMYLASE 73 U/L (25-115); BILIRUBIN,DIRECT < 0.1 MG/DL (0.0-0.2); BILIRUBIN,TOTAL 0.3 MG/DL (0.2-1.0); BLOOD UREA NITROGEN 64 MG/DL (7-18); C REACTIVE PROTEIN QUANTITATIV < 0.30 MG/DL (0.00-0.30); CALCIUM LEVEL 8.5 MG/DL (8.5-10.1); CARBON DIOXIDE LEVEL 20 MEQ/L (21-32); CHLORIDE LEVEL 104 MEQ/L (98-107); CPK CREATINE PHOSPHOKINASE 71 U/L (26-192); CREATININE FOR GFR 6.05 MG/DL (0.55-1.30); GLOMERULAR FILTRATION RATE 7.6 (>51); GLUCOSE, FASTING 89 MG/DL (70-100); MAGNESIUM LEVEL 1.8 MG/DL (1.8-2.4); MB/CK RELATIVE INDEX 5.35 (< OR =4); PHOSPHORUS LEVEL 4.4 MG/DL (2.5-4.9); POTASSIUM SERUM 4.4 MEQ/L (3.5-5.1); SODIUM LEVEL 140 MEQ/L (136-145); TOTAL PROTEIN 5.4 GM/DL (6.4-8.2); TROPONIN I 0.09 NG/ML (< 0.10)
[2018-08-25] MEDS ORDERED: NIAC500T5 PO (13:03)
[2018-08-25] MEDS ORDERED: SOTA80TA2 PO (13:03)
[2018-08-25] MEDS ORDERED: FLOM0.4C39 PO (13:03)
[2018-08-25] MEDS ORDERED: BASA100I SC (13:04)
[2018-08-25] MEDS ORDERED: PRED10TA2 PO (13:07)
[2018-08-25 14:24] LABS: AMORPHOUS SEDIMENT SMALL (NEGATIVE); APPEARANCE, URINE TURBID (CLEAR); BACTERIA, URINE AUTO NEGATIVE (NEGATIVE); BILIRUBIN, URINE AUTO 1+ (NEGATIVE); BLOOD, URINE BLOOD 1+ (NEGATIVE); COLOR, URINE YELLOW (YELLOW); GLUCOSE, URINE (UA) AUTO NEGATIVE (NEGATIVE); KETONE, URINE AUTO NEGATIVE (NEGATIVE); LEUKOCYTE ESTERASE, URINE AUTO 3+ (NEGATIVE); NITRITE, URINE AUTO NEGATIVE (NEGATIVE); PROTEIN, URINE AUTO 3+ mg/dL (NEGATIVE); RBC, URINE AUTO 13 /HPF (0-3); RENAL EPITHELIAL CELLS 1 /HPF; SPECIFIC GRAVITY URINE AUTO 1.022 (1.002-1.035); SQUAMOUS EPITHELIAL CELL UR AU 12 /HPF (0-6); WBC, URINE AUTO TNTC /HPF (0-3)
--- NOTE | 2018-08-25 14:26 | REP ---
Clinical: Status post line placement . Comparison: 08/25/2018 at 01:53 p.m. Findings: Right IJ line with tip in the right atrium. Cardiomegaly with evidence for pulmonary vascular congestion and left lower lobe consolidation remain unchanged. Layering left effusion cannot be excluded. No pneumothorax. Impression: Right IJ line with tip in the right atrium. Cardiomegaly, pulmonary vascular congestion/edema and left lower lobe consolidation remains stable. Electronically Signed by Renato Hatfield MD 08/25/2018 02:18 P
--- NOTE | 2018-08-25 14:28 | REP ---
Clinical: Right elbow trauma . Technique: AP, lateral, bilateral oblique views of the right elbow. Findings: No acute fracture or dislocation is appreciated. Subcutaneous emphysema in the soft tissues of the antecubital region are suggested. No foreign body identified. Joint spaces appear relatively normal. Impression: Subcutaneous emphysema. No acute fracture or dislocation. No obvious foreign body. Electronically Signed by Renato Hatfield MD 08/25/2018 02:20 P
[2018-08-25] MEDS ORDERED: GLUCAGON FOR INJ 1 MG VIAL (J1610) SC PRN (14:30)
[2018-08-25] MEDS ORDERED: DEXTROSE 50% 50 ML SYRINGE IV PRN (14:30)
[2018-08-25] MEDS ORDERED: GLUCOSE 4 GM CHEW TABLET PO PRN (14:30)
[2018-08-25] MEDS ORDERED: NS 1,000 ML IV SCH (15:00)
[2018-08-25 15:07] LABS: INFLUENZA A AMPLIFICATION NEGATIVE (NEGATIVE); INFLUENZA B AMPLIFICATION NEGATIVE (NEGATIVE)
[2018-08-25] MEDS ORDERED: NOREPINEPHRINE BITARTRATE 8 MG in D5W 492 ML IV SCH (15:40)
[2018-08-25] MEDS ORDERED: NOREPINEPHRINE 4 MG/4 ML AMP As Ordered ONE (15:40)
--- NOTE | 2018-08-25 15:46 | REP ---
CT chest without contrast: History: Renal failure. Comparison is made with today's chest x-ray. Findings: Pasteurizing Supervisor view shows a cardiac pacemaker. There is no evidence of pneumothorax. No hydrothorax is seen. Moderate cardiac enlargement is observed. A left-sided transvenous pacemaker is seen in the right heart. No hilar or mediastinal mass is seen. There is a right internal jugular central venous line. There are areas of atelectasis in the left lower and upper lobes. There is overall some volume loss in the left hemithorax. There are minimal dependent atelectatic changes in the right lower lobe. No definite mass or infiltrate. Main pulmonary artery is larger than the ascending aorta, 3.9 versus 2.8 cm. This raises the question of pulmonary arterial hypertension. No bony lesion is seen. Impression: Cardiomegaly with pacemaker. Dilated main pulmonary artery question pulmonary arterial hypertension. Patchy atelectasis in the left lower lobe and upper lobe and to a lesser extent, the right lower lobe. Electronically Signed by Vincent Burgos MD 08/25/2018 03:55 P
--- NOTE | 2018-08-25 15:51 | HPE ---
DATE OF ADMISSION: 08/25/2018 This is a 58-year-old female with history of hypertension, diabetes, hyperlipidemia, on chronic oxygen dependent chronic obstructive pulmonary disease (COPD) requiring 2 liters nasal cannula, and congestive heart failure (CHF) with an ejection fraction of 15%, who presents to the emergency room with dizziness, which has been going on for approximately one day and a half. Today was a very severe episode. She came to the Emergency room (ER) for evaluation. In the ER, she was found to be hypotensive with systolic blood pressure of 62/36. Patient was given a bolus of intravenous (IV) fluids and is currently on normal saline 125 mL/hour. She currently does not have any dizziness. She also does complain that she has been having diarrhea for the last three days, with poor oral intake and at the same time has been taking her lisinopril and Lasix. Subsequently, she was found to have a positive urinalysis (UA) for a urinary tract infection (UTI) and was given a gram of Rocephin. She will be admitted for further management. PAST MEDICAL HISTORY: 1. Hypertension. 2. Diabetes. 3. Hyperlipidemia. 4. History of chronic systolic heart failure with ejection fraction of 15% status post primary pacemaker and defibrillator placement. She has no known drug allergies. FAMILY HISTORY: Noncontributory. SOCIAL HISTORY: Patient denies tobacco, alcohol or illicit drugs. MEDICATIONS: She takes at home are as follows: - aspirin 81 mg orally daily - atorvastatin 40 mg orally daily - Basaglar Kwikpen 14 units subcutaneously at bedtime - ferrous sulfate 325 mg orally in the evening - Lasix 40 mg orally daily - glimepiride 2 mg orally daily - lisinopril 2.5 mg orally daily - metformin 1000 mg orally twice daily - niacin 500 mg orally daily - prednisone 10 mg orally daily - sotalol 80 mg orally daily - tamsulosin 0.4 mg orally at bedtime REVIEW OF SYSTEMS: Negative for all 10 major systems except what has been mentioned in the history of present illness (HPI). VITAL SIGNS: Blood pressure 62/36, heart rate 82 regular, respiratory rate 19, temperature 96.2, oxygen saturation 100% on 2 liters nasal cannula. HEAD: Atraumatic, normocephalic. NECK: Supple. No jugular venous distention (JVD). LUNGS: Clear to auscultation. HEART: S1, S2. Normal. No murmurs appreciated. ABDOMEN: Soft. Positive bowel sounds. EXTREMITIES: No pedal edema. SKIN: Intact. NEUROLOGIC EXAMINATION: Patient awake, alert and oriented times three. LABORATORIES: WBC 7, hemoglobin 9.4, hematocrit 32.3, platelets 203,000. Sodium 140, potassium 4.4, chloride 104, CO2 20, anion gap 6, BUN 64, creatinine 6.05, glucose 89, lactic acid 9.2, magnesium 1.8. Troponin 0.09. Chest x-ray shows right internal jugular (IJ) line with tip in the right atrium, cardiomegaly with pulmonary vascular congestion. IMPRESSION: 1. Acute kidney injury (KWAME). 2. Hypotension. 3. Urinary tract infection (UTI). PLAN: Patient is to be admitted to the intensive care unit (ICU). We will give her another bolus of IV fluids, 500 mL, and we will give her a total of 3 liters. If she does not improve in her blood pressure, we are going to start her on pressors. We will continue the IV Rocephin, 1 gram daily and follow urine cultures and sensitivity. The KWAME is likely secondary to ischemic acute tubular necrosis (ATN) from hypotension as well as volume depletion and we will be following BUN and creatinine trends. At this time, there is no need for emergent dialysis. We will avoid all nephrotoxic medications. Nephrology is on board. Patient is to have mean arterial pressure (MAP) of greater than 65% at all times. We will hold her Lasix and lisinopril for now, as well as her sotalol, and also hold all her diabetic medication and put her on a sliding scale. We will continue the rest of her preadmission medications and continue her care in the ICU. TOTAL CRITICAL CARE TIME: 40 minutes.
--- NOTE | 2018-08-25 16:03 | REP ---
CT abdomen and pelvis with out IV or oral contrast: History: Renal failure. Comparison CT study April 28, 2016. Findings: Preliminary digital ironer sock radiograph demonstrates an unremarkable bowel gas pattern. The liver and the spleen are normal in size homogeneous in texture. There is pneumobilia again with a small quantity of air in the gallbladder. This is less prominent than on the prior study and not a new finding. There is a small stable benign right adrenal adenoma, 2.0 cm in greatest diameter. No pancreatic abnormalities observed. There is no evidence of hydronephrosis on either side. There is minimal vascular calcification. No intrarenal nephrolithiasis is seen. There is a Mcleod catheter in the urinary bladder along with a few bubbles of air. 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 The lesion has its epicenter slightly to the right of mid pelvis but it is difficult to tell which ovary it originates from. It is essentially unchanged. This may actually be a left ovarian dermoid. Uterus is normal. Right ovary appears to be seen separate from the a fat and calcium containing dermoid lesion. Small and large bowel loops are unremarkable. There is some edematous small bowel mesentery unchanged from the prior study. Impression: No evidence of hydronephrosis or urinary tract calculus. Mcleod catheter in place. Large ovarian dermoid again seen, 11.4 cm in greatest diameter. Pneumobilia again noted. Electronically Signed by Vincent Burgos MD 08/28/2018 07:56 A
[2018-08-25] MEDS ORDERED: NS 500 ML IV ONE (17:00)
--- NOTE | 2018-08-25 18:25 | RO ---
DATE OF PROCEDURE: 08/25/2018 PREPROCEDURE DIAGNOSIS: hypotension POSTPROCEDURE DIAGNOSIS: hypotension OPERATIVE PROCEDURE: Internal jugular central line. PROCEDURE MANAGER BAKERY: Soni Jarquin DO ATTENDING PHYSICIAN: Mercy Brush MD who was in attendance for the procedure. AUDIO VISUAL COORDINATOR: none ANESTHESIA: 1% local Consent was obtained from the patient prior to the procedure. Indication, risks, and benefits were explained at length. The consent can be found in the chart. DESCRIPTION OF PROCEDURE: The [facility] central line insertion infectious form was completed by the independent observer, starting with first hand washing prior to starting with sterile technique. A time out was performed. My hands were washed immediately prior to the procedure. I wore a surgical mask with protective eyewear, full gown and sterile gloves throughout the procedure. The patient was placed in Trendelenburg position. The right chest region was prepped using Chlorhexidine scrub and draped in a sterile fashion using a full drape and a sterile probe cover employed. The medial and lateral heads of the sternocleidomastoid was identified as was the carotid pulse. The internal jugular vein was identified using the ultrasound. Anesthesia was achieved over the vein using 1% lidocaine. Using real-time out of plane guidance, the transducer needle was inserted into the internal jugular vein under direct ultrasound visualization. Venous blood was withdrawn. This syringe was removed and a guidewire was advanced into the inducer needle. The guidewire was visualized in the internal jugular vein by the ultrasound. Small incision was made in the skin with a scalpel and the inducer needle was exchanged for a dilator over the guidewire. After appropriate dilatation was made, the dilator was exchanged for a wire for triple lumen central venous catheter. The wire was removed and the catheter was sutured in place. A sterile throw view shield was placed over the catheter at the insertion site. The patient tolerated the procedure without any hemodynamic compromise. At the time of procedure completion all ports were aspirated and flushed properly. The postprocedure chest x-ray was pending at this time. ESTIMATED BLOOD LOSS: 10 mL. My faculty preceptor for this patient encounter was physically present during the encounter and was fully available. All aspects of the patient interview, examination, medical decision making process, and medical care plan development were reviewed and approved by the faculty preceptor. The faculty preceptor is aware and concurs with the plan as stated in the body of this note and will attest to such by his/her co-signature. I have both independently examined this patient as well as reviewed the note I have discussed in detail the findings and plan of treatment as documented in the note. I will continue to follow the patient and offer further guidance to the patients care as necessary during this hospital stay. Mercy GARCIA
[2018-08-25 18:39] LABS: ALBUMIN 2.7 GM/DL (3.2-5.2); CALCIUM LEVEL 7.3 MG/DL (8.5-10.1); CREATININE FOR GFR 5.58 MG/DL (0.55-1.30); GLOMERULAR FILTRATION RATE 8.4 (>51); PHOSPHORUS LEVEL 4.1 MG/DL (2.5-4.9); POTASSIUM SERUM 4.8 MEQ/L (3.5-5.1)
[2018-08-25] MEDS: ATORVASTATIN 20 MG TAB PO SCH (20:16)
[2018-08-25] MEDS: SODIUM BICARBONATE 75 MEQ in NS 0.45% 1,000 ML IV SCH (20:17)
[2018-08-25] MEDS: HumaLOG INSULIN (NovoLOG) PER UNIT SC SCH (20:59)
[2018-08-25] MEDS ORDERED: TAMSULOSIN 0.4 MG CAP PO SCH (21:00)
[2018-08-25] MEDS ORDERED: FERROUS SULFATE 325MG TAB PO SCH (21:00)
--- NOTE | 2018-08-25 21:26 | CR ---
DATE OF CONSULTATION: 08/25/2018 REASON FOR CONSULTATION: Acute renal failure superimposed on chronic kidney disease in this lady with multiple chronic medical problems. HISTORY OF PRESENT ILLNESS: Ms. Marie is a 58-year-old female with known history of hypertension, type 2 diabetes, hyperlipidemia, COPD, history of systolic congestive heart failure with ejection fraction of 15%, history of chronic kidney disease with baseline creatinine of about 1.2 and history of urinary tract infection during recent hospitalization. He was discharged from [facility] just couple of weeks ago when she was admitted with congestive heart failure and was diuresed. Her creatinine at discharge was 1.26 mg/dl. The patient was discharged on diuretic and she reports that she kept taking all her medications. She was also on low-dose OPHELIA inhibitor because of her systolic congestive heart failure and has been on metformin and glimepiride for diabetes. She fell today and was very weak due to which she was brought to the emergency room and found to have a creatinine of about six. A nephrology consultation was requested by the ER physician and the patient is now seen in the intensive care unit. PAST MEDICAL AND SURGICAL HISTORY: Significant for: 1. Longstanding history of diabetes. 2. Hypertension. 3. Severe systolic congestive heart failure with ejection fraction 15% status post AICD placement. 4. History of hyperlipidemia. 5. History of chronic kidney disease. 6. History of anemia. 7. History of morbid obesity. MEDICATIONS: Her home medications include aspirin 81 mg daily, atorvastatin 40 mg daily, insulin 14 units at bedtime, ferrous sulfate 325 mg in the evening, Lasix 40 mg daily, glimepiride 2 mg daily, lisinopril 2.5 mg daily, metformin 1000 mg twice a day, niacin 500 mg daily, prednisone 5 mg daily, sotalol 80 mg daily and tamsulosin 0.4 mg at bedtime. PERSONAL AND SOCIAL HISTORY: The patient denies any tobacco, alcohol or drug use. FAMILY HISTORY: Negative for end-stage renal disease. REVIEW OF SYSTEMS: The patient denies any fever or chills. She reports that she was feeling somewhat lightheaded and dizzy for couple of days but went to bed feeling well last night. This morning she felt weak and fell. On arrival to the emergency room her blood pressure was in 60s. She denies any vomiting or diarrhea. Ears, nose and throat are unremarkable. Cardiovascular system is significant for severe systolic congestive heart failure. She denies any chest pain or dyspnea. Respiratory system is negative for cough or hemoptysis. GI system is negative for vomiting, diarrhea or abdominal pain. system is significant for decreased urine output. She was recently treated for a urinary tract infection. She denies any flank pain or hematuria. Endocrine system is significant for type 2 diabetes. There is no history of thyroid problems. Hematological system is significant for anemia but no excessive bleeding or bruising. Musculoskeletal system is negative for any significant lower extremity edema. Neurological system is negative for seizures or stroke. Skin is negative for rash or ulcers. PHYSICAL EXAMINATION: Temperature 97.7 degrees Fahrenheit, heart rate 84 per minute and respiratory rate 20 per minute. Blood pressure is now in 90/50 mmHg and oxygen saturation is 98% on 2 liters oxygen. She has a right internal jugular vein central line in place. Head is atraumatic. Neck is supple and JVD is not elevated. Heart: Sounds are regular and without a pericardial friction rub. Lungs: Sound clear to auscultation. Abdomen: Soft, obese and nontender. Bowel sounds are normal. Extremities have no cyanosis or clubbing. Skin has no rash or ulcers. Neurologically she is awake and able to answer questions. She has no focal neurological deficit. LABORATORY DATA: Sodium 140, potassium 4.4, CO2 20, BUN 64 and creatinine 6.05. Lactic acid level 9.2, calcium 8.5 and phosphorus 4.4. Troponin is 0.09, total protein 5.4 and albumin 2.9. Amylase is 73. Urinalysis showed 2+ protein 1+ blood. She is too numerous to count WBCs and 13 RBCs. WBC count 7.0, hemoglobin 9.4 and hematocrit 30, chest CT scan done in the emergency room showed cardiomegaly and a dilated main pulmonary artery with minimal atelectasis at bases. CT scan of abdomen and pelvis was negative for hydronephrosis. She has a large dermoid cyst in the ovaries. PROBLEMS: 1. Acute renal failure superimposed on chronic kidney disease. The patient had a serum creatinine of 1.26 at the time of last discharge couple of weeks ago. Now she has acute renal failure most likely related to medications and hypotension probably caused by sepsis. She is still quite hypotensive despite being on Levophed drip in intensive care unit and also has received 3 liters of IV normal saline. We are going to give her another fluid bolus of 500 normal saline in view of CVP of 5and will continue with IV fluid. I am going to switch her to sodium bicarbonate drip to treat her mild metabolic acidosis. 2. Septic shock. The patient is still somewhat hypotensive though improved after receiving 3 liters of normal saline. She is also on Levophed drip. We will continue with IV fluid hydration and continue to monitor her lactic acid and other labs. 3. Metabolic acidosis. She does have mild metabolic acidosis related to acute renal failure and sepsis. She is being started on sodium bicarbonate drip with 75 mEq of sodium bicarbonate in each liter of half-normal saline. We will run it at 100 per hour for now. We should use the same fluid for fluid boluses if needed. 4. Sepsis probably she has urosepsis as she was recently treated for urinary tract infection and urinalysis has too numerous to count WBCs. She does not have any other convincing evidence for other source of sepsis. She is being treated with ceftriaxone which is appropriate pending blood and urine cultures. At this point we are going to monitor her renal function and electrolyte for next 12 hours. There is no emergent need for starting dialysis tonight. However, it is quite likely that she might require dialysis unless her kidney function improves. Thank you for involving me in the care of Mrs. Marie. Nephrology service will follow her along with you.
[2018-08-26] VITALS (57 sets, daily range): BP systolic 80–119; BP diastolic 44–66
[2018-08-26] MEDS: NOREPINEPHRINE BITARTRATE 8 MG in D5W 492 ML IV SCH ×2 (01:35→19:15)
[2018-08-26 05:22] LABS: BASO % 0.1 % (0.0-1.0); EOS # 0.1 10^3/uL (0.0-0.50); EOS % 1.2 % (0.0-3.0); HEMATOCRIT 29.4 % (36.0-47.0); LYMPH # 2.5 10^3/uL (1.5-4.5); LYMPH % 33.6 % (24.0-44.0); MEAN CORPUSCULAR HEMOGLOBIN 29.8 pg (27.0-33.0); MEAN CORPUSCULAR HGB CONC 30.6 g/dl (32.0-36.5); MEAN CORPUSCULAR VOLUME 97.4 fl (80.0-96.0); MONO # 0.7 10^3/uL (0.0-0.8); MONO % 8.9 % (0.0-5.0); NEUTROPHILS # 4.2 10^3/uL (1.8-7.7); NEUTROPHILS % 55.5 % (36.0-66.0); PLATELET COUNT, AUTOMATED 201 10^3/uL (150-450); RED BLOOD COUNT 3.02 10^6/uL (4.00-5.40); WHITE BLOOD COUNT 7.5 10^3/uL (4.0-10.0)
[2018-08-26 05:40] LABS: CALCIUM LEVEL 7.2 MG/DL (8.5-10.1); CREATININE FOR GFR 5.39 MG/DL (0.55-1.30); GLOMERULAR FILTRATION RATE 8.7 (>51); POTASSIUM SERUM 4.3 MEQ/L (3.5-5.1)
[2018-08-26] MEDS: SODIUM BICARBONATE 75 MEQ in NS 0.45% 1,000 ML IV SCH (06:20)
[2018-08-26] MEDS: HumaLOG INSULIN (NovoLOG) PER UNIT SC SCH ×4 (07:30→20:44)
--- NOTE | 2018-08-26 08:41 | ECGEPIP ---
Stationary ECG Study [facility] - ED Test Date: 2018-08-25 Pat Name: GLADYS RODARTE Department: Room: - Gender: F Supervisor Insecticide: ASHLEY : [id number] Requested By: Mable Madrigal Order Number: [id number] Reading MD: Mable Madrigal Measurements Intervals [place] Rate: 80 P: 148 SC: 78 QRS: 194 QRSD: 141 T: 0 QT: 241 QTc: 278 Interpretive Statements ELECTRONIC VENTRICULAR PACEMAKER ABNORMAL RHYTHM ECG SIMILAR 07/24/18 Electronically Signed On 08-26-2018 8:41:26 EST by Mable Madrigal
[2018-08-26] MEDS: NIACIN 100 MG TAB PO SCH (08:43)
[2018-08-26] MEDS: ASPIRIN 81 MG ENTERIC TAB PO SCH (08:43)
[2018-08-26] MEDS: cefTRIAXone SOD 1 GM in D5W MINI-BAG PLUS 50 ML IV SCH (08:44)
[2018-08-26] MEDS ORDERED: predniSONE 5 MG TAB PO SCH (09:00)
[2018-08-26] MEDS ORDERED: D5W 1,000 ML IV SCH (10:30)
--- NOTE | 2018-08-26 10:42 | IPN ---
DATE OF SERVICE: 08/26/2018 PRIMARY CARE PROVIDER: ADAMARIS Posada [place] Frank was seen in intensive care unit (ICU). She was admitted to the hospitalist service with acute renal failure. She was just hospitalized. Discharged a few weeks ago when she was admitted with congestive heart failure (CHF). She has a history of a dilated cardiomyopathy. Apparently, ejection fraction is 15%. She had a cardiac catheterization done on 06/03/[address] Yip in [place]. Left main was normal. Left anterior descending (LAD) had a mild 50% to 56% proximal lesion. Left circumflex had no significant disease. Right coronary artery (RCA) had no significant disease. There was no intervention felt necessary for the mild LAD stenosis. Today, she feels better. She still seems very lethargic but says she is not short of breath. PHYSICAL EXAMINATION: 101/55, pulse 75, temperature 98.7. Pressure is supported by Levophed. General appearance: Lethargic but answers questions. HEENT: Unremarkable. Neck: Supple. Lungs: Decreased breath sounds but clear. Heart: Regular rhythm. 2/6 holosystolic murmur at the apex. Abdomen: Soft, nontender. No masses. No peripheral edema. LABORATORIES: White count 7.5, hemoglobin 9, platelets 201. Sodium 139, potassium 4.3, BUN 60, creatinine 5.3, glucose 82. Blood sugar is 64 this morning. IMPRESSION: 1. Acute renal failure secondary to dehydration. Angiotensin-converting enzyme (OPHELIA) inhibitor therapy, metformin therapy. She is receiving normal saline with bicarbonate. Nephrology is involved. Appreciate the input. Renal function is only minimally improved from yesterday. 2. Hypotensive shock. The etiology is unknown. It could be urinary tract infection. It could be from the profound metabolic acidosis. She is on Levophed drip and intravenous (IV) fluids. 3. Type 2 diabetes. She takes metformin as an outpatient, which could have contributed to the metabolic acidosis. Also, is on Basaglar 14 units at bedtime and glimepiride 2 mg daily. She is hypoglycemic now. We are going to add some dextrose to her IV fluids. With the renal failure, the glimepiride and the basal insulin will have a prolonged duration of action. 4. Chronic steroid therapy. She apparently is on prednisone 5 mg daily at home. I do not have access to her outpatient records. I am not sure why she is on chronic steroid therapy, but this looks to have been discontinued. In the face of the hypotension, I think she needs some steroid support. I have ordered hydrocortisone for her, 50 mg IV once and then 25 mg IV twice a day. 5. Hyperlipidemia. She is on atorvastatin 40 mg daily. 6. Anemia, probably from chronic disease. It looks like she is on iron as an outpatient. I have ordered iron studies. 7. She looks hypothyroid. Will check some thyroid functions. 8. Question of urinary tract infection (UTI). She is on ceftriaxone, pending results of urine culture.
[2018-08-26 10:50] LABS: FREE T4 0.8 NG/DL (0.76-1.46); THYROID STIMULATING HORMONE 0.792 uIU/ML (0.358-3.740)
[2018-08-26] MEDS ORDERED: HYDROCORTISONE 100 MG/2 ML VIAL (J1720) IV ONE (11:00)
[2018-08-26] MEDS: D5W/0.45% SODIUM CHLORIDE 1,000 ML IV SCH (12:49)
[2018-08-26 16:38] LABS: ALBUMIN 2.4 GM/DL (3.2-5.2); CALCIUM LEVEL 7.1 MG/DL (8.5-10.1); CREATININE FOR GFR 4.93 MG/DL (0.55-1.30); GLOMERULAR FILTRATION RATE 9.7 (>51); PHOSPHORUS LEVEL 3.5 MG/DL (2.5-4.9); POTASSIUM SERUM 4.5 MEQ/L (3.5-5.1)
[2018-08-26] MEDS: ATORVASTATIN 20 MG TAB PO SCH (20:17)
[2018-08-26] MEDS: HYDROCORTISONE 100 MG/2 ML VIAL (J1720) IV SCH (20:17)
[2018-08-27] VITALS (15 sets, daily range): BP systolic 85–130; BP diastolic 47–65
[2018-08-27] MEDS: D5W/0.45% SODIUM CHLORIDE 1,000 ML IV SCH (01:53)
[2018-08-27 04:44] LABS: CALCIUM LEVEL 6.9 MG/DL (8.5-10.1); CREATININE FOR GFR 4.54 MG/DL (0.55-1.30); GLOMERULAR FILTRATION RATE 10.6 (>51); POTASSIUM SERUM 3.7 MEQ/L (3.5-5.1)
[2018-08-27 05:01] LABS: HEMATOCRIT 26.9 % (36.0-47.0); HEMOGLOBIN 8.5 g/dl (12.0-15.5); MEAN CORPUSCULAR HGB CONC 31.6 g/dl (32.0-36.5); MEAN CORPUSCULAR VOLUME 95.1 fl (80.0-96.0); PLATELET COUNT, AUTOMATED 148 10^3/uL (150-450); RED BLOOD COUNT 2.83 10^6/uL (4.00-5.40)
[2018-08-27] MEDS: HumaLOG INSULIN (NovoLOG) PER UNIT SC SCH ×4 (08:17→20:41)
--- NOTE | 2018-08-27 08:37 | CCN ---
DATE OF SERVICE: 08/26/2018 SUBJECTIVE: The patient was seen and examined at the bedside today morning in the intensive care unit (ICU). The patient is awake. She is hemodynamically more stable. She is still requiring Levophed. She continues to be on intravenous (IV) fluid hydration. Actually, two fluids are running at this point: IV bicarbonate drip at 100 mL/h and D5W at 150 an hour. The patient's lactic acidosis is slowly improving. She was oliguric yesterday. However, she is nonoliguric at this point, and she is making around 60-70 mL of urine an hour this morning when I saw her. The patient was hypoglycemic in the morning. She was started on hydrocortisone because of history of prednisone use in the past, and that is why she was started on D5 in the morning, as well. The patient reports feeling very weak and tired. Otherwise, she denies any active complaints at this point. OBJECTIVE: Vital signs: Temperature is 99.2 degrees Fahrenheit, blood pressure 98/56, pulse is 80, respiratory rate of 18, saturating 92% on nasal cannula at 2 liters. Intake and output: Urine output recorded since overnight is 1. 7 liters. Weight in the bed scale is 90 kg. PHYSICAL EXAMINATION: General: The patient is awake, alert, oriented times two, lying in bed, no apparent distress. Head and neck examination: Extraocular muscles intact. Pupils are equally round and reactive to light. Periorbital edema is noted. Neck is supple. There is no jugular venous distention (JVD). Cardiovascular: S1, S2, no edema of the bilateral lower extremities. Respiratory: Chest is clear to auscultation bilaterally. Bilaterally good air entry. No rales or rhonchi. Abdomen: Is soft. Positive bowel sounds. Nontender. No organomegaly. Musculoskeletal: No clubbing or cyanosis. Pulses are 2+. 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 Power is 5/5 in bilateral upper extremities. Psychiatric: The patient has a depressed mood at this point. LABORATORY RESULTS: Complete blood count (CBC) showed a WBC of 7.5, hemoglobin is 9, platelets are 201. INR is 1.16. Her glucose level was 64. Basic metabolic profile (BMP) today morning showed sodium 139, potassium 4.3, chloride 106, bicarbonate 21, BUN 60, creatinine is 5.3 (it was 5.5 yesterday), calcium 7.2. MICROBIOLOGY: Blood cultures are negative so far. Urine cultures are pending. Respiratory viral panel is negative. CURRENT INPATIENT MEDICATIONS: The patient is currently on IV Rocephin. She was on IV D5W and IV bicarbonate drip, both running at 100 mL/h. I have changed her IV fluids to D5 half-normal saline at 75 mL/h. She is also on Levophed infusion. She is on aspirin 81 mg daily, Lipitor 40 mg nightly. I have stopped her oral iron pill. She was given hydrocortisone 50 mg IV times one dose and started on hydrocortisone 25 mg IV twice a day. She is also on niacin 500 mg by mouth daily. Prednisone daily has been stopped today morning. ASSESSMENT AND PLAN: 1. Shock. The patient came in with hypotension, lactic acidosis, acute renal failure. She is empirically being treated for septic shock secondary to urinary tract infection. Urine cultures are pending. She is on IV Rocephin. However, I strongly believe that shock might be secondary to a combination of metformin-induced lactic acidosis and a urinary tract infection. However, since after she was hydrated overnight and started on Levophed, she is starting to make urine now. There is no urgent need of hemodialysis at this point. Continue Levophed and try to maintain a mean arterial pressure (MAP) above 60. She has been aggressively hydrated overnight. I am changing the IV fluid to D5 half-normal saline at 75 an hour. 2. Acute renal failure superimposed on chronic kidney disease. The patient was discharged with a creatinine of 1.2 a few weeks ago. Acute renal failure is likely secondary to a combination of use of a low-dose angiotensin-converting enzyme (OPHELIA) inhibitor, metformin-induced lactic acidosis, and possible urinary tract infection, as well. Her central venous pressure (CVP) is close to 10, and she has history of heart failure. I am decreasing the IV fluid rate to D5 half-normal saline at 75 mL/h. The patient is nonoliguric at this point, and I am very hopeful that the patient will make renal recovery without needing a renal replacement therapy. 3. Metabolic acidosis. It is secondary to a combination of renal failure and lactic acidosis. The patient was getting IV bicarbonate fluid up until today morning. Bicarbonate level has improved to 21. I have stopped the IV bicarbonate and changed the IV fluid to D5 half-normal saline at 75 mL/h. I am going to check the lactic acid level tomorrow morning, as well. 4. Diabetes mellitus type 2. The patient was receiving metformin as outpatient. She has severe lactic acidosis. Avoid use of metformin at this point. Okay to continue insulin. However, the patient was hypoglycemic in the morning, and she had to be started on D5-containing fluids. 5. Chronic steroid dependence. The patient was on prednisone 5 mg daily when she arrived. She is hypoglycemic and hypotensive. She has been started on hydrocortisone 25 mg IV twice a day by the primary team. Continue current dose. 6. Anemia and chronic kidney disease. Hemoglobin level is slightly suboptimal. No need of blood transfusion at this point. I am going to check her iron levels tomorrow morning. TOTAL CRITICAL CARE TIME SPENT: In the management of this patient today morning in the ICU was 50 minutes.
[2018-08-27] MEDS: NIACIN 100 MG TAB PO SCH (09:41)
[2018-08-27] MEDS: ASPIRIN 81 MG ENTERIC TAB PO SCH (09:41)
[2018-08-27] MEDS: cefTRIAXone SOD 1 GM in D5W MINI-BAG PLUS 50 ML IV SCH (09:42)
[2018-08-27] MEDS: HYDROCORTISONE 100 MG/2 ML VIAL (J1720) IV SCH ×2 (09:42→20:41)
[2018-08-27] MEDS: POTASSIUM CHLORIDE INJ 10 MEQ in NS 0.45% 1,000 ML IV SCH (14:27)
[2018-08-27] MEDS: ACETAMINOPHEN TAB 650MG DOSE (2X325MG) PO PRN (18:31)
[2018-08-27 18:40] LABS: PERCENT SATURATION 22.6 % (13.2-45.0)
[2018-08-27] MEDS: ATORVASTATIN 20 MG TAB PO SCH (20:41)
[2018-08-28] VITALS (7 sets, daily range): BP systolic 99–130; BP diastolic 51–61
[2018-08-28] MEDS: POTASSIUM CHLORIDE INJ 10 MEQ in NS 0.45% 1,000 ML IV SCH (03:13)
[2018-08-28 06:54] LABS: HEMATOCRIT 25.2 % (36.0-47.0); MEAN CORPUSCULAR HEMOGLOBIN 29.5 pg (27.0-33.0); MEAN CORPUSCULAR HGB CONC 31.7 g/dl (32.0-36.5); PLATELET COUNT, AUTOMATED 147 10^3/uL (150-450); RED BLOOD COUNT 2.71 10^6/uL (4.00-5.40); WHITE BLOOD COUNT 3.8 10^3/uL (4.0-10.0)
[2018-08-28 07:03] LABS: CREATININE FOR GFR 3.28 MG/DL (0.55-1.30); GLOMERULAR FILTRATION RATE 15.4 (>51); POTASSIUM SERUM 3.7 MEQ/L (3.5-5.1)
[2018-08-28] MEDS: HumaLOG INSULIN (NovoLOG) PER UNIT SC SCH ×4 (07:30→20:07)
[2018-08-28] MEDS: cefTRIAXone SOD 2 GM in D5W MINI-BAG PLUS 50 ML IV SCH (08:02)
[2018-08-28] MEDS: ASPIRIN 81 MG ENTERIC TAB PO SCH (08:02)
[2018-08-28] MEDS: HYDROCORTISONE 100 MG/2 ML VIAL (J1720) IV SCH ×2 (08:03→20:05)
[2018-08-28] MEDS: NIACIN 100 MG TAB PO SCH (08:03)
[2018-08-28] MEDS: ACETAMINOPHEN TAB 650MG DOSE (2X325MG) PO PRN ×2 (09:43→18:05)
--- NOTE | 2018-08-28 11:14 | IPN ---
DATE: 08/28/2018 Ibis is seen in ICU. She continues to improve from her acute renal failure, secondary to dehydration, metformin therapy and OPHELIA inhibitor therapy. She was in hypotensive shock when she was admitted. She has grown out E. Coli, which was pansensitive on her urine culture. She feels the best she has today in quite a while. She denies any chest pain or shortness of breath. She has a little bit of upper abdominal discomfort that is mild. PHYSICAL EXAMINATION: 103/54, pulse is 71, respiratory rate is 18, 97% oxygen saturation. General appearance: Resting comfortably in no distress. No jugular venous distention (JVD). Lungs clear. Heart regular rate and rhythm. Abdomen soft, nontender, no masses. No peripheral edema. LABS: White count 3.8, hemoglobin 8, platelets 147. Sodium 141, potassium 3.7, creatinine is down to 3.28, blood sugar is 162. IMPRESSION: 1. Acute renal failure superimposed on chronic kidney disease. Baseline creatinine is 1.2. Renal function is improved with hydration, discontinuing the metformin, discontinuing the OPHELIA inhibitor, and treating the urinary tract infection. 2. E. coli UTI. She is on Rocephin 2 grams IV daily for this, which should be sufficient coverage. 3. Diabetes. Blood sugars are in the 200 range. She was on some D5 after admission, which has been discontinued. She is sliding scale with coverage. 4. Chronic steroid therapy. She was on this as an outpatient for unknown indications. She is on hydrocortisone 25 mg IV twice a day currently. She could probably restart oral prednisone tomorrow. 5. Hyperlipidemia. Continue atorvastatin 40 mg daily. She is also on niacin for some reason, which we can discontinue. No cardiovascular benefit shown for taking niacin. Dr. Jj will be assuming her care tomorrow.
--- NOTE | 2018-08-28 13:33 | IPN ---
DATE: 08/27/2018 Ibis is putting out good urine now. Her renal function is a little better than yesterday. Creatinine has fallen from 6 to 5.4 to 4.5 over the last few days. Blood sugars have remained 200 to 300. She is not running any fevers. Denies any shortness of breath. PHYSICAL EXAMINATION: VITAL SIGNS: Stable. No fever. LUNGS: Clear. HEART: Regular rhythm. ABDOMEN: Soft, nontender. EXTREMITIES: Trace peripheral edema. Urine output was 2 liters yesterday. IMPRESSION: 1. Acute renal failure secondary to dehydration, metabolic acidosis from metformin and OPHELIA inhibitor therapy. Nephrology is involved. Appreciate the input. We are adjusting her medications. 2. Hypotensive shock. Levophed has been weaned. She is still on IV fluids. 3. Diabetes. She is on D5 because of Basaglar and glimepiride she received yesterday. At this point, her blood sugars are elevated and I do not think that she needs D5 anymore and it has been discontinued. 4. Chronic steroid therapy. She takes prednisone 5 mg daily at home for unknown indication and I have no outpatient records. She is on hydrocortisone 25 mg IV twice a day here. 5. Anemia. It looks like anemia of chronic disease. Iron studies were ordered. Continue atorvastatin. 6. Question of urinary tract infection (UTI). Urine culture grew out Escherichia (E) coli . She is currently on ceftriaxone, which should be satisfactory. 7. Reported diarrhea. GI panel is negative.
[2018-08-28] MEDS: HEPARIN SOD (PORCINE) 5000 UNITS/ML VIAL SQ SCH ×2 (14:16→20:07)
--- NOTE | 2018-08-28 14:26 | IPN ---
DATE: 08/27/2018 SUBJECTIVE: The patient was seen and examined at the bedside today morning in the intensive care unit (ICU). The last 24 hour events were noted. Levophed was stopped late last night. She is hemodynamically stable. She was sitting up on the sofa. Her urine output is improving. She is making more than 100 mL of urine an hour. Lactic acid level is also improving. The patient denies any active complaints, but reports that her appetite is not good and she did not eat much today during breakfast time. OBJECTIVE: VITAL SIGNS: Temperature is 97.8 degrees Fahrenheit, blood pressure 100/65, pulse is 77, respiratory rate of 18, saturating 92% on 2 liters via nasal cannula. INTAKE AND OUTPUT: Urine output recorded as 2.1 liters since overnight. Weight on the bed scale is not available. PHYSICAL EXAMINATION: GENERAL: The patient is awake, alert, oriented times three, sitting up in bed, so far not in distress. HEAD AND NECK EXAMINATION: Extraocular muscles intact. Pupils are equally round and reactive to light. Mucous membranes are moist. NECK: Supple. There is no jugular venous distention (JVD). CARDIOVASCULAR: S1, S2, regular rate. No edema of the bilateral lower extremities. RESPIRATORY: Chest is clear to auscultation bilaterally. Bilateral equal air entry. No rales or rhonchi. ABDOMEN: Soft. Positive bowel sounds. Nontender. No organomegaly. MUSCULOSKELETAL: No clubbing or cyanosis. Pulses are 2+. SOLAR PROJECT MANAGER: No focal deficit. Power is 5/5 in all extremities. PSYCH: Normal mood and affect. LABORATORY REVIEW: CBC showed a WBC of 4, hemoglobin 8.5, platelets 148. BMP showed sodium 136, potassium 3.7, chloride 102, bicarbonate 24, BUN 57, creatinine is 4.5, lactic acid was 2.2 in the morning, calcium is 6.9, iron is 54, TIBC 239, transferrin saturation is 22.6, ferritin is 63. MICROBIOLOGY: Urine culture is growing E. Coli which is sensitive to ceftriaxone. CURRENT INPATIENT MEDICATIONS: The patient's medications were all reviewed by me. IV Rocephin has been changed to 2 grams every 24 hours. Her IV fluids have been changed to 1/2 normal saline plus 10 mEq of KCL at 75 mL an hour. No change in the medications today as compared with yesterday. ASSESSMENT AND PLAN: 1. Septic shock. The patient was started on Levophed on admission. Levophed has been weaned off. Urine culture is growing E. coli which is sensitive to Rocephin. The Rocephin dose has been increased to 2 grams daily. 2. Acute renal failure superimposed on chronic kidney disease. It is secondary to a combination of use of angiotensin-converting enzyme (OPHELIA) inhibitors, metformin poisoning and urinary tract infection causing septic shock. Patient is nonoliguric at this point. I have changed the IV fluid to potassium chloride with half normal saline at 75 mL an hour. Continue to encourage oral hydration as well. 3. Metabolic acidosis. Secondary to a combination of lactic acidosis and renal failure. Bicarb level is improving. Continue IV fluid hydration. No need of IV bicarb administration at this point. 4. Diabetes mellitus type 2. Avoid further use of metformin in acute renal failure and lactic acidosis. Continue insulin sliding scale as needed. Oral diet is being started. D5 containing fluids are being stopped now. 5. Chronic steroid dependence. The patient is currently on hydrocortisone, a.m. cortisol level was done today morning, but is still pending. Glucose levels are better controlled. Blood pressure has improved. 6. Anemia and chronic kidney disease. Iron levels are adequate. Ferritin levels are borderline. I would avoid giving her IV iron at this point in sepsis. Transfuse as needed for hemoglobin 8 or below. Total critical care time spent in the management of this patient in the ICU today morning was 45 minutes.
[2018-08-28] MEDS ORDERED: hydrOXYzine 10 MG TAB PO ONE (20:00)
[2018-08-28] MEDS: ATORVASTATIN 20 MG TAB PO SCH (20:06)
[2018-08-29] VITALS (7 sets, daily range): BP systolic 91–112; BP diastolic 55–65
[2018-08-29 05:11] LABS: HEMATOCRIT 26.5 % (36.0-47.0); HEMOGLOBIN 8.2 g/dl (12.0-15.5); MEAN CORPUSCULAR HEMOGLOBIN 29.4 pg (27.0-33.0); MEAN CORPUSCULAR HGB CONC 30.9 g/dl (32.0-36.5); PLATELET COUNT, AUTOMATED 144 10^3/uL (150-450); RED BLOOD COUNT 2.79 10^6/uL (4.00-5.40); WHITE BLOOD COUNT 3.4 10^3/uL (4.0-10.0)
[2018-08-29 05:32] LABS: CALCIUM LEVEL 7.3 MG/DL (8.5-10.1); CREATININE FOR GFR 2.49 MG/DL (0.55-1.30); GLOMERULAR FILTRATION RATE 21.2 (>51); POTASSIUM SERUM 3.8 MEQ/L (3.5-5.1)
[2018-08-29] MEDS: HumaLOG INSULIN (NovoLOG) PER UNIT SC SCH ×4 (07:30→20:14)
--- NOTE | 2018-08-29 08:49 | IPN ---
DATE: 08/28/2018 SUBJECTIVE: The patient was seen and examined at the bedside today morning in the intensive care unit (ICU). She was sitting on the sofa. Her renal function is improving. She is improving urine output. Creatinine is down to 3.2. She is afebrile and hemodynamically stable. OBJECTIVE: VITAL SIGNS: Temperature is 98.2 degrees Fahrenheit, blood pressure 103/55, pulse is 74, respiratory rate of 18, saturating 100% on nasal cannula at 1 liter. INTAKE AND OUTPUT: Urine output recorded as 2.4 liters yesterday and 2.2 liters so far today since overnight. Weight on the bed scale is 91.6 kg. PHYSICAL EXAMINATION: GENERAL: The patient is awake, alert, oriented times three, sitting up on the sofa. No apparent distress. HEAD AND NECK EXAMINATION: Extraocular muscles intact. Pupils are equally round and reactive to light. Mucous membranes are moist. NECK: Supple. There is no jugular venous distention (JVD). She has a right IJ triple lumen catheter. CARDIOVASCULAR: S1, S2, regular rate. No edema of the bilateral lower extremities. RESPIRATORY: Chest is clear to auscultation bilaterally. Bilateral equal air entry. No rales or rhonchi. ABDOMEN: Soft, obese. Positive bowel sounds. Nontender. No organomegaly. GENITOURINARY: She has an indwelling Mcleod catheter. Urine in the bag is clear. MUSCULOSKELETAL: No clubbing or cyanosis. Pulses are 2+. CENTRAL NERVOUS SYSTEM (NURSERY SCHOOL ATTENDANT): No focal deficit. Power is 5/5 in all extremities. LABORATORY REVIEW: CBC showed a WBC of 3.8, hemoglobin 8, platelets 147. BMP showed sodium 141, potassium 3.7, chloride 107, bicarbonate 25, BUN 48, creatinine is 3.2, it was 4.5 yesterday. Calcium is 7. CURRENT INPATIENT MEDICATIONS: The patient's medications were all reviewed by me. IV fluids have been stopped now. She continues to be on IV ceftriaxone. No other change in the medications today as compared with yesterday. ASSESSMENT AND PLAN: 1. Status post septic shock. Shock is resolved now. Levophed is weaned off. She is on IV antibiotic for Escherichia (E) coli . IV fluids have been stopped. Renal function is slowly improving. 2. Acute renal failure superimposed on chronic kidney disease. The patient has a good urine output. Continue to hold angiotensin-converting enzyme (OPHELIA) inhibitors at this point. Avoid further use of metformin because of renal failure and lactic acidosis. Continue IV antibiotics. Encourage oral hydration. Because of history of heart failure, IV fluids are being stopped now. 3. Diabetes mellitus type 2. Avoid further use of metformin because of lactic acidosis and acute renal failure. 4. Chronic steroid dependence. The patient is currently on hydrocortisone 25 mg IV twice a day. Steroids are being slowly tapered down now starting from tomorrow. 5. Anemia of chronic kidney disease. Hemoglobin is 8. Transfuse as needed for hemoglobin below 8.
[2018-08-29] MEDS: HEPARIN SOD (PORCINE) 5000 UNITS/ML VIAL SQ SCH ×2 (08:53→20:14)
[2018-08-29] MEDS: HYDROCORTISONE 100 MG/2 ML VIAL (J1720) IV SCH (08:53)
[2018-08-29] MEDS: ASPIRIN 81 MG ENTERIC TAB PO SCH (08:53)
[2018-08-29] MEDS: cefTRIAXone SOD 2 GM in D5W MINI-BAG PLUS 50 ML IV SCH (08:54)
--- NOTE | 2018-08-29 11:59 | IPN ---
DATE: 08/29/2018 SUBJECTIVE: The patient tells me that she is feeling significantly better. She has no specific complaints at this time. OBJECTIVE: VITAL SIGNS: Temperature 97.2, pulse 82, respiratory rate 16, blood pressure 107/64, oxygen saturation 95% on 1 liter nasal cannula. GENERAL: She is an obese, middle aged female sitting in her chair. She does not appear to be in any acute distress. She is awake, alert and oriented times three. HEENT: Cranial nerves II through XII grossly intact. She has moist mucous membranes. No elevation of central venous pressure (CVP). CARDIOVASCULAR EXAM: S1 and S2 regular. RESPIRATORY EXAM: Clear. ABDOMINAL EXAM: Grossly obese. EXTREMITIES: She does have 1+ edema in all four extremities. LABORATORY STUDIES: WBC 3.4, hemoglobin 8.2, platelet count 144. Chemistry panel - sodium 145, potassium 3.8, chloride 110, bicarb 26, BUN 14, creatinine 2.4, down from 3.2. Lactic acid from 08/27/2018 was 1.5. Microbiology: Her urine culture is positive for pansensitive E. Coli. Otherwise, GI PCR panels are negative and blood cultures are negative. IMAGING: The patient had a chest x-ray that revealed right IJ with the tip in the right atrium. Cardiomegaly. Pulmonary vascular congestion/edema with left lower lobe Consolidation, which was stable. She also had an elbow x-ray that revealed some subcutaneous emphysema, not able to clinically correlate today on exam. She also had a CT scan of the abdomen and pelvis with contrast that revealed no hydronephrosis and a large ovarian dermoid at 11.4 cm in greatest diameter and pneumobilia. She also had a CT scan of the chest that revealed cardiomegaly with a pacemaker, dilated main pulmonary artery. Questionable pulmonary arterial hypertension. Patchy atelectasis in the left lower lobe and upper lobe, and to a lesser extent the right lower lobe. ASSESSMENT/PLAN: This is a 58-year-old female who initially presented with septic shock secondary to a urinary source. 1. Septic shock secondary to urinary source. She is now resolved. She is hemodynamically stable. She was weaned off pressors. She appears to be volume overloaded this time. She does appear to be auto diuresing. Nephrology's help is greatly appreciated. She is now hemodynamically stable. For the time being she is on levofloxacin. Her dose is renally adjusted. Antibiotics have already been transitioned this morning by the nephrology service. She is mildly pancytopenic today. We will follow her counts closely as antibiotics have already been adjusted. I have ordered a peripheral smear. 2. Acute renal failure. Likely secondary to septic shock, appears to be improving. No further need for IV fluids. Metabolic acidosis is essentially resolved. 3. Pacemaker dependence. Rate is controlled. She cannot tell me why she has a pacemaker. 4. Steroid dependence. She is currently on Solu-Medrol. I suspect that she could be transitioned to by mouth hydrocortisone. She is unable to tell me why she is on prednisone at home, but she only takes 5 mg daily. 5. Type 2 diabetes. Fingersticks are well controlled at this time. 6. Anemia of chronic disease. Stable. No indication for transfusion. 7. Fluid overload. Likely related to renal failure and fluid resuscitation during shock presentation. Continue to monitor closely as she diureses. 8. Dyslipidemia. She is on Lipitor. 9. Deep vein thrombosis (DVT) prophylaxis. She is on heparin. DISPOSITION: Pending clinical improvement, I will downgrade her to the progressive care unit at this time.
[2018-08-29] MEDS: HYDROCORTISONE 5MG TABLET PO SCH (20:14)
[2018-08-29] MEDS: ATORVASTATIN 20 MG TAB PO SCH (20:14)
[2018-08-30] VITALS: BP 102/65
[2018-08-30 04:00] VITALS: BP 102/65
[2018-08-30 05:07] LABS: HEMATOCRIT 26.4 % (36.0-47.0); HEMOGLOBIN 8.1 g/dl (12.0-15.5); MEAN CORPUSCULAR HEMOGLOBIN 29.7 pg (27.0-33.0); MEAN CORPUSCULAR HGB CONC 30.7 g/dl (32.0-36.5); MEAN CORPUSCULAR VOLUME 96.7 fl (80.0-96.0); PLATELET COUNT, AUTOMATED 157 10^3/uL (150-450); RED BLOOD COUNT 2.73 10^6/uL (4.00-5.40); WHITE BLOOD COUNT 3.4 10^3/uL (4.0-10.0)
[2018-08-30 05:26] LABS: CALCIUM LEVEL 7.6 MG/DL (8.5-10.1); CREATININE FOR GFR 1.82 MG/DL (0.55-1.30); GLOMERULAR FILTRATION RATE 30.5 (>51); POTASSIUM SERUM 3.7 MEQ/L (3.5-5.1)
[2018-08-30] MEDS ORDERED: LevoFLOXacin 500 MG TABLET PO ONE (06:00)
--- NOTE | 2018-08-30 07:49 | IPN ---
DATE OF SERVICE: 08/29/2018 SUBJECTIVE: Patient was seen and examined at the bedside today morning in the intensive care unit (ICU). She is afebrile and hemodynamically stable. She is making very good amount of urine. Renal function continues to improve. Creatinine is down to 2.4. Her Mcleod catheter was removed yesterday. Her triple lumen catheter was also removed. She continues to be neutropenic and she is receiving IV ceftriaxone for urinary tract infection. OBJECTIVE: VITAL SIGNS: Temperature is 98 degrees Fahrenheit, blood pressure 110/58, pulse is 77, respiratory rate of 18, saturating 97% on nasal cannula. INTAKE AND OUTPUT: Urine output recorded as 2.4 liters yesterday and 700 mL so far today since overnight. Weight on the bed scale is 93.1 kg. PHYSICAL EXAMINATION: GENERAL: The patient is awake, alert, oriented times two, sitting up on the sofa, in no apparent distress. HEAD AND NECK EXAMINATION: Extraocular muscles intact. Pupils are equally round and reactive to light. Mucous membranes are moist. NECK: Supple. There is no jugular venous distention (JVD). Right IJ triple lumen catheter has been removed. CARDIOVASCULAR: S1 and S2, regular rate. No edema of the bilateral lower extremities. RESPIRATORY: Chest is clear to auscultation bilaterally. Bilateral equal air entry. No rales or rhonchi. ABDOMEN: Soft, obese. Positive bowel sounds. Nontender. No organomegaly. GENITOURINARY: Mcleod catheter has been removed. MUSCULOSKELETAL: No clubbing or cyanosis. Pulses are 2+. CENTRAL NERVOUS SYSTEM (HEALTHCARE ECONOMICS CONSULTANT): No focal deficit. Power is 5/5 in all extremities. LABORATORY REVIEW: CBC showed a WBC of 3.4, hemoglobin 8.2, platelets 144. BMP showed sodium 145, potassium 3.8, chloride 110, bicarbonate 26, BUN 42, creatinine is 2.4 and it was 3.2 yesterday. Calcium 7.3. PATHOLOGY: Peripheral smear was done today which showed low normal platelet count. No platelet aggregate were noted. Multifactorial anemia. Mild leukopenia. Morphology was within normal limits. CURRENT INPATIENT MEDICATIONS: The patient's medications were all reviewed by me. IV ceftriaxone was stopped today. He was started on Levaquin 500 mg one dose and then 250 mg by mouth daily. Hydrocortisone IV has been stopped and she has been started on oral hydrocortisone 15 mg in the morning and 5 mg in the evening. ASSESSMENT AND PLAN: 1. Acute renal failure superimposed on chronic kidney disease. The patient's renal function continues to improve. She has a very good urine output. Acid base status and volume status is optimized. Continue to encourage oral hydration. 2. Chronic steroid dependence. Because of hypotension and shock and hypoglycemia, the patient was started on IV hydrocortisone. I have started the patient on hydrocortisone oral 15 mg in the morning and 5 mg in the evening. I would slowly taper it down. 3. Diabetes mellitus type 2. Avoid further use of metformin because of lactic acidosis. Continue insulin sliding scale. 4. Urinary tract infection. The patient was on IV ceftriaxone. She is developing pancytopenia. I have stopped the ceftriaxone and started the patient on Levaquin. 5. Pancytopenia. I strongly believe it is medication induced. As mentioned above, ceftriaxone has been stopped and patient has been switched to fluoroquinolones. 6. Disposition. Patient can be down graded to progressive care unit (PCU) now.
[2018-08-30] MEDS: HumaLOG INSULIN (NovoLOG) PER UNIT SC SCH ×5 (07:56→21:00)
[2018-08-30 08:00] VITALS: BP 104/55
[2018-08-30] MEDS: HEPARIN SOD (PORCINE) 5000 UNITS/ML VIAL SQ SCH ×2 (08:16→20:51)
[2018-08-30] MEDS: ASPIRIN 81 MG ENTERIC TAB PO SCH (08:17)
[2018-08-30] MEDS: NYSTATIN 100,000 UNITS/GM TOPICAL PWD 15 GM TOP SCH ×2 (09:00→20:52)
[2018-08-30] MEDS ORDERED: HYDROCORTISONE 5MG TABLET PO SCH (09:00)
[2018-08-30 13:00] VITALS: BP 136/66
--- NOTE | 2018-08-30 15:02 | IPN ---
DATE: 08/30/2018 SUBJECTIVE: The patient tells me that she is feeling much better today. Tells me she is still swollen, but notes she has not had any fevers, chills, chest pain or shortness of breath. OBJECTIVE: VITAL SIGNS: Temperature 97.1, pulse 81, respiratory rate 18, blood pressure 104/55, oxygen saturation 97% on 1 liter nasal cannula. GENERAL: She is an obese, middle aged female sitting in a recliner. She is awake, alert and oriented times three, speaking in complete sentences. She does not appear to be in any acute distress. HEENT: Cranial nerves II through XII are grossly intact. She has moist mucous membranes. No elevation of her central venous pressure (CVP). CARDIOVASCULAR EXAM: S1 and S2 regular. RESPIRATORY EXAM: Fairly clear today. ABDOMINAL EXAM: Benign, obese. EXTREMITIES: 1+ edema throughout all four extremities, but improved. LABORATORY STUDIES: WBC 3.4, hemoglobin 8.1, platelet count 157. Chemistry panel - sodium 147, potassium 3.7, chloride 113, bicarb 26, BUN 33, creatinine 1.8. No new microbiology or imaging. ASSESSMENT/PLAN: This is a 58-year-old female who presented with septic shock secondary to a urinary source. 1. Septic shock secondary to a urinary source, now resolving. She is hemodynamically stable. She was weaned off pressors, transitioned to by mouth antibiotics. Nephrology's help has been greatly appreciated. At this time, I think she is stable for transfer to the medical/surgical floor. I suspect she should complete at least a 10 day course of antibiotics, given the severity of her presentation. 2. Pancytopenia. Likely related to antibiotic use and medication adverse affect. Nephrology's help has been greatly appreciated. She has been transitioned. There appears to be some stabilization. Her platelets are actually improved today. 3. Acute renal failure secondary to septic shock. Nephrology's help is greatly appreciated. No further need for IV fluids. She does appear to be diuresing on her own as her renal status improves. Her volume status is being optimized gradually over time. Metabolic acidosis has resolved as well. 3. Chronic steroid dependence. She has been tapered down to hydrocortisone twice a day. Why she takes prednisone mg daily remains fairly elusive at this time. 4. Systolic congestive heart failure (CHF). She is decompensated at this time. She has an ejection fraction of 15% and is status post an AICD and pacer. She normally follows with Dr. Terrazas. She did receive significant fluids and I suspect she will continue to improve. She is diuresing on her own with improvement of her renal function. Once again, nephrology's help is greatly appreciated. She is on furosemide normally at home as well as lisinopril and sotalol. Will defer to nephrology when it is okay to resume her lisinopril and furosemide. Given her significantly depressed ejection fraction, I am wondering if she wouldn't benefit from a transition to Entresto and possibly the addition of spironolactone in the future. 5. Diabetes mellitus Fingersticks are well controlled at this time. We are avoiding further use of metformin in the future given the significant lactic acidosis she presented with. She is normally on glimepiride and Basaglar KwikPen at home. 6. Dyslipidemia. She is on atorvastatin. The patient is on niacin. 7. Iron deficiency anemia. She is on ferrous sulfate. 8. Chronic steroid depence. The etiology for why she is on prednisone 5 mg daily is not immediately clear. She is unaware of this. I have been unable to find an answer in going through her records. For the time being, she is on hydrocortisone which will be weaned and tapered down back to her 5 mg daily dosing. 9. COPD. She is at her baseline respiratory status. She normally uses 2 liters at home. At this time, she is only requiring 1 liter. Curiously, it appears she is not on inhalers at home and not requiring them at this time either. 10. Chronic hypoxic respiratory failure. Etiology si somewhat confusing for me given this. 11. Suspected obstructive sleep apnea (HEYDI). She reportedly recent had a sleep study and was told she dos not require any CPAP. 12. Right elbow subcutaneous emphysema. No present on exam. 13. Ovarian dermoid, rather large. Did not appear to be obstructing her ureters, however she did appear to have a urinary tract infection. I think she would benefit from outpatient TRACTOR EXPERT follow-up. DISPOSITION: Pending PD clearance. She is improving at this time and she may be able to be discharged within the next 24-48 hours. I will transfer to the medical/surgical floor.
[2018-08-30 20:00] VITALS: BP 119/59
[2018-08-30] MEDS: HYDROCORTISONE 5MG TABLET PO SCH (20:52)
[2018-08-30] MEDS: ATORVASTATIN 20 MG TAB PO SCH (20:52)
[2018-08-31] MEDS: LevoFLOXacin 250 MG TABLET PO SCH (05:25)
[2018-08-31 06:00] VITALS: BP 101/56
[2018-08-31 06:00] LABS: HEMATOCRIT 26.4 % (36.0-47.0); MEAN CORPUSCULAR HEMOGLOBIN 29.5 pg (27.0-33.0); MEAN CORPUSCULAR HGB CONC 30.3 g/dl (32.0-36.5); MEAN CORPUSCULAR VOLUME 97.4 fl (80.0-96.0); PLATELET COUNT, AUTOMATED 187 10^3/uL (150-450); RED BLOOD COUNT 2.71 10^6/uL (4.00-5.40); WHITE BLOOD COUNT 3.7 10^3/uL (4.0-10.0)
[2018-08-31 06:18] LABS: CALCIUM LEVEL 7.7 MG/DL (8.5-10.1); CREATININE FOR GFR 1.43 MG/DL (0.55-1.30); GLOMERULAR FILTRATION RATE 40.3 (>51); POTASSIUM SERUM 4.9 MEQ/L (3.5-5.1)
[2018-08-31] MEDS: HEPARIN SOD (PORCINE) 5000 UNITS/ML VIAL SQ SCH ×2 (09:58→21:45)
[2018-08-31] MEDS: HumaLOG INSULIN (NovoLOG) PER UNIT SC SCH ×4 (09:59→21:46)
[2018-08-31] MEDS: HYDROCORTISONE 10 MG TAB PO SCH (10:00)
[2018-08-31] MEDS: NYSTATIN 100,000 UNITS/GM TOPICAL PWD 15 GM TOP SCH ×2 (10:00→21:45)
[2018-08-31] MEDS: ASPIRIN 81 MG ENTERIC TAB PO SCH (10:00)
--- NOTE | 2018-08-31 10:00 | IPN ---
DATE OF SERVICE: 08/30/2018 SUBJECTIVE: Patient was seen and examined at the bedside today morning. She is afebrile and hemodynamically stable. She has a very good urine amount. Renal function continues to improve. Creatinine is down to 1.8. She has developed mild hypernatremia at this point. She denies any other active complaints. OBJECTIVE: VITAL SIGNS: Temperature is 97.8 degrees Fahrenheit, blood pressure 136/66, pulse is 81, respiratory rate of 18, saturating 97% on nasal cannula at 1 liter. INTAKE AND OUTPUT: Urine output recorded as 1 liter yesterday and 975 mL so far today. Weight on the bed scale is 95.5 kg. PHYSICAL EXAMINATION: GENERAL: The patient is awake, alert, oriented times three, sitting up in the bed, in no apparent distress, wearing nasal cannula. HEAD AND NECK EXAMINATION: Extraocular muscles intact. Pupils are equally round and reactive to light. Mucous membranes are moist. NECK: Supple. There is no jugular venous distention (JVD). CARDIOVASCULAR: S1 and S2, regular rate. No murmur, rub or gallop. No edema of the bilateral lower extremities. RESPIRATORY: Chest is clear to auscultation bilaterally. Bilateral equal air entry. No rales or rhonchi. ABDOMEN: Soft, obese. Positive bowel sounds. Nontender. No organomegaly. MUSCULOSKELETAL: No clubbing or cyanosis. Pulses are 2+. CENTRAL NERVOUS SYSTEM (TILTING SAW OPERATOR): No focal deficit. Power is 5/5 in all extremities. LABORATORY REVIEW: CBC showed a WBC of 3.4, hemoglobin 8.1, platelets 157. BMP showed sodium 147, potassium 3.7, chloride 113, bicarbonate 26, BUN 33, creatinine is 1.8 and it was 2.yesterday, calcium 7.6. CURRENT INPATIENT MEDICATIONS: The patient's medications were all reviewed by me. I have decreased her a.m. hydrocortisone to 10 mg in the morning. ASSESSMENT AND PLAN: 1. Acute renal failure superimposed on chronic kidney disease. The patient is making a good amount of urine. Renal function continues to improve. Creatinine is down to 1.8. Continue to encourage oral hydration. 2. Hypernatremia. It is secondary to diuresis after renal improvement. Patient has a negative fluid balance for the last three days. I have encouraged her to drink more free water. I would avoid giving her D5W because she is diabetic as well. 3. Chronic steroid dependence. The patient was in shock and was hypotensive and hypoglycemic on arrival. She was started on IV hydrocortisone. She was started on oral hydrocortisone yesterday. I am slowly tapering the dose. From tomorrow onwards she will be on 10 mg in the morning and 5 mg in the evening. 4. Urinary tract infection. The patient is currently on Levaquin. Ceftriaxone was stopped because she was developing pancytopenia. 5. Diabetes mellitus type 2. Avoid further use of metformin because of renal failure and lactic acidosis. The rest of the management is as per primary team. 6. Anemia and neutropenia. The patient's ceftriaxone was stopped yesterday. Hemoglobin and white cell count is stable. Continue to monitor for now. MTDD
[2018-08-31 14:00] VITALS: BP 115/68
[2018-08-31] MEDS ORDERED: DARBEPOETIN 100 MCG/0.5 ML *NON-DIALYSIS* SYRINGE (J0881) SC SCH (21:00)
[2018-08-31] MEDS: HYDROCORTISONE 5MG TABLET PO SCH (21:45)
[2018-08-31] MEDS: ATORVASTATIN 20 MG TAB PO SCH (21:45)
[2018-08-31 22:00] VITALS: BP 98/47
--- NOTE | 2018-08-31 22:51 | IPN ---
DATE: 08/31/2018 SUBJECTIVE: The patient was seen and examined at the bedside today morning. She was sitting up in the bed. She is afebrile, hemodynamically stable. Her renal function continues to improve. Creatinine is 1.4 today. Her hemoglobin is stable. She denies any active complaints. OBJECTIVE: VITAL SIGNS: Temperature is 97.1 degrees Fahrenheit, blood pressure 115/68, pulse is 96, respiratory rate of 18, saturating 90% on 1 liter via nasal canula. Intake and output: Urine output recorded as 1.1 liter yesterday. 1 liter so far today since overnight. Weight in the bed scale is not available. PHYSICAL EXAMINATION: GENERAL: The patient is awake, alert and oriented times 3, sitting up in the bed in no apparent distress. HEAD AND NECK EXAM: Extraocular muscles intact. Pupils equally round and reactive to light. Mucous membranes are moist. Neck is supple. There is no jugular venous distension (JVD). CARDIOVASCULAR: S1, S2, regular rate. No edema of the bilateral lower extremities. RESPIRATORY: Chest is clear to auscultation bilaterally. Bilateral equal air entry. No rales or rhonchi. ABDOMEN: Soft, obese. Positive bowel sounds. Nontender. No organomegaly. MUSCULOSKELETAL: No clubbing or cyanosis. Pulses are 2+. CENTRAL NERVOUS SYSTEM: No focal deficit. Power is 5/5 in all extremities. LABORATORY REVIEW: Complete blood count (CBC) showed a white blood count (WBC) of 3.7, hemoglobin is 8, platelets of 187. Basic metabolic panel (BMP) showed sodium 147, potassium 4.9, chloride 113, bicarbonate 29, BUN 28, creatinine is 1.4, it was 1.8 yesterday. Calcium is 7.7. CURRENT INPATIENT MEDICATIONS: The patient's medications were all reviewed by me. Her hydrocortisone dose has been decreased to 10 mg in the morning and 5 mg in the evening. She continues to be on Levaquin. No other change in the medications today as compared with yesterday. ASSESSMENT AND PLAN: 1. Acute renal failure superimposed on chronic kidney disease. Renal function continues to improve. She has a very good urine output. Creatinine continues to downturn; it is down to 1.4 today. Continue to encourage oral hydration. 2. Hypernatremia. It is secondary to diuresis after renal improvement. Continue to encourage free water intake. Sodium is stable at 147. 3. Chronic steroid dependence. The patient was on prednisone when she came in. She was started on hydrocortisone after shock. Hydrocortisone dose is being slowly tapered down . 4. Anemia and neutropenia. The patient was on ceftriaxone, which might have contributed to this. White cell count is improving. Hemoglobin is stable at 8. The patient will be given a dose of Aranesp. 5. Diabetes mellitus type 2. Avoid use of metformin because of acute renal failure and recent lactic acidosis. The rest of the management as per primary team.
[2018-09-01] MEDS: LevoFLOXacin 250 MG TABLET PO SCH (05:44)
[2018-09-01 06:00] VITALS: BP 98/47
[2018-09-01 07:00] LABS: HEMATOCRIT 27.9 % (36.0-47.0); HEMOGLOBIN 8.3 g/dl (12.0-15.5); MEAN CORPUSCULAR HEMOGLOBIN 29.7 pg (27.0-33.0); MEAN CORPUSCULAR HGB CONC 29.7 g/dl (32.0-36.5); PLATELET COUNT, AUTOMATED 211 10^3/uL (150-450); RED BLOOD COUNT 2.79 10^6/uL (4.00-5.40)
[2018-09-01 07:22] LABS: CALCIUM LEVEL 8.1 MG/DL (8.5-10.1); CREATININE FOR GFR 1.28 MG/DL (0.55-1.30); GLOMERULAR FILTRATION RATE 45.8 (>51); POTASSIUM SERUM 4.7 MEQ/L (3.5-5.1)
[2018-09-01] MEDS: HEPARIN SOD (PORCINE) 5000 UNITS/ML VIAL SQ SCH ×2 (08:09→21:45)
[2018-09-01] MEDS: HYDROCORTISONE 10 MG TAB PO SCH (08:09)
[2018-09-01] MEDS: ASPIRIN 81 MG ENTERIC TAB PO SCH (08:09)
[2018-09-01] MEDS: HumaLOG INSULIN (NovoLOG) PER UNIT SC SCH ×4 (08:10→21:46)
[2018-09-01] MEDS: NYSTATIN 100,000 UNITS/GM TOPICAL PWD 15 GM TOP SCH ×2 (08:13→21:46)
[2018-09-01 14:00] VITALS: BP 121/58
[2018-09-01] MEDS: ATORVASTATIN 20 MG TAB PO SCH (21:45)
[2018-09-01] MEDS: HYDROCORTISONE 5MG TABLET PO SCH (21:45)
[2018-09-01 22:00] VITALS: BP 122/60
[2018-09-02] MEDS: LevoFLOXacin 250 MG TABLET PO SCH (05:47)
[2018-09-02 06:00] VITALS: BP 120/66
[2018-09-02 06:26] LABS: HEMATOCRIT 26.3 % (36.0-47.0); HEMOGLOBIN 7.8 g/dl (12.0-15.5); MEAN CORPUSCULAR HEMOGLOBIN 29.9 pg (27.0-33.0); MEAN CORPUSCULAR HGB CONC 29.7 g/dl (32.0-36.5); MEAN CORPUSCULAR VOLUME 100.8 fl (80.0-96.0); PLATELET COUNT, AUTOMATED 190 10^3/uL (150-450); RED BLOOD COUNT 2.61 10^6/uL (4.00-5.40); WHITE BLOOD COUNT 3.7 10^3/uL (4.0-10.0)
[2018-09-02 06:40] LABS: CALCIUM LEVEL 7.4 MG/DL (8.5-10.1); CREATININE FOR GFR 1.28 MG/DL (0.55-1.30); GLOMERULAR FILTRATION RATE 45.8 (>51); POTASSIUM SERUM 4.5 MEQ/L (3.5-5.1)
--- NOTE | 2018-09-02 06:55 | IPN ---
DATE OF SERVICE: 09/01/2018 SUBJECTIVE: The patient was seen and examined at the bedside today morning. Patient is afebrile, hemodynamically stable. Her renal function continues to improve. Creatinine is down to 1.2 today. OBJECTIVE: VITAL SIGNS: Temperature is 98.5 degrees Fahrenheit, blood pressure 98/47, pulse is 95, respiratory rate of 18, saturating 97% on nasal cannula at 1 liters. Intake and output: Urine output recorded as 1.4 liter yesterday. 225 mL so far today since overnight. Weight in the bed scale is not available. PHYSICAL EXAMINATION: GENERAL: The patient is awake, alert and oriented times three, sitting up in the bed in no apparent distress. HEAD AND NECK EXAM: Extraocular muscles intact. Pupils equally round and reactive to light. Mucous membranes are moist. Neck is supple. There is no jugular venous distension (JVD). CARDIOVASCULAR: S1, S2, regular rate. No edema of the bilateral lower extremities. RESPIRATORY: Chest is clear to auscultation bilaterally. Bilateral equal air entry. No rales or rhonchi. ABDOMEN: Soft, obese. Positive bowel sounds. Nontender. No organomegaly. MUSCULOSKELETAL: No clubbing or cyanosis. Pulses are 2+. CENTRAL NERVOUS SYSTEM: No focal deficit. Power is 5/5 in all extremities. LABORATORY REVIEW: Complete blood count (CBC) showed a white blood count (WBC) of 4, hemoglobin is 8.3, platelets of 211. Basic metabolic panel (BMP) showed sodium 146, potassium 4.7, chloride 112, bicarbonate 48, BUN 30, creatinine is 1.28, it was 1.4 yesterday. Calcium is 8.1. CURRENT INPATIENT MEDICATIONS: The patient's medications were all reviewed by me. She was started on Aranesp 100 mcg subcutaneous once a week yesterday. She is still on hydrocortisone 10 mg in the morning, 5 mg in the evening. She continues to be on Levaquin 250 mg by mouth daily. No other change in the medications today as compared with yesterday. ASSESSMENT AND PLAN: 1. Acute renal failure superimposed on chronic kidney disease. Patient's creatinine continues to improve, it is down to 1.2 today. Continue to encourage oral hydration. Electrolytes are improving. 2. Hypernatremia. Encourage oral free water intake. Sodium is 146 today which is improving. 3. Chronic steroid dependence. The patient was started on hydrocortisone stress dose because of shock and hyperglycemic when she came in. Hydrocortisone dose is slowly being tapered down. 4. Anemia and neutropenia. Ceftriaxone was stopped. Neutropenia is slowly improving. Patient was started on Aranesp injections once a week for anemia. Iron levels are adequate. 5. Diabetes mellitus type 2. Metformin was stopped because of lactic acidosis. Continue insulin sliding scale at this point. 6. Urinary tract infection. Patient has E. coli urinary tract infection sensitive to Levaquin. She is currently on oral dose of Levaquin.
[2018-09-02] MEDS: HYDROCORTISONE 5MG TABLET PO SCH ×2 (08:20→21:15)
[2018-09-02] MEDS: ASPIRIN 81 MG ENTERIC TAB PO SCH (08:20)
[2018-09-02] MEDS: HumaLOG INSULIN (NovoLOG) PER UNIT SC SCH ×4 (08:21→21:00)
[2018-09-02] MEDS: HEPARIN SOD (PORCINE) 5000 UNITS/ML VIAL SQ SCH ×2 (08:22→21:16)
[2018-09-02] MEDS: NYSTATIN 100,000 UNITS/GM TOPICAL PWD 15 GM TOP SCH ×2 (08:22→21:16)
[2018-09-02] MEDS ORDERED: FUROSEMIDE 40 MG/4 ML VIAL (J1940) IV ONE ×2 (12:00→16:45)
[2018-09-02 14:00] VITALS: BP 113/62
--- NOTE | 2018-09-02 14:23 | IPN ---
DATE: 09/02/2018 SUBJECTIVE: The patient tells me that she is a little bit wobbly when she tries to get up and walk around but otherwise she feels well and she is regaining her strength. No other specific complaints at this time. OBJECTIVE: VITAL SIGNS: Temperature 98.9, pulse 95, respiratory rate 20, blood pressure 120/66, oxygen saturation 100% on 1 liter. GENERAL: She is a pleasant, obese, female sitting on the edge of her bed. She does not appear to be in any acute distress. HEENT: Cranial nerves II through XII are grossly intact. She has moist mucous membranes. No elevation of her central venous pressure (CVP). CARDIOVASCULAR EXAM: S1 and S2 regular. RESPIRATORY EXAM: Fairly clear. ABDOMINAL EXAM: Benign. EXTREMITIES: 1+ edema bilaterally. LABORATORY STUDIES: WBC 3.7, hemoglobin 7.8, down from 8.3, platelet count 190. Chemistry panel - sodium 147, potassium 4.5, chloride 114, bicarbonate 28, BUN 30, creatinine 1.2. No new microbiology or imaging. ASSESSMENT/PLAN: This is a 58-year-old female with sepsis secondary to a urinary source. 1. Sepsis secondary to a urinary source. She did initially require pressors and aggressive fluids in the intensive care unit (ICU). She is hemodynamically stable. She has been transferred to the medical/surgical floor. She is now tolerating oral antibiotics and her infection is resolving. 2. Acute renal failure secondary to septic shock. I suspect that her renal function is at baseline. Nephrology's help is greatly appreciated. 3. Neutropenia and anemia. Initially I felt that her pancytopenia was related to her antibiotic use. She was transitioned to a different antibiotic and her platelets did improve, however, leukopenia has worsened slightly today where it was improving previously. Her anemia is slightly worsen today. Although looking back, her hemoglobin is 7.8 today and several days ago it was 8.0. I do not suspect any active bleeding; however, I will check iron studies. She did receive Aranesp. We are optimistic that this will improve. I did speak with nephrology today and we will transfuse her 2 units of packed red blood cell. He did consent and this was placed in the chart. 4. Decompensated severe systolic congestive heart failure (CHF). She is still mildly volume overloaded, but we are giving her 2 units of blood today. I did discuss with nephrology, we will provide her with 40 of IV Lasix in between the 2 units. We will defer to nephrology when they feel that she is able to restart her OPHELIA inhibitor. I think that she is somebody who could potentially benefit from Entresto and spironolactone should her blood pressure be able to tolerate it. 5. Chronic hypoxic respiratory failure secondary to chronic obstructive pulmonary disease (COPD). She is at her baseline respiratory status. 6. Chronic steroid dependence. She is on 5 mg of hydrocortisone twice a day. I suspect the next tapering could be down to 5 mg of prednisone daily, which is what she was doing at home prior to her hospitalization. 7. Dyslipidemia. She is on atorvastatin. 8. Iron deficiency anemia. As outlined above. She is also on iron sulfate. 9. Ovarian dermoid, rather large. I suspect that she would benefit from outpatient [facility] followup. 10. Diabetes mellitus. Fingersticks are well controlled at this time. DISPOSITION: Pending physical therapy (PT) clearance. I suspect that she may be able to go home within the next 24 to 48 hours.
--- NOTE | 2018-09-02 17:25 | IPN ---
DATE: 09/02/2018 SUBJECTIVE: The patient tells me that she has no specific complaints at this time. She feels a little bit weak but otherwise no complaints. OBJECTIVE: VITAL SIGNS: Temperature 96.9, pulse 80, respiratory rate 18, blood pressure (BP) 101/56, oxygen saturation 99% on 1 liter. GENERAL: She is a pleasant, obese female. She does not appear to be in acute distress. HEENT: Cranial nerves II-XII are grossly intact. She has moist mucous membranes. No elevation in central venous pressure (CVP). CARDIOVASCULAR: S1, S2, regular. RESPIRATORY: Fairly clear. ABDOMEN: Obese. EXTREMITIES: No clubbing or cyanosis. She has 1+ edema bilaterally. LABORATORY STUDIES: WBC 3.7, hemoglobin 8.0, platelet count 187. Chemistry panel: Sodium 147, potassium 4.9, chloride 113, bicarbonate 29, BUN 28, creatinine 1.4. No new imaging. ASSESSMENT AND PLAN: This is a 58-year-old female admitted with septic shock secondary to urinary source. 1. Septic shock secondary to urinary source. Appears to be resolving. She is hemodynamically stable. We have transitioned her to oral antibiotics. She has been downgraded and appears to be doing quite well at this time. I will have her work with physical therapy. 2. Pancytopenia, possibly related to antibiotic use. Nephrology's help has been appreciated. Continue to monitor closely. 3. Acute renal failure secondary to septic shock. Once again, nephrology's help has been greatly appreciated. She does appear to be improving. She does have some edema, but it does appear to be resolving without medications. 4. Chronic steroid dependence. Nephrology has tapered down on her steroids. I recommend tapering her back down to her baseline prednisone 5 mg by mouth daily. 5. Decompensated systolic congestive heart failure with ejection fraction 50%. She has an automatic implantable cardioverter-defibrillator (AICD) and pacer. Follows with Dr. Terrazas. She does not appear to be auto-diuresing. Will defer to nephrology once she is able to resume her home diuretics and angiotensin-converting enzyme (OPHELIA) inhibitor. Patient has a recovering renal function. 6. Diabetes mellitus. Fingersticks are well controlled. 7. Dyslipidemia. She is on atorvastatin. 8. Iron deficiency anemia. She is on ferrous sulfate and appears to be relatively stable. 9. Chronic obstructive pulmonary disease (COPD). She is at her baseline respiratory status and uses 2 liters at home. The patient as chronic hypoxic respiratory failure. 10. Right elbow subcutaneous emphysema. Not present on exam. 11. Ovarian dermoid. Recommend outpatient [facility] followup. DISPOSITION: Pending physical therapy (PT) clearance.
--- NOTE | 2018-09-02 17:31 | IPN ---
DATE: 09/01/2018 SUBJECTIVE: Once again, the patient has no further complaints today. She tells me she is doing well. OBJECTIVE: VITAL SIGNS: Temperature 98.5, pulse 95, respiratory rate 18, blood pressure 98/47, oxygen saturation 97% on 1 liter. GENERAL: She is a middle aged, obese, female sitting in a chair. She does not appear to be in any acute distress. HEENT: Cranial nerves II-XII are grossly intact. She has moist mucous membranes. No elevation of central venous pressure (CVP). CARDIOVASCULAR EXAM: S1, S2 regular. RESPIRATORY EXAM: Clear. ABDOMINAL EXAM: Obese. EXTREMITIES: Trace edema bilaterally, but improved from previous day's exam. LABORATORY STUDIES: WBC 4.0, hemoglobin 8.3, platelet count 211. Chemistry panel: Sodium 146, potassium 4.7, chloride 112, bicarbonate 28, BUN 30, creatinine 1.2. No new microbiology or imaging. ASSESSMENT AND PLAN: This is a 58-year-old female with sepsis secondary to urinary source, appears to be resolving. 1. Sepsis secondary to urinary source. She is hemodynamically stable. She is continued on antibiotics. She has been transitioned to levofloxacin and she is tolerating well. Her infection appears to be essentially resolved, though she should complete at least a 10 day course of antibiotics. Nephrology's help is greatly appreciated. 2. Leukopenia and anemia. Her platelets did improve with changing of antibiotic choice. It appears as though her white blood count (WBC) is improving as well. We will continue to monitor closely. 3. Acute renal failure secondary to septic shock. Appears to be resolving and approaching back to her basleine. Nephrology's help is greatly appreciated. 4. Steroid dependence. Patient is normally on prednisone 5 mg daily. Nephrology is gradually tapering down her hydrocortisone back to this dosing which I agree with. 5. Severe systolic congestive heart failure. She required significant fluid resuscitation when she initially presented in shock. She does appear to be diuresing fairly well. Will defer to nephrology when her renal function is able to support resumption of her home diuretic and angiotensin converting enzyme (OPHELIA) inhibitor. 6. Diabetes mellitus. Finger sticks are well controlled at this time. Metformin was held secondary to lactic acidosis, however I suspect it was related to her infection and she could likely resume it upon discharge. 7. Dyslipidemia. She is on atorvastatin and niacin. 8. Iron deficiency anemia. She is on ferrous sulfate. Appears as though nephrology is planning on providing her with Aranesp. 9. Chronic obstructive pulmonary disease (COPD). She is at her baseline respiratory status and has chronic hypoxic respiratory failure. 10. Ovarian dermoid. Recommend outpatient followup. 11. Hypernatremia. Will encourage by mouth water intake. DISPOSITION: Pending physical therapy (PT) clearance.
[2018-09-02] MEDS: ATORVASTATIN 20 MG TAB PO SCH (21:16)
[2018-09-02 22:00] VITALS: BP 121/62
[2018-09-03] MEDS: LevoFLOXacin 250 MG TABLET PO SCH (05:54)
[2018-09-03 06:00] VITALS: BP 106/74
[2018-09-03 06:29] LABS: HEMATOCRIT 32.5 % (36.0-47.0); MEAN CORPUSCULAR HEMOGLOBIN 29.5 pg (27.0-33.0); MEAN CORPUSCULAR HGB CONC 31.1 g/dl (32.0-36.5); PLATELET COUNT, AUTOMATED 181 10^3/uL (150-450); RED BLOOD COUNT 3.42 10^6/uL (4.00-5.40); WHITE BLOOD COUNT 4.5 10^3/uL (4.0-10.0)
[2018-09-03 06:54] LABS: HEMOGLOBIN 10.1 g/dl (12.0-15.5)
[2018-09-03 08:05] LABS: CALCIUM LEVEL 7.7 MG/DL (8.5-10.1); CREATININE FOR GFR 1.38 MG/DL (0.55-1.30); POTASSIUM SERUM 4.5 MEQ/L (3.5-5.1)
[2018-09-03] MEDS: HYDROCORTISONE 5MG TABLET PO SCH (08:21)
[2018-09-03] MEDS: ASPIRIN 81 MG ENTERIC TAB PO SCH (08:21)
[2018-09-03] MEDS: HumaLOG INSULIN (NovoLOG) PER UNIT SC SCH ×4 (08:21→21:00)
[2018-09-03] MEDS: NYSTATIN 100,000 UNITS/GM TOPICAL PWD 15 GM TOP SCH ×2 (08:22→20:22)
[2018-09-03] MEDS: HEPARIN SOD (PORCINE) 5000 UNITS/ML VIAL SQ SCH ×2 (08:22→20:22)
--- NOTE | 2018-09-03 11:26 | IPNPDOC ---
Date Seen The patient was seen on 09/03/18. Progress Note SUBJECTIVE: Patient tells me that she feels well she has no complaints today. She tells me she did receive a blood transfusion yesterday evening and she didn't break quite a bit of urine and she was up ambulating independently back and forth to the bathroom regularly OBJECTIVE PHYSICAL EXAMINATION: VITAL SIGNS: Please see below. GENERAL: Pleasant obese female appears older than stated age sitting in bed in no acute distress HEENT: Cranial nerves II through XII are grossly intact CARDIOVASCULAR: S1-S2 regular. RESPIRATORY: Clear to auscultation bilaterally ABDOMINAL: [obese bowel sounds are present abdomen soft.] EXTREMITIES: 1+ edema bilaterally LABORATORY DATA, IMAGING STUDIES, MICROBIOLOGY: Please see below. DVT prophylaxis ordered?: [Heparin] ASSESSMENT AND PLAN: This is a 58-year-old female with sepsis secondary to urinary source, appears to be resolving. 1. Sepsis secondary to urinary source. She is hemodynamically stable. She is continued on antibiotics. She has been transitioned to levofloxacin PO and she is tolerating well. Her infection appears to be essentially resolved, though she should complete at least a 10 day course of antibiotics today is day 9. Nephrology's help is greatly appreciated. 2. Leukopenia and anemia. Her platelets did improve with changing of antibiotic choice. It appears as though her white blood count (WBC) is stable, anemia is likely multifactorial, she received Aranesp and 2 units. Receives yesterday with a positive response I do not suspect any active bleeding or hemolysis. We will continue to monitor closely. 3. Acute renal failure secondary to septic shock. Appe[facility] to be resolving and [facility] Nephrology's help is greatly appreciated. 4. Steroid dependence. Patient is normally on prednisone 5 mg daily. Nephrology is gradually tapering down her hydrocortisone back to this dosing which I agree with. 5. Severe systolic congestive heart failure. She required significant fluid resuscitation when she initially presented in shock. She does appear to be diuresing fairly well. Will defer to nephrology when her renal function is able to support resumption of her home diuretic and angiotensin converting enzyme (OPHELIA) inhibitor. 6. Diabetes mellitus. Finger sticks are well controlled at this time. Metformin was held secondary to lactic acidosis, however I suspect it was related to her infection and she could likely resume it upon discharge. 7. Dyslipidemia. She is on atorvastatin and niacin. 8. Iron deficiency anemia. She is on ferrous sulfate. Appears as though nephrology is planning on providing her with Aranesp. 9. Chronic obstructive pulmonary disease (COPD). She is at her baseline respiratory status and has chronic hypoxic respiratory failure. 10. Ovarian dermoid. Recommend outpatient followup. 11. Hypernatremia. Will encourage by mouth water intake. DISPOSITION: Pending physical therapy (PT) clearance. VS, I&O, 24H, Fishbone Vital Signs/I&O Vital Signs Date Time Temp Pulse Resp B/P (MAP) Pulse Ox O2 Delivery O2 Flow Rate FiO2 09/03/18 06:00 98.9 76 18 106/74 (85) 99 1.0 I&O- Last 24 Hours up to 6 AM 09/03/18 06:00 Intake Total 1260 ml Output Total 1650 ml Balance -390 ml Laboratory Data 24H LABS Laboratory Tests 2 09/02/18 11:31: Bedside Glucose (Misc Panel) 169H 09/02/18 17:03: Bedside Glucose (Misc Panel) 211H 09/02/18 20:02: Bedside Glucose (Misc Panel) 222H 09/03/18 05:45: Nucleated Red Blood Cells % (auto) 0.4H, Anion Gap 6L, Glomerular Filtration Rate 42.0L, Blood Urea Nitrogen 31H, Creatinine 1.38H, Sodium Level 147H, Potassium Level 4.5, Chloride Level 112H, Carbon Dioxide Level 29, Calcium Level 7.7L 09/03/18 05:54: Bedside Glucose (Misc Panel) 144H CBC/BMP Laboratory Tests 09/03/18 05:45 Red Blood Count 3.42 L, Mean Corpuscular Volume 95.0, Mean Corpuscular Hemoglobin 29.5, Mean Corpuscular Hemoglobin Concent 31.1 L, Red Cell Distribution Width 17.4 H, Calcium Level 7.7 L Microbiology Microbiology 08/25/18 Blood Culture - Final, Complete NO GROWTH AFTER 5 DAYS 08/25/18 Blood Culture - Final, Complete NO GROWTH AFTER 5 DAYS 09/02/18 Stool Occult Blood (JUMANA) - Final, Complete 08/27/18 Gastrointestinal Tract Panel (PCR) - Final, Complete 08/25/18 Respiratory Virus Panel (PCR) (JUMANA) - Final, Complete 08/25/18 Urine Culture - Final, Complete Escherichia Coli NELLY GUTIERREZ MD Sep 03, 2018 11:26
[2018-09-03 14:00] VITALS: BP 131/62
--- NOTE | 2018-09-03 16:08 | IPN ---
DATE: 09/02/2018 SUBJECTIVE: The patient was seen and examined at the bedside this morning. Patient is afebrile, hemodynamically stable. Her renal function is stable. Creatinine is at 1.2. The patient's hemoglobin has dropped today as compared with yesterday. She denies any active bleeding, blood in the stool or melena at this point. OBJECTIVE: VITAL SIGNS: Temperature is 98.9 degrees Fahrenheit, blood pressure 120/66, pulse is 95, respiratory rate of 20, saturating 100% on 1 liter. Intake and output: Urine output recorded as 225 mL yesterday. Urine output recorded since overnight is 50 mL. The patient is having some unrecorded voids as well. Weight on the bed scale is not available. PHYSICAL EXAMINATION: GENERAL: The patient is awake, alert and oriented times three, sitting up in the bed in no apparent distress. HEAD AND NECK EXAM: Extraocular muscles intact. Pupils equally round and reactive to light. Mucous membranes are moist. Neck is supple. There is no jugular venous distension (JVD). CARDIOVASCULAR: S1, S2, regular rate. 1+ edema of the bilateral lower extremities. RESPIRATORY: Chest is clear to auscultation bilaterally. Bilateral equal air entry. No rales or rhonchi. ABDOMEN: Soft, obese. Positive bowel sounds. Nontender. No organomegaly. MUSCULOSKELETAL: No clubbing or cyanosis. Pulses are 2+. CENTRAL NERVOUS SYSTEM: No focal deficit. Power is 5/5 in all extremities. LABORATORY REVIEW: Complete blood count (CBC) showed a white blood count (WBC) of 3.7, hemoglobin is 7.8, platelets of 190. Basic metabolic panel (BMP) showed sodium 147, potassium 4.5, chloride 114, bicarbonate 28, BUN 30, creatinine is 1.2, calcium 7.4. CURRENT INPATIENT MEDICATIONS: The patient's medications were all reviewed by me. There is no change in the medication today as compared with yesterday. Hydrocortisone dose was changed to 5 mg by mouth twice a day yesterday. ASSESSMENT AND PLAN: 1. Acute renal failure superimposed on chronic kidney disease. Patient's renal function continues to improve. Creatinine is down to 1.2 and it is stable since yesterday. 2. Hypernatremia. Sodium level is around 146 to 147. Continue to encourage oral hydration. Hydrocortisone dose is being decreased. 3. Chronic steroid dependence. The patient was started on stress dose steroids during the shock. Hydrocortisone dose is slowly being tapered down, she is currently on 5 mg by mouth twice a day. 4. Anemia and neutropenia. The patient's neutropenia is mildly persistent; however, anemia has worsened. There are no signs of active bleeding. Stool occult blood done this morning is negative. The patient is going to get 2 units of packed red blood cell transfuion. She will get a dose of Lasix between transfusions. 5. Urinary tract infection. Patient is currently on Levaquin for UTI. 6. Diabetes mellitus type 2. Metformin was stopped on admission because of lactic acidosis. Continue insulin sliding scale. 7. Lower extremity edema. As mentioned above, the patient is going to get one dose of Lasix in between transfusions. If needed, the patient will be given more diuretics as needed.
[2018-09-03] MEDS: ATORVASTATIN 20 MG TAB PO SCH (20:22)
[2018-09-03 22:00] VITALS: BP 121/55
[2018-09-04 06:00] VITALS: BP 121/69
[2018-09-04 08:11] LABS: HEMOGLOBIN 10.4 g/dl (12.0-15.5); MEAN CORPUSCULAR HEMOGLOBIN 29.4 pg (27.0-33.0); MEAN CORPUSCULAR HGB CONC 30.6 g/dl (32.0-36.5); PLATELET COUNT, AUTOMATED 179 10^3/uL (150-450); RED BLOOD COUNT 3.54 10^6/uL (4.00-5.40); WHITE BLOOD COUNT 4.6 10^3/uL (4.0-10.0)
[2018-09-04 08:30] VITALS: BP 117/62
[2018-09-04 08:36] LABS: CALCIUM LEVEL 8.1 MG/DL (8.5-10.1); CREATININE FOR GFR 1.24 MG/DL (0.55-1.30); GLOMERULAR FILTRATION RATE 47.5 (>51); POTASSIUM SERUM 4.3 MEQ/L (3.5-5.1)
--- NOTE | 2018-09-04 09:06 | IPN ---
DATE OF SERVICE: 09/03/2018 SUBJECTIVE: The patient is seen and examined this morning at the bedside. She denies any acute overnight events or issues. She continues on 1 liter nasal cannula. She received 2 units of packed red blood cell transfusion yesterday. She reports she has been up and ambulating. VITAL SIGNS: Temperature 98.9, pulse 76, respiratory rate 18, blood pressure 106/74, saturating 99% on 1 liter nasal cannula. Intake yesterday 1200. Urine output yesterday 1350. Weight on the bed scale today is not recorded. GENERAL: Patient is seen sitting at the edge of the bed legs dangling, awake, alert, oriented, comfortable, in no acute distress. Extraocular muscles are intact. Tongue is moist. Neck is supple. Jugular veins are not elevated. Nasal cannula is in place. CARDIAC: S1 and S2, regular rate and rhythm. LUNGS: Clear to auscultation bilaterally. No crackles or rales. ABDOMEN: Obese. Soft. Nontender. EXTREMITIES: Show 1+ edema up to the ankle and mid sullivan. NEUROLOGIC: She is oriented and at baseline mentation. LABS: White count 4.5, hemoglobin 10.1, platelets 181. Sodium 147, potassium 4.5, bicarbonate 29, BUN 31, creatinine 1.3. INPATIENT MEDICATIONS: Reviewed by myself. No change from prior. PROBLEMS: 1. Acute kidney injury (KWAME) superimposed on chronic kidney disease (CKD) Stage 3. The patient's baseline creatinine appears to be in the low 1s and renal function has recovered to her prior baseline. Oral hydration is encouraged. At home, I note she is on several medications that can have renal effects, including lisinopril and metformin. She can certainly be resumed on lisinopril as an outpatient, however, I advised her that she should staff off of metformin as an outpatient given the significant lactic acidosis she had on this admission which was up to 9 and likely metformin toxicity did play a role in that in conjunction with the renal failure that she presented in. 2. Hypernatremia. Oral hydration is encouraged and her maintenance home diuretic of Lasix remains on hold. 3. Status post urosepsis. She is completing a course of oral Levaquin. She remains afebrile, hemodynamically stable and without leukocytosis. 4. Chronic steroid dependence. Hydrocortisone is being tapered and then she can continue back on her usual home dose of prednisone 5 mg daily. 5. Severe systolic congestive heart failure with left ventricular ejection fraction of 15% and with impairment of diastolic function as well. Her home diuretic Lasix 40 mg is presently held and as her hypernatremia improves her diuretic will be restarted.
[2018-09-04] MEDS: ASPIRIN 81 MG ENTERIC TAB PO SCH (09:26)
[2018-09-04] MEDS: HumaLOG INSULIN (NovoLOG) PER UNIT SC SCH ×4 (09:26→22:13)
[2018-09-04] MEDS: NYSTATIN 100,000 UNITS/GM TOPICAL PWD 15 GM TOP SCH ×2 (09:27→20:29)
[2018-09-04] MEDS: HEPARIN SOD (PORCINE) 5000 UNITS/ML VIAL SQ SCH ×2 (09:27→20:27)
--- NOTE | 2018-09-04 13:12 | IPNPDOC ---
Date Seen The patient was seen on 09/04/18. Progress Note SUBJECTIVE: Patient tells me that she feels she denies any shortness of breath she is not wearing oxygen today and is feeling well. She tells me she is up and then be living independently. OBJECTIVE PHYSICAL EXAMINATION: VITAL SIGNS: Please see below. GENERAL: Pleasant obese female appears older than stated age sitting in bed in no acute distress sitting on the edge of her bed comfortable HEENT: Cranial nerves II through XII are grossly intact CARDIOVASCULAR: S1-S2 regular. RESPIRATORY: Clear to auscultation bilaterally ABDOMINAL: obese bowel sounds are present abdomen soft. EXTREMITIES: Trace edema bilaterally LABORATORY DATA, IMAGING STUDIES, MICROBIOLOGY: Please see below. DVT prophylaxis ordered?: Heparin ASSESSMENT AND PLAN: This is a 58-year-old female with sepsis secondary to urinary source, appears to be resolving. 1. Sepsis secondary to urinary source. She is hemodynamically stable. She is continued on antibiotics. She has been transitioned to levofloxacin PO and she is tolerating well. Her infection appears to be essentially resolved, though she should complete at least a 10 day course of antibiotics today is day 10 DC antibiotics tomorrow. Nephrology's help is greatly appreciated. 2. Leukopenia and anemia. Her platelets did improve with changing of antibiotic choice. Leukopenia appears to be resolving as well her anemia has stabilized is likely multifactorial in nature she has received 2 units of PRBCs and Aranesp during her stay no evidence of any ongoing bleeding. 3. Acute renal failure secondary to septic shock. Appears to be resolved [facility]. Nephrology's help is greatly appreciated. 4. Steroid dependence. Patient is normally on prednisone 5 mg daily. Today we will transition her back to this 5. Severe systolic congestive heart failure. She required significant fluid resuscitation when she initially presented in shock. As per nephrology will resume her OPHELIA inhibitor diuretic upon discharge 6. Diabetes mellitus. Finger sticks are well controlled at this time. Metformin was held secondary to lactic acidosis, given that she daily nephrology suggest discontinuing this medication upon discharge as well 7. Dyslipidemia. She is on atorvastatin and niacin. 8. Iron deficiency anemia. As above 9. Chronic obstructive pulmonary disease (COPD). She is at her baseline respiratory status and has chronic hypoxic respiratory failure. 10. Ovarian dermoid. Recommend outpatient followup. 11. Hypernatremia. Resolved DISPOSITION: Pending physical therapy (PT) OT clearance. VS, I&O, 24H, Fishbone Vital Signs/I&O Vital Signs Date Time Temp Pulse Resp B/P (MAP) Pulse Ox O2 Delivery O2 Flow Rate FiO2 09/04/18 08:30 97.3 82 18 117/62 (80) 100 2.0 I&O- Last 24 Hours up to 6 AM 09/04/18 06:00 Intake Total 1620 ml Output Total 1400 ml Balance 220 ml Laboratory Data 24H LABS Laboratory Tests 2 09/03/18 16:38: Bedside Glucose (Misc Panel) 299H 09/03/18 20:32: Bedside Glucose (Misc Panel) 223H 09/04/18 07:49: Nucleated Red Blood Cells % (auto) 0.9H, Anion Gap 6L, Glomerular Filtration Rate 47.5L, Blood Urea Nitrogen 30H, Creatinine 1.24, Sodium Level 145, Potassium Level 4.3, Chloride Level 110H, Carbon Dioxide Level 29, Calcium Level 8.1L 09/04/18 07:53: Bedside Glucose (Misc Panel) 140H 09/04/18 11:39: Bedside Glucose (Misc Panel) 195H CBC/BMP Laboratory Tests 09/04/18 07:49 Red Blood Count 3.54 L, Mean Corpuscular Volume 96.0, Mean Corpuscular Hemoglobin 29.4, Mean Corpuscular Hemoglobin Concent 30.6 L, Red Cell Distribution Width 17.2 H, Calcium Level 8.1 L Microbiology Microbiology 08/25/18 Blood Culture - Final, Complete NO GROWTH AFTER 5 DAYS 08/25/18 Blood Culture - Final, Complete NO GROWTH AFTER 5 DAYS 09/02/18 Stool Occult Blood (JUMANA) - Final, Complete 08/27/18 Gastrointestinal Tract Panel (PCR) - Final, Complete 08/25/18 Respiratory Virus Panel (PCR) (JUMANA) - Final, Complete 08/25/18 Urine Culture - Final, Complete Escherichia Coli NELLY GUTIERREZ MD Sep 04, 2018 13:12
[2018-09-04 14:00] VITALS: BP 109/57
[2018-09-04] MEDS: predniSONE 5 MG TAB PO SCH (14:10)
[2018-09-04] MEDS: ATORVASTATIN 20 MG TAB PO SCH (20:27)
[2018-09-05 06:41] LABS: HEMOGLOBIN 9.8 g/dl (12.0-15.5); MEAN CORPUSCULAR HEMOGLOBIN 29.5 pg (27.0-33.0); MEAN CORPUSCULAR HGB CONC 29.7 g/dl (32.0-36.5); MEAN CORPUSCULAR VOLUME 99.4 fl (80.0-96.0); PLATELET COUNT, AUTOMATED 160 10^3/uL (150-450); RED BLOOD COUNT 3.32 10^6/uL (4.00-5.40)
[2018-09-05 07:05] LABS: CALCIUM LEVEL 8.3 MG/DL (8.5-10.1); CREATININE FOR GFR 1.07 MG/DL (0.55-1.30); GLOMERULAR FILTRATION RATE 56.3 (>51)
[2018-09-05] MEDS: HumaLOG INSULIN (NovoLOG) PER UNIT SC SCH ×4 (08:11→20:21)
[2018-09-05 09:00] VITALS: BP 108/62
[2018-09-05] MEDS: FUROSEMIDE 40 MG TAB PO SCH (09:00)
[2018-09-05] MEDS: predniSONE 5 MG TAB PO SCH (10:04)
[2018-09-05] MEDS: ASPIRIN 81 MG ENTERIC TAB PO SCH (10:04)
[2018-09-05] MEDS: HEPARIN SOD (PORCINE) 5000 UNITS/ML VIAL SQ SCH ×2 (10:05→20:22)
[2018-09-05] MEDS: NYSTATIN 100,000 UNITS/GM TOPICAL PWD 15 GM TOP SCH ×2 (10:05→20:21)
[2018-09-05 14:00] VITALS: BP 109/58
--- NOTE | 2018-09-05 15:57 | IPNPDOC ---
Text Note Date of Service The patient was seen on 09/05/18. NOTE Subjective: Patient was seen and examined at the bedside. Patient denies any chest pain, shortness breath or palpitations. Denies any nausea, vomiting, abdominal pain, constipation, diarrhea or discomfort with urination. She will be working with occupational therapy today. Objective: Vitals (See below) General: Lying in bed, no acute distress, comfortable, AAOx3 HEENT: NC, AT CVS: RRR, +S1S2 Lungs: Fair air entry b/l, -w/r/r Abdomen: Soft, ND, NT Extremities: Trace edema bilaterally, - Calf tenderness Assessment and plan: Sepsis - likely 2/2 UTI - Clinically patient has resolution of her symptoms; s/p Septic shock and pressure support - Resolution of lactic acidosis; No elevation of WBC - Urine culture 08/25: E. Coli - Has completed 10 day course of antibiotics s/p Pancytopenia - possibly 2/2 medications - White cell count and platelet count have appeared to improved. Hemoglobin remained stable. - No evidence of bleeding s/p Acute renal failure - likely 2/2 septic shock - Renal function now at baseline Steroid dependence - c/w Prednisoen 5 daily Severe systolic CHF - evidence of mild LE edema - Will resume Furosemide today - Will hold Lisinopril DM2 - c/w ISS - Hold metformin on discharge DLP - c/w Atorvastatin and Niacin LORI / AOCD - c/w Darbepoetin COPD - no evidence of exacerbation - c/w inhaled therapy as ordered Ovarian dermoid - Recommend outpatient f/u Hypernatremia (mild) DVT prophylaxis - c/w Heparin DISPOSITION: Pending physical therapy (PT) OT clearance. VS,Fishbone, I+O VS, Fishbone, I+O Laboratory Tests 09/05/18 06:25 Red Blood Count 3.32 L, Mean Corpuscular Volume 99.4 H, Mean Corpuscular Hemoglobin 29.5, Mean Corpuscular Hemoglobin Concent 29.7 L, Red Cell Distribution Width 16.7 H, Calcium Level 8.3 L Vital Signs Date Time Temp Pulse Resp B/P (MAP) Pulse Ox O2 Delivery O2 Flow Rate FiO2 09/05/18 11:27 1.0 09/05/18 09:00 97.6 80 18 108/62 (77) 100 I&O- Last 24 Hours up to 6 AM 09/05/18 06:00 Intake Total 1310 ml Output Total 550 ml Balance 760 ml MADELEINE HARRIS MD Sep 05, 2018 15:57
--- NOTE | 2018-09-05 19:51 | IPN ---
DATE: 09/04/2018 SUBJECTIVE: The patient is seen and examined this morning sitting at the edge of the bed and working with physical therapy (PT). Denies any acute overnight events or issues. Renal function is at her usual baseline and her hypernatremia has resolved. She notes her dyspnea on exertion is also at her usual baseline. VITAL SIGNS: Temperature 97.3, pulse 82, respiratory rate 18, blood pressure 117/62, saturating 100% on 2 liters nasal cannula. Intake yesterday was 1560, urine output yesterday was 1300, weight on the bed scale today is not recorded. GENERAL: Patient is seen sitting at the edge of the bed legs dangling, awake, alert, oriented times three, comfortable, in no acute distress. Extraocular muscles are intact. Tongue is moist. Neck is supple. Jugular veins are not elevated. Nasal cannula is in place. CARDIAC: S1 and S2, regular rate and rhythm. LUNGS: Clear to auscultation. No crackles or rales. ABDOMEN: Obese. Soft. No organomegaly. EXTREMITIES: Show 1+ ankle edema that extends up to the mid sullivan. NEUROLOGIC: She is oriented times three and at baseline mentation. Interactive and conversational. LABS: Sodium 145, potassium 4.3, BUN 30, creatinine 1.2, hemoglobin 10.4. INPATIENT MEDICATIONS: Reviewed by myself. No change from prior. PROBLEMS: 1. Acute kidney injury (KWAME) superimposed on chronic kidney disease (CKD) Stage 3 with subsequent renal recovery and her renal function is back to her usual baseline. Creatinine is 1.2 today. Her electrolytes are acceptable. Her hypernatremia has resolved. She is not suitable for metformin as an outpatient given the severe lactic acidosis on this admission with concomitant prior acute renal failure. She can be continued on her home iynqbkizmto-kplmtfdzvd-sionfw (OPHELIA) inhibitor and diuretic. 2. Hypernatremia, resolved with oral hydration. Sodium is 145 today and her Lasix can be resumed as an outpatient when she is discharged. 3. Severe systolic congestive heart failure (CHF) with left ventricular ejection fraction of 15% and with impairment of diastolic function as well. Her hypernatremia has now resolved. She is tolerating oral intake well and when she is discharged she can resume her usual home diuretic of Lasix 40 mg by mouth daily. 4. Chronic steroid use. Her hydrocortisone has been tapered and is off now. She can resume back her usual prednisone 5 mg daily. Nephrology signing off the case, please reconsult as needed.
[2018-09-05] MEDS: ATORVASTATIN 20 MG TAB PO SCH (20:19)
[2018-09-05 22:00] VITALS: BP 124/60
[2018-09-06 06:00] VITALS: BP 117/64
[2018-09-06 06:43] LABS: HEMATOCRIT 36.7 % (36.0-47.0); HEMOGLOBIN 10.8 g/dl (12.0-15.5); MEAN CORPUSCULAR HEMOGLOBIN 29.8 pg (27.0-33.0); MEAN CORPUSCULAR HGB CONC 29.4 g/dl (32.0-36.5); MEAN CORPUSCULAR VOLUME 101.1 fl (80.0-96.0); PLATELET COUNT, AUTOMATED 180 10^3/uL (150-450); RED BLOOD COUNT 3.63 10^6/uL (4.00-5.40); WHITE BLOOD COUNT 4.1 10^3/uL (4.0-10.0)
[2018-09-06 07:05] LABS: CALCIUM LEVEL 8.8 MG/DL (8.5-10.1); CREATININE FOR GFR 1.15 MG/DL (0.55-1.30); GLOMERULAR FILTRATION RATE 51.8 (>51); POTASSIUM SERUM 4.6 MEQ/L (3.5-5.1)
[2018-09-06] MEDS: FUROSEMIDE 40 MG TAB PO SCH (08:00)
[2018-09-06] MEDS: ASPIRIN 81 MG ENTERIC TAB PO SCH (08:00)
[2018-09-06] MEDS: predniSONE 5 MG TAB PO SCH (08:00)
[2018-09-06] MEDS: HEPARIN SOD (PORCINE) 5000 UNITS/ML VIAL SQ SCH (08:01)
[2018-09-06] MEDS: NYSTATIN 100,000 UNITS/GM TOPICAL PWD 15 GM TOP SCH (08:01)
[2018-09-06] MEDS: HumaLOG INSULIN (NovoLOG) PER UNIT SC SCH ×2 (08:01→12:58)
[2018-09-06] MEDS ORDERED: PRED5TA PO ×2 (14:06→18:07)
--- NOTE | 2018-09-06 14:18 | DS.PDOC ---
Discharge Summary General Date of Admission Aug 25, 2018 at 14:14 Date of Discharge 09/06/2018 Discharge Summary PROCEDURES PERFORMED DURING STAY: [None]. ADMITTING DIAGNOSES / DISCHARGE DIAGNOSES: Sepsis - likely 2/2 UTI s/p Pancytopenia - possibly 2/2 medications s/p Acute renal failure - likely 2/2 septic shock Steroid dependence Severe systolic CHF DM2 DLP LORI / AOCD COPD Ovarian dermoid Hypernatremia (mild) DVT prophylaxis COMPLICATIONS/CHIEF COMPLAINT: Hypotension / Fever / Chills HISTORY OF PRESENT ILLNESS: Patient is a 58 year old female with a PMHx of Systolic CHF (EF 15%) s/p AICD, HTN, DM2, DLP, COPD on 2L O2, who presented to the ER with complaints of weakness and dizziness. Patient was found to have a low blood pressure emergency room and urinalysis consistent with urinary tract infection. Patient was admitted to hospital service for further evaluation and treatment. She was initially placed in the ICU because of hypotension nonresponsive to fluids. HOSPITAL COURSE: Sepsis - likely 2/2 UTI - Clinically patient has resolution of her symptoms; s/p Septic shock and pressure support - Resolution of lactic acidosis; No elevation of WBC - Urine culture 08/25: E. Coli - Has completed 10 day course of antibiotics s/p Pancytopenia - possibly 2/2 medications - White cell count and platelet count have appeared to improved. Hemoglobin remained stable. - No evidence of bleeding s/p Acute renal failure - likely 2/2 septic shock - Renal function now at baseline Steroid dependence - c/w Prednisone 5 daily Severe systolic CHF - resolution of LE edema - c/w Furosemide - Will hold Lisinopril DM2 - c/w ISS - Hold metformin on discharge DLP - c/w Atorvastatin and Niacin LORI / AOCD - c/w Darbepoetin COPD - no evidence of exacerbation - c/w inhaled therapy as ordered Ovarian dermoid - Recommend outpatient f/u Hypernatremia (mild) DVT prophylaxis - c/w Heparin DISCHARGE MEDICATIONS: Please see below. ALLERGIES: Please see below. PHYSICAL EXAMINATION ON DISCHARGE: Vitals (See below) General: Lying in bed, no acute distress, comfortable, AAOx3 HEENT: NC, AT CVS: RRR, +S1S2 Lungs: Fair air entry b/l, no wheezing / rhonchi / rales Abdomen: Soft, ND, non-tender Extremities: No evidence of edema bilaterally, - Calf tenderness LABORATORY DATA: Please see below. ACTIVITY: [As tolerated]. DISCHARGE PLAN: Follow up with Dr. Roya Russell and Dr. Terrazas within 7 days Remain compliant with treatment plan and medications Return to the ER if you experience any problems. DISPOSITION: Home Health Service. DISCHARGE CONDITION: [Stable]. TIME SPENT ON DISCHARGE: Greater than [35] minutes. Vital Signs/I&Os Vital Signs Date Time Temp Pulse Resp B/P (MAP) Pulse Ox O2 Delivery O2 Flow Rate FiO2 09/06/18 09:00 2.0 09/06/18 06:00 96.6 59 19 117/64 (81) 98 I&O- Last 24 Hours up to 6 AM 09/06/18 06:00 Intake Total 1860 ml Output Total 1700 ml Balance 160 ml Laboratory Data Labs 24H Laboratory Tests 2 09/05/18 17:12: Bedside Glucose (Misc Panel) 322H 09/05/18 20:18: Bedside Glucose (Misc Panel) 237H 09/06/18 06:27: Nucleated Red Blood Cells % (auto) 0.5H, Anion Gap 6L, Glomerular Filtration Rate 51.8, Blood Urea Nitrogen 35H, Creatinine 1.15, Sodium Level 145, Potassium Level 4.6, Chloride Level 110H, Carbon Dioxide Level 29, Calcium Level 8.8 CBC/BMP Laboratory Tests 09/06/18 06:27 Red Blood Count 3.63 L, Mean Corpuscular Volume 101.1 H, Mean Corpuscular Hemoglobin 29.8, Mean Corpuscular Hemoglobin Concent 29.4 L, Red Cell Distribution Width 17.1 H, Calcium Level 8.8 FSBS Laboratory Tests Test 09/05/18 17:12 09/05/18 20:18 Range/Units Bedside Glucose (Misc Panel) 322 237 70-105 MG/DL Microbiology Microbiology 09/02/18 Stool Occult Blood (JUMANA) - Final, Complete 08/27/18 Gastrointestinal Tract Panel (PCR) - Final, Complete Discharge Medications Scheduled (Evelin Penn) 100 Unit/Ml Inj, 14 UNIT SC QHS, (Reported) Aspirin (Aspirin 81) 81 Mg Tab, 81 MG PO DAILY, (Reported) Atorvastatin Calcium (Atorvastatin Calcium) 40 Mg Tab, 40 MG PO QPM, (Reported) Ferrous Sulfate (Ferrous Sulfate) 325 Mg Tab, 325 MG PO QPM, (Reported) Furosemide (Furosemide) 40 Mg Tab, 40 MG PO DAILY, (Reported) Glimepiride (Glimepiride) 2 Mg Tab, 2 MG PO DAILY, (Reported) Niacin (Niacin) 500 Mg Tab, 500 MG PO DAILY, (Reported) Tamsulosin Hydrochloride (Flomax) 0.4 Mg Cap, 0.4 MG PO QHS, (Reported) Allergies Coded Allergies: No Known Allergies (Unverified , 07/24/18) MADELEINE HARRIS MD Sep 06, 2018 14:17
[2018-09-06] MEDS ORDERED: NIAC500T55 PO (18:07)
== END 2018-09-06 13:20 | disposition home health service (06) | DRG 720 ==
LOC: M ED 11:54 → EDBD 11:54 → M ED INP 14:14 → M ICU 16:04 → M MS5PR 08-30 12:40
PROVIDERS: ADMIT Internal Medicine; ATTEND Internal Medicine
PROC: 05HM33Z Insertion of Infusion Device into Right Internal Jugular Vein, Percutaneous Approach (ICD-10-PCS; principal; 2018-08-25)
PROC: 30233N1 Transfusion of Nonautologous Red Blood Cells into Peripheral Vein, Percutaneous Approach (ICD-10-PCS; 2018-09-02)
DX: A41.9 Sepsis, unspecified organism (principal); R65.21 Severe sepsis with septic shock; I50.23 Acute on chronic systolic (congestive) heart failure; D61.811 Other drug-induced pancytopenia; J96.11 Chronic respiratory failure with hypoxia; N17.9 Acute kidney failure, unspecified; E87.0 Hyperosmolality and hypernatremia; E87.2 Acidosis; I95.9 Hypotension, unspecified; I13.0 Hypertensive heart and chronic kidney disease with heart failure and stage 1 through stage 4 chronic kidney disease, or unspecified chronic kidney disease; N18.3 Chronic kidney disease, stage 3 (moderate); E11.22 Type 2 diabetes mellitus with diabetic chronic kidney disease; E11.649 Type 2 diabetes mellitus with hypoglycemia without coma; J44.9 Chronic obstructive pulmonary disease, unspecified; D27.1 Benign neoplasm of left ovary; B96.20 Unspecified Escherichia coli [E. coli] as the cause of diseases classified elsewhere; D63.1 Anemia in chronic kidney disease; F32.9 Major depressive disorder, single episode, unspecified; N39.0 Urinary tract infection, site not specified; E78.5 Hyperlipidemia, unspecified; Z95.810 Presence of automatic (implantable) cardiac defibrillator; Z79.82 Long term (current) use of aspirin; Z79.4 Long term (current) use of insulin; Z79.899 Other long term (current) drug therapy; Z79.52 Long term (current) use of systemic steroids; T38.3X5A Adverse effect of insulin and oral hypoglycemic [antidiabetic] drugs, initial encounter

== ENCOUNTER 2018-09-06 17:02 | Observation (INO) | payer OTHER ==
[~2018-09-06] VITALS: Ht 165.1 cm; Wt 95.5 kg
[~2018-09-06 17:02] MED LIST changes: +BASA100I SC; +NIAC500T5 PO; +PRED5TA PO
[2018-09-06] MEDS ORDERED: PRED5TA PO (18:07)
[2018-09-06] MEDS ORDERED: NIAC500T55 PO (18:07)
--- NOTE | 2018-09-06 18:10 | REP ---
RIGHT ANKLE: Four views of the right ankle are performed. I see no acute fracture or dislocation. There is mild posterior calcaneal spurring. The ankle mortise is anatomic. There is mild soft tissue swelling. IMPRESSION: No evidence of acute fracture or dislocation. Electronically Signed by Giorgio Archuleta MD 09/06/2018 08:21 P
[2018-09-06 21:09] LABS: HEMATOCRIT 35.9 % (36.0-47.0); MEAN CORPUSCULAR HEMOGLOBIN 30.2 pg (27.0-33.0); MEAN CORPUSCULAR HGB CONC 30.6 g/dl (32.0-36.5); MEAN CORPUSCULAR VOLUME 98.6 fl (80.0-96.0); PLATELET COUNT, AUTOMATED 210 10^3/uL (150-450); RED BLOOD COUNT 3.64 10^6/uL (4.00-5.40); WHITE BLOOD COUNT 5.4 10^3/uL (4.0-10.0)
[2018-09-06 21:22] LABS: CALCIUM LEVEL 9.1 MG/DL (8.5-10.1); CREATININE FOR GFR 1.04 MG/DL (0.55-1.30); GLOMERULAR FILTRATION RATE 58.1 (>51); POTASSIUM SERUM 5.1 MEQ/L (3.5-5.1)
[2018-09-06] MEDS ORDERED: GLUCAGON FOR INJ 1 MG VIAL (J1610) SC PRN (22:00)
[2018-09-06] MEDS ORDERED: DEXTROSE 50% 50 ML SYRINGE IV PRN (22:00)
[2018-09-06] MEDS ORDERED: GLUCOSE 4 GM CHEW TABLET PO PRN (22:00)
[2018-09-06] MEDS ORDERED: IPRATROPIUM 0.5MG/ALBUTEROL 2.5MG INH SOL UD 3ML (DUONEB)(J7620) NEB PRN (22:15)
[2018-09-06] MEDS: HEPARIN SOD (PORCINE) 5000 UNITS/ML VIAL SC SCH (22:53)
[2018-09-07 06:24] LABS: HEMATOCRIT 34.8 % (36.0-47.0); HEMOGLOBIN 10.7 g/dl (12.0-15.5); MEAN CORPUSCULAR HEMOGLOBIN 29.7 pg (27.0-33.0); MEAN CORPUSCULAR HGB CONC 30.7 g/dl (32.0-36.5); MEAN CORPUSCULAR VOLUME 96.7 fl (80.0-96.0); PLATELET COUNT, AUTOMATED 184 10^3/uL (150-450); WHITE BLOOD COUNT 5.1 10^3/uL (4.0-10.0)
--- NOTE | 2018-09-07 06:34 | HPE ---
DATE OF ADMISSION: 09/06/2018 CHIEF COMPLAINT: Generalized weakness and a mechanical fall at home after discharge today. HISTORY OF PRESENT ILLNESS: The patient is a 58-year-old female. She has significant past medical history of systolic congestive heart failure (CHF), status post AICD, hypertension, diabetes, hyperlipidemia, chronic obstructive pulmonary disease (COPD) on 2 liters of oxygen. She has an ovarian dermoid mass which she was recently diagnosed with on a recent admission and is scheduled for outpatient followup. Notably in patient's history, she had a recent stay here at [facility] where she was admitted to the intensive care unit (ICU) for septic shock secondary to an E. Coli urinary tract infection (UTI) with acute renal failure. She required intubation. The patient was admitted from 08/25/2018 to 09/06/2018. She was also pancytopenic which has since resolved. Everything was believed to be secondary to sepsis. She was discharged earlier today and went home. States she was utilizing her walker to ambulate to the bathroom when her knees gave out. She felt generalized weakness and deconditioning. She has no focal deficit. She denies cough, chest pain, shortness of breath, urinary symptoms, abdominal pain, constipation, or diarrhea. An ankle x-ray showed no evidence of acute fracture or dislocation. The patient is not in any pain at this point in time. The patient is amenable to the idea of rehabilitation. She is likely deconditioned from extensive ICU stay. PAST MEDICAL HISTORY: See history of present illness (HPI). PAST SURGICAL HISTORY: 1. AICD. 2. Cataract repair. ALLERGIES: No known drug allergies. HOME MEDICATIONS: - aspirin - Lipitor - ferrous sulfate - Lasix - Detemir 14 units - glimepiride - Niacin - Flomax SOCIAL HISTORY: Denies tobacco, alcohol or illicit drug use. FAMILY HISTORY: Heart disease. REVIEW OF SYSTEMS: A 12-point review of systems was completed, all of which were negative except those listed in the HPI. VITAL SIGNS ON ADMISSION: She is afebrile. Pulse 91. Respirations 16. Satting 100% on 2 liters nasal cannula. Blood pressure 121/60. PHYSICAL EXAMINATION: General: She is well nourished, in no apparent distress. Head: Normocephalic, atraumatic. Eyes: Extraocular movements are intact. Pupils equal, round and reactive to light. Neck: Supple. No jugular venous pulse (JVP). Lungs: Clear to auscultation. No crackles or wheezing. Cardiovascular: Regular rate and rhythm. Normal S1 and S2. No murmurs, gallops or rub. Abdomen: Soft. Nontender. Nondistended. Positive bowel sounds. No rebound or guarding. Extremities: No pitting edema or calf tenderness. Skin is intact. No rashes, lesions or breakdown. Neurological: Alert and oriented times three. No focal deficit appreciated on exam. LABS AND IMAGING DONE IN EMERGENCY ROOM: White count 5, hemoglobin/hematocrit (H/H) 11/35, platelet count 210. Chemistries show BUN and creatinine of 34 over 1.04, sodium 146, potassium within normal limits. Ankle imaging shows no evidence of acute fracture or dislocation. ASSESSMENT AND PLAN: 1. Generalized weakness after an extensive ICU stay, likely secondary to ICU deconditioning. Will also send a urinalysis (UA) to rule out any possible urinary tract infection. The patient has no pulmonary symptoms. Lungs sound clear. Will send a TSH. Will order physical therapy (PT) evaluation. homeowner association manager consult for the a.m. for clearance of chronic medical conditions. 2. For history of renal stones, continue tamsulosin. 3. For diabetes, continue Levemir insulin sliding scale. Hold glimepiride. 4. Congestive heart failure status post AICD, patient is euvolemic at this point. Continue her Lasix as well as aspirin. 5. Anemia. Continue ferrous sulfate. 6. Chronic obstructive pulmonary disease. Stable. Continue oxygen as needed. DuoNeb as needed. 7. Supportive deep vein thrombosis (DVT) prophylaxis. Heparin subcutaneous. 8. Gastrointestinal (GI) prophylaxis. Not indicated. 9. Diet. Cardiac, fluid restriction, diabetic diet. The patient to be admitted to medical-surgical, likely will need placement to rehabilitation.
[2018-09-07 06:58] LABS: CREATININE FOR GFR 1.02 MG/DL (0.55-1.30); GLOMERULAR FILTRATION RATE 59.5 (>51); POTASSIUM SERUM 4.4 MEQ/L (3.5-5.1); THYROID STIMULATING HORMONE 2.97 uIU/ML (0.358-3.740)
[2018-09-07] MEDS ORDERED: predniSONE 5 MG TAB PO SCH (09:00)
[2018-09-07] MEDS: HEPARIN SOD (PORCINE) 5000 UNITS/ML VIAL SC SCH ×3 (10:12→21:06)
[2018-09-07] MEDS: FUROSEMIDE 40 MG TAB PO SCH (10:13)
[2018-09-07] MEDS: ASPIRIN 81 MG ENTERIC TAB PO SCH (10:13)
[2018-09-07] MEDS: HumaLOG INSULIN (NovoLOG) PER UNIT SC SCH ×3 (10:14→17:34)
[2018-09-07 14:00] VITALS: BP 118/70
--- NOTE | 2018-09-07 14:36 | IPNPDOC ---
Text Note Date of Service The patient was seen on 09/07/18. NOTE Subjective: Patient is a 58-year-old female with a PMHx of Systolic CHF s/p AICD, HTN, DM2, DLP, COPD on 2L O2, Hx of Ovarian dermoid mass (Dx 04/2016) who presented to the ER after a recent discharge the same day. She was at home and noted that her knees buckled and she had fallen. She indicated that she had right ankle pain. EMS was called and patient was advised to come back to the emergency room for evaluation. In the emergency room, patient was evaluated by ER physician reported that the patient could not go back home because of physical deconditioning. Hospitalist service was called for evaluation and treatment. On patient's prior visit. She was admitted from August 25 to September 06 was admitted for septic shock secondary to urinary tract infection, required intubation and pressor support. Patient complete antibiotic course as an in patient and cleared physical therapy and occupational therapy and was subsequently discharged home. Patient was seen and examined at the bedside. . Currently she is seen in an emergency room hold her bed. She denies any chest pain, shortness of breath or palpitations. Denies nausea, vomiting, abdominal pain, constipation, diarrhea or discomfort with urination. Objective: Vitals (See below) General: Lying in bed, no acute distress, comfortable, AAOx3 HEENT: NC, AT CVS: RRR, +S1S2 Lungs: Fair air entry b/l, no auscultated evidence of wheezing, rhonchi, rales Abdomen: Soft, ND, NT Extremities: Trace edema bilaterally, - Calf tenderness Neuro: 5/5 muscle strength at bilateral upper / lower extremities Assessment and plan: Generalized deconditioning / weakness - Patient is described her knees buckling beneath her; not experienced any loss of consciousness - XR Ankle R 09/06: No evidence of acute fracture or dislocation. - Will get physical therapy and occupational therapy on board for further physical therapy - At this point patient is hesitant to go home; will likely need subacute rehabilitation s/p Sepsis - likely 2/2 UTI - s/p Septic shock and pressure support - Urine culture 08/25: E. Coli - Has completed 10 day course of antibiotics on prior admission Severe systolic CHF - evidence of mild LE edema - Will resume Furosemide today DM2 - c/w ISS and Levemir DLP - c/w Atorvastatin and Niacin COPD - No evidence of exacerbation - c/w inhaled therapy as ordered - s/p Prednisone Normocytic anemia / LORI / AOCD - Hemoglobin appears to be at baseline - s/p Darbepoetin Hypernatremia (mild) Ovarian dermoid - Reviewing imaging; this was first seen April 2016 - Patient has been following outpatient for management DVT prophylaxis - c/w Heparin Disposition: - Awaiting PT / OT clearance VS,Fishbone, I+O VS, Fishbone, I+O Laboratory Tests 09/06/18 20:52 Red Blood Count 3.64 L, Mean Corpuscular Volume 98.6 H, Mean Corpuscular Hemoglobin 30.2, Mean Corpuscular Hemoglobin Concent 30.6 L, Red Cell Distribution Width 16.8 H, Calcium Level 9.1 09/07/18 06:05 Red Blood Count 3.60 L, Mean Corpuscular Volume 96.7 H, Mean Corpuscular Hemoglobin 29.7, Mean Corpuscular Hemoglobin Concent 30.7 L, Red Cell Distribution Width 16.9 H, Calcium Level 9.0 Vital Signs Date Time Temp Pulse Resp B/P (MAP) Pulse Ox O2 Delivery O2 Flow Rate FiO2 09/07/18 12:49 88 18 104/57 (73) 97 Room Air 09/07/18 04:00 97.0 2.0 MADELEINE HARRIS MD Sep 07, 2018 14:36
[2018-09-07] MEDS ORDERED: TAMSULOSIN 0.4 MG CAP PO SCH (21:00)
[2018-09-07] MEDS ORDERED: FERROUS SULFATE 325MG TAB PO SCH (21:00)
[2018-09-07] MEDS ORDERED: ATORVASTATIN 20 MG TAB PO SCH (21:00)
[2018-09-07] MEDS ORDERED: NIACIN SR (NIASPAN) 500 MG TAB PO SCH (21:00)
[2018-09-07] MEDS ORDERED: LEVEMIR (INSULIN DETEMIR) 1 UNITS/0.01ML SC SCH (21:00)
[2018-09-07 22:00] VITALS: BP 124/76
[2018-09-08 06:00] VITALS: BP 111/57
[2018-09-08] MEDS: HEPARIN SOD (PORCINE) 5000 UNITS/ML VIAL SC SCH (06:02)
[2018-09-08 06:06] LABS: HEMATOCRIT 35.7 % (36.0-47.0); HEMOGLOBIN 10.7 g/dl (12.0-15.5); MEAN CORPUSCULAR HEMOGLOBIN 29.5 pg (27.0-33.0); MEAN CORPUSCULAR VOLUME 98.3 fl (80.0-96.0); PLATELET COUNT, AUTOMATED 164 10^3/uL (150-450); RED BLOOD COUNT 3.63 10^6/uL (4.00-5.40); WHITE BLOOD COUNT 4.4 10^3/uL (4.0-10.0)
[2018-09-08 06:23] LABS: CALCIUM LEVEL 8.7 MG/DL (8.5-10.1); CREATININE FOR GFR 1.25 MG/DL (0.55-1.30); POTASSIUM SERUM 3.9 MEQ/L (3.5-5.1)
[2018-09-08] MEDS: ASPIRIN 81 MG ENTERIC TAB PO SCH (08:04)
[2018-09-08] MEDS: FUROSEMIDE 40 MG TAB PO SCH (08:04)
[2018-09-08] MEDS: HumaLOG INSULIN (NovoLOG) PER UNIT SC SCH (08:04)
[2018-09-08 10:00] VITALS: BP 113/51
--- NOTE | 2018-09-08 12:58 | DS.PDOC ---
Discharge Summary General Date of Admission Sep 06, 2018 at 21:56 Date of Discharge 09/08/2018 Discharge Summary PROCEDURES PERFORMED DURING STAY: [None]. ADMITTING DIAGNOSES / DISCHARGE DIAGNOSES: Generalized deconditioning / weakness s/p Sepsis - likely 2/2 UTI Severe systolic CHF DM2 DLP COPD Normocytic anemia / LORI / AOCD s/p Hypernatremia Ovarian dermoid DVT prophylaxis COMPLICATIONS/CHIEF COMPLAINT: Generalized Weakness. HISTORY OF PRESENT ILLNESS: Patient is a 58-year-old female with a PMHx of Systolic CHF s/p AICD, HTN, DM2, DLP, COPD on 2L O2, Hx of Ovarian dermoid mass (Dx 04/2016) who presented to the ER after a recent discharge the same day. She was at home and noted that her knees buckled and she had fallen. She indicated that she had right ankle pain. EMS was called and patient was advised to come back to the emergency room for evaluation. In the emergency room, patient was evaluated by ER physician reported that the patient could not go back home because of phy sical deconditioning. Hospitalist service was called for evaluation and treatment. On patient's prior visit. She was admitted from August 25 to September 06 was admitted for septic shock secondary to urinary tract infection, required intubation and pressor support. Patient complete antibiotic course as an inpatient and cleared physical therapy and occupational therapy and was subsequently discharged home. HOSPITAL COURSE: Generalized deconditioning / weakness - Patient is described her knees buckling beneath her; not experienced any loss of consciousness - XR Ankle R 09/06: No evidence of acute fracture or dislocation. - Cleared PT; discharge home with services s/p Sepsis - likely 2/2 UTI - s/p Septic shock and pressure support - Urine culture 08/25: E. Coli - Has completed 10 day course of antibiotics on prior admission Severe systolic CHF - No significant LE edema - c/w Furosemide DM2 - c/w ISS and Levemir DLP - c/w Atorvastatin and Niacin COPD - No evidence of exacerbation - c/w inhaled therapy as ordered - s/p Prednisone Normocytic anemia / LORI / AOCD - Hemoglobin appears to be at baseline s/p Hypernatremia Ovarian dermoid - Reviewing imaging; this was first seen April 2016 - Patient has been following outpatient for management DVT prophylaxis - c/w Heparin DISCHARGE MEDICATIONS: Please see below. ALLERGIES: Please see below. PHYSICAL EXAMINATION ON DISCHARGE: Vitals (See below) General: Lying in bed, no acute distress, comfortable, AAOx3 HEENT: NC, AT CVS: RRR, +S1S2 Lungs: Fair air entry b/l, -w/r/r Abdomen: Soft, Non-distended and non-tender Extremities: No evidence of LE edema, - Calf tenderness Neuro: 5/5 muscle strength at bilateral upper / lower extremities LABORATORY DATA: Please see below. ACTIVITY: [As tolerated]. DISCHARGE PLAN: Follow up with Zion Alvarado, Dr. Terrazas and Dr. Pryor within 7 days Remain complaints with treatment plan and medications Return to the ER if you experience any problems DISPOSITION: Home, Self-Care. DISCHARGE CONDITION: [Stable]. TIME SPENT ON DISCHARGE: Greater than [35] minutes. Vital Signs/I&Os Vital Signs Date Time Temp Pulse Resp B/P (MAP) Pulse Ox O2 Delivery O2 Flow Rate FiO2 09/08/18 10:00 98.2 100 18 113/51 (71) 94 1.0 09/07/18 12:49 Room Air I&O- Last 24 Hours up to 6 AM 09/08/18 05:59 Intake Total 200 ml Output Total 0 ml Balance 200 ml Laboratory Data Labs 24H Laboratory Tests 2 09/07/18 16:57: Bedside Glucose (Misc Panel) 161H 09/07/18 20:37: Bedside Glucose (Misc Panel) 225H 09/08/18 05:43: Nucleated Red Blood Cells % (auto) 0.5H, Anion Gap 5L, Glomerular Filtration Rate 47.0L, Blood Urea Nitrogen 32H, Creatinine 1.25, Sodium Level 145, Potassium Level 3.9, Chloride Level 106, Carbon Dioxide Level 34H, Calcium Level 8.7 09/08/18 10:26: Bedside Glucose (Misc Panel) 261H CBC/BMP Laboratory Tests 09/08/18 05:43 Red Blood Count 3.63 L, Mean Corpuscular Volume 98.3 H, Mean Corpuscular Hemoglobin 29.5, Mean Corpuscular Hemoglobin Concent 30.0 L, Red Cell Distribution Width 17.0 H, Calcium Level 8.7 FSBS Laboratory Tests Test 09/07/18 16:57 09/07/18 20:37 09/08/18 10:26 Range/Units Bedside Glucose (Misc Panel) 161 225 261 70-105 MG/DL Discharge Medications Scheduled (Basaglar Kwikpen) 100 Unit/Ml Inj, 14 UNIT SC QHS, (Reported) Aspirin (Aspirin 81) 81 Mg Tab, 81 MG PO DAILY, (Reported) Atorvastatin Calcium (Atorvastatin Calcium) 40 Mg Tab, 40 MG PO QHS, (Reported) Ferrous Sulfate (Ferrous Sulfate) 325 Mg Tab, 325 MG PO QHS, (Reported) Furosemide (Furosemide) 40 Mg Tab, 40 MG PO DAILY, (Reported) Glimepiride (Glimepiride) 2 Mg Tab, 2 MG PO DAILY, (Reported) Niacin (Niacin ER) 500 Mg Tab, 500 MG PO QHS, (Reported) Tamsulosin Hydrochloride (Flomax) 0.4 Mg Cap, 0.4 MG PO QHS, (Reported) Allergies Coded Allergies: No Known Allergies (Unverified , 07/24/18) MADELEINE HARRIS MD Sep 08, 2018 12:58
== END 2018-09-08 12:10 | disposition home or self-care (01) ==
LOC: M ED 17:02 → EDBD 17:02 → INTOOBSV 21:56 → M ED INP 21:56 → M MS5PR 09-07 13:40
PROVIDERS: ADMIT Internal Medicine; ATTEND Internal Medicine
DX: R53.1 Weakness (principal); I50.22 Chronic systolic (congestive) heart failure; I10 Essential (primary) hypertension; E11.9 Type 2 diabetes mellitus without complications; E78.5 Hyperlipidemia, unspecified; J44.9 Chronic obstructive pulmonary disease, unspecified; Z94.4 Liver transplant status; D50.9 Iron deficiency anemia, unspecified; D63.8 Anemia in other chronic diseases classified elsewhere; E87.0 Hyperosmolality and hypernatremia; Z99.81 Dependence on supplemental oxygen; M25.561 Pain in right knee; Z79.82 Long term (current) use of aspirin; Z79.899 Other long term (current) drug therapy; Z91.81 History of falling; Z95.810 Presence of automatic (implantable) cardiac defibrillator

== ENCOUNTER 2019-09-19 21:18 | Inpatient (IN) | payer OTHER ==
[~2019-09-19] VITALS: Ht 167.6 cm; Wt 95.6 kg
[~2019-09-19 21:18] MED LIST changes: -ASPI1TAB PO; +ASPI81TA26 PO; -GLIM2TAB PO; +GLIM2TAB4 PO; +KETOCONAZOLE 2% CREAM EXT SCH; +LISI-1046 PO; -LISI2.5T5 PO; +NIAC500T9 PO; -VICO5TAB16 PO; +VICO5TAB17 PO
[2019-09-19 22:27] LABS: BASO % 0.5 % (0.0-1.0); EOS # 0.1 10^3/uL (0.0-0.5); EOS % 1.1 % (0.0-3.0); HEMATOCRIT 35.8 % (36.0-47.0); HEMOGLOBIN 9.8 g/dl (12.0-15.5); LYMPH # 1.2 10^3/uL (1.5-5.0); LYMPH % 21.3 % (24.0-44.0); MEAN CORPUSCULAR HEMOGLOBIN 30.1 pg (27.0-33.0); MEAN CORPUSCULAR HGB CONC 27.4 g/dl (32.0-36.5); MEAN CORPUSCULAR VOLUME 109.8 fl (80.0-96.0); MONO # 0.4 10^3/uL (0.0-0.8); MONO % 7.7 % (0.0-5.0); NEUTROPHILS # 3.8 10^3/uL (1.5-8.5); NEUTROPHILS % 68.5 % (36.0-66.0); PLATELET COUNT, AUTOMATED 182 10^3/uL (150-450); RED BLOOD COUNT 3.26 10^6/uL (4.00-5.40); WHITE BLOOD COUNT 5.6 10^3/uL (4.0-10.0)
[2019-09-19] MEDS ORDERED: LIDOCAINE 2% 5ML JELLY UROJET TOP ONE (22:45)
[2019-09-19] MEDS ORDERED: FUROSEMIDE 100 MG/10 ML VIAL (J1940) IV ONE (22:45)
[2019-09-19 22:54] LABS: CALCIUM LEVEL 9.1 MG/DL (8.5-10.1); CREATININE FOR GFR 1.16 MG/DL (0.55-1.30); GLOMERULAR FILTRATION RATE 51.1 (>51); POTASSIUM SERUM 4.9 MEQ/L (3.5-5.1); TROPONIN I 0.05 NG/ML (< 0.10)
[2019-09-20] VITALS (115 sets, daily range): BP systolic 44–151; BP diastolic 29–99
[2019-09-20] MEDS ORDERED: ACETAMINOPHEN TAB 650MG DOSE (2X325MG) PO PRN (01:15)
[2019-09-20] MEDS ORDERED: GLUCAGON FOR INJ 1 MG VIAL (J1610) SC PRN (01:15)
[2019-09-20] MEDS ORDERED: DEXTROSE 50% 50 ML SYRINGE IV PRN (01:15)
[2019-09-20] MEDS ORDERED: GLUCOSE 4 GM CHEW TABLET PO PRN (01:15)
[2019-09-20] MEDS ORDERED: METO1TAB32 PO (01:32)
[2019-09-20] MEDS ORDERED: INSULANT SC (01:32)
[2019-09-20] MEDS ORDERED: NYST1POW9 TOP (01:32)
[2019-09-20] MEDS ORDERED: VITA50005 PO (01:32)
[2019-09-20] MEDS ORDERED: KETO2CR EXT (01:32)
[2019-09-20] MEDS ORDERED: ADME100I SC (01:32)
[2019-09-20] MEDS ORDERED: ASPI-161 PO (01:32)
[2019-09-20 01:36] LABS: MAGNESIUM LEVEL 2.2 MG/DL (1.8-2.4)
[2019-09-20 01:41] LABS: VENOUS BASE EXCESS 9.7 (-2.0-2.0); VENOUS HCO3 38.7 MEQ/L (23.0-27.0); VENOUS PARTIAL PRESSURE CO2 83.1 mmHg (38.0-50.0); VENOUS PARTIAL PRESSURE O2 46.9 mmHg (30.0-50.0); VENOUS PH 7.286 UNITS (7.330-7.430); VENOUS STANDARD HCO3 33.1 MEQ/L; VENOUS TOTAL CO2 41.3 MEQ/L (24.0-28.0)
--- NOTE | 2019-09-20 02:06 | HPEPDOC ---
[facility] Medical History & Physical Date of Admission Sep 20, 2019 Date of Service: Sep 20, 2019 Attending Physician: MALOU PICKERING MD History and Physical CHIEF COMPLAINT: Shortness of breath HISTORY OF PRESENT ILLNESS: Patient is a 59-year-old female with a history of heart failure with reduced ejection fraction with last echocardiogram showing ejection fraction of 15% on 07/25/2018 who presents with worsening shortness of breath over the last few weeks. Patient noticed today that her shortness of breath that got acutely worse when she went to lay down to go to bed and was unable to breathe. Patient says she is on 2 L of oxygen via nasal cannula at home 14/02. Patient says her Lasix was recently increased to 60 mg daily by her doctor who she recently went to see. Patient says that she had a pacemaker and AICD placed many years ago. Patient does not have any other complaints and does not feel ill. Patient does say that she has noticed her legs are somewhat more swollen than usual. Patient says on a normal day for her she is able to walk using a walker from her living room to her bathroom without getting short of breath. She cannot walk much further without having to rest. When she goes out, she uses a wheelchair to get around. REVIEW OF SYSTEMS: General: Patient denies fevers, chills, night sweats, unintentional weight loss HEENT: Patient denies headaches, changes in vision, sore throat. Cardiovascular: Patient denies chest pain, chest pressure, or palpitations Respiratory: Patient endorses shortness of breath but denies coughing GI: Patient denies abdominal pain, nausea, vomiting, diarrhea : Patient denies pain or difficulty with urination Neurological: Patient denies numbness or tingling in extremities Extremities: Patient endorses worsening swelling in her lower extremities Skin: Patient denies any rashes or lesions. Hematologic: Patient denies any easy bruising. Lymphatic: Patient denies any lumps in his neck, axilla, or groin. PAST MEDICAL HISTORY: 1. Heart failure with reduced ejection fraction last ejection fraction 15% on echocardiogram performed on 07/25/2018. 2. Atrial fibrillation status post pacemaker implantation. Patient states she used to be on warfarin however, this became labile so the patient is now only on aspirin for anticoagulation. 3. Cardiomegaly 4. Diabetes mellitus 5. Hyperlipidemia. PAST SURGICAL HISTORY: 1. AICD and pacemaker placement with wire changes. 2. Lithotripsy. 3. Cataract Repair. SOCIAL HISTORY: Patient lives at home with her . Patient denies smoking, alcohol, or illicit drug use. Patient is retired. Patient has 3 cats and 1 dog at home FAMILY HISTORY: Patient says that her father had signs of coronary artery disease on autopsy and that her sister from a heart attack. ALLERGIES: Please see below. HOME MEDICATIONS: Please see below. PHYSICAL EXAMINATION: VITAL SIGNS: Temperature 96.9, pulse 91, respiratory rate 22, blood pressure 117/57, pulse oximetry 96% on 3 L via nasal cannula. General: Alert and oriented female patient who was laying in the bed with nasal cannula oxygen in place when I walked in the room. Patient does not appear to be in any acute distress. HEENT: Normocephalic, atraumatic, moist mucous membranes, posterior pharynx was nonerythematous, tympanic membranes are pearly-bernstein without erythema. Neck: No lymphadenopathy, thyromegaly, or carotid bruits. Cardiac: Regular rate and rhythm, no murmurs, normal S1, normal S2, PMI is difficult to assess Pulm: Inspiratory crackles can be heard two thirds of the way up the left lung field and [facility] up the right lung field. There is also dullness to percussion on both bases. No wheezes or rhonchi Abd: Nondistended, nontender to palpation, normal bowel sounds Ext: No edema bilateral lower extremities Neuro:Patellar and brachioradialis reflexes 2/4. Patient had equal strength in upper and lower extremities bilaterally. Patient reported sensation to light touch in upper and lower extremities bilaterally. Skin: Skin of the arms, lower legs, abdomen, back, head and neck were examined did not show any evidence of rash or lesions. LABORATORY DATA: See below. IMAGING: A chest x-ray performed on 09/19/2019 is still pending official read from radiology however, upon personal review shows blunting of the costophrenic angles bilaterally. Pacemaker and AICD lead to be seen in place. There is vascular cephalization throughout the lung wagner. There appears to be a large infiltrate overlying most of the left lung field. Based on the location of the ventricular lead, it appears that the patient is a cardiomegaly however it is difficult to see as was no clearly defined cardiac border on the x-ray. MICROBIOLOGY: Please see below. ASSESSMENT: Patient is a 59-year-old female with a history of heart failure with reduced ejection fraction who presents with shortness of breath and increased leg swelling who will be admitted in the hospital for an acute congestive heart failure exacerbation. . PLAN: 1. Multifactorial shortness of breath. This is mostly secondary to the patient's acute exacerbation of her heart failure and possible PNA. Patient is on 2 L of oxygen at home. She is currently requiring 3 L of oxygen. This can be titrated down as tolerated. We will treat CHF and PNA. 2. Acute on chronic systolic heart failure. Patient's last echocardiogram on 07/25/2018 showed a an ejection fraction of 15%. On exam, patient appears fluid overloaded. Patient already received 100 mg of IV Lasix in the emergency department. Patient will be started on IV Lasix 60 every 8 hours. Patient will be on a fluid restriction of 1800 mL with a low salt diet and will have strict I's and O's. Echocardiogram and EKG have been ordered. Initial troponins were negative. 3. Acute hypercapnia 2/2 left sided PNA. Patient is venous blood gas shows a PCO2 of 83.1 which is elevated. Patient will be placed on noninvasive positive pressure ventilation at 16/5 for cardiogenic pulmonary edema on x-ray as well as the hypercapnia. Patient's chest x-ray appears to have an infiltrate in the left lung. Patient will be started on ceftriaxone and azithromycin. 5. Sepsis possibly 2/2 PNA. SIRS criteria include pulse of 103 with respiratory rate of 22. Patient was also hypoxic with pulse ox of 92% on 3 L via nasal cannula. She received abx but no IVF to avoid worsening pulmonary edema. 6. Atrial fibrillation status post pacemaker placement. Patient reports that she had been on Coumadin in the past however, her INR is becoming very labile so she was taken off. According to the patient she is just on aspirin for anticoagula tion therapy since she has pacemaker which is keeping her out of atrial fibrillation. 7. Diabetes mellitus. We'll continue with the home dose of basal insulin and the patient be on sliding scale. We will follow up her A1C. 8. Hyperlipidemia. Continue with patient's home atorvastatin. 9. DVT prophylaxis. Lovenox. 10. CODE STATUS: Full code Addendum: Patient did not tolerate noninvasive positive pressure ventilation as she said it was too much air for her. Patient became extremely hypotensive and it became clear that the patient either needed noninvasive positive pressure ventilation or mechanical ventilation or intubation. After discussion with the patient, we gave her those choices and she says she was still unable to tolerate noninvasive positive pressure ventilation. She eventually made the decision to allow for intubation, a decision that she was refusing earlier. Anesthesia was p aged and the patient was moved to critical care bed one in the emergency department where patient was intubated. Patient's blood pressure remained low and she was started on peripheral pressors with phenylephrine initially as norepinephrine was still being made by pharmacy. Patient was placed on a f entanyl and Versed drip for sedation. Patient's care was transferred to Dr. Cooper. 11.Acute Vent Dependent Respiratory Failure. Management per Lead Caregiver. Vital Signs Vital Signs Date Time Temp Pulse Resp B/P (MAP) Pulse Ox O2 Delivery O2 Flow Rate FiO2 09/20/19 01:30 91 117/57 (77) 96 09/19/19 22:38 Nasal Cannula 2.0 09/19/19 21:39 96.9 24 Laboratory Data Labs 24H Laboratory Tests 2 09/19/19 21:52: Immature Granulocyte % (Auto) 0.9, Neutrophils (%) (Auto) 68.5H, Lymphocytes (%) (Auto) 21.3L, Monocytes (%) (Auto) 7.7H, Eosinophils (%) (Auto) 1.1, Basophils (%) (Auto) 0.5, Neutrophils # (Auto) 3.8, Lymphocytes # (Auto) 1.2L, Monocytes # (Auto) 0.4, Eosinophils # (Auto) 0.1, Basophils # (Auto) 0.0, Nucleated Red Blood Cells % (auto) 0.5H, Anion Gap 1L, Glomerular Filtration Rate 51.1, Calcium Level 9.1, Magnesium Level 2.2, Troponin I 0.05, MB-Sch-M-Type Natriure tic Peptide [id number] 09/20/19 01:33: Blood Gas Bicarbonate Standard 33.1, Venous Blood pH 7.286L, Venous Blood Partial Pressure CO2 83.1H, Venous Blood Partial Pressure O2 46.9, Venous Blood Total Carbon Dioxide 41.3H, Venous Blood HCO3 38.7H, Venous Blood Oxygen Saturation 81.0H, Venous Blood Base Excess 9.7H CBC/BMP Laboratory Tests 09/19/19 21:52 Microbiology Microbiology 09/20/19 Blood Culture, Received Pending Home Medications Scheduled Aspirin (Aspirin EC) 81 Mg Tablet.dr, 81 MG PO DAILY Atorvastatin Calcium (Atorvastatin Calcium) 40 Mg Tab, 40 MG PO QHS Ergocalciferol (Vitamin D2) (Vitamin D2) 50,000 Units Cap, 50,000 UNITS PO 1XWK TUESDAY Ferrous Sulfate (Ferrous Sulfate) 325 Mg Tab, 325 MG PO QHS Furosemide (Furosemide) 40 Mg Tab, 60 MG PO DAILY Glimepiride (Glimepiride) 2 Mg Tab, 2 MG PO DAILY Insulin Glargine (Lantus) 100 Unit/1 Ml Vial, 26 UNITS SC QHS Insulin Lispro (Admelog) 100 Unit/1 Ml Vial, 4 UNITS SC ACS Ketoconazole (Ketoconazole) 15 Gm Cream..g., 1 DOSE EXT QHS APPLIES TO FEET Metoprolol Succinate (Metoprolol Succinate) 25 Mg Tab.er.24h, 25 MG PO DAILY Niacin (Niacin) 500 Mg Tab, 500 MG PO QHS Nystatin (Nystatin Powder) 15 Gm Powder, 1 DOSE TOP DAILY APPLIES TO GROIN AREA AND UNDER BREASTS Allergies Coded Allergies: metformin (Verified Adverse Reaction, Severe, HX OF METABOLIC ACIDOSIS IN SETTING OF KWAME, 11/07/18) HX OF METABOLIC ACIDOSIS IN SETTING OF KWAME REQUIRING ADMISSION A-FIB/CHADSVASC A-FIB History Current/History of A-Fib/PAF?: Yes Current PO Anticoag Therapy: No Age/Risk Factor Scoring CHADSVASC: CHADSVASC Response (Comments) Value Age Risk Factor Age < 65 years old 0 Gender Risk Factor Female 1 Hx of CHF Yes 1 Hx of HTN Yes 1 Hx of Stroke/TIA/or VTE No 0 Hx of Diabetes Yes 1 Hx of Vascular Disease No 0 Total 4 Treatment Treatment ordered: NONE Reason Anticoagulant not given: Other Other reason anticoagulant not: patient is status post pacemaker GME ATTESTATION GME ATTESTATION My faculty preceptor for this patient encounter was physically present during the encounter and was fully available. All aspects of the patient interview, examination, medical decision making process, and medical care plan development were reviewed and approved by the faculty preceptor. The faculty preceptor is aware and concurs with the plan as stated in the body of this note and will attest to such by his/her cosignature. ATTENDING NOTE Pls see my addendum I attended the patient at 2:05 AM again at around 6:20am and for a third time 705am. total CC time at bedside approximately 40min. I reviewed and edited 's note and agree with the findings as documented. WHIT LONGORIA DO Sep 20, 2019 02:06 MALOU PICKERING MD Sep 20, 2019 02:58
[2019-09-20 02:14] LABS: INFLUENZA A AMPLIFICATION NEGATIVE (NEGATIVE); INFLUENZA B AMPLIFICATION NEGATIVE (NEGATIVE)
[2019-09-20] MEDS ORDERED: cefTRIAXone SOD 2 GM in D5W MINI-BAG PLUS 50 ML IV SCH (04:00)
[2019-09-20] MEDS ORDERED: AZITHROMYCIN INJ 500 MG, VIAL MATE ADAPTER 1 EACH in D5W 250 ML IV SCH (05:00)
[2019-09-20] MEDS ORDERED: MIDAZOLAM HCL 100 MG in D5W 80 ML IV SCH (06:26)
[2019-09-20] MEDS ORDERED: REFRIGERATOR IV KEYS XX PRN (06:30)
[2019-09-20] MEDS ORDERED: NS 500 ML IV ONE (06:45)
[2019-09-20] MEDS ORDERED: NOREPINEPHRINE BITARTRATE 8 MG in D5W 492 ML IV SCH (06:45)
[2019-09-20] MEDS ORDERED: PROPOFOL 1,000 MG/100 ML VIAL As Ordered ONE ×2 (06:55→11:23)
[2019-09-20] MEDS ORDERED: MIDAZOLAM INJ 5 MG/ML VIAL (J2250) As Ordered ONE (07:00)
[2019-09-20] MEDS ORDERED: PHENYLEPHRINE INJ 10MG/ML VIAL (J2370) As Ordered ONE (07:05)
[2019-09-20] MEDS: HumaLOG INSULIN (NovoLOG) PER UNIT SC SCH ×3 (07:30→17:30)
--- NOTE | 2019-09-20 07:36 | IPNPDOC ---
Text Note Date of Service The patient was seen on 09/20/19. NOTE TIME OF SERVICE: 205AM Ms. Marie is a 59 yr old F w a PMH of CHF, DM and Dyslipidemia admitted for acute CHF & possible left sided PNA. She declined BIPAP and had to be intubated. Acute hypercapnic respiratory failure 2/2 CHF /PNA The pt was intubated by anesthesia Plan: toddler teacher consult/ lexx support / pulm toilet training/ versed and fentanyl / f/u xray and abg post intubation rest per 's note VS,Fishbone, I+O VS, Fishbone, I+O Laboratory Tests 09/19/19 21:52 Vital Signs Date Time Temp Pulse Resp B/P (MAP) Pulse Ox O2 Delivery O2 Flow Rate FiO2 09/20/19 07:13 89/51 (64) 09/20/19 07:11 66 100 09/19/19 22:38 Nasal Cannula 2.0 09/19/19 21:39 96.9 24 I&O- Last 24 Hours up to 6 AM 09/20/19 06:00 Intake Total 50 ml Output Total 2700 ml Balance -2650 ml MALOU PICKERING MD Sep 20, 2019 07:36
[2019-09-20] MEDS ORDERED: fentaNYL 100 MCG/2 ML INJECTION (J3010) As Ordered ONE (07:47)
--- NOTE | 2019-09-20 07:51 | REP ---
Portable chest x-ray: Single view. History: A dyspnea. Comparison chest x-ray: September 19, 2019. Findings: Endotracheal tube is seen in good position at the level of proximal clavicles. An NG tube enters left upper quadrant of the abdomen. A multi lead pacemaker is again noted in the right heart via the left side. Monitoring electrodes are seen. The patient is rotated to the left for the current exposure. There are air bronchograms in the left perihilar region with increased density in the left lower lobe consistent with atelectasis and infiltrate. There is diffuse alveolar opacity in the right lung and in the aerated portion of the left lung. These findings are similar to yesterday's radiograph. Impression: Atelectasis and infiltrate left lower lobe. Perihilar edema pattern diffusely. Endotracheal and nasogastric tubes in good position. Electronically Signed by Vincent Burgos MD 09/20/2019 07:43 A
[2019-09-20] MEDS: fentaNYL CITRATE 1,000 MCG in NS 80 ML IV SCH ×2 (07:52→23:15)
--- NOTE | 2019-09-20 07:54 | REP ---
Portable chest, 10:06 p.m., single AP view with the patient upright: Comparison is 08/25/2018. Diffuse bilateral infiltrates that have worsened. The the the The cardiac margins are obscured in cardiac size cannot be assessed. Triple lead dual chamber pacemaker is unchanged. The previous right IJ central venous catheter has been removed. Impression: Worsening interstitial infiltrates. Electronically Signed by Giorgio Romero MD 09/20/2019 07:46 A
[2019-09-20] MEDS ORDERED: fentaNYL 100 MCG/2 ML INJECTION (J3010) IV PRN (08:00)
--- NOTE | 2019-09-20 08:55 | REP ---
Portable chest, 08:40 a.m., single AP view with the patient semi upright, post central line placement: Comparison is 09/20/2019 at to 07:29 a.m. There is a right IJ central venous catheter with the tip in the superior vena cava in satisfactory position. There is no pneumothorax. The pulmonary edema identified on the comparison study has significantly improved. Cardiac size is enlarged. The endotracheal tube and nasogastric tube remain in satisfactory positions, unchanged. Pacemaker is unchanged. Impression: Right IJ central venous catheter tip is in the superior vena cava. There is no pneumothorax. The pulmonary edema pattern on the comparison study has significantly improved. Electronically Signed by Giorgio Romero MD 09/20/2019 08:46 A
[2019-09-20] MEDS ORDERED: PANTOPRAZOLE 40MG INJ (PROTONIX) (C9113) IV SCH (09:00)
[2019-09-20] MEDS ORDERED: ASPIRIN 81 MG ENTERIC TAB PO SCH (09:00)
[2019-09-20] MEDS ORDERED: METOPROLOL SUCC *XL* 25MG TAB (TopROL *XL*) PO SCH (09:00)
[2019-09-20 09:31] LABS: ABG BASE EXCESS 14.3 (-2.0-2.0); ABG HCO3 37.8 MEQ/L (22.0-26.0); ABG O2 SATURATION 95.4 % (95.0-99.0); ABG PARTIAL PRESSURE CO2 42.6 mmHg (35.0-45.0); ABG PARTIAL PRESSURE O2 62.1 mmHg (75.0-100.0); ABG TOTAL CO2 39.1 MEQ/L (22.0-29.0); ABG pH (ARTERIAL) 7.566 UNITS (7.350-7.450)
[2019-09-20] MEDS ORDERED: PHENYLephrine HCL 500 MCG/5 ML (100MCG/ML) SYRINGE (J2370) ONE (11:17)
[2019-09-20] MEDS ORDERED: SUCCINYLCHOLINE 100 MG/5 ML SYRINGE (J0330) ONE (11:17)
[2019-09-20] MEDS ORDERED: propofoL 200 MG/20 ML VIAL ONE (11:17)
[2019-09-20] MEDS ORDERED: ETOMIDATE INJ 20MG/10ML VIAL ONE (11:17)
[2019-09-20] MEDS: FUROSEMIDE 100 MG/10 ML VIAL (J1940) IV SCH ×3 (11:18→23:21)
[2019-09-20] MEDS: CHLORHEXIDINE GLUCONATE 0.12 % 15ML UDC (PERIDEX ORAL RINSE) MT SCH ×2 (11:25→20:29)
[2019-09-20] MEDS: NYSTATIN 100,000 UNITS/GM TOPICAL PWD 15 GM TOP SCH (11:26)
[2019-09-20 14:09] LABS: ABG BASE EXCESS 14.5 (-2.0-2.0); ABG HCO3 37.5 MEQ/L (22.0-26.0); ABG O2 SATURATION 98.5 % (95.0-99.0); ABG PARTIAL PRESSURE O2 104.5 mmHg (75.0-100.0); ABG STANDARD HCO3 38.3 MEQ/L (22.0-26.0); ABG TOTAL CO2 38.7 MEQ/L (22.0-29.0)
[2019-09-20 14:49] LABS: VENOUS BASE EXCESS 13.7 (-2.0-2.0); VENOUS HCO3 39.2 MEQ/L (23.0-27.0); VENOUS O2 SATURATION 87.9 % (60.0-80.0); VENOUS PARTIAL PRESSURE CO2 55.2 mmHg (38.0-50.0); VENOUS PARTIAL PRESSURE O2 49.6 mmHg (30.0-50.0); VENOUS PH 7.469 UNITS (7.330-7.430); VENOUS STANDARD HCO3 37.3 MEQ/L; VENOUS TOTAL CO2 40.9 MEQ/L (24.0-28.0)
--- NOTE | 2019-09-20 16:11 | ECHO ---
DATE OF PROCEDURE: 09/20/2019 REFERRING PHYSICIAN: Dr. Zee Cooper INDICATION: Dyspnea. Height: 5 feet 6 inches, weight 222 pounds. DIMENSIONS: IVS: 1.0 LV: 6.7 LVPW: 1.1 LA: 3.6 Aorta: 2.4 IVC: 2.3 Mitral E wave velocity: 70 E prime septal: 3.9 E prime lateral: 5.8 FINDINGS: The study is of fair technical quality. The patient is in sinus rhythm with probable ventricular pacing. Left ventricle is severely dilated and globally hypokinetic. I estimate left ventricular ejection fraction (LVEF) around 20%. There is septal wall motion abnormality most likely related to underlying pacemaker driven rhythm. Right ventricle was poorly visualized, but it appears dilated and hypokinetic. There is severe left atrial enlargement. Right atrium is enlarged as well. Aortic valve is mildly sclerotic but mobility of cusps appears preserved. There are mild degenerative abnormalities of mitral valve with preserved mobility of mitral leaflets. Tricuspid and pulmonic valves appear normal. Small non-compressive pericardial effusion is noted. Inferior vena cava is dilated, and there is no appreciable collapse with inspiration indicative of very high central venous pressure. Aortic root, aortic arch and abdominal aorta appear normal based on limited visualization. Doppler interrogation reveals no significant aortic stenosis or insufficiency. There is mild mitral and mild tricuspid insufficiency. Calculated pulmonary artery pressure is at minimum in high 30s and potentially higher. There is mild pulmonary insufficiency. Mitral inflow pattern and tissue Doppler imaging of mitral annulus revealed likely grade 2 or higher diastolic dysfunction. CONCLUSIONS: 1. Study is of acceptable technical quality, the patient is in sinus rhythm with probable ventricular pacing. 2. Severely dilated globally hypokinetic left ventricle with estimated LVEF approximately 20%. 3. No hemodynamically significant valvular disease. 4. Very high central venous pressure. 5. At least mild and probably moderate pulmonary hypertension. 6. Small noncompressive pericardial effusion. 7. Compared to echocardiogram from July 2018, the left ventricular (LV) size has further increased but overall systolic function does not appear to be significantly changed. [facility]
[2019-09-20 16:23] LABS: ABG BASE EXCESS 13.3 (-2.0-2.0); ABG PARTIAL PRESSURE CO2 49.1 mmHg (35.0-45.0); ABG PARTIAL PRESSURE O2 84.3 mmHg (75.0-100.0); ABG STANDARD HCO3 37.1 MEQ/L (22.0-26.0); ABG TOTAL CO2 39.5 MEQ/L (22.0-29.0); ABG pH (ARTERIAL) 7.506 UNITS (7.350-7.450)
[2019-09-20] MEDS: propofoL 1,000 MG in IV 1 EA IV SCH (17:36)
[2019-09-20] MEDS: ASPIRIN 300 MG SUPP PR SCH (17:37)
--- NOTE | 2019-09-20 19:52 | ROOPDOC ---
[facility] Report Of Operation Report of Operation DATE OF PROCEDURE: 09/20/2019 PROCEDURE: Right IJ Central line placement under ultrasound guidance INDICATION: Hypotension, cardiogenic shock CONSENT: Emergent need, consent implied PROCEDURE NOTE: A time-out was called prior to procedure verifying patient, procedure, indication, and necessary treatment. The patient with placed in supine position for central line placement. The patient's [right neck] was prepped and draped in sterile fashion. 1% lidocaine was used to anesthetize the surrounding area. A 20 cm triple lumen 7 [place] catheter was introduced into the [right internal jugular] vein using Seldinger technique under ultrasound guidance. The catheter was removed completely over the guidewire and appropriate non-pulsatile blood was returned. Each lumen of the catheter was evacuated of air and flushed with sterile saline. Catheter was sutured in place to a depth of 16 cm and a sterile dressing applied. The patient tolerated the procedure well with no apparent complications noted. Estimated blood loss, approximately 3 mL. LEEANN ROWAN DO Sep 20, 2019 19:52
--- NOTE | 2019-09-20 19:56 | ROOPDOC ---
[facility] Report Of Operation Report of Operation DATE OF PROCEDURE: 09/20/2019 PROCEDURE: Right radial Arterial Line Placement Under Ultrasound Guidance, left radial arterial line placement under ultrasound guidance INDICATION: Hemodynamic monitoring, frequent ABGs CONSENT: Emergent need consent implied PROCEDURE NOTE: A time-out was called prior to procedure verifying patient, procedure, indication, and necessary treatment. Oliver's test was performed to ensure adequate perfusion. 1% lidocaine was used to excise a surrounding area. The patient's right breast was prepped and draped in sterile fashion. A 20-gauge Arrow arterial line was introduced into the radial artery under ultrasound guidance. The catheter was threaded smoothly over the guidewire and the needle was removed with appropriate pulsatile blood return. The catheter was then sutured in placed and a sterile dressing was applied. The perfusion to the distal extremity was checked and adequate. The patient tolerated the procedure well with no apparent complications. Estimated blood loss less than 2 mL. patient with initial waveform noted on the monitor however shortly after placement waveform could no longer be obtained and blood cannot be drawn. Right radial art line was discontinued. Attempted to replace arterial line with a new arterial line placed in the left wrist. A time-out was called prior to procedure verifying patient, procedure, indication, and necessary treatment. Oliver's test was performed to ensure adequa te perfusion. The patient's right breast was prepped and draped in sterile fashion. A 20-gauge Arrow arterial line was introduced into the radial artery under ultrasound guidance. The catheter was threaded smoothly over the guidewire and the needle was removed with appropriate pulsatile blood return. The catheter was then sutured in placed and a sterile dressing was applied. The perfusion to the distal extremity was checked and adequate. The patient tolerated the procedure well with no apparent complications. Estimated blood loss less than 3 mL. blood obtained and sent to lab for ABG analysis. Again the patient had a initial waveform noted on the monitor however shortly after placement waveform could no longer be obtained and blood cannot be drawn. Left radial art line was discontinued. No further attempts of arterial line placement were made LEEANN ROWAN DO Sep 20, 2019 19:56
[2019-09-20] MEDS: NOREPINEPHRINE BITARTRATE 16 MG in D5W 484 ML IV SCH (19:59)
[2019-09-20] MEDS: ATORVASTATIN 20 MG TAB PO SCH (20:29)
[2019-09-20] MEDS: KETOCONAZOLE 2% CREAM EXT SCH (20:29)
[2019-09-20] MEDS: NIACIN SR (NIASPAN) 500 MG TAB PO SCH (20:30)
--- NOTE | 2019-09-20 20:53 | CR.PDOC ---
General Date of Consultation: Sep 20, 2019 Referring Provider: MALOU PICKERING MD Attending Physician: LEEANN ROWAN DO Consultation REASON FOR CONSULTATION/CHIEF COMPLAINT: Shortness of breath, Acute hypoxic respiratory failure requiring vent management. HISTORY OF PRESENT ILLNESS: Patient is a 59-year-old female with past medical history significant for c ongestive heart failure status post defibrillator placement, diabetes, hypertension, and frequent falls who presented to [facility] emergency department with worsening shortness of breath over the past several weeks. Patient is currently intubated and unable to provide history. History provided by record review and discussion with hospitalist service. Patient reportedly on 2 L of oxygen at home chronically but states breathing has worsened when she lies down and that she is unable to sleep. Patient also noticing increased lower extremity swelling. Patient reportedly with recent increase in Lasix. Patient presented to the emergency department with fluid overload for which she was given 100 mg of IV Lasix. Despite this intervention patient's shortness of breath continued to worsen attempts to utilize BiPAP unsuccessful as patient cannot tolerate the mask. Patient acutely decompensated and became hypotensive and required emergent intubation in the emergency department and initiation of phenylephrine for pressor support. Patient seen and evaluated in the emergency department. Patient intubated but not yet sedated moving all extremities but not following commands. Patient oxygenating well with improved blood pressure while on phenylephrine. Propofol initiated at that time for patient's comfort. PAST MEDICAL HISTORY: 1. Heart failure with reduced ejection fraction last ejection fraction 15% on echocardiogram performed on 07/25/2018. Status post fibrillator 2. Atrial fibrillation 3. Hypertension 4. Diabetes mellitus 5. Hyperlipidemia. PAST SURGICAL HISTORY: 1. AICD and pacemaker placement with wire changes. 2. Lithotripsy. 3. Cataract Repair. SOCIAL HISTORY: Patient lives at home with her . Patient with frequent falls per . states that patient does not smoke, or use alcohol Patient has 3 cats and 1 dog at home. History uses a wheelchair to get around FAMILY HISTORY: Mother had a cancer of unknown type ALLERGIES: Please see below. HOME MEDICATIONS: Please see below. REVIEW OF SYSTEMS: Unable to obtain due to patient's current clinical condition PHYSICAL EXAMINATION: VITAL SIGNS: Please see below. GENERAL: Intubated, moving all extremities but not following commands HENT: Normocephalic, atraumatic EYES: Pupils equal round and reactive to light, no scleral icterus CARDIOVASCULAR: Paced rhythm on the monitor, 2+ pitting edema bilaterally of the lower extremities RESPIRATORY: Coarse breath sounds diffusely laterally ABDOMINAL: Soft, obese, Nontender, nondistended, positive bowel sounds EXTREMITIES: Normal range of motion and strength of all 4 extremities NEUROLOGICAL: Intubated difficult to assess however no apparent focal deficits noted SKIN: Mottling of the lower extremities noted LABORATORY DATA: Please see below. ASSESSMENT/PLAN: #Cardiogenic shock - Secondary to acute on chronic heart failure with fluid overload - Will minimize intake strive for negative fluid balance - Double concentrated Levophed, titrate MAP >65 - Limited fluid intake when able with preference for by mouth meds as appropr iate - Diuresis aggressively with Lasix 60 mg IV every 8 hours, daily weights, check I's and O's - If no improvement consider adding inotrope - Echo pending, but independently visualized during acquisition EF is diffusely depressed at < 15% #Acute on chronic hypoxic and hypercapnic respiratory failure - Secondary to CHF exacerbation, unlikely infectious process giving history and clinical presentation. We'll discontinue azithromycin and Rocephin - And chronic hypercapnia patient likely has a component of obstructive sleep apnea or OHS. Consider CPAP at night following extubation - Patient currently intubated - Propofol for sedation - Plan for daily sedation vacation and SPT's - Given severe left heart failure, we'll plan to extubate to BiPAP when appropriate. May consider nitro drip at time of extubation to decrease afterload #KWAME - May have underlining baseline chronic kidney disease, however this is not known to the patient's family and therefore will consider it acute which is very likely in the setting of cardiogenic shock - Monitor #Diabetes Mellitus - Check A1c - Accu-Cheks, sliding scale - Hold glimepiride 2 mg daily while inpatient #Hyperlipidemia - Continue atorvastatin - Monitor triglycerides while on propofol #Hypertension - Hold hypertensive medications in the setting of cardiogenic shock #Frequent falls - Will need PT/OT with clinical improvement CODE STATUS: Full code. Has been, Juvenal his POA. Disposition: We'll monitor in the ICU. Continue ventilatory support. Lasix for aggressive diuresis. Attempt to achieve at least and -2 L fluid balance in the n ext 24 hours Critical care time: 65 minutes. Time spent evaluating patient, reviewing records, gathering history, interpreting labs, and reassessing of interventions. Time spent independent of other providers and other billable procedures, Billin Vital Signs/I&O Vital Signs Date Time Temp Pulse Resp B/P (MAP) Pulse Ox O2 Delivery O2 Flow Rate FiO2 09/20/19 19:01 60 12 107/55 (77) 100 Ventilator 40 09/20/19 16:00 97.6 09/20/19 04:19 4.0 I&O- Last 24 Hours up to 6 AM 09/20/19 06:00 Intake Total 50 ml Output Total 2700 ml Balance -2650 ml Laboratory Data Labs 24H Laboratory Tests 2 09/19/19 21:52: Immature Granulocyte % (Auto) 0.9, Neutrophils (%) (Auto) 68.5H, Lymphocytes (%) (Auto) 21.3L, Monocytes (%) (Auto) 7.7H, Eosinophils (%) (Auto) 1.1, Basophils (%) (Auto) 0.5, Neutrophils # (Auto) 3.8, Lymphocytes # (Auto) 1.2L, Monocytes # (Auto) 0.4, Eosinophils # (Auto) 0.1, Basophils # (Auto) 0.0, Nucleated Red Blood Cells % (auto) 0.5H, Anion Gap 1L, Glomerular Filtration Rate 51.1, Calcium Level 9.1, Magnesium Level 2.2, Troponin I 0.05, XD-Fkg-F-Type Natriuretic Peptide [id number] 09/20/19 01:32: Troponin I 0.06 09/20/19 01:33: Blood Gas Bicarbonate Standard 33.1, Venous Blood pH 7.286L, Venous Blood Partial Pressure CO2 83.1H, Venous Blood Partial Pressure O2 46.9, Venous Blood Total Carbon Dioxide 41.3H, Venous Blood HCO3 38.7H, Venous Blood Oxygen Saturation 81.0H, Venous Blood Base Excess 9.7H, Influenza Type A (RT-PCR) NEGATIVE, Influenza Type B (RT-PCR) NEGATIVE 09/20/19 03:52: Troponin I 0.06 09/20/19 09:14: Blood Gas Bicarbonate Standard 38.0H, Arterial Blood pH 7.566H, Arterial Blood Partial Pressure CO2 42.6, Arterial Blood Partial Pressure O2 62.1L, Arterial Blood Total CO2 39.1H, Arterial Blood HCO3 37.8H, Arterial Blood Base Excess 14.3H, Arterial Blood Oxygen Saturation 95.4 09/20/19 11:58: Bedside Glucose (Misc Panel) 80 09/20/19 14:01: Blood Gas Bicarbonate Standard 38.3H, Arterial Blood pH 7.590H, Arterial Blood Partial Pressure CO2 40.0, Arterial Blood Partial Pressure O2 104.5H, Arterial Blood Total CO2 38.7H, Arterial Blood HCO3 37.5H, Arterial Blood Base Excess 14.5H, Arterial Blood Oxygen Saturation 98.5 09/20/19 14:31: Blood Gas Bicarbonate Standard 37.3, Blood Gas Puncture Site UNKNOWN, Venous Blood pH 7.469H, Venous Blood Partial Pressure CO2 55.2H, Venous Blood Partial Pressure O2 49.6, Venous Blood Total Carbon Dioxide 40.9H, Venous Blood HCO3 39.2H, Venous Blood Oxygen Saturation 87.9H, Venous Blood Base Excess 13.7H, Troponin I 0.08# 09/20/19 15:21: Blood Gas Bicarbonate Standard 37.1H, Arterial Blood pH 7.506H, Arterial Blood Partial Pressure CO2 49.1H, Arterial Blood Partial Pressure O2 84.3, Arterial Blood Total CO2 39.5H, Arterial Blood HCO3 38.0H, Arterial Blood Base Excess 13.3H, Arterial Blood Oxygen Saturation 97.0 09/20/19 17:23: Bedside Glucose (Misc Panel) 108H CBC/BMP Laboratory Tests 09/19/19 21:52 Microbiology Microbiology 09/20/19 Blood Culture, Received Pending Allergies Coded Allergies: metformin (Verified Adverse Reaction, Severe, HX OF METABOLIC ACIDOSIS IN SETTING OF KWAME, 11/07/18) HX OF METABOLIC ACIDOSIS IN SETTING OF KWAME REQUIRING ADMISSION Home Medications Scheduled Aspirin (Aspirin EC) 81 Mg Tablet.dr, 81 MG PO DAILY, (Reported) Atorvastatin Calcium (Atorvastatin Calcium) 40 Mg Tab, 40 MG PO QHS, (Reported) Ergocalciferol (Vitamin D2) (Vitamin D2) 50,000 Units Cap, 50,000 UNITS PO 1XWK, (Reported) TUESDAY Ferrous Sulfate (Ferrous Sulfate) 325 Mg Tab, 325 MG PO QHS, (Reported) Furosemide (Furosemide) 40 Mg Tab, 60 MG PO DAILY, (Reported) Glimepiride (Glimepiride) 2 Mg Tab, 2 MG PO DAILY, (Reported) Insulin Glargine (Lantus) 100 Unit/1 Ml Vial, 26 UNITS SC QHS, (Reported) Insulin Lispro (Admelog) 100 Unit/1 Ml Vial, 4 UNITS SC ACS, (Reported) Ketoconazole (Ketoconazole) 15 Gm Cream..g., 1 DOSE EXT QHS, (Reported) APPLIES TO FEET Metoprolol Succinate (Metoprolol Succinate) 25 Mg Tab.er.24h, 25 MG PO DAILY, (Reported) Niacin (Niacin) 500 Mg Tab, 500 MG PO QHS, (Reported) Nystatin (Nystatin Powder) 15 Gm Powder, 1 DOSE TOP DAILY, (Reported) APPLIES TO GROIN AREA AND UNDER BREASTS LEEANN ROWAN DO Sep 20, 2019 19:51
[2019-09-20] MEDS ORDERED: HumaLOG INSULIN (NovoLOG) PER UNIT SC SCH (21:00)
[2019-09-20] MEDS ORDERED: FERROUS SULFATE 325MG TAB PO SCH (21:00)
[2019-09-20] MEDS ORDERED: LEVEMIR (INSULIN DETEMIR) 1 UNITS/0.01ML SC SCH (21:00)
[2019-09-20] MEDS: HEPARIN SOD (PORCINE) 5000 UNITS/ML VIAL (J1644 PER 1000UNITS) SQ SCH (21:11)
[2019-09-21] VITALS (21 sets, daily range): BP systolic 85–113; BP diastolic 48–60
[2019-09-21] MEDS: propofoL 1,000 MG in IV 1 EA IV SCH ×4 (01:22→18:00)
[2019-09-21 04:17] LABS: BASO % 0.3 % (0.0-1.0); EOS # 0.1 10^3/uL (0.0-0.5); EOS % 1.3 % (0.0-3.0); HEMATOCRIT 32.4 % (36.0-47.0); HEMOGLOBIN 9.4 g/dl (12.0-15.5); LYMPH # 1.5 10^3/uL (1.5-5.0); MEAN CORPUSCULAR HEMOGLOBIN 29.8 pg (27.0-33.0); MEAN CORPUSCULAR VOLUME 102.9 fl (80.0-96.0); MONO # 0.6 10^3/uL (0.0-0.8); MONO % 8.8 % (0.0-5.0); NEUTROPHILS # 4.4 10^3/uL (1.5-8.5); NEUTROPHILS % 66.3 % (36.0-66.0); PLATELET COUNT, AUTOMATED 167 10^3/uL (150-450); RED BLOOD COUNT 3.15 10^6/uL (4.00-5.40); WHITE BLOOD COUNT 6.7 10^3/uL (4.0-10.0)
[2019-09-21 04:38] LABS: HEMOGLOBIN A1c 7.5 %
[2019-09-21 04:50] LABS: ALBUMIN 2.8 GM/DL (3.2-5.2); BILIRUBIN,TOTAL 0.8 MG/DL (0.2-1.0); CALCIUM LEVEL 9.2 MG/DL (8.5-10.1); CREATININE FOR GFR 1.42 MG/DL (0.55-1.30); GLOMERULAR FILTRATION RATE 40.4 (>51); MAGNESIUM LEVEL 1.8 MG/DL (1.8-2.4); PHOSPHORUS LEVEL 1.8 MG/DL (2.5-4.9); POTASSIUM SERUM 3.1 MEQ/L (3.5-5.1)
[2019-09-21] MEDS: HEPARIN SOD (PORCINE) 5000 UNITS/ML VIAL (J1644 PER 1000UNITS) SQ SCH ×3 (05:11→22:10)
[2019-09-21] MEDS: HumaLOG INSULIN (NovoLOG) PER UNIT SC SCH ×3 (07:30→23:44)
--- NOTE | 2019-09-21 07:41 | REP ---
The portable chest, 06:33 a.m., single AP view with the patient sitting: Comparison is 09/20/2019. There is interstitial coarsening, not significantly changed. Cardiac size is enlarged, unchanged. The endotracheal tube and nasogastric tube remain in satisfactory positions, unchanged. There is a right IJ central venous catheter with the tip in the superior vena cava in satisfactory position, unchanged. Triple lead biventricular pacemaker/AICD is unchanged. Impression: No significant interval change. Electronically Signed by Giorgio Romero MD 09/21/2019 07:32 A
[2019-09-21] MEDS: FUROSEMIDE 100 MG/10 ML VIAL (J1940) IV SCH (08:25)
[2019-09-21] MEDS: ASPIRIN 300 MG SUPP PR SCH (08:25)
[2019-09-21] MEDS: CHLORHEXIDINE GLUCONATE 0.12 % 15ML UDC (PERIDEX ORAL RINSE) MT SCH ×2 (08:25→20:41)
[2019-09-21] MEDS: NYSTATIN 100,000 UNITS/GM TOPICAL PWD 15 GM TOP SCH (08:26)
[2019-09-21] MEDS ORDERED: ASPIRIN 300 MG SUPP PR SCH (09:00)
[2019-09-21] MEDS ORDERED: MAG SULF 1GM/100ML (MAG RUN) 1 GM in IV 1 EA IV ONE (11:00)
[2019-09-21] MEDS ORDERED: HumaLOG INSULIN (NovoLOG) PER UNIT SC SCH (11:15)
[2019-09-21] MEDS: KCL 20MEQ IN 100ML SWI (KRUN) 20 MEQ in IV 1 EA IV SCH ×4 (11:57→13:07)
[2019-09-21 14:05] LABS: ABG BASE EXCESS 19.9 (-2.0-2.0); ABG HCO3 44.9 MEQ/L (22.0-26.0); ABG O2 SATURATION 98.3 % (95.0-99.0); ABG PARTIAL PRESSURE CO2 53.7 mmHg (35.0-45.0); ABG PARTIAL PRESSURE O2 105.2 mmHg (75.0-100.0); ABG TOTAL CO2 46.5 MEQ/L (22.0-29.0)
[2019-09-21] MEDS ORDERED: AcetaZOLAMIDE 500MG INJECTION (J1120) IV STA (14:15)
[2019-09-21 14:57] LABS: CALCIUM LEVEL 8.7 MG/DL (8.5-10.1); CREATININE FOR GFR 1.5 MG/DL (0.55-1.30)
[2019-09-21] MEDS ORDERED: NS 500 ML IV ONE (15:00)
--- NOTE | 2019-09-21 15:52 | CCN ---
DATE: 09/21/2019 The patient was seen and examined this morning during bedside rounds. The patient remained intubated overnight. She did not have any significant events. She is sedated with propofol and fentanyl and is still on Levophed but only requiring one mcg per minute currently. The patient has not had any fevers or chills overnight. She does continue to have good urine output via the [facility]. PHYSICAL EXAMINATION: Temperature 97.8, pulse 68, respirations 12, blood pressure 90/52, O2 sat 100% on 40% FiO2. In 515, out 5.3 liters; net negative 4.8 liters. General: The patient is lying in bed, is intubated and sedated. Is responsive to painful stimuli but not following commands. HEENT: Normocephalic, atraumatic. Pupils are round, reactive to light. Mucous membranes are moist. Neck is supple. No palpable cervical adenopathy. Cardiovascular: Regular rate and rhythm, is paced. Difficult to auscultate any murmurs. Respiratory: Some coarse respiratory breath sounds bilaterally. No significant wheezing or rhonchi. Abdomen is soft, obese, nontender, nondistended. Extremities: There is improvement in the previous pitting edema with wrinkling now in her skin in lower extremities. LABORATORY DATA WBC 6.7, hemoglobin 9.4, platelets 167. Chemistry sodium is 145, potassium 3.1, chloride is 99, bicarb 42, BUN 19, creatinine increased to 1.42, glucose 112, magnesium was 1.8, BNP was 18,516. Troponins are negative times three. Albumin is 2.8. Lactic acid 1.2. ABG this morning pH 7.540, pCO2 of 53.7, pO2 105.2. Micro: Sputum culture pending. IMAGING STUDIES Chest x-ray this morning shows ET tube in position and OG tube in place. There is a right IJ with the tip in SVC. There is a triple lead biventricular pacemaker/AICD. There is some slight interstitial coursing with improvement compared to her initial chest x-ray in the bilateral interstitial infiltrates. Echocardiogram: Ejection fraction (EF) is 20%. There is very high central venous pressure (CVP) noted. There is grade 2 diastolic dysfunction. There is mild to moderate pulmonary hypertension with dilated and hypokinetic right ventricle (RV). There is small pericardial effusion. ASSESSMENT AND PLAN: Ms. Marie is a 59-year-old female with a past medical history of atrial fibrillation, hypertension, diabetes, hyperlipidemia, heart failure with reduced EF, status post AICD, who presented with shortness of breath with acute hypoxemic respiratory failure secondary to decompensated CHF requiring intubation and mechanical ventilation. The patient was also noted to be hypotensive and requiring Levophed initially. Overnight she was able to wean down to just one mcg per minute, some of which is likely due to the effects from sedation that she is requiring for mechanical ventilation. 1. Acute hypoxemic respiratory failure secondary to decompensated CHF requiring intubation and mechanical ventilation. - Continue with mechanical ventilation with PRVC with settings of 320/12/40/8. Continue with daily ABGs and chest x-rays while intubated. - Continue with vent bundle care with head of bed elevation and chlorhexidine mouthwash. - Continue with sedation with propofol and will titrate to maintain a GREGORY of 0 to -1. Would decrease fentanyl to 25 mcg an hour for pain control. - Patient has had aggressive diuresis with the Lasix and has increasing metabolic alkalosis today. Would hold off on further diuresis for today. - The patient's chest x-ray this morning does show improvement in the previous bilateral infiltrates. She did get one dose of antibiotics initially on admission. However, she has remained afebrile with no leukocytosis and infectious etiology is less likely. Will continue to monitor off of antibiotics at this point. - Will continue with daily sedation and weaning trials and will hold her tube feeds tomorrow morning for a weaning trial. She may need an extubation to noninvasive positive pressure ventilation given her chronic biventricular heart failure. She does have obesity and there is concern for possible HEYDI as well. 2. KWAME, likely prerenal. Metabolic alkalosis secondary to diuresis - will hold lasix today, has already received AM lasix. is net negative almost 5L - Will continue to followup with repeat chemistries to monitor as she had increased Cr likely due to diuresis - Will give a dose of a acetazolamide for her metabolic alkalosis secondary to the diuresis. - Continue to monitor ins and outs and will replete electrolytes as needed. 3. Diabetes - Will start tube feeds and continue with Levemir and fingerstick glucose checks every 6 hours with sliding scale coverage as needed 4. HTN - hold antihypertensive medications given hypotension likely due to sedation. - Continue with atorvastatin and aspirin. Would decrease from 300 to 150 mg. Her troponins have remained negative. - Continue with Levophed to maintain a MAP above 65. Would wean down as tolerated. - DVT prophylaxis. Lovenox. - Code status: FULL CODE. Total critical care time spent not including procedures approximately 40 minutes. MTDD
--- NOTE | 2019-09-21 17:04 | ECGEPIP ---
[facility] Test Date: 2019-09-20 Pat Name: GLADYS RODARTE Department: Room: [place] [address] Gender: Female [employer] Pest [employer] Specialist: LISA : 1960 Requested By: PIPER QUICK Order Number: [id number] Reading MD: Brandon Etienne Measurements Intervals [place] Rate: 63 P: 130 [place]: 192 QRS: 234 QRSD: 225 T: 43 QT: 557 QTc: 571 Interpretive Statements AV sequential paced rhythm with PVC 1. Electronically Signed on 09-21-2019 17:04:07 EST by Brandon Etienne
[2019-09-21] MEDS ORDERED: FUROSEMIDE 40 MG/4 ML VIAL (J1940) IV SCH (20:00)
[2019-09-21] MEDS: NOREPINEPHRINE BITARTRATE 16 MG in D5W 484 ML IV SCH (20:35)
[2019-09-21] MEDS: NIACIN SR (NIASPAN) 500 MG TAB PO SCH (20:40)
[2019-09-21] MEDS: ATORVASTATIN 20 MG TAB PO SCH (20:40)
[2019-09-21] MEDS: KETOCONAZOLE 2% CREAM EXT SCH (20:40)
[2019-09-21] MEDS: LEVEMIR (INSULIN DETEMIR) 1 UNITS/0.01ML SC SCH (20:43)
[2019-09-21] MEDS: NEUTRA-PHOS 1.5 GM PACKET PO SCH (22:13)
[2019-09-22] VITALS (21 sets, daily range): BP systolic 81–129; BP diastolic 42–60
[2019-09-22] MEDS: propofoL 1,000 MG in IV 1 EA IV SCH ×2 (02:26→05:59)
[2019-09-22 04:04] LABS: BASO % 0.3 % (0.0-1.0); EOS # 0.2 10^3/uL (0.0-0.5); HEMATOCRIT 31.8 % (36.0-47.0); HEMOGLOBIN 9.3 g/dl (12.0-15.5); LYMPH # 1.3 10^3/uL (1.5-5.0); MEAN CORPUSCULAR HEMOGLOBIN 30.3 pg (27.0-33.0); MEAN CORPUSCULAR HGB CONC 29.2 g/dl (32.0-36.5); MEAN CORPUSCULAR VOLUME 103.6 fl (80.0-96.0); MONO # 0.7 10^3/uL (0.0-0.8); MONO % 9.2 % (0.0-5.0); NEUTROPHILS # 5.2 10^3/uL (1.5-8.5); NEUTROPHILS % 70.2 % (36.0-66.0); PLATELET COUNT, AUTOMATED 157 10^3/uL (150-450); RED BLOOD COUNT 3.07 10^6/uL (4.00-5.40); WHITE BLOOD COUNT 7.4 10^3/uL (4.0-10.0)
[2019-09-22 04:29] LABS: CALCIUM LEVEL 8.4 MG/DL (8.5-10.1); CREATININE FOR GFR 1.51 MG/DL (0.55-1.30); GLOMERULAR FILTRATION RATE 37.7 (>51); POTASSIUM SERUM 3.5 MEQ/L (3.5-5.1)
[2019-09-22] MEDS: NEUTRA-PHOS 1.5 GM PACKET PO SCH ×2 (05:07→14:34)
[2019-09-22] MEDS: HEPARIN SOD (PORCINE) 5000 UNITS/ML VIAL (J1644 PER 1000UNITS) SQ SCH ×3 (05:07→21:13)
[2019-09-22] MEDS: HumaLOG INSULIN (NovoLOG) PER UNIT SC SCH ×3 (05:07→18:00)
[2019-09-22 06:00] LABS: ABG BASE EXCESS 16.2 (-2.0-2.0); ABG HCO3 43.1 MEQ/L (22.0-26.0); ABG O2 SATURATION 96.9 % (95.0-99.0); ABG PARTIAL PRESSURE O2 88.5 mmHg (75.0-100.0); ABG STANDARD HCO3 40.1 MEQ/L (22.0-26.0); ABG TOTAL CO2 45.2 MEQ/L (22.0-29.0); ABG pH (ARTERIAL) 7.424 UNITS (7.350-7.450)
[2019-09-22 06:03] LABS: ABG PARTIAL PRESSURE CO2 67.4 mmHg (35.0-45.0)
[2019-09-22] MEDS: fentaNYL CITRATE 1,000 MCG in NS 80 ML IV SCH (08:59)
[2019-09-22] MEDS: NYSTATIN 100,000 UNITS/GM TOPICAL PWD 15 GM TOP SCH (09:37)
[2019-09-22 09:52] LABS: ABG BASE EXCESS 11.1 (-2.0-2.0); ABG O2 SATURATION 94.4 % (95.0-99.0); ABG PARTIAL PRESSURE CO2 56.7 mmHg (35.0-45.0); ABG PARTIAL PRESSURE O2 73.8 mmHg (75.0-100.0); ABG STANDARD HCO3 34.8 MEQ/L (22.0-26.0); ABG TOTAL CO2 38.8 MEQ/L (22.0-29.0); ABG pH (ARTERIAL) 7.433 UNITS (7.350-7.450)
[2019-09-22] MEDS: CHLORHEXIDINE GLUCONATE 0.12 % 15ML UDC (PERIDEX ORAL RINSE) MT SCH ×2 (11:04→19:38)
[2019-09-22] MEDS: ASPIRIN 300 MG SUPP PR SCH (11:04)
--- NOTE | 2019-09-22 14:16 | CCN ---
DATE: 09/22/2019 The patient was seen and examined this morning during bedside rounds. Overnight the patient did require a low dose of Levophed as her propofol was increased overnight for sedation. This morning she was able to be weaned down to just the 1 mcg per minute of Levophed. Her evening Lasix was held yesterday due to her increased creatinine and some metabolic alkalosis. She has not had any fevers or chills. This morning with a sedation vacation she is awake and alert and following commands appropriately. PHYSICAL EXAMINATION: Temperature 97.9, pulse 72, respirations 14, blood pressure 103/50, O2 sat 98% on 40% FiO2. Ins 1.4 liters, out 3.4 liters. GENERAL: The patient is lying in bed and sedated. With sedation hold she is awake and alert and following commands appropriately. HEENT is normocephalic, atraumatic. Pupils are round, reactive to light. Mucous membranes are moist. Neck is supple. There is no palpable cervical adenopathy. Cardiovascular: Regular rate and rhythm, paced. Unable to appreciate any murmurs. Respiratory: Some coarse breath sounds bilaterally but no wheezing or rhonchi. Abdomen is soft, obese, nontender, nondistended. Extremities: There is improvement in the previous pitting edema with some wrinkling in her lower extremities, but there is still trace bilateral pitting edema noted. LABORATORIES: WBC is 7.4, hemoglobin 9.3, platelets are 157. Chemistry sodium is 143, potassium 3.5, chloride is 95, bicarb is 45, BUN is 20, creatinine is 1.51. Glucose 124. ABG pH 7.424, pCO2 of 67.4, pO2 of 88.5. IMAGING: Chest x-ray showed ET tube in place, right IJ triple lumen in place, and the OG tube in place below the diaphragm. There is a triple V biventricular pacemaker/AICD. There is some questionable atelectasis or consolidation in the left base. ASSESSMENT/PLAN: Ms. Marie is a 51-year-old female with a history of atrial fibrillation, hypertension, diabetes, hyperlipidemia, heart failure with reduced EF status post AICD, who presented with acute hypoxemic respiratory failure secondary to decompensated CHF requiring intubation and mechanical ventilation. Acute hypoxemic respiratory failure secondary to decompensated CHF requiring intubation, mechanical ventilation. - The patient is on PRVC currently with settings of 300/12/40/8. This morning her respiratory rate was increased to 14. - The patient had a sedation vacation today and was placed on a weaning trial which she tolerated well. Her ABG done during the weaning trial was acceptable and she was extubated to noninvasive positive pressure ventilation. - Will DC the daily ABGs and chest x-rays as she is extubated. - Will DC propofol and fentanyl. - Patient was weaned off of Levophed after her sedation was held and will continue to monitor her blood pressures to maintain a MAP above 65. - The patient's Lasix yesterday was on hold given her metabolic alkalosis and increased creatinine. Will continue to hold Lasix today and would likely need to restart tomorrow on p.o. Lasix depending on her fluid status - Continue to monitor ins and outs as well as monitoring electrolytes and repleting as needed. - Will continue the patient on noninvasive positive pressure ventilation with settings currently a 14/8 with a respiratory rate of 14 and FiO2 of 40%. Will attempt to wean her off to nasal cannula today and continue with BiPAP at night. Given her body habitus, there is some concern for underlying undiagnosed HEYDI. - Continue atorvastatin and aspirin. Will switch to p.o. when she is able to tolerate. - Continue with Levemir and fingerstick glucose checks q.6 h. Deep vein thrombosis (DVT) prophylax Lovenox. CODE STATUS: FULL CODE. Total critical care time spent not including procedures, approximately 40 minutes. MTDD
--- NOTE | 2019-09-22 14:22 | REP ---
CHEST, SINGLE VIEW: Single view of the chest is performed and compared to prior study of 09/21/2019. Endotracheal tube, nasogastric tube, and right central venous catheter are not definitely changed. Left pacemaker is again noted. There is a prominent cardiac silhouette, unchanged. Bibasilar parenchymal opacities are unchanged. IMPRESSION: Stable exam. Electronically Signed by Giorgio Archuleta MD 09/22/2019 06:51 P
[2019-09-22] MEDS: NIACIN SR (NIASPAN) 500 MG TAB PO SCH (20:18)
[2019-09-22] MEDS: ATORVASTATIN 20 MG TAB PO SCH (20:18)
[2019-09-22] MEDS: LEVEMIR (INSULIN DETEMIR) 1 UNITS/0.01ML SC SCH (20:18)
[2019-09-22] MEDS: KETOCONAZOLE 2% CREAM EXT SCH (20:19)
[2019-09-23] VITALS (9 sets, daily range): BP systolic 96–131; BP diastolic 50–77
[2019-09-23 04:14] LABS: BASO % 0.2 % (0.0-1.0); EOS # 0.1 10^3/uL (0.0-0.5); EOS % 1.3 % (0.0-3.0); HEMATOCRIT 32.7 % (36.0-47.0); HEMOGLOBIN 9.5 g/dl (12.0-15.5); LYMPH # 1.2 10^3/uL (1.5-5.0); LYMPH % 10.9 % (24.0-44.0); MEAN CORPUSCULAR HGB CONC 29.1 g/dl (32.0-36.5); MEAN CORPUSCULAR VOLUME 103.2 fl (80.0-96.0); MONO # 0.9 10^3/uL (0.0-0.8); MONO % 8.3 % (0.0-5.0); NEUTROPHILS # 8.3 10^3/uL (1.5-8.5); NEUTROPHILS % 78.8 % (36.0-66.0); PLATELET COUNT, AUTOMATED 162 10^3/uL (150-450); RED BLOOD COUNT 3.17 10^6/uL (4.00-5.40); WHITE BLOOD COUNT 10.5 10^3/uL (4.0-10.0)
[2019-09-23 04:43] LABS: CALCIUM LEVEL 8.5 MG/DL (8.5-10.1); CREATININE FOR GFR 1.42 MG/DL (0.55-1.30); GLOMERULAR FILTRATION RATE 40.4 (>51); MAGNESIUM LEVEL 2.1 MG/DL (1.8-2.4); PHOSPHORUS LEVEL 4.3 MG/DL (2.5-4.9); POTASSIUM SERUM 3.9 MEQ/L (3.5-5.1)
[2019-09-23] MEDS: HEPARIN SOD (PORCINE) 5000 UNITS/ML VIAL (J1644 PER 1000UNITS) SQ SCH ×3 (05:08→22:00)
[2019-09-23] MEDS: HumaLOG INSULIN (NovoLOG) PER UNIT SC SCH ×4 (05:08→18:00)
[2019-09-23 06:13] LABS: ABG BASE EXCESS 13.9 (-2.0-2.0); ABG HCO3 40.4 MEQ/L (22.0-26.0); ABG PARTIAL PRESSURE O2 138.2 mmHg (75.0-100.0); ABG STANDARD HCO3 37.7 MEQ/L (22.0-26.0); ABG TOTAL CO2 42.4 MEQ/L (22.0-29.0); ABG pH (ARTERIAL) 7.422 UNITS (7.350-7.450)
[2019-09-23 06:17] LABS: ABG PARTIAL PRESSURE CO2 63.5 mmHg (35.0-45.0)
[2019-09-23] MEDS: CHLORHEXIDINE GLUCONATE 0.12 % 15ML UDC (PERIDEX ORAL RINSE) MT SCH ×2 (09:10→19:52)
[2019-09-23] MEDS: NYSTATIN 100,000 UNITS/GM TOPICAL PWD 15 GM TOP SCH (09:11)
[2019-09-23] MEDS: ASPIRIN 300 MG SUPP PR SCH (09:11)
--- NOTE | 2019-09-23 09:59 | REP ---
CHEST, SINGLE VIEW: Single view of the chest is performed and compared to prior study of 09/22/2019. The previously noted endotracheal tube and nasogastric tube have been removed. The right central venous catheter remains in place with the tip in the superior vena cava. Pacemaker is again noted. Bilateral parenchymal opacities appear unchanged. Prominent cardiac silhouette is unchanged. Electronically Signed by Giorgio Archuleta MD 09/23/2019 06:29 P
[2019-09-23 12:31] LABS: FREE T4 1.2 NG/DL (0.76-1.46); THYROID STIMULATING HORMONE 2.19 uIU/ML (0.358-3.740)
--- NOTE | 2019-09-23 13:44 | IPNPDOC ---
Text Note Date of Service The patient was seen on 09/23/19. NOTE Subjective: Patient is 59 year old female with a PMHx of Systolic CHF (EF: 15%), A. fib (on ASA only), Cardiomyopathy (s/p AICD / PM), HTN, Chronic hypoxia (uses 2L NC at baseline), DLP, IDDM2, who presented to the ER with SOB, associated with orthopnea and LE edema. Upon arrival to ED she was noted to be in fluid overload and was admitted to the hospitalist service for further evaluation and treatment. Patient was placed on BIPAP, but was unable to tolerate it and was subsequently intubated. Patient was seen and examined at the bedside. . Currently, patient reports that she feels weak. Was seen sitting up in chair. Denies nausea, vomiting, abdominal pain or diarrhea. Patient has a Mcleod catheter in place that will be discontinued today. Objective: Vitals (See below) General: Lying in bed, no acute distress, comfortable, Awake / Alert HEENT: NC, AT CVS: +S1S2 Lungs: Poor inspiratory effort, b/l, mild crackles bilaterally, Abdomen: Soft, ND, NT Extremities: Pitting edema, - Calf tenderness Assessment and plan: s/p Acute on chronic hypoxic and hypercapnic respiratory failure / Ventilator dependent respiratory failure - likely 2/2 significant volume overload - Clinically doing well - Clinically improving - Remains negative fluid balanced - ~ 8 Liters - Strict ins/outs, daily weights / head of bed elevation - c/w BIPAP PRN / QHS - Furosemide on hold (re: KWAME) s/p Cardiogenic shock - likely 2/2 severe congestive heart failure - Thyroid function appropriate - ECHO 09/20: 1. Study is of acceptable technical quality, the patient is in sinus rhythm with probable ventricular pacing. 2. Severely dilated globally hypokinetic left ventricle with estimated LVEF approximately 20%. 3. No hemodynamically significant valvular disease. 4. Very high central venous pressure. 5. At least mild and probably moderate pulmonary hypertension. 6. Small noncompressive pericardial effusion. 7. Compared to echocardiogram from July 2018, the left ventricular (LV) size has further increased but overall systolic function does not appear to be significantly changed. - s/p Pressor support with Levophed - Will restart Furosemide within 24 hours Leukocytosis - Remains afebrile - Blood cultures 09/20: Gram positive cocci in clusters and chains - Will repeat blood cultures - Will consider UA with culture - Repeat labs at 1 PM - Currently off antibiotics KWAME - likely 2/2 diuresis - Cr baseline of 1.1 - 1.2 - Cr as been trending down - Will recheck blood work today - Will likely resume diuresis IDDM2 - A1c of 7.5 - c/w ISS DLP - c/w Atorvastatin HTN - BP on lower limits of normal - BP medications on hold - Hold hypertensive medications in the setting of cardiogenic shock Frequent falls / Deconditioning / Weakness - At baseline patient reports she uses a walker / wheelchair - c/w PT and OT DVT prophylaxis - c/w Heparin VS,Fishbone, I+O VS, Fishbone, I+O Laboratory Tests 09/23/19 04:00 Vital Signs Date Time Temp Pulse Resp B/P (MAP) Pulse Ox O2 Delivery O2 Flow Rate FiO2 09/23/19 09:16 99 Nasal Cannula 2.0 09/23/19 08:00 97.9 84 96/67 (77) 09/23/19 07:00 18 09/23/19 06:00 40 I&O- Last 24 Hours up to 6 AM 09/23/19 06:00 Intake Total 95 ml Output Total 1075 ml Balance -980 ml MADELEINE HARRIS MD Sep 23, 2019 13:44
[2019-09-23 15:48] LABS: HEMATOCRIT 33.1 % (36.0-47.0); HEMOGLOBIN 9.4 g/dl (12.0-15.5); MEAN CORPUSCULAR HEMOGLOBIN 29.6 pg (27.0-33.0); MEAN CORPUSCULAR HGB CONC 28.4 g/dl (32.0-36.5); MEAN CORPUSCULAR VOLUME 104.1 fl (80.0-96.0); PLATELET COUNT, AUTOMATED 170 10^3/uL (150-450); RED BLOOD COUNT 3.18 10^6/uL (4.00-5.40); WHITE BLOOD COUNT 7.3 10^3/uL (4.0-10.0)
[2019-09-23 16:08] LABS: CREATININE FOR GFR 1.39 MG/DL (0.55-1.30); GLOMERULAR FILTRATION RATE 41.5 (>51); POTASSIUM SERUM 3.8 MEQ/L (3.5-5.1)
--- NOTE | 2019-09-23 17:28 | CCN ---
DATE: 09/23/2019 The patient was seen and examined this morning during bedside rounds. The patient was extubated yesterday to noninvasive positive pressure ventilation. She did well with the noninvasive positive pressure ventilation (NIPPV) overnight and this morning was able to be weaned off to nasal cannula oxygen. She is on baseline 2 liters a minute at home for nasal cannula oxygen. The patient was able to get out of bed into a chair. She does report at home she is usually in her wheelchair and only rarely uses her walker. This morning, she denies any chest pain or shortness breath. She does have a cough occasionally productive of mucus. She denies any abdominal pain. No nausea or vomiting. She had no fevers overnight. PHYSICAL EXAMINATION: Temperature is 98.1, pulse 83, respirations 18, blood pressure 110/54, oxygen saturation 97% on bilevel positive airway pressure (BiPAP). INPUT AND OUTPUT: Input 650. Output 1.7 liters. GENERAL: Patient is sitting in the chair, is awake and alert and oriented. She is answering questions appropriately and is in no acute distress. HEENT: Normocephalic and atraumatic. Pupils are round, reactive to light. Mucous membranes are moist. Neck is supple. There is no palpable cervical adenopathy. Unable to appreciate jugular venous distention (JVD) due to neck habitus. CARDIAC: Regular rate and rhythm, is paced. Unable appreciate murmurs. RESPIRATORY: There are some coarse breath sounds bilaterally with crackles more significant in the left base and a few crackles on the right. ABDOMEN: Soft, obese, nontender, nondistended. EXTREMITIES: There is mild +1 pitting edema in the bilateral lower extremities. LABORATORY DATA: WBC is 10.5, hemoglobin 9.5, platelets are 162. Chemistry: Sodium is 141, potassium 3.9, chloride is 97, bicarbonate is 42, BUN 19, creatinine is 1.42, glucose 97. Arterial blood gas (ABG) this morning: pH 7.422, pCO2 of 53.5, pO2 of 138.2. IMAGING STUDIES: Chest x-ray shows the endotracheal (ET) tube and nasogastric (NG) tube is removed. There is a right internal jugular ( IJ) triple lumen in place. There is some atelectasis noted in the lungs bilaterally. There is likely atelectasis/opacity in the left lower lobe. ASSESSMENT AND PLAN: Ms. Marie is a 51-year-old female with a past medical history of atrial fibrillation, hypertension, diabetes, hyperlipidemia, congestive heart failure (CHF) with reduced ejection fraction (EF) plus automatic implantable cardioverter defibrillator (AICD), who presented with acute hypoxemic respiratory failure secondary to the decompensated CHF requiring intubation and mechanical ventilation. The patient was extubated yesterday, 09/22/2019, to noninvasive positive pressure ventilation. 1. Acute hypoxemic respiratory failure secondary to decompensated CHF requiring intubation and mechanical ventilation. The patient was diuresed with Lasix and had improvement in her opacities noted on her x-ray. She was extubated successfully to noninvasive positive pressure ventilation yesterday, on 09/22/2019. - The patient was weaned off of BiPAP to nasal cannula oxygen. Will continue to wean down her oxygen today, maintain oxygen saturation of 88-92%. She does have nasal cannula oxygen on home which she uses chronically at 2 liters a minute. - Will continue with BiPAP at night. Will change her to tabletop with settings of 14/8 and wean down the FiO2 to maintain the oxygen saturation of 88-92%. Suspect, given her body habitus, that she likely has some underlying obstructive sleep apnea and would need evaluation as an outpatient for it. She does have some evidence of chronic hypercarbic respiratory failure on her ABG, which may be in the setting of undiagnosed obesity hypoventilation syndrome (OHS) and obstructive sleep apnea (HEYDI). - The patient's x-ray this morning does show some atelectasis as well as likely infiltrate or opacity in the left base. She does have some increased crackles on the left base. Her white count has trended up. Would repeat a complete blood count (CBC) and if she does have leukocytosis, would start her on antibiotics for possible aspiration pneumonia. Yesterday, when the patient was given a diet, she had difficulty with coughing during eating and there was some concern for potential aspiration. - patient's initial blood cultures were positive for gram pos cocci, will follow-up final results but suspect contamination. will repeat blood cultures. - Will keep patient nothing by mouth and will get a formal speech and swallow evaluation for her. Will hold her Levemir as she is nothing by mouth and continue with fingerstick glucose checks. - The patient's Lasix was on hold given metabolic alkalosis and some acute kidney injury (KWAME). She is still net negative currently without diuretics and so will continue monitor and consider restarting her Lasix tomorrow if her creatinine continues to improve as it has been. - Will continue monitor electrolytes and replete as needed. - Continue with the rest of medications as per primary team. - Will remove Mcleod and perform a trial void. Can place a female catheter for monitoring her ins and outs. - Will also remove her central line, as patient has been off of pressors and maintaining blood pressure with a mean arterial pressure (MAP) above 65. Deep venous thrombosis (DVT) prophylax. Lovenox. FULL CODE. The patient will need physical therapy (PT)/occupational therapy (OT) given her deconditioning and at baseline apparently has been mostly wheelchair bound. Total care time spent not including procedures approximately 40 minutes. MTDD
[2019-09-23] MEDS: ATORVASTATIN 20 MG TAB PO SCH (19:37)
[2019-09-23] MEDS: NIACIN SR (NIASPAN) 500 MG TAB PO SCH (19:37)
[2019-09-23] MEDS: KETOCONAZOLE 2% CREAM EXT SCH (19:52)
[2019-09-24] VITALS: BP 103/53
[2019-09-24 04:00] VITALS: BP 113/66
[2019-09-24 05:39] LABS: BASO % 0.3 % (0.0-1.0); EOS # 0.2 10^3/uL (0.0-0.5); EOS % 3.5 % (0.0-3.0); HEMATOCRIT 29.6 % (36.0-47.0); HEMOGLOBIN 8.4 g/dl (12.0-15.5); LYMPH # 0.8 10^3/uL (1.5-5.0); MEAN CORPUSCULAR HGB CONC 28.4 g/dl (32.0-36.5); MEAN CORPUSCULAR VOLUME 105.7 fl (80.0-96.0); MONO # 0.6 10^3/uL (0.0-0.8); MONO % 10.3 % (0.0-5.0); NEUTROPHILS # 4.1 10^3/uL (1.5-8.5); NEUTROPHILS % 71.6 % (36.0-66.0); PLATELET COUNT, AUTOMATED 160 10^3/uL (150-450); WHITE BLOOD COUNT 5.7 10^3/uL (4.0-10.0)
[2019-09-24] MEDS: HumaLOG INSULIN (NovoLOG) PER UNIT SC SCH ×5 (06:00→22:04)
[2019-09-24 06:21] LABS: CALCIUM LEVEL 8.6 MG/DL (8.5-10.1); CREATININE FOR GFR 1.2 MG/DL (0.55-1.30); GLOMERULAR FILTRATION RATE 49.1 (>51); POTASSIUM SERUM 3.7 MEQ/L (3.5-5.1)
[2019-09-24] MEDS: HEPARIN SOD (PORCINE) 5000 UNITS/ML VIAL (J1644 PER 1000UNITS) SQ SCH ×3 (06:25→22:45)
[2019-09-24 08:00] VITALS: BP 110/62
[2019-09-24 09:38] LABS: CORTISOL AM 24.4 UG/DL (4.3-22.4)
[2019-09-24 09:39] LABS: TOTAL T3 53.3 NG/DL (60.0-181.0)
[2019-09-24] MEDS ORDERED: FUROSEMIDE 20 MG/2 ML VIAL (J1940) IV ONE (10:00)
[2019-09-24] MEDS: ASPIRIN 81 MG ENTERIC TAB PO SCH (10:16)
[2019-09-24] MEDS: CHLORHEXIDINE GLUCONATE 0.12 % 15ML UDC (PERIDEX ORAL RINSE) MT SCH (10:16)
[2019-09-24] MEDS: NYSTATIN 100,000 UNITS/GM TOPICAL PWD 15 GM TOP SCH (10:17)
--- NOTE | 2019-09-24 10:29 | CCN ---
DATE: 09/24/2019 The patient was seen, examined this morning during bedside rounds. The patient was on BiPap overnight and was on nasal cannula oxygen during the day. She is at baseline 2-3 liters a minute at home, reportedly. The overnight on the BIPAP, she did have an episode of desaturation when she was in very deep sleep but that later on improved. This morning, she denies any chest pain or shortness of breath. She does continue have a slight cough occasionally productive of mucus. She denies any abdominal pain. No nausea, vomiting. She has not had any fevers overnight. PHYSICAL EXAMINATION: Temperature is 97.6, pulse 79, respirations 20, blood pressure 113/66, O2 sat 96% on BIPAP. Input 0, output 780 mL. General: Patient is sitting in a chair. Is awake, alert and oriented. She does not appear to be in acute respiratory distress. HEENT: Normocephalic, atraumatic. Pupils are round, reactive to light. Mucous membranes are moist. Neck is supple. There is no palpable cervical adenopathy and unable to appreciate jugular venous distention (JVD) due to neck habitus. Cardiac: Regular rate and rhythm, paced. Unable to appreciate murmurs. Respiratory: There are some crackles noted bilaterally, more severe on the left base. Abdomen is soft, obese, nontender, nondistended. Extremities: There is some +1 pitting edema in the bilateral lower extremities, slightly increased. LABORATORY DATA: WBC is 5.7, hemoglobin is 8.4, platelets are 160. Chemistries: Sodium is 144, potassium 3.7, chloride 100, bicarbonate is 40, BUN 19, creatinine is 1.20, glucose is 94. ASSESSMENT AND PLAN: Ms. Marie is a 51-year female with a history of atrial fibrillation, hypertension, diabetes, hyperlipidemia, congestive heart failure (CHF) with reduced ejection fraction and status post AICD, who presented with acute hypoxemic respiratory failure secondary to be decompensated CHF requiring intubation, mechanical ventilation. The patient was extubated 09/22/2019 to noninvasive positive pressure ventilation. 1. Acute hypoxemic respiratory failure secondary to decompensated CHF requiring intubation, mechanical ventilation. The patient was aggressively diuresed with Lasix and had significant improvement in her bilateral fluffy opacities noted on her initial x-ray. She was then extubated successfully to noninvasive positive pressure ventilation on 09/22/2019. The patient has been weaned off of BiPap to nasal cannula oxygen during the day. She does have a history of chronic hypoxemic respiratory failure and uses 2-3 liters a minute during the day chronically. Would continue nasal cannula oxygen during the day to maintain O2 sat of 88-92% The patient likely appears to have some evidence of undiagnosed OHS / HEYDI. Overnight she did have desaturations despite being on BiPap and suspect she likely would need a backup respiratory rate. She does need a sleep study as an outpatient and titration for diagnosis as well as for accurate settings. For now, we will continue her on BiPap at night with settings of 14/8. Continue with O2 bleed to maintain O2 sat of 88-92%. The patient's Lasix was on hold given acute kidney injury and some metabolic alkalosis. Her renal function has improved to her baseline and today she does have some increased pitting edema. Would give her low dose of Lasix IV 20 mg and likely restart on oral Lasix tomorrow. Would continue to monitor her renal function and her ins and outs and replete electrolytes as needed. The patient does have some atelectasis likely in the left base and does have somewhat poor inspiratory effort. We will continue with incentive spirometer and encourage out of bed to chair as tolerated. The patient did have difficulty with bedside swallow yesterday. She is ordered for official speech and swallow evaluation today before starting her diet due to concern for aspiration. Continue with head of bed elevation and aspiration precautions. The patient's leukocytosis yesterday had improved and she has been afebrile. Continue to hold antibiotics. Initial blood cultures were positive for gram-positive cocci but suspect a possible contamination. We will followup with final results, as well as a repeat blood cultures. Once the patient is able to tolerate orally, would restart her insulin. The patient's central line will be removed as she has been off pressors and does have other peripheral access. Her Mcleod catheter was removed yesterday. Deep vein thrombosis (DVT) prophylaxis. Lovenox. FULL CODE. Physical therapy (PT) and occupational therapy (OT). Total critical care time spent not including procedures was approximately 40 minutes. Please do not hesitate to call if any further questions or concerns.
--- NOTE | 2019-09-24 11:32 | IPNPDOC ---
Text Note Date of Service The patient was seen on 09/24/19. NOTE Subjective: Patient was seen and examined at the bedside in the ICU. There have been no events on telemetry overnight. She continues to have BiPAP therapy at nighttime. She is tolerating the mask well. She continues to diurese with out diuretics, her output was 780 ML yesterday. She is no longer receiving fluids. She denies chest pain, dyspnea, or orthopnea. Her breathing has improved with BiPAP therapy. Denies nausea, vomiting, abdominal pain or diarrhea. Objective: Vitals (See below) General: Elderly female who is lying in bed in the ICU. She is responding appropriately to questions. HEENT: No cephalic, atraumatic. Conjunctiva are without pallor and there is no scleral jaundice. Neck: Obese. Right-sided central line, dressing dry and intact. JVD unable to be assessed due to habitus. Heart: Regular rate and rhythm; S3 gallop appreciated in the second intercostal space on the left. No other murmurs or rubs appreciated Lungs: Poor inspiratory effort, mostly clear at the apices with bilateral lower lobe crackles. No other adventitious lung sounds appreciated Abdomen: Obese, soft, nontender to palpation Extremities: Bilateral lower extremity nonpitting edema up to about the mid sullivan . Neuro: Answers questions appropriately. Oriented to herself and where she is. Unsure of the date. Muscle strength 5/5 in all 4 extremities. Assessment: Patient is 59 year old female with a past medical history significant for systolic and diastolic heart failure (EF 15%, status post AICD/pacemaker) and chronic hypoxia (uses 2L NC at baseline) who presented to the ER with increased shortness of breath, orthopnea and bilateral lower extremity edema. Upon arrival to emergency department she was noted to be in fluid overload and was admitted to the hospitalist service for further evaluation and treatment. Patient was placed on BIPAP, but was unable to tolerate it and was subsequently intubated and admitted to the natural resources engineer service. She was successfully extubated on 09/22/2019, and has been on BiPAP therapy since. Plan: s/p Acute on chronic hypoxic and hypercapnic respiratory failure / Ventilator dependent respiratory failure - likely 2/2 significant volume overload - Clinically improving - Remains negative fluid balanced - ~ 9 Liters cumulative the - Strict ins/outs, daily weights / head of bed elevation - c/w BIPAP PRN / QHS (per Dr. Graf, appreciate her help) - Furosemide PRN, will hold if renal function worsens s/p Cardiogenic shock - likely 2/2 severe congestive heart failure - Thyroid function appropriate - ECHO 09/20: 1. Study is of acceptable technical quality, the patient is in sinus rhythm with probable ventricular pacing. 2. Severely dilated globally hypokinetic left ventricle with estimated LVEF approximately 20%. 3. No hemodyn amically significant valvular disease. 4. Very high central venous pressure. 5. At least mild and probably moderate pulmonary hypertension. 6. Small noncompressive pericardial effusion. 7. Compared to echocardiogram from July 2018, the left ventricular (LV) size has further increased but overall systolic function does not appear to be significantly changed. - s/p Pressor support with Levophed - Will restart Furosemide today - Case discussed with Dr. Terrazas (outpatient digital analytics manager), she was denied Entresto by her insurance company in 2013. He suggested low-dose captopril 3.125 mg twice a day, with holding parameters, with uptake titration as her renal function and blood pressure permit. Leukocytosis, resolved - Remains afebrile - Blood culture 09/20: Positive for Staphylococcus capitis, likely a contaminant - Repeat blood cultures from 09/13/2019 negative after 24 hours - Currently off antibiotics KWAME on CKD- likely 2/2 diuresis - Baseline has CKD 3 with Cr ~1.3 - Diuresis as tolerated IDDM2 - A1c of 7.5 - Patient takes long acting insulin at home of Glargine 26 units QHS - however still on hold (re: poor oral intake) - c/w ISS Dysphagia - Speech therapy following - Diet adjusted based on their recommendations DLP - c/w Atorvastatin HTN - BP on lower limits of normal - BP medications on hold - Hold hypertensive medications in the setting of cardiogenic shock; Metoprolol Frequent falls / Deconditioning / Weakness - At baseline patient reports she uses a walker / wheelchair - c/w PT and OT DVT prophylaxis - c/w Heparin Disposition: Pending clinical improvement, potential placement for cardiac rehabilitation VS,Fishbone, I+O VS, Fishbone, I+O Laboratory Tests 09/23/19 15:29 09/24/19 05:15 Vital Signs Date Time Temp Pulse Resp B/P (MAP) Pulse Ox O2 Delivery O2 Flow Rate FiO2 09/24/19 04:00 5.0 09/24/19 04:00 97.6 79 20 113/66 (82) 96 NIPPV (BIPAP/CPAP) 09/23/19 06:00 40 I&O- Last 24 Hours up to 6 AM 09/24/19 06:00 Intake Total 0 ml Output Total 750 ml Balance -750 ml GME ATTESTATION GME ATTESTATION My faculty preceptor for this patient encounter was physically present during the encounter and was fully available. All aspects of the patient interview, examination, medical decision making process, and medical care plan development were reviewed and approved by the faculty preceptor. The faculty preceptor is aware and concurs with the plan as stated in the body of this note and will attest to such by his/her cosignature. ATTENDING NOTE I, Marian Little, have independently examined this patient and performed my own physical exam, as well as reviewed the documentation and edited where necessary. I have discussed in detail with the resident / student the findings and plan of treatment as documented by the resident / student and edited their note. I agree with their findings and treatment plan and have edited their documentation. I will continue to follow the patient during this hospital stay. OLVIN PALMER D.O. Sep 24, 2019 07:34 MARIAN LITTLE MD Sep 24, 2019 14:23
[2019-09-24 12:00] VITALS: BP 98/56
[2019-09-24] MEDS: CAPTOpril 3.125 MG PER 1/4 TABLET PO SCH ×2 (12:02→22:04)
[2019-09-24 18:27] VITALS: BP 102/69
[2019-09-24 22:00] VITALS: BP 101/69; O2SAT 94
[2019-09-24] MEDS: ATORVASTATIN 20 MG TAB PO SCH (22:44)
[2019-09-24] MEDS: NIACIN SR (NIASPAN) 500 MG TAB PO SCH (22:45)
[2019-09-24] MEDS: KETOCONAZOLE 2% CREAM EXT SCH (22:48)
[2019-09-25] VITALS (11 sets, daily range): BP systolic 78–152; BP diastolic 53–99; O2SAT 96–100
[2019-09-25] MEDS: CHLORHEXIDINE GLUCONATE 0.12 % 15ML UDC (PERIDEX ORAL RINSE) MT SCH ×3 (01:30→21:53)
[2019-09-25] MEDS: HEPARIN SOD (PORCINE) 5000 UNITS/ML VIAL (J1644 PER 1000UNITS) SQ SCH ×3 (06:03→21:54)
[2019-09-25 06:44] LABS: BASO % 0.4 % (0.0-1.0); EOS # 0.2 10^3/uL (0.0-0.5); HEMATOCRIT 32.1 % (36.0-47.0); HEMOGLOBIN 9.1 g/dl (12.0-15.5); LYMPH # 1.4 10^3/uL (1.5-5.0); LYMPH % 28.3 % (24.0-44.0); MEAN CORPUSCULAR HEMOGLOBIN 29.5 pg (27.0-33.0); MEAN CORPUSCULAR HGB CONC 28.3 g/dl (32.0-36.5); MEAN CORPUSCULAR VOLUME 104.2 fl (80.0-96.0); MONO # 0.6 10^3/uL (0.0-0.8); MONO % 11.7 % (0.0-5.0); NEUTROPHILS # 2.7 10^3/uL (1.5-8.5); NEUTROPHILS % 55.4 % (36.0-66.0); PLATELET COUNT, AUTOMATED 175 10^3/uL (150-450); RED BLOOD COUNT 3.08 10^6/uL (4.00-5.40); WHITE BLOOD COUNT 4.8 10^3/uL (4.0-10.0)
[2019-09-25 07:03] LABS: CALCIUM LEVEL 9.1 MG/DL (8.5-10.1); CREATININE FOR GFR 1.31 MG/DL (0.55-1.30); GLOMERULAR FILTRATION RATE 44.4 (>51); MAGNESIUM LEVEL 2.4 MG/DL (1.8-2.4); POTASSIUM SERUM 3.7 MEQ/L (3.5-5.1)
--- NOTE | 2019-09-25 07:52 | IPNPDOC ---
Text Note Date of Service The patient was seen on 09/25/19. NOTE S: Pt seen and examined at beside. Pt states that she had some episodes of co nfusion last night. She states that it has resolved this morning and that she is feeling better than the previous day. She verbalizes no complaints. Nursing staff states that the pt had an episode of altered mentation last night after being moved from the ICU to [facility] but that she is doing better this morning. O: Vitals (See below) General: Elderly female who is lying in bed. She is responding appropriately to questions. A&O x3 HEENT: No cephalic, atraumatic. Conjunctiva are without pallor and there is no scleral jaundice. Neck: Obese. Central line catheter has been removed is healing appropriately. JVD unable to be assessed due to habitus. Heart: Regular rate and rhythm. No other murmurs or rubs appreciated Lungs: Improved inspiratory effort, mostly clear at the apices with bilateral lower lobe crackles. No other adventitious lung sounds appreciated Abdomen: Obese, soft, nontender to palpation Extremities: Bilateral lower extremity nonpitting edema up to about the mid sullivan. Left sided unilateral calf swelling accompanied by erythema and warmth. Neuro: Answers questions appropriately. Oriented to herself and where she is, and today's date. A: Pt is a 59 year old female was presented to the ER with worsening shortness of breath, orthopnea, and bilateral lower extremity edema with a hx significant for systolic and diastolic heart failure (EF 15%, status post AICD/pacemaker) and chronic hypoxia (uses 2L NC at baseline). She was found to be fluid ove rloaded and was placed on BIPAP which she did not tolerate. 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 She was successfuly extubated on 09/22/2019 and has been readmitted to the hospitalist service. P: s/p Acute on chronic hypoxic and hypercapnic respiratory failure / Ventilator dependent respiratory failure - likely 2/2 significant volume overload - Clinically improving - Remains negative fluid balanced - ~ 9 Liters cumulative the - Strict ins/outs, daily weights / head of bed elevation - c/w Table top BIPAP PRN / QHS (per Dr. Graf, appreciate her help) s/p Cardiogenic shock - likely 2/2 severe congestive heart failure - Thyroid function appropriate - ECHO 09/20: 1. Study is of acceptable technical quality, the patient is in sinus rhythm with probable ventricular pacing. 2. Severely dilated globally hypokinetic left ventricle with estimated LVEF approximately 20%. 3. No hemodynamically significant valvular disease. 4. Very high central venous pressure. 5. At least mild and probably moderate pulmonary hypertension. 6. Small noncompressive pericardial effusion. 7. Compared to echocardiogram from July 2018, the left ventricular (LV) size has further increased but overall systolic function does not appear to be significantly changed. - s/p Pressor support with Levophed -cardiology formally consulted today, appreciate their help -Captopril DC due to upward trending Cr and borderline blood pressures Left lower extremity swelling r/o DVT -duplex venous ultrasound pending Leukocytosis, resolved - Remains afebrile - Blood culture 09/20: Positive for Staphylococcus capitis, likely a contaminant - Repeat blood cultures from 09/13/2019 negative after 24 hours - Currently off antibiotics KWAME on CKD- likely 2/2 diuresis - Baseline has CKD 3 with Cr ~1.3 - Diuresis as tolerated IDDM2 - A1c of 7.5 - Patient takes long acting insulin at home of Glargine 26 units QHS - however still on hold (re: poor oral intake) - c/w ISS Dysphagia - Speech therapy following - Diet adjusted based on their recommendations DLP - c/w Atorvastatin HTN - BP on lower limits of normal - BP medications on hold - Hold hypertensive medications in the setting of cardiogenic shock; Metoprolol Frequent falls / Deconditioning / Weakness - At baseline patient reports she uses a walker / wheelchair - c/w PT and OT DVT prophylaxis - c/w Heparin Disposition: Pending clinical improvement, potential placement for cardiac r ehabilitation VS,Brielle, I+O VS, Fishbone, I+O Laboratory Tests 09/25/19 06:31 Vital Signs Date Time Temp Pulse Resp B/P (MAP) Pulse Ox O2 Delivery O2 Flow Rate FiO2 09/25/19 06:00 97.0 82 18 101/61 (74) 98 NIPPV (BIPAP/CPAP) 09/24/19 22:30 2.0 09/23/19 06:00 40 I&O- Last 24 Hours up to 6 AM 09/25/19 06:00 Intake Total 580 ml Output Total 1000 ml Balance -420 ml GME ATTESTATION GME ATTESTATION My faculty preceptor for this patient encounter was physically present during the encounter and was fully available. All aspects of the patient interview, ex amination, medical decision making process, and medical care plan development were reviewed and approved by the faculty preceptor. The faculty preceptor is aware and concurs with the plan as stated in the body of this note and will attest to such by his/her cosignature. ATTENDING NOTE I, Marian Little, have independently examined this patient and performed my own p hysical exam, as well as reviewed the documentation and edited where necessary. I have discussed in detail with the resident / student the findings and plan of treatment as documented by the resident / student and edited their note. I agree with their findings and treatment plan and have edited their documentation. I will continue to follow the patient during this hospital stay. MIGUELINA BELTRAN S-3 Sep 25, 2019 07:52 MARIAN LITTLE MD Sep 25, 2019 16:54
[2019-09-25] MEDS: FERROUS SULFATE 325MG TAB PO SCH (09:00)
[2019-09-25] MEDS: ASPIRIN 81 MG ENTERIC TAB PO SCH (09:01)
[2019-09-25] MEDS: HumaLOG INSULIN (NovoLOG) PER UNIT SC SCH ×4 (09:01→21:00)
[2019-09-25] MEDS: NYSTATIN 100,000 UNITS/GM TOPICAL PWD 15 GM TOP SCH (09:02)
--- NOTE | 2019-09-25 14:52 | REP ---
Duplex extremity venous ultrasound: Bilateral lower extremity veins. History: Bilateral swelling. Rule out DVT roberto Findings: The deep veins are anechoic and fully compressible from the groin to the popliteal fossa in the left and right lower extremity. Color flow imaging is homogeneous. Spectral Doppler interrogation demonstrates intact respiratory variation in flow and normal manual augmentation of flow. There is no evidence of deep vein thrombosis. Impression: Negative bilateral lower extremity duplex venous ultrasound. No evidence of deep vein thrombosis. Electronically Signed by Vincent Burgos MD 09/25/2019 02:44 P
[2019-09-25] MEDS: ATORVASTATIN 20 MG TAB PO SCH (21:53)
[2019-09-25] MEDS: NIACIN SR (NIASPAN) 500 MG TAB PO SCH (21:54)
[2019-09-25] MEDS: KETOCONAZOLE 2% CREAM EXT SCH (21:54)
[2019-09-25] MEDS ORDERED: DIGOXIN 0.25 MG TAB PO ONE (22:15)
[2019-09-26] VITALS (23 sets, daily range): BP systolic 107–117; BP diastolic 57–69; O2SAT 94–100
[2019-09-26] MEDS: HEPARIN SOD (PORCINE) 5000 UNITS/ML VIAL (J1644 PER 1000UNITS) SQ SCH ×3 (05:30→20:58)
[2019-09-26 05:47] LABS: HEMATOCRIT 31.1 % (36.0-47.0); HEMOGLOBIN 8.7 g/dl (12.0-15.5); MEAN CORPUSCULAR HEMOGLOBIN 29.8 pg (27.0-33.0); MEAN CORPUSCULAR VOLUME 106.5 fl (80.0-96.0); PLATELET COUNT, AUTOMATED 192 10^3/uL (150-450); RED BLOOD COUNT 2.92 10^6/uL (4.00-5.40); WHITE BLOOD COUNT 4.6 10^3/uL (4.0-10.0)
[2019-09-26 06:11] LABS: BLOOD UREA NITROGEN 21 MG/DL (7-18); CALCIUM LEVEL 9.2 MG/DL (8.5-10.1); CARBON DIOXIDE LEVEL 42 MEQ/L (21-32); CHLORIDE LEVEL 101 MEQ/L (98-107); CREATININE FOR GFR 1.37 MG/DL (0.55-1.30); GLOMERULAR FILTRATION RATE 42.2 (>51); GLUCOSE, FASTING 198 MG/DL (70-100); POTASSIUM SERUM 3.9 MEQ/L (3.5-5.1); SODIUM LEVEL 142 MEQ/L (136-145)
--- NOTE | 2019-09-26 08:19 | REP ---
Portable chest x-ray: Single view. History: Dyspnea. Comparison study: September 23, 2019. Findings: A multi lead pacemaker is again noted in place via the left side. The right IJ line has been removed. The patient is rotated to the left for the current exposure. There are air bronchograms and increased density throughout the left lower lobe region consistent with lobar atelectasis. There is plate-like atelectasis in the perihilar region on the left similar to the prior study. There is coarse plate-like atelectasis in the right base as a new finding today. Electronically Signed by Vincent Burgos MD 09/26/2019 08:09 A
[2019-09-26] MEDS ORDERED: DIGOXIN 0.25 MG TAB PO ONE ×2 (09:00→20:00)
[2019-09-26] MEDS: HumaLOG INSULIN (NovoLOG) PER UNIT SC SCH ×4 (09:06→20:58)
[2019-09-26] MEDS: METOPROLOL SUCC *XL* 12.5MG PER 1/2 TAB (TopROL *XL*) PO SCH ×2 (09:07→20:57)
[2019-09-26] MEDS: ASPIRIN 81 MG ENTERIC TAB PO SCH (09:07)
[2019-09-26] MEDS: ENTRESTO 24-26MG TABLET (SACUBITRIL/VALSARTAN) PO SCH ×2 (09:07→20:57)
[2019-09-26] MEDS: FERROUS SULFATE 325MG TAB PO SCH (09:08)
[2019-09-26] MEDS: NYSTATIN 100,000 UNITS/GM TOPICAL PWD 15 GM TOP SCH (09:08)
[2019-09-26] MEDS: CHLORHEXIDINE GLUCONATE 0.12 % 15ML UDC (PERIDEX ORAL RINSE) MT SCH ×2 (09:15→20:57)
[2019-09-26] MEDS ORDERED: ENTR1TAB PO (10:19)
--- NOTE | 2019-09-26 10:36 | IPNPDOC ---
Text Note Date of Service The patient was seen on 09/26/19. NOTE S: Pt seen and examined at beside. Pt states that she is doing well this morning. She states that last night she had an episode of coughing in which she felt short of breath, this resolved after the pt was placed on BIPAP. This morning she feels less short of breath and that her coughing has decreased. During coughing episodes she admits to bringing up white phlegm w/o blood. Pt is feeling well otherwise. O: Vitals (See below) General: Elderly female who is lying in bed. She is responding appropriately to questions. A&O x3 HEENT: No cephalic, atraumatic. Conjunctiva are without pallor and there is no scleral jaundice. Neck: Obese. Central line catheter has been removed is healing appropriately. JVD unable to be assessed due to habitus. Heart: Regular rate and rhythm. No other murmurs or rubs appreciated Lungs: Improved inspiratory effort, bilateral lower lobe crackles. No other adventitious lung sounds appreciated Abdomen: Obese, soft, nontender to palpation Extremities: Bilateral lower extremity nonpitting edema up to about the mid sullivan. L calf remains mildly swollen compared to the R. Neuro: Answers questions appropriately. Oriented to herself and where she is, and today's date. A: Pt is a 59 year old female was presented to the ER with worsening shortness of breath, orthopnea, and bilateral lower extremity edema with a hx significant for systolic and diastolic heart failure (EF 15%, status post AICD/pacemaker) and chronic hypoxia (uses 2L NC at baseline). She was found to be fluid overloaded and was placed on BIPAP which she did not tolerate. 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 She was successfully extubated on 09/22/2019 and has been readmitted to the hospitalist service. P: s/p Acute on chronic hypoxic and hypercapnic respiratory failure / Ventilator dependent respiratory failure - likely 2/2 significant volume overload - Clinically improving - Remains negative fluid balanced - ~ 9 Liters cumulative the - Strict ins/outs, daily weights / head of bed elevation - c/w Table top BIPAP PRN / QHS (per Dr. Graf, appreciate her help) s/p Cardiogenic shock - likely 2/2 severe congestive heart failure - Thyroid function appropriate - ECHO 2/27: 1. Study is of acceptable technical quality, the patient is in sinus rhythm with probable ventricular pacing. 2. Severely dilated globally hy pokinetic left ventricle with estimated LVEF approximately 20%. 3. No hemodynamically significant valvular disease. 4. Very high central venous pressure. 5. At least mild and probably moderate pulmonary hypertension. 6. Small noncompressive pericardial effusion. 7. Compared to echocardiogram from July 2018, the left ventricular (LV) size has further increased but overall systolic function does not appear to be significantly changed. - s/p Pressor support with Levophed -cardiology formally consulted today, appreciate their help -Pt was placed on Digoxin, metoprolol, and entresto by cardiology -Will continue to assess Left lower extremity swelling r/o DVT -duplex venous ultrasound obtained -Doppler study was negative for thrombosis -Swelling most likely 2/2 decompensated HF. -Will continue to monitor Leukocytosis, resolved - Remains afebrile - Blood culture 09/20: Positive for Staphylococcus capitis, likely a contaminant - Repeat blood cultures from 09/13/2019 negative after 24 hours - Currently off antibiotics KWAME on CKD- likely 2/2 diuresis - Baseline has CKD 3 with Cr ~1.3 - Diuresis as tolerated IDDM2 - A1c of 7.5 - Patient takes long acting insulin at home of Glargine 26 units QHS; will start reduced dose tonight - c/w ISS Dysphagia - Speech therapy following - Diet adjusted based on their recommendations DLP - c/w Atorvastatin HTN - BP on lower limits of normal - Pt started on digoxin, metoprolol, and entresto by cardiology - will continue with monitoring Frequent falls / Deconditioning / Weakness - At baseline patient reports she uses a walker / wheelchair - c/w PT and OT DVT prophylaxis - c/w Heparin Disposition: - Pending clinical improvement, potential placement for cardiac rehabilitation VS,Fishbone, I+O VS, Fishbone, I+O Laboratory Tests 09/26/19 05:03 Vital Signs Date Time Temp Pulse Resp B/P (MAP) Pulse Ox O2 Delivery O2 Flow Rate FiO2 09/26/19 09:07 72 115/57 09/26/19 08:00 96.5 18 98 Nasal Cannula 4.0 09/23/19 06:00 40 I&O- Last 24 Hours up to 6 AM 09/26/19 06:00 Intake Total 150 ml Output Total 500 ml Balance -350 ml GME ATTESTATION GME ATTESTATION My faculty preceptor for this patient encounter was physically present during the encounter and was fully available. All aspects of the patient interview, examination, medical decision making process, and medical care plan development were reviewed and approved by the faculty preceptor. The faculty preceptor is aware and concurs with the plan as stated in the body of this note and will attest to such by his/her cosignature. ATTENDING NOTE I, Marian Little, have both independently examined this patient as well as reviewed the documentation. I have discussed in detail with the resident the findings and plan of treatment as documented by the resident. I agree with their findings and treatment plan. I will continue to follow the patient and offer further guidance to the patients care as necessary during this hospital stay. MIGUELINA BELTRAN OMS-3 Sep 26, 2019 10:36 MARIAN LITTLE MD Sep 26, 2019 13:25
--- NOTE | 2019-09-26 16:40 | CR ---
DATE OF CONSULTATION: 09/26/2019 REFERRING PHYSICIAN: Dr. Nicole Eugene REASON FOR CONSULTATION: Acute and chronic systolic and diastolic heart failure. HISTORY OF PRESENT ILLNESS: Ibis Marie is a 59-year-old woman with nonischemic dilated cardiomyopathy, chronic systolic and diastolic heart failure, biventricular ICD in situ ([employer]), paroxysmal atrial fibrillation, mixed hyperlipidemia, obesity, type 2 diabetes on insulin, and chronic kidney disease Stage 3B followed by nephrology. She presented to hospital on this occasion, 09/19/2019, with complaints of progressing shortness of breath over the course of 3 weeks and noticeably worse in the 24 hours prior to admission. She was having orthopnea. She was also noticing worsening edema in both of her legs. She was found to have severely decompensated heart failure with acute hypercapnia. She was cardiogenic shock and had acute on chronic hypoxic and hypercapnic respiratory failure and had a course of intubation ventilation in the intensive care unit (ICU). She is thought to have likely have obstructive sleep apnea. Her course in hospital showed intermittent episodes of hypotension. Cardiology has been consulted. The patient denies any chest pain or chest discomfort with or without activity. No syncope or presyncope. No palpitations. No embolic events. No intermittent claudication. I shall summarize additional cardiac history. She was first established at our office in consultation, seen by Dr. Terrazas 03/30/2011. She underwent implantation of initially a dual-chamber automatic implantable cardioverter defibrillator (AICD) in 2001 because of ventricular tachycardia. She was diagnosed with left bundle branch block, left axis deviation, and first degree atrioventricular (AV) block and a nonischemic dilated cardiomyopathy with systolic and diastolic heart failure. She had a cardiac catheterization in [place], [place] in 2001, which showed normal coronary arteries. Her first ICD implant was a Guidant dual-chamber ICD. She had a ICD pulse generator change at [facility] in [place], [place] to a Medtronic dual-chamber ICD device August 2007. She also has systemic hypertension. She had an upgrade to a biventricular ICD 2011. Her most recent echocardiogram-Doppler was this admission, 09/20/2019, which showed a severely dilated left ventricle (6.7 cm) with global hypokinesis and left ventricular ejection fraction (LVEF) estimated to be 20%. Abnormal septal motion was present. Right ventricle was poorly visualized but it was thought to be dilated and hypokinetic. Severe left atrial dilatation. Right atrium enlarged. Mild aortic valve sclerosis. Mild age degenerative changes of the mitral valve. Small noncompressive pericardial effusion. Dilated inferior vena cava with no appreciable respiratory collapse suggestive of elevated central venous pressure. Mild mitral regurgitation. Mild tricuspid regurgitation. Calculated pulmonary artery systolic pressure thought to be at least in the high 30s. Grade 2 LV diastolic dysfunction. Echocardiogram-Doppler 07/25/2018 showed left ventricle diastole 6.6 cm and LVEF estimated to be 15%. Echocardiogram-Doppler 02/24/2018 showed left ventricle diastole 6.45 cm with LVEF estimated to be 15%. Adenosine stress SPECT myocardial perfusion imaging study from April 2016 showed a fixed very large, moderate intensity myocardial perfusion defect involving the inferoseptal, inferior, anteroseptal and anterolateral regions from base to apex suggesting the possibility of prior infarction in the distribution of the left circumflex and right coronary arteries. However, the observed defects appear to have contribution from breast tissue attenuation and dilated left ventricle blood pool attenuation. No reversible perfusion defects. Dilated left ventricle with severe reduction in overall LV systolic function. Extensive and multiple regional wall motion abnormalities. Calculated LVEF on short axis images was 37%. Echocardiogram-Doppler 04/03/2015 showed left ventricle end diastole 6.1 cm and LVEF estimated to be 30%. Adenosine stress SPECT myocardial perfusion imaging study 03/2011, estimated LVEF to be 32%. Dilated left ventricle with severe global hypokinesis and severe reduction in overall LV systolic function. Appearance of a fixed mild size anteroapical defect most likely due to breast tissue attenuation. ADVERSE DRUG REACTIONS: METFORMIN. MEDICATIONS PRIOR TO ADMISSION: - aspirin 81 mg daily - atorvastatin 40 mg at bedtime - vitamin D2 50,000 units once a week on Sundays - ferrous sulfate 325 mg at bedtime - furosemide 60 mg daily - glimepiride 2 mg daily - Lantus insulin - insulin lispro - ketoconazole cream apply to feet - metoprolol succinate 25 mg daily - niacin 500 mg at bedtime - nystatin powder apply to groin and under breast - Entresto one tablet by mouth twice a day The patient's current medications in hospital are as follows: - acetaminophen 650 mg every 4 hours as needed - aspirin 81 mg daily - atorvastatin 40 mg at bedtime - chlorhexidine oral rinse - ferrous sulfate 325 mg by mouth daily - heparin 5000 units subcu every 8 hours - Levemir insulin 10 units subcu at bedtime - Humalog insulin before meals and at bedtime per sliding scale - ketoconazole cream apply to feet at bedtime - metoprolol succinate 12.5 mg twice a day - nystatin powder topical - Entresto 24-26 mg twice a day OTHER PAST MEDICAL AND SURGICAL HISTORY: In addition to cardiac history as described above, the patient's past medical and surgical history includes obesity, hypercholesterolemia, type 2 diabetes on insulin, chronic kidney disease stage 3B followed by nephrology, left knee surgery at age 13, gallstones, oxygen dependent congestive heart failure (CHF), nonischemic dilated cardiomyopathy, biventricular ICD in situ, calcium deposit removal from right knee, bilateral cataract extractions with lens implants. FAMILY HISTORY: Stroke. Father due to complications of pneumonia at age 67. Mother due to colon cancer at age 55. One sister of a heart attack at age 55. One sister with migraines and depression. SOCIAL HISTORY: . Unemployed. Lifetime nonsmoker. No alcohol. REVIEW OF SYSTEMS: Edema, and orthopnea, peripheral edema and shortness of breath as above. Oxygen dependent. Ambulatory dysfunction for which she walks with a walker only a few steps or uses a wheelchair. Anemia. All other 10 point review of systems negative. PHYSICAL EXAMINATION: Pleasant, obese woman who appears her chronological age who is not in any respiratory or psychologic distress. No gross head, facial or skeletal deformities. Height 66 inches, weight 95.3 kg, body mass index (BMI) 33.9. No conjunctival pallor or scleral icterus. Blood pressure 107/56, respiratory rate 16, pulse 71, temperature 97.1, oxygen saturation 94% on oxygen at 4 liters by nasal cannula. Multiple missing teeth. Teeth were in fair condition. Oral mucosa was moist and without pallor or cyanosis. Jugular venous pulsations were at 6 cm. Trachea midline. No palpable thyroid. No clubbing, nail bed cyanosis or splinter hemorrhages. No skin lesions or icterus. She appears pale. Oriented to person, place and time. Mood and affect normal. Curvature of the spine normal. Gait was not tested (the patient did not feel like getting out of bed). Gross motor strength and tone appear normal. No abnormal muscle atrophy, fasciculations, or tremors. Respiratory expansion and effort was fair. A few bibasilar crackles were present. No wheezes. No palpable apex beat. No lifts, parasternal lifts, heaves, thrills, or palpable heart sounds. ICD in situ over the left pectoral region with three ICD surgical scars. First heart sound and second heart sound were reduced in intensity. No S3 or S4 or murmurs appreciated. Carotids were normal in volume and contour and without bruits. No palpable abdominal aorta but difficult to palpate due to abdominal obesity. No abdominal bruits. Femoral pulses normal. Pedal pulses normal. 1 mm of pitting edema was present at pretibial level bilaterally. No varicose veins. Abdomen was obese, soft, nontender, with normal bowel sounds. No hepatosplenomegaly or other organomegaly but difficult to palpate due to abdominal obesity. Liver span is difficult to assess due to abdominal obesity. Stool for occult blood not presently indicated. Laboratory work 09/26/2019 was reviewed: Hemoglobin 8.7, hematocrit 33.1, platelets 192. Sodium 142, potassium 3.9, chloride 101, CO2 42, BUN 21, creatinine 1.37, estimated GFR 42.1, glucose 198. Laboratory work 09/25/2019 showed NT-proBNP 14,083. Electrocardiogram 09/20/2019 showed AV sequential paced rhythm with a PVC. Portable chest x-ray 09/26/2019 showed presence of a biventricular ICD over the left pectoral region. The patient rotated to the left. Air bronchograms increased density throughout the left lower lobe consistent with lobar atelectasis. Plate like atelectasis in the perihilar region on the left. Coarse plate like atelectasis in the right base. ASSESSMENT AND PLAN: 1. Acute on chronic systolic and diastolic heart failure secondary to nonischemic dilated cardiomyopathy. The patient is status post biventricular ICD in situ and is mostly biventricular paced. She had cardiogenic shock earlier in this admission but this seems to have resolved. She is oxygen dependent. I have restarted Entresto 24-26 mg twice a day. I have restarted metoprolol succinate at a total daily dose to 25 mg daily. I have added digoxin. She appears to be close to compensated. I would like to see how she does for the rest of the day with the reintroduction of Entresto. If her renal function remains the same or improved, I will consider adding a loop diuretic tomorrow. I think that this patient would benefit from referral to an advanced heart failure clinic in [place] for long-term co-management of heart failure and this can be done as an outpatient referral. I did not want to add spironolactone at this time because I want to see how the patient's renal function responds to the reintroduction of Entresto. I will consider this tomorrow depending on renal function. Agree with oral fluid restriction and sodium restriction. Cardiac rehabilitation has been consulted. 2. Paroxysmal atrial fibrillation. As far as I can tell this has not been observed in a long time. She is on aspirin. 3. Biventricular ICD in situ ([employer]). Stable. Predominantly biventricular paced. 4. Mixed hyperlipidemia. Continue statin therapy. Recommend a heart healthy diet. 5. Nonischemic dilated cardiomyopathy. As per heart failure category above. 6. Left bundle branch block. Status post biventricular ICD in situ.
[2019-09-26] MEDS: ATORVASTATIN 20 MG TAB PO SCH (20:57)
[2019-09-26] MEDS: KETOCONAZOLE 2% CREAM EXT SCH (20:58)
[2019-09-26] MEDS: LEVEMIR (INSULIN DETEMIR) 1 UNITS/0.01ML SC SCH (20:59)
[2019-09-27] VITALS (11 sets, daily range): BP systolic 104–138; BP diastolic 51–76; O2SAT 85–98
[2019-09-27 05:51] LABS: HEMATOCRIT 32.3 % (36.0-47.0); HEMOGLOBIN 9.1 g/dl (12.0-15.5); MEAN CORPUSCULAR HEMOGLOBIN 29.4 pg (27.0-33.0); MEAN CORPUSCULAR HGB CONC 28.2 g/dl (32.0-36.5); MEAN CORPUSCULAR VOLUME 104.2 fl (80.0-96.0); PLATELET COUNT, AUTOMATED 204 10^3/uL (150-450); WHITE BLOOD COUNT 4.8 10^3/uL (4.0-10.0)
[2019-09-27 06:06] LABS: CALCIUM LEVEL 8.7 MG/DL (8.5-10.1); CREATININE FOR GFR 1.09 MG/DL (0.55-1.30); GLOMERULAR FILTRATION RATE 54.9 (>51); POTASSIUM SERUM 3.8 MEQ/L (3.5-5.1)
[2019-09-27] MEDS: HEPARIN SOD (PORCINE) 5000 UNITS/ML VIAL (J1644 PER 1000UNITS) SQ SCH ×3 (06:49→21:14)
[2019-09-27] MEDS: HumaLOG INSULIN (NovoLOG) PER UNIT SC SCH ×4 (07:55→20:34)
[2019-09-27] MEDS: METOPROLOL SUCC (TopROL XL) 50MG **XL** TAB PO SCH (08:00)
[2019-09-27] MEDS: ENTRESTO 24-26MG TABLET (SACUBITRIL/VALSARTAN) PO SCH ×2 (08:00→21:15)
[2019-09-27] MEDS: ASPIRIN 81 MG ENTERIC TAB PO SCH (08:01)
[2019-09-27] MEDS: FERROUS SULFATE 325MG TAB PO SCH (08:01)
[2019-09-27] MEDS: DIGOXIN 0.0625MG PER 1/2TABLET PO SCH (08:01)
[2019-09-27] MEDS: NYSTATIN 100,000 UNITS/GM TOPICAL PWD 15 GM TOP SCH (08:02)
[2019-09-27] MEDS: CHLORHEXIDINE GLUCONATE 0.12 % 15ML UDC (PERIDEX ORAL RINSE) MT SCH ×2 (09:22→21:17)
--- NOTE | 2019-09-27 16:36 | IPNPDOC ---
Text Note Date of Service The patient was seen on 09/27/19. NOTE S: Pt seen and examined at beside. Pt states that she is doing well this morning and feels as if she has more energy. This morning she feels less short of breath and that her coughing has decreased. Pt is feeling well otherwise. Denies CP/SOB/N/V/F/D. O: Vitals (See below) General: Elderly female who is lying in bed. She is responding appropriately to questions. A&O x3 HEENT: No cephalic, atraumatic. Conjunctiva are without pallor and there is no scleral jaundice. Neck: Obese. JVD unable to be assessed due to habitus. Heart: Regular rate and rhythm. No other murmurs or rubs appreciated Lungs: Improved inspiratory effort, bilateral lower lobe crackles still present. No other adventitious lung sounds appreciated Abdomen: Obese, soft, nontender to palpation Extremities: Bilateral lower extremity1+ edema up to about the mid sullivan. Neuro: Answers questions appropriately. Oriented to herself and where she is, and today's date. A: Pt is a 59 year old female was presented to the ER with worsening shortness of breath, orthopnea, and bilateral lower extremity edema with a hx significant for systolic and diastolic heart failure (EF 15%, status post AICD/pacemaker) an d chronic hypoxia (uses 2L NC at baseline). She was found to be fluid overloaded and was placed on BIPAP which she did not tolerate. She was then subsequently intubated and admitted to the [facility]aker test service. She was successfully extubated on 09/22/2019 and has been readmitted to the hospitalist service. P: s/p Acute on chronic hypoxic and hypercapnic respiratory failure / Ventilator dependent respiratory failure - likely 2/2 significant volume overload - Clinically improving - Remains negative fluid balanced - ~ 9 Liters cumulative - Strict ins/outs, daily weights / head of bed elevation - c/w Table top BIPAP PRN / QHS (per Dr. Graf, appreciate her help) s/p Cardiogenic shock - likely 2/2 severe congestive heart failure - Thyroid function appropriate - ECHO 09/20: 1. Study is of acceptable technical quality, the patient is in sinus rhythm with probable ventricular pacing. 2. Severely dilated globally hypokinetic left ventricle with estimated LVEF approximately 20%. 3. No hemodynamically significant valvular disease. 4. Very high central venous pressure. 5. At least mild and probably moderate pulmonary hypertension. 6. Small noncompressive pericardial effusion. 7. Compared to echocardiogram from July 2018, the left ventricular (LV) size has further increased but overall systolic function does not appear to be significantly changed. - s/p Pressor support with Levophed -cardiology formally consulted yesterday, appreciate their help -Pt was placed on Digoxin, metoprolol, and entresto by cardiology -Will continue to assess Left lower extremity swelling r/o DVT -duplex venous ultrasound obtained -Doppler study was negative for thrombosis -Swelling most likely 2/2 decompensated HF. -Will continue to monitor Leukocytosis, resolved - Remains afebrile - Blood culture 09/20: Positive for Staphylococcus capitis, likely a contaminant - Repeat blood cultures from 09/13/2019 negative after 24 hours - Currently off antibiotics KWAME on CKD- likely 2/2 diuresis - Baseline has CKD 3 with Cr ~1.3 - Diuresis as tolerated IDDM2 - A1c of 7.5 - Patient takes long acting insulin at home of Glargine 26 units QHS; will start reduced dose tonight - c/w ISS Dysphagia - Speech therapy following - Diet adjusted based on their recommendations DLP - c/w Atorvastatin HTN - BP on lower limits of normal - Pt started on digoxin, metoprolol, and entresto by cardiology - will continue with monitoring Frequent falls / Deconditioning / Weakness - At baseline patient reports she uses a walker / wheelchair - c/w PT and OT DVT prophylaxis - c/w Heparin Disposition: -Pending cardiology reassessment, PT/OT clearance, and cardia rehabilitation. Likely subacute rehab 24-48 hours. . VS,Fishbone, I+O VS, Fishbone, I+O Laboratory Tests 09/27/19 04:57 Vital Signs Date Time Temp Pulse Resp B/P (MAP) Pulse Ox O2 Delivery O2 Flow Rate FiO2 09/27/19 16:00 4.0 09/27/19 15:53 97.4 62 18 114/56 (75) 95 Nasal Cannula 09/23/19 06:00 40 I&O- Last 24 Hours up to 6 AM 09/27/19 06:00 Intake Total 720 ml Output Total 350 ml Balance 370 ml GME ATTESTATION GME ATTESTATION My faculty preceptor for this patient encounter was physically present during the encounter and was fully available. All aspects of the patient interview, examination, medical decision making process, and medical care plan development were reviewed and approved by the faculty preceptor. The faculty preceptor is aware and concurs with the plan as stated in the body of this note and will attest to such by his/her cosignature. MIGUELINA BELTRAN OMS-3 Sep 27, 2019 16:36
[2019-09-27] MEDS: LEVEMIR (INSULIN DETEMIR) 1 UNITS/0.01ML SC SCH (21:14)
[2019-09-27] MEDS: ATORVASTATIN 20 MG TAB PO SCH (21:15)
[2019-09-27] MEDS: KETOCONAZOLE 2% CREAM EXT SCH (21:15)
[2019-09-28] VITALS (10 sets, daily range): BP systolic 85–123; BP diastolic 38–75; O2SAT 92–96
[2019-09-28] MEDS: HEPARIN SOD (PORCINE) 5000 UNITS/ML VIAL (J1644 PER 1000UNITS) SQ SCH ×3 (05:36→22:03)
[2019-09-28 05:48] LABS: HEMATOCRIT 32.2 % (36.0-47.0); HEMOGLOBIN 9.5 g/dl (12.0-15.5); MEAN CORPUSCULAR HEMOGLOBIN 30.2 pg (27.0-33.0); MEAN CORPUSCULAR HGB CONC 29.5 g/dl (32.0-36.5); MEAN CORPUSCULAR VOLUME 102.2 fl (80.0-96.0); PLATELET COUNT, AUTOMATED 206 10^3/uL (150-450); RED BLOOD COUNT 3.15 10^6/uL (4.00-5.40); WHITE BLOOD COUNT 4.6 10^3/uL (4.0-10.0)
[2019-09-28 06:11] LABS: CREATININE FOR GFR 1.07 MG/DL (0.55-1.30); GLOMERULAR FILTRATION RATE 56.1 (>51); POTASSIUM SERUM 4.1 MEQ/L (3.5-5.1)
[2019-09-28] MEDS: HumaLOG INSULIN (NovoLOG) PER UNIT SC SCH ×4 (07:30→21:00)
[2019-09-28 08:26] LABS: C REACTIVE PROTEIN QUANTITATIV 1.67 MG/DL (0.00-0.30)
[2019-09-28] MEDS: NYSTATIN 100,000 UNITS/GM TOPICAL PWD 15 GM TOP SCH (09:00)
[2019-09-28] MEDS: CHLORHEXIDINE GLUCONATE 0.12 % 15ML UDC (PERIDEX ORAL RINSE) MT SCH ×2 (09:00→21:00)
[2019-09-28 09:17] LABS: ERYTHROCYTE SEDIMENTATION RATE 60 mm/hr (0-30)
[2019-09-28] MEDS: ENTRESTO 24-26MG TABLET (SACUBITRIL/VALSARTAN) PO SCH ×2 (09:59→22:05)
[2019-09-28] MEDS: ASPIRIN 81 MG ENTERIC TAB PO SCH (09:59)
[2019-09-28] MEDS: METOPROLOL SUCC (TopROL XL) 50MG **XL** TAB PO SCH (09:59)
[2019-09-28] MEDS: DIGOXIN 0.0625MG PER 1/2TABLET PO SCH (10:00)
[2019-09-28] MEDS: FERROUS SULFATE 325MG TAB PO SCH (10:00)
--- NOTE | 2019-09-28 10:03 | IPNPDOC ---
Text Note Date of Service The patient was seen on 09/28/19. NOTE S: Pt seen and examined at beside. Pt states that she feels ok but tired this morning. She says that he breathing is feeling back to baseline. She admits to some dizziness when working with PT and nursing staff during transfers. Denies CP/SOB/N/V/F/D. Nursing staff states that the pt has not been complying with incentive spirometry and nighttime BIPAP and has been asking to use the bed farley rather than transferring to the commode. Staff states pt requires at least 3 nurses for transfers however PT states that she is able to complete the transfers with just verbal queuing. O: Vitals (See below) General: Elderly female who is lying in bed. She is responding appropriately to questions. A&O x3 HEENT: No cephalic, atraumatic. Conjunctiva are without pallor and there is no scleral jaundice. Neck: Obese. JVD unable to be assessed due to habitus. Heart: Regular rate and rhythm. No other murmurs or rubs appreciated Lungs: Improved inspiratory effort, bilateral lower lobe crackles still present. No other adventitious lung sounds appreciated Abdomen: Obese, soft, nontender to palpation Extremities: Bilateral lower extremity1+ edema up to about the mid sullivan. LE tender to palpation bilaterally with neg warmth or erythema. Neg Oren's test. Neuro: Answers questions appropriately. Oriented to herself and where she is, and today's date. Has been noncompliant with nursing requests. A: Pt is a 59 year old female was presented to the ER with worsening shortness of breath, orthopnea, and bilateral lower extremity edema with a hx significant for systolic and diastolic heart failure (EF 15%, status post AICD/pacemaker) and chronic hypoxia (uses 2L NC at baseline). She was found to be fluid overloaded and was placed on BIPAP which she did not tolerate. She was then subsequently intubated and admitted to the food and beverage checker service. She was successfully extubated on 09/22/2019 and has been readmitted to the hospitalist service. P: s/p Acute on chronic hypoxic and hypercapnic respiratory failure / Ventilator dependent respiratory failure - likely 2/2 significant volume overload - Clinically improving - Remains negative fluid balanced - Strict ins/outs, daily weights / head of bed elevation - c/w Table top BIPAP PRN / QHS (per Dr. Graf, appreciate her help) - pt reported to be noncompliant with nighttime BIPAP s/p Cardiogenic shock - likely 2/2 severe congestive heart failure - Thyroid function appropriate - ECHO 09/20: 1. Study is of acceptable technical quality, the patient is in sinus rhythm with probable ventricular pacing. 2. Severely dilated globally hypokinetic left ventricle with estimated LVEF approximately 20%. 3. No hemodynamically significant valvular disease. 4. Very high central venous pressure. 5. At least mild and probably moderate pulmonary hypertension. 6. Small noncompressive pericardial effusion. 7. Compared to echocardiogram from July 2018, the left ventricular (LV) size has further increased but overall systolic function does not appear to be significantly changed. - s/p Pressor support with Levophed -cardiology formally consulted on 09/26/2019, appreciate their help -Pt was placed on Digoxin, metoprolol, and entresto by cardiology -Will continue to assess, volume status improving Left lower extremity swelling r/o DVT -duplex venous ultrasound obtained -Doppler study was negative for thrombosis -Swelling most likely 2/2 decompensated HF. -Will continue to monitor Leukocytosis, resolved - Remains afebrile - Blood culture 09/20: Positive for Staphylococcus capitis, likely a contaminant - Repeat blood cultures from 09/13/2019 negative after 24 hours - Currently off antibiotics KWAME on CKD- likely 2/2 diuresis - Baseline has CKD 3 with Cr ~1.3 - Diuresis as tolerated IDDM2 - A1c of 7.5 - Patient takes long acting insulin at home of Glargine 26 units QHS; will start reduced dose tonight - c/w ISS Dysphagia - Speech therapy following - Diet adjusted based on their recommendations DLP - c/w Atorvastatin HTN - BP on lower limits of normal - Pt started on digoxin, metoprolol, and entresto by cardiology - will continue with monitoring Frequent falls / Deconditioning / Weakness - At baseline patient reports she uses a walker / wheelchair - c/w PT and OT DVT prophylaxis - c/w Heparin Disposition: -Disposition is complicated by the cost of the pt's Entresto. Because of this she will most likely not be taken as a pt by a SNF. -Pending cardiology reassessment, PT/OT reevaluation, and cardia rehabilitation. Likely home with services if she can resume baseline ambulation. VS,Fishbone, I+O VS, Fishbone, I+O Laboratory Tests 09/28/19 04:58 Vital Signs Date Time Temp Pulse Resp B/P (MAP) Pulse Ox O2 Delivery O2 Flow Rate FiO2 09/28/19 08:00 96.9 60 14 109/58 (75) 95 Nasal Cannula 4.0 09/23/19 06:00 40 I&O- Last 24 Hours up to 6 AM 09/28/19 05:59 Intake Total 480 ml Output Total 0 ml Balance 480 ml GME ATTESTATION GME ATTESTATION My faculty preceptor for this patient encounter was physically present during the encounter and was fully available. All aspects of the patient interview, examination, medical decision making process, and medical care plan development were reviewed and approved by the faculty preceptor. The faculty preceptor is aware and concurs with the plan as stated in the body of this note and will attest to such by his/her cosignature. MIGUELINA BELTRAN OMS-3 Sep 28, 2019 10:03
[2019-09-28] MEDS ORDERED: SLF 3 ML SYR IV PRN (10:30)
[2019-09-28] MEDS: SLF 3 ML SYR IV SCH ×2 (14:16→22:02)
[2019-09-28] MEDS: ATORVASTATIN 20 MG TAB PO SCH (22:02)
[2019-09-28] MEDS: LEVEMIR (INSULIN DETEMIR) 1 UNITS/0.01ML SC SCH (22:03)
[2019-09-28] MEDS: KETOCONAZOLE 2% CREAM EXT SCH (22:03)
[2019-09-29 02:10] VITALS: O2SAT 95
[2019-09-29 04:48] VITALS: BP 106/82
[2019-09-29] MEDS: HEPARIN SOD (PORCINE) 5000 UNITS/ML VIAL (J1644 PER 1000UNITS) SQ SCH ×3 (05:52→21:49)
[2019-09-29] MEDS: SLF 3 ML SYR IV SCH ×3 (05:52→21:49)
[2019-09-29 06:54] LABS: HEMATOCRIT 31.9 % (36.0-47.0); HEMOGLOBIN 9.2 g/dl (12.0-15.5); MEAN CORPUSCULAR HEMOGLOBIN 29.6 pg (27.0-33.0); MEAN CORPUSCULAR HGB CONC 28.8 g/dl (32.0-36.5); MEAN CORPUSCULAR VOLUME 102.6 fl (80.0-96.0); PLATELET COUNT, AUTOMATED 225 10^3/uL (150-450); RED BLOOD COUNT 3.11 10^6/uL (4.00-5.40); WHITE BLOOD COUNT 5.5 10^3/uL (4.0-10.0)
[2019-09-29 07:17] LABS: CALCIUM LEVEL 9.3 MG/DL (8.5-10.1); CREATININE FOR GFR 1.25 MG/DL (0.55-1.30); GLOMERULAR FILTRATION RATE 46.9 (>51); POTASSIUM SERUM 3.9 MEQ/L (3.5-5.1)
[2019-09-29] MEDS: HumaLOG INSULIN (NovoLOG) PER UNIT SC SCH ×4 (07:30→21:49)
[2019-09-29 08:30] VITALS: BP 77/44
[2019-09-29] MEDS: DIGOXIN 0.0625MG PER 1/2TABLET PO SCH (09:00)
[2019-09-29] MEDS: ENTRESTO 24-26MG TABLET (SACUBITRIL/VALSARTAN) PO SCH ×2 (09:00→21:00)
[2019-09-29] MEDS: METOPROLOL SUCC (TopROL XL) 50MG **XL** TAB PO SCH (09:00)
[2019-09-29] MEDS: ASPIRIN 81 MG ENTERIC TAB PO SCH (09:00)
[2019-09-29] MEDS: FERROUS SULFATE 325MG TAB PO SCH (09:00)
[2019-09-29] MEDS: CHLORHEXIDINE GLUCONATE 0.12 % 15ML UDC (PERIDEX ORAL RINSE) MT SCH ×2 (09:00→21:00)
[2019-09-29] MEDS ORDERED: NS 500 ML IV ONE (09:30)
--- NOTE | 2019-09-29 09:34 | IPNPDOC ---
Subjective Date Seen The patient was seen on 09/29/19. Subjective Chief Complaint/HPI Seen and examined at bedside, somnolent but arousable. General: Reports: Normal Appetite; Denies: Chills, Night Sweats, Fatigue, Malaise Constitutional: Denies: Chills, Fever, Night Sweats Eyes: Denies: Pain, Vision change ENT: Denies: Head Aches, Ear Pain, Dysphagia Skin: Denies: Rash, Lesions, Breakdown Pulmonary: Denies: Dyspnea, Cough Cardiovascular: Denies: Chest Pain, Palpitations, Orthopnea, Paroxysmal Noc. Dyspnea, Lt Headedness Gastrointestinal: Denies: Nausea, Vomiting, Abdominal Pain, Diarrhea, Constipation Genitourinary: Denies: Dysuria, Frequency, Incontinence, Retention Hematologic: Denies: Bruising, Bleeding Excessively Musculoskeletal: Denies: Neck Pain, Back Pain, Joint Pain, Muscle Pain, Spasms Neurological: Denies: Weakness, Numbness, Change in speech, Confusion Psych: Reports: Mood Normal; Denies: Depression, Memory Issues Objective Physical Examination General Exam: Positive: Alert, No Acute Distress Eye Exam: Positive: PERRLA, Conjunctiva & lids normal, EOMI; Negative: Sclera icteric ENT Exam: Positive: Atraumatic, Mucous membr. moist/pink, Pharynx Normal Neck Exam: Positive: Supple; Negative: JVD, thyromegaly Chest Exam: Positive: Clear to auscultation, Normal air movement Heart Exam: Positive: Rate Normal, Regular Rhythm, Normal S1, Normal S2; Negative: Murmurs, Rubs Telemetry: Positive: No significant arrhythmia Abdomen Exam: Positive: Normal bowel sounds, Soft; Negative: Tenderness, Hepatospenomegaly Female Exam: Positive: Nl Ext Genitalia; Negative: Lesions, Discharge, Odor, Tenderness Extremity Exam: Positive: Normal pulses; Negative: Clubbing, Cyanosis, Edema Skin Exam: Positive: Nl turgor and temperature; Negative: Rash, Breakdown Neuro Exam: Positive: Normal Gait, Normal Speech, Cranial Nerves 3-12 NL, Reflexes 2+ Psych Exam: Positive: Mental status NL, Mood NL, Oriented x 3 Assessment /Plan Assessment 1. Acute on chronic hypoxic and hypercapnic respiratory failure - improving clinically. - ins/outs, daily weights. - BIPAP PRN/QHS. - pt reported to be noncompliant with nighttime BIPAP. 2. Systolic congestive heart failure - ECHO 09/20: estimated LVEF approximately 20%. - Pt was placed on digoxin, metoprolol, and entresto by cardiology - Will continue to assess, volume status improving 3. KWAME on CKD - likely 2/2 diuresis - Baseline has CKD 3 with Cr ~1.3 - Diuresis as tolerated 4. IDDM2 - A1c of 7.5 - FSBS/SSI coverage, glargine. 5. HTN - BP on lower limits of normal - trending lower, bp meds held. - will continue with monitoring 6. Frequent falls/deconditioning - PT/OT as tolerated. Disposition: -Disposition is complicated by the cost of the pt's Entresto. Because of this she will most likely not be taken as a pt by a SNF. -Pending cardiology reassessment, PT/OT reevaluation, and cardia rehabilitation. Likely home with services if she can resume baseline ambulation. Plan/VTE VTE Prophylaxis Ordered?: Yes VS, I&O, 24H, Fishbone Vital Signs/I&O Vital Signs Date Time Temp Pulse Resp B/P (MAP) Pulse Ox O2 Delivery O2 Flow Rate FiO2 09/29/19 04:48 98.0 61 20 106/82 (90) 95 Room Air 09/29/19 02:10 3.5 09/23/19 06:00 40 I&O- Last 24 Hours up to 6 AM 09/29/19 06:00 Intake Total 660 ml Balance 660 ml Laboratory Data 24H LABS Laboratory Tests 2 09/28/19 12:14: Bedside Glucose (Misc Panel) 170H 09/28/19 17:28: Bedside Glucose (Misc Panel) 209H 09/28/19 19:47: Bedside Glucose (Misc Panel) 232H 09/29/19 06:20: Nucleated Red Blood Cells % (auto) 0.0, Anion Gap 2L, Glomerular Filtration Rate 46.9L, Calcium Level 9.3 09/29/19 08:52: Bedside Glucose (Misc Panel) 148H CBC/BMP Laboratory Tests 09/29/19 06:20 Microbiology Microbiology 09/27/19 Blood Culture - Preliminary, Resulted No growth after 24 hours . All specim... 09/27/19 Blood Culture - Preliminary, Resulted No growth after 24 hours . All specim... 09/22/19 Blood Culture - Final, Complete NO GROWTH AFTER 5 DAYS 09/22/19 Blood Culture - Final, Complete NO GROWTH AFTER 5 DAYS 09/20/19 Gram Stain - Final, Complete 09/20/19 Sputum Culture - Final, Complete 09/20/19 Blood Culture - Final, Complete Staphylococcus Capitis QUAN Barrera MD Sep 29, 2019 09:34
[2019-09-29 11:59] LABS: ABG BASE EXCESS 7.1 (-2.0-2.0); ABG HCO3 34.1 MEQ/L (22.0-26.0); ABG O2 SATURATION 94.8 % (95.0-99.0); ABG PARTIAL PRESSURE O2 79.1 mmHg (75.0-100.0); ABG STANDARD HCO3 30.9 MEQ/L (22.0-26.0)
[2019-09-29 12:05] LABS: ABG PARTIAL PRESSURE CO2 63.2 mmHg (35.0-45.0)
[2019-09-29] MEDS: NYSTATIN 100,000 UNITS/GM TOPICAL PWD 15 GM TOP SCH (13:27)
[2019-09-29 14:00] VITALS: BP 86/52
[2019-09-29 18:00] VITALS: BP 102/54
[2019-09-29 19:31] VITALS: BP 96/51
[2019-09-29] MEDS: KETOCONAZOLE 2% CREAM EXT SCH (21:48)
[2019-09-29] MEDS: LEVEMIR (INSULIN DETEMIR) 1 UNITS/0.01ML SC SCH (21:49)
[2019-09-29] MEDS: ATORVASTATIN 20 MG TAB PO SCH (21:50)
[2019-09-30 01:11] VITALS: O2SAT 91
[2019-09-30 06:11] VITALS: BP 97/51
[2019-09-30 06:58] LABS: HEMOGLOBIN 8.6 g/dl (12.0-15.5); MEAN CORPUSCULAR HEMOGLOBIN 29.5 pg (27.0-33.0); MEAN CORPUSCULAR HGB CONC 28.7 g/dl (32.0-36.5); MEAN CORPUSCULAR VOLUME 102.7 fl (80.0-96.0); PLATELET COUNT, AUTOMATED 208 10^3/uL (150-450); RED BLOOD COUNT 2.92 10^6/uL (4.00-5.40); WHITE BLOOD COUNT 4.1 10^3/uL (4.0-10.0)
[2019-09-30] MEDS: HEPARIN SOD (PORCINE) 5000 UNITS/ML VIAL (J1644 PER 1000UNITS) SQ SCH ×3 (07:00→22:05)
[2019-09-30] MEDS: SLF 3 ML SYR IV SCH ×3 (07:00→22:06)
[2019-09-30 07:15] VITALS: O2SAT 93
[2019-09-30 07:16] LABS: CALCIUM LEVEL 9.3 MG/DL (8.5-10.1); CREATININE FOR GFR 1.43 MG/DL (0.55-1.30); GLOMERULAR FILTRATION RATE 40.1 (>51); POTASSIUM SERUM 4.4 MEQ/L (3.5-5.1)
[2019-09-30] MEDS: ASPIRIN 81 MG ENTERIC TAB PO SCH (08:21)
[2019-09-30] MEDS: HumaLOG INSULIN (NovoLOG) PER UNIT SC SCH ×4 (08:21→21:00)
[2019-09-30] MEDS: FERROUS SULFATE 325MG TAB PO SCH (08:21)
[2019-09-30] MEDS: CHLORHEXIDINE GLUCONATE 0.12 % 15ML UDC (PERIDEX ORAL RINSE) MT SCH ×2 (08:24→21:00)
[2019-09-30] MEDS: ENTRESTO 24-26MG TABLET (SACUBITRIL/VALSARTAN) PO SCH ×2 (08:24→21:00)
[2019-09-30] MEDS: METOPROLOL SUCC (TopROL XL) 50MG **XL** TAB PO SCH (08:25)
[2019-09-30] MEDS: NYSTATIN 100,000 UNITS/GM TOPICAL PWD 15 GM TOP SCH (08:25)
--- NOTE | 2019-09-30 09:16 | IPNPDOC ---
Subjective Date Seen The patient was seen on 09/30/19. Subjective Chief Complaint/HPI Seen and examined at bedside, awake and answering questions appropriately. General: Reports: Normal Appetite; Denies: Chills, Night Sweats, Fatigue, Malaise Constitutional: Denies: Chills, Fever, Night Sweats Eyes: Denies: Pain, Vision change ENT: Denies: Head Aches, Ear Pain, Dysphagia Skin: Denies: Rash, Lesions, Breakdown Pulmonary: Denies: Dyspnea, Cough Cardiovascular: Denies: Chest Pain, Palpitations, Orthopnea, Paroxysmal Noc. Dyspnea, Lt Headedness Gastrointestinal: Denies: Nausea, Vomiting, Abdominal Pain, Diarrhea, Constipation Genitourinary: Denies: Dysuria, Frequency, Incontinence, Retention Hematologic: Denies: Bruising, Bleeding Excessively Musculoskeletal: Denies: Neck Pain, Back Pain, Joint Pain, Muscle Pain, Spasms Neurological: Denies: Weakness, Numbness, Change in speech, Confusion Psych: Reports: Mood Normal; Denies: Depression, Memory Issues Objective Physical Examination General Exam: Positive: Alert, No Acute Distress Eye Exam: Positive: PERRLA, Conjunctiva & lids normal, EOMI; Negative: Sclera icteric ENT Exam: Positive: Atraumatic, Mucous membr. moist/pink, Pharynx Normal Neck Exam: Positive: Supple; Negative: JVD, thyromegaly Chest Exam: Positive: Clear to auscultation, Normal air movement Heart Exam: Positive: Rate Normal, Regular Rhythm, Normal S1, Normal S2; Negative: Murmurs, Rubs Telemetry: Positive: No significant arrhythmia Abdomen Exam: Positive: Normal bowel sounds, Soft; Negative: Tenderness, Hepatospenomegaly Female Exam: Positive: Nl Ext Genitalia; Negative: Lesions, Discharge, Odor, Tenderness Extremity Exam: Positive: Normal pulses; Negative: Clubbing, Cyanosis, Edema Skin Exam: Positive: Nl turgor and temperature; Negative: Rash, Breakdown Neuro Exam: Positive: Normal Gait, Normal Speech, Cranial Nerves 3-12 NL, Reflexes 2+ Psych Exam: Positive: Mental status NL, Mood NL, Oriented x 3 Assessment /Plan Assessment 1. Acute on chronic hypoxic and hypercapnic respiratory failure - improving clinically. - ins/outs, daily weights. - BIPAP PRN/QHS. - pt reported to be noncompliant with nighttime BIPAP. 2. Systolic congestive heart failure - ECHO 09/20: estimated LVEF approximately 20%. - Pt was placed on digoxin, metoprolol, and entresto by cardiology - Will continue to assess, volume status improving. 3. KWAME on CKD - likely 2/2 diuresis - Baseline has CKD 3 with Cr ~1.3 - monitor for now. 4. IDDM2 - A1c of 7.5 - FSBS/SSI coverage, glargine. 5. HTN - BP on lower limits of normal - trending lower, bp meds held. - will continue with monitoring 6. Frequent falls/deconditioning - PT/OT as tolerated. Disposition: -Disposition is complicated by the cost of the pt's Entresto. Because of this she will most likely not be taken as a pt by a SNF. -Pending cardiology reassessment, PT/OT reevaluation, and cardia rehabilitation. Likely home with services if she can resume baseline ambulation. Plan/VTE VTE Prophylaxis Ordered?: Yes VS, I&O, 24H, Fishbone Vital Signs/I&O Vital Signs Date Time Temp Pulse Resp B/P (MAP) Pulse Ox O2 Delivery O2 Flow Rate FiO2 09/30/19 08:25 70 98/58 09/30/19 06:11 99.7 20 96 Room Air 09/30/19 01:11 2.0 I&O- Last 24 Hours up to 6 AM 09/30/19 06:00 Intake Total 990 ml Balance 990 ml Laboratory Data 24H LABS Laboratory Tests 2 09/29/19 11:24: Bedside Glucose (Misc Panel) 173H 09/29/19 11:51: Blood Gas Bicarbonate Standard 30.9H, Arterial Blood pH 7.350, Arterial Blood Partial Pressure CO2 63.2*H, Arterial Blood Partial Pressure O2 79.1, Arterial B lood Total CO2 36.0H, Arterial Blood HCO3 34.1H, Arterial Blood Base Excess 7.1H, Arterial Blood Oxygen Saturation 94.8L 09/29/19 16:36: Bedside Glucose (Misc Panel) 216H 09/29/19 19:30: Bedside Glucose (Misc Panel) 308H 09/30/19 06:39: Nucleated Red Blood Cells % (auto) 0.0, Anion Gap 3L, Glomerular Filtration Rate 40.1L, Calcium Level 9.3 CBC/BMP Laboratory Tests 09/30/19 06:39 Microbiology Microbiology 09/27/19 Blood Culture - Preliminary, Resulted No Growth after 48 hours. All Specime... 09/27/19 Blood Culture - Preliminary, Resulted No Growth after 48 hours. All Specime... 09/22/19 Blood Culture - Final, Complete NO GROWTH AFTER 5 DAYS 09/22/19 Blood Culture - Final, Complete NO GROWTH AFTER 5 DAYS 09/20/19 Gram Stain - Final, Complete 09/20/19 Sputum Culture - Final, Complete 09/20/19 Blood Culture - Final, Complete Staphylococcus Capitis QUAN Barrera MD Sep 30, 2019 09:16
[2019-09-30] MEDS: DIGOXIN 0.0625MG PER 1/2TABLET PO SCH (09:57)
[2019-09-30 14:00] VITALS: BP 106/65
[2019-09-30 20:11] VITALS: BP 113/58
[2019-09-30] MEDS: LEVEMIR (INSULIN DETEMIR) 1 UNITS/0.01ML SC SCH (22:04)
[2019-09-30] MEDS: KETOCONAZOLE 2% CREAM EXT SCH (22:05)
[2019-09-30] MEDS: ATORVASTATIN 20 MG TAB PO SCH (22:05)
[2019-10-01 02:49] VITALS: O2SAT 93
[2019-10-01] MEDS: HEPARIN SOD (PORCINE) 5000 UNITS/ML VIAL (J1644 PER 1000UNITS) SQ SCH ×3 (05:35→21:34)
[2019-10-01] MEDS: SLF 3 ML SYR IV SCH ×3 (05:37→21:36)
[2019-10-01 06:07] LABS: HEMATOCRIT 30.1 % (36.0-47.0); HEMOGLOBIN 8.7 g/dl (12.0-15.5); MEAN CORPUSCULAR HEMOGLOBIN 29.4 pg (27.0-33.0); MEAN CORPUSCULAR HGB CONC 28.9 g/dl (32.0-36.5); MEAN CORPUSCULAR VOLUME 101.7 fl (80.0-96.0); PLATELET COUNT, AUTOMATED 221 10^3/uL (150-450); RED BLOOD COUNT 2.96 10^6/uL (4.00-5.40); WHITE BLOOD COUNT 3.6 10^3/uL (4.0-10.0)
[2019-10-01 06:27] LABS: CALCIUM LEVEL 9.5 MG/DL (8.5-10.1); CREATININE FOR GFR 1.1 MG/DL (0.55-1.30); GLOMERULAR FILTRATION RATE 54.3 (>51); POTASSIUM SERUM 4.3 MEQ/L (3.5-5.1)
[2019-10-01] MEDS: HumaLOG INSULIN (NovoLOG) PER UNIT SC SCH ×4 (08:31→20:06)
[2019-10-01] MEDS: ENTRESTO 24-26MG TABLET (SACUBITRIL/VALSARTAN) PO SCH ×2 (08:31→21:35)
[2019-10-01] MEDS: ASPIRIN 81 MG ENTERIC TAB PO SCH (08:32)
[2019-10-01] MEDS: DIGOXIN 0.0625MG PER 1/2TABLET PO SCH (08:32)
[2019-10-01] MEDS: FERROUS SULFATE 325MG TAB PO SCH (08:32)
[2019-10-01] MEDS: METOPROLOL SUCC (TopROL XL) 50MG **XL** TAB PO SCH (08:35)
[2019-10-01] MEDS: NYSTATIN 100,000 UNITS/GM TOPICAL PWD 15 GM TOP SCH (08:36)
[2019-10-01] MEDS ORDERED: DIGO0.123 PO (12:23)
[2019-10-01] MEDS ORDERED: LISI-538 PO (12:27)
[2019-10-01] MEDS: CHLORHEXIDINE GLUCONATE 0.12 % 15ML UDC (PERIDEX ORAL RINSE) MT SCH ×2 (12:33→21:33)
[2019-10-01 13:02] LABS: DIGOXIN LEVEL 0.9 NG/ML (0.5-2.0)
[2019-10-01 14:00] VITALS: BP 100/45
[2019-10-01 14:09] VITALS: O2SAT 96
--- NOTE | 2019-10-01 15:11 | DS.PDOC ---
Discharge Summary General Date of Admission Sep 20, 2019 at 00:39 Date of Discharge 10/01/2019 Attending Physician: KARLA YARBROUGH MD Specialist/Consultants Involve: Brandon Etienne Specialist/Consultants Involve Dr. Zee Graf Discharge Summary PROCEDURES PERFORMED DURING STAY: -Intubation -Central line placement ADMITTING DIAGNOSES: 1. Multifactorial shortness of breath. This is mostly secondary to the patient's acute exacerbation of her heart failure and possible PNA. P 2. Acute on chronic systolic heart failure. 3. Acute hypercapnia 2/2 left sided PNA. P 5. Sepsis possibly 2/2 PNA. 6. Atrial fibrillation status post pacemaker placement. 7. Diabetes mellitus. 8. Hyperlipidemia. 9. HTN DISCHARGE DIAGNOSES: 1. Acute on chronic hypoxic and hypercapnic respiratory failure 2. Systolic and diastolic nonischemic dilated congestive heart failure w/ EF of 20% s/p pacemaker and AICD placement. 3. KWAME on CKD II 4. IDDM2 5. HTN 6. Frequent falls/deconditioning COMPLICATIONS/CHIEF COMPLAINT: Acute Chf, Dyspnea. HISTORY OF PRESENT ILLNESS: Patient is a 59-year-old female with a history of heart failure with reduced ejection fraction with last echocardiogram showing ejection fraction of 15% on 07/25/2018 who presents with worsening shortness of breath over the last few weeks. Patient noticed today that her shortness of breath that got acutely worse when she went to lay down to go to bed and was unable to breathe. Patient says she is on 2 L of oxygen via nasal cannula at home 14/02. Patient says her Lasix was recently increased to 60 mg daily by her doctor who she recently went to see. Patient says that she had a pacemaker and AICD placed many years ago. Patient does not have any other complaints and does not feel ill. Patient does say that she has noticed her legs are somewhat more swollen than usual. Patient says on a normal day for her she is able to walk using a walker from her living room to her bathroom without getting short of breath. She cannot walk much further without having to rest. When she goes out, she uses a wheelchair to get around. HOSPITAL COURSE: Pt was admitted to the hospitalist team and found to have worsening respiratory status likely secondary to her CHF requiring the use of noninvasive positive pressure ventilation. Shortly afterward the pt did not tolerate noninvasive positive pressure ventilation and was subsequently intubated in the ER and transferred to the ICU. While in the ICU she underwent aggressive diuretic therapy. In response to this as well as her decreased cardiac output her kidney function began to trend downward which has since recovered to baseline. Pt was treated empirically with ceftriaxone for suspected pneumonia. Antibiotics were D/C as her etiology favored a picture of fluid overload. During her stay cardiology was consulted for further management of her CHF who started the pt on metoprolol, digoxin, and entresto which the pt has tolerated well. Pt has continued to do well on the current medication regime and has worked with PT. She was D/c to [facility] in a stable state and was told to follow up with cardiology and her PCP within 7 days. DISCHARGE MEDICATIONS: Please see below. ALLERGIES: Please see below. PHYSICAL EXAMINATION ON DISCHARGE: VITAL SIGNS: Please see below. General: Elderly female who is lying in bed. She is responding appropriately to questions. A&O x3 HEENT: No cephalic, atraumatic. Conjunctiva are without pallor and there is no scleral jaundice. Neck: Obese. JVD unable to be assessed due to habitus. Heart: Regular rate and rhythm. No other murmurs or rubs appreciated Lungs: CTA bilaterally w/o RRW. Improved inspiratory effort. No other adventitious lung sounds appreciated Abdomen: Obese, soft, nontender to palpation Extremities: Improved swelling in LE. Trace nonpitting edema to the level of the ankle. Neuro: Answers questions appropriately. Oriented to herself and where she is, and today's date. LABORATORY DATA: Please see below. IMAGING: CXR 09/19/2019 Portable chest, 10:06 p.m., single AP view with the patient upright: Comparison is 08/25/2018. Diffuse bilateral infiltrates that have worsened. The the the The cardiac margins are obscured in cardiac size cannot be assessed. Triple lead dual chamber pacemaker is unchanged. The previous right IJ central venous catheter has been removed. Impression: Worsening interstitial infiltrates CXR 09/20/2019 Endotracheal tube is seen in good position at the level of proximal clavicles. An NG tube enters left upper quadrant of the abdomen. A multi lead pacemaker is again noted in the right heart via the left side. Monitoring electrodes are seen. The patient is rotated to the left for the current exposure. There are air bronchograms in the left perihilar region with increased density in the left lower lobe consistent with atelectasis and infiltrate. There is diffuse alveolar opacity in the right lung and in the aerated portion of the left lung. These findings are similar to yesterday's radiograph. Impression: Atelectasis and infiltrate left lower lobe. Perihilar edema pattern diffusely. Endotracheal and nasogastric tubes in good position. CXR 09/20/2019 Portable chest, 08:40 a.m., single AP view with the patient semi upright, post central line placement: Comparison is 09/20/2019 at to 07:29 a.m. There is a right IJ central venous catheter with the tip in the superior vena cava in satisfactory position. There is no pneumothorax. The pulmonary edema identified on the comparison study has significantly improved. Cardiac size is enlarged. The endotracheal tube and nasogastric tube remain in satisfactory positions, unchanged. Pacemaker is unchanged. Impression: Right IJ central venous catheter tip is in the superior vena cava. There is no pneumothorax. The pulmonary edema pattern on the comparison study has significantly improved. CXR 09/21/2019 The portable chest, 06:33 a.m., single AP view with the patient sitting: Comparison is 09/20/2019. There is interstitial coarsening, not significantly changed. Cardiac size is enlarged, unchanged. The endotracheal tube and nasogastric tube remain in satisfactory positions, unchanged. There is a right IJ central venous catheter with the tip in the superior vena cava in satisfactory position, unchanged. Triple lead biventricular pacemaker/AICD is unchanged. Impression: No significant interval change. CXR 09/22/2019 Single view of the chest is performed and compared to prior study of 09/21/2019. Endotracheal tube, nasogastric tube, and right central venous catheter are not definitely changed. Left pacemaker is again noted. There is a prominent cardiac silhouette, unchanged. Bibasilar parenchymal opacities are unchanged. CXR 09/23/2019 Single view of the chest is performed and compared to prior study of 09/22/2019. The previously noted endotracheal tube and nasogastric tube have been removed. The right central venous catheter remains in place with the tip in the superior vena cava. Pacemaker is again noted. Bilateral parenchymal opacities appear unchanged. Prominent cardiac silhouette is unchanged. Vascular Ultrasound 09/25/2019 Duplex extremity venous ultrasound: Bilateral lower extremity veins. History: Bilateral swelling. Rule out DVT roberto Findings: The deep veins are anechoic and fully compressible from the groin to the popliteal fossa in the left and right lower extremity. Color flow imaging is homogeneous. Spectral Doppler interrogation demonstrates intact respiratory variation in flow and normal manual augmentation of flow. There is no evidence of deep vein thrombosis Impression: Negative bilateral lower extremity duplex venous ultrasound. No evidence of deep vein thrombosis. CXR 09/26/2019 Portable chest x-ray: Single view. History: Dyspnea. Comparison study: September 23, 2019. Findings: A multi lead pacemaker is again noted in place via the left side. The right IJ line has been removed. The patient is rotated to the left for the current exposure. There are air bronchograms and increased density throughout the left lower lobe region consistent with lobar atelectasis. There is plate-like atelectasis in the perihilar region on the left similar to the prior study. There is coarse plate-like atelectasis in the right base as a new finding today. PROGNOSIS: fair ACTIVITY: As tolerated DIET: 2 gram sodium-restriction DISCHARGE PLAN: Discharge to [facility]. ITEMS TO FOLLOWUP ON ON OUTPATIENT: 1. PCP follow up in 1 week 2. Cardiology follow up in 1 week DISCHARGE CONDITION: Stable TIME SPENT ON DISCHARGE: Greater than 30 minutes. Vital Signs/I&Os Vital Signs Date Time Temp Pulse Resp B/P (MAP) Pulse Ox O2 Delivery O2 Flow Rate FiO2 10/01/19 14:09 96 Nasal Cannula 1.0 10/01/19 14:00 98.1 66 20 100/45 (63) I&O- Last 24 Hours up to 6 AM 10/01/19 06:00 Intake Total 1010 ml Output Total 0 ml Balance 1010 ml Laboratory Data Labs 24H Laboratory Tests 2 09/30/19 16:32: Bedside Glucose (Misc Panel) 208H 09/30/19 20:12: Bedside Glucose (Misc Panel) 227H 10/01/19 05:27: Nucleated Red Blood Cells % (auto) 0.0, Anion Gap 1L, Glomerular Filtration Rate 54.3, Calcium Level 9.5, Digoxin Level 0.9 10/01/19 11:38: Bedside Glucose (Misc Panel) 173H CBC/BMP Laboratory Tests 10/01/19 05:27 FSBS Laboratory Tests Test 09/30/19 16:32 09/30/19 20:12 10/01/19 11:38 Range/Units Bedside Glucose (Misc Panel) 208 227 173 70-105 MG/DL Microbiology Microbiology 09/27/19 Blood Culture - Preliminary, Resulted No Growth after 72 hours. All specime... 09/27/19 Blood Culture - Preliminary, Resulted No Growth after 72 hours. All specime... 09/22/19 Blood Culture - Final, Complete NO GROWTH AFTER 5 DAYS 09/22/19 Blood Culture - Final, Complete NO GROWTH AFTER 5 DAYS Discharge Medications Scheduled Aspirin (Aspirin EC) 81 Mg Tablet.dr, 81 MG PO DAILY, (Reported) Atorvastatin Calcium (Atorvastatin Calcium) 40 Mg Tab, 40 MG PO QHS, (Reported) Digoxin (Digoxin) 125 Mcg Tablet, 0.0625 MG PO DAILY Ergocalciferol (Vitamin D2) (Vitamin D2) 50,000 Units Cap, 50,000 UNITS PO 1XWK, (Reported) TUESDAY Ferrous Sulfate (Ferrous Sulfate) 325 Mg Tab, 325 MG PO QHS, (Reported) Furosemide (Furosemide) 40 Mg Tab, 60 MG PO DAILY, (Reported) Glimepiride (Glimepiride) 2 Mg Tab, 2 MG PO DAILY, (Reported) Insulin Glargine (Lantus) 100 Unit/1 Ml Vial, 26 UNITS SC QHS, (Reported) Insulin Lispro (Admelog) 100 Unit/1 Ml Vial, 4 UNITS SC ACS, (Reported) Ketoconazole (Ketoconazole) 15 Gm Cream..g., 1 DOSE EXT QHS, (Reported) APPLIES TO FEET Lisinopril (Lisinopril) 20 Mg Tablet, 20 MG PO DAILY START ON 10/02/2019 UNTIL DISCHARGE FROM REHAB, then start ENTRESTO 48 HOURS AFTER discontinuing Lisinopril Metoprolol Succinate (Metoprolol Succinate) 25 Mg Tab.er.24h, 25 MG PO DAILY, (Reported) Niacin (Niacin) 500 Mg Tab, 500 MG PO QHS, (Reported) Nystatin (Nystatin Powder) 15 Gm Powder, 1 DOSE TOP DAILY, (Reported) APPLIES TO GROIN AREA AND UNDER BREASTS Allergies Coded Allergies: metformin (Verified Adverse Reaction, Severe, HX OF METABOLIC ACIDOSIS IN SETTING OF KWAME, 11/07/18) HX OF METABOLIC ACIDOSIS IN SETTING OF KWAME REQUIRING ADMISSION GME ATTESTATION GME ATTESTATION My faculty preceptor for this patient encounter was physically present during the encounter and was fully available. All aspects of the patient interview, examination, medical decision making process, and medical care plan development were reviewed and approved by the faculty preceptor. The faculty preceptor is aware and concurs with the plan as stated in the body of this note and will attest to such by his/her cosignature. ATTENDING NOTE Patient was seen and examined by me this morning with the residents. Agree with the above assessment and plan MIGUELINA BELTRAN OMS-3 Oct 01, 2019 15:11 USHA HUYNH MD Oct 02, 2019 09:58 KARLA YARBROUGH MD Oct 04, 2019 12:50
[2019-10-01 20:00] VITALS: BP 113/60
[2019-10-01 20:05] VITALS: O2SAT 92
[2019-10-01] MEDS: ATORVASTATIN 20 MG TAB PO SCH (21:35)
[2019-10-01] MEDS: LEVEMIR (INSULIN DETEMIR) 1 UNITS/0.01ML SC SCH (21:36)
[2019-10-01] MEDS: KETOCONAZOLE 2% CREAM EXT SCH (21:36)
[2019-10-01] MEDS ORDERED: FUROSEMIDE 40 MG TAB PO ONE (22:15)
[2019-10-02 05:30] VITALS: BP 113/65
[2019-10-02] MEDS: SLF 3 ML SYR IV SCH ×3 (06:42→21:10)
[2019-10-02] MEDS: HEPARIN SOD (PORCINE) 5000 UNITS/ML VIAL (J1644 PER 1000UNITS) SQ SCH ×3 (06:42→21:08)
[2019-10-02] MEDS: HumaLOG INSULIN (NovoLOG) PER UNIT SC SCH ×4 (08:00→21:00)
[2019-10-02] MEDS: FERROUS SULFATE 325MG TAB PO SCH (08:00)
[2019-10-02] MEDS: DIGOXIN 0.0625MG PER 1/2TABLET PO SCH (08:01)
[2019-10-02] MEDS: ASPIRIN 81 MG ENTERIC TAB PO SCH (08:01)
[2019-10-02] MEDS: ENTRESTO 24-26MG TABLET (SACUBITRIL/VALSARTAN) PO SCH ×2 (08:01→21:00)
[2019-10-02] MEDS: NYSTATIN 100,000 UNITS/GM TOPICAL PWD 15 GM TOP SCH (08:02)
[2019-10-02] MEDS: METOPROLOL SUCC (TopROL XL) 50MG **XL** TAB PO SCH (08:02)
[2019-10-02] MEDS: CHLORHEXIDINE GLUCONATE 0.12 % 15ML UDC (PERIDEX ORAL RINSE) MT SCH ×2 (09:00→21:56)
[2019-10-02 10:54] VITALS: O2SAT 94
[2019-10-02] MEDS: FUROSEMIDE 20 MG TAB PO SCH (11:56)
[2019-10-02 14:00] VITALS: BP 83/42
[2019-10-02 14:30] VITALS: BP 102/62
--- NOTE | 2019-10-02 16:12 | IPNPDOC ---
Date Seen The patient was seen on 10/02/19. Progress Note SUBJECTIVE: Patient was seen and examined at the bedside this morning. She had an episode of shortness of breath and chest pain which went away overnight. She was given 40 mg IV Lasix with improvement in her shortness of breath. This morning she feels well. She has no shortness of breath, no cough, no chest pain. OBJECTIVE PHYSICAL EXAMINATION: VITAL SIGNS: Please see below. General: Elderly female who is lying in bed. She is responding appropriately to questions. A&O x3 HEENT: No cephalic, atraumatic. Conjunctiva are without pallor and there is no scleral jaundice. Neck: Obese. JVD unable to be assessed due to habitus. Heart: Regular rate and rhythm. No other murmurs or rubs appreciated Lungs: Crackles at the bases bilaterally. No other adventitious breath sounds appreciated Abdomen: Obese, soft, nontender to palpation Extremities: Improved swelling in LE. Trace nonpitting edema to the level of the ankle. Neuro: Answers questions appropriately. Oriented to herself and where she is, and today's date. LABORATORY DATA, IMAGING STUDIES, MICROBIOLOGY: Please see below. ASSESSMENT AND PLAN: This is a 59-year-old female with a systolic congestive heart failure and left ventricular ejection fraction of 20%. Acute on chronic hypoxic and hypercapnic respiratory failure requiring intubation who is now fluid stable. PROBLEMS: 1.. Acute on chronic hypoxic and hypercapnic respiratory failure: -At baseline oxygen requirement 2. Systolic congestive heart failure: -Patient was started on digoxin on this hospitalization. Digoxin level is within acceptable range. We'll continue this dose on discharge -Patient had episode of shortness of breath overnight and was given IV Lasix with resolution. Will give her 60 mg oral Lasix today, which she will be discharged on. In addition, she will be discharged on lisinopril until she can have her Entresto after her stay in rehab. This is indicated in discharge summary -Volume status is currently optimized. Please see discharge note for further information regarding hospitalization. DISPOSITION: Patient will go to [facility] tomorrow for rehabilitation VS, I&O, 24H, Fishbone Vital Signs/I&O Vital Signs Date Time Temp Pulse Resp B/P (MAP) Pulse Ox O2 Delivery O2 Flow Rate FiO2 10/02/19 14:00 98.2 60 16 83/42 (56) 97 Nasal Cannula 3/10/20 10:54 1.0 I&O- Last 24 Hours up to 6 AM 10/02/19 06:00 Intake Total 360 ml Output Total 400 ml Balance -40 ml Laboratory Data 24H LABS Laboratory Tests 2 10/01/19 16:34: Bedside Glucose (Misc Panel) 203H 10/01/19 20:06: Bedside Glucose (Misc Panel) 198H 10/02/19 07:39: Bedside Glucose (Misc Panel) 146H 10/02/19 11:16: Bedside Glucose (Misc Panel) 145H Microbiology Microbiology 09/27/19 Blood Culture - Final, Complete NO GROWTH AFTER 5 DAYS 09/27/19 Blood Culture - Final, Complete NO GROWTH AFTER 5 DAYS 09/22/19 Blood Culture - Final, Complete NO GROWTH AFTER 5 DAYS 09/22/19 Blood Culture - Final, Complete NO GROWTH AFTER 5 DAYS GME ATTESTATION GME ATTESTATION My faculty preceptor for this patient encounter was physically present during the encounter and was fully available. All aspects of the patient interview, examination, medical decision making process, and medical care plan development were reviewed and approved by the faculty preceptor. The faculty preceptor is aware and concurs with the plan as stated in the body of this note and will attest to such by his/her cosignature. ATTENDING NOTE Patient was seen and examined by me this morning with the residents. Agree with the above assessment and plan USHA HUYNH MD Oct 02, 2019 16:12 KARLA YARBROUGH MD Oct 04, 2019 13:09
[2019-10-02] MEDS: ATORVASTATIN 20 MG TAB PO SCH (21:08)
[2019-10-02] MEDS: LEVEMIR (INSULIN DETEMIR) 1 UNITS/0.01ML SC SCH (21:08)
[2019-10-02] MEDS: KETOCONAZOLE 2% CREAM EXT SCH (21:10)
[2019-10-02 22:00] VITALS: BP 96/49
[2019-10-03] MEDS: SLF 3 ML SYR IV SCH (05:57)
[2019-10-03] MEDS: HEPARIN SOD (PORCINE) 5000 UNITS/ML VIAL (J1644 PER 1000UNITS) SQ SCH (05:57)
[2019-10-03 06:00] VITALS: BP 101/58
[2019-10-03] MEDS: HumaLOG INSULIN (NovoLOG) PER UNIT SC SCH (08:08)
[2019-10-03 08:09] VITALS: BP 101/58
[2019-10-03] MEDS: METOPROLOL SUCC (TopROL XL) 50MG **XL** TAB PO SCH (08:09)
[2019-10-03] MEDS: DIGOXIN 0.0625MG PER 1/2TABLET PO SCH (08:09)
[2019-10-03] MEDS: FERROUS SULFATE 325MG TAB PO SCH (08:10)
[2019-10-03] MEDS: FUROSEMIDE 20 MG TAB PO SCH (08:10)
[2019-10-03] MEDS: ENTRESTO 24-26MG TABLET (SACUBITRIL/VALSARTAN) PO SCH (08:10)
[2019-10-03] MEDS: NYSTATIN 100,000 UNITS/GM TOPICAL PWD 15 GM TOP SCH (08:11)
[2019-10-03] MEDS: ASPIRIN 81 MG ENTERIC TAB PO SCH (08:11)
[2019-10-03] MEDS: CHLORHEXIDINE GLUCONATE 0.12 % 15ML UDC (PERIDEX ORAL RINSE) MT SCH (08:13)
== END 2019-10-03 10:50 | DRG 182 ==
LOC: M ED 21:18 → M ED INP 09-20 00:39 → M ICU 09-20 07:38 → M MSPAV 09-24 18:20 → M PCU 09-25 18:34 → M MS5PR 09-28 16:36
PROVIDERS: ADMIT Internal Medicine; ATTEND Internal Medicine
PROC: 02HV33Z Insertion of Infusion Device into Superior Vena Cava, Percutaneous Approach (ICD-10-PCS; principal; 2019-09-20)
PROC: 03HY32Z Insertion of Monitoring Device into Upper Artery, Percutaneous Approach (ICD-10-PCS; 2019-09-20)
PROC: 5A1945Z Respiratory Ventilation, 24-96 Consecutive Hours (ICD-10-PCS; 2019-09-20)
PROC: 0BH17EZ Insertion of Endotracheal Airway into Trachea, Via Natural or Artificial Opening (ICD-10-PCS; 2019-09-20)
DX: I13.0 Hypertensive heart and chronic kidney disease with heart failure and stage 1 through stage 4 chronic kidney disease, or unspecified chronic kidney disease (principal); R57.0 Cardiogenic shock; J18.9 Pneumonia, unspecified organism; E87.3 Alkalosis; J96.12 Chronic respiratory failure with hypercapnia; N17.9 Acute kidney failure, unspecified; I42.0 Dilated cardiomyopathy; N18.3 Chronic kidney disease, stage 3 (moderate); I27.20 Pulmonary hypertension, unspecified; Z99.81 Dependence on supplemental oxygen; R13.10 Dysphagia, unspecified; I48.0 Paroxysmal atrial fibrillation; E11.9 Type 2 diabetes mellitus without complications; E78.2 Mixed hyperlipidemia; Z87.442 Personal history of urinary calculi; Z98.41 Cataract extraction status, right eye; Z79.4 Long term (current) use of insulin; Z79.82 Long term (current) use of aspirin; Z79.899 Other long term (current) drug therapy; Z88.8 Allergy status to other drugs, medicaments and biological substances; R29.6 Repeated falls; E78.5 Hyperlipidemia, unspecified; G47.33 Obstructive sleep apnea (adult) (pediatric); E66.9 Obesity, unspecified; Z95.810 Presence of automatic (implantable) cardiac defibrillator; Z98.42 Cataract extraction status, left eye; Z68.33 Body mass index [BMI] 33.0-33.9, adult; I44.7 Left bundle-branch block, unspecified; M79.89 Other specified soft tissue disorders; I50.43 Acute on chronic combined systolic (congestive) and diastolic (congestive) heart failure

== ENCOUNTER → 2019-10-08 | Outpatient (REF) ==
[~2019-10-08] MED LIST changes: +ADME100I SC; +DIGO0.123 PO; +ENTR1TAB PO; +INSULANT SC; +KETO2CR EXT; -KETOCONAZOLE 2% CREAM EXT SCH; +LISI-538 PO; +METO1TAB32 PO; +NYST1POW9 TOP; +VITA50005 PO
[2019-10-08 09:05] LABS: HEMATOCRIT 33.1 % (36.0-47.0); HEMOGLOBIN 9.6 g/dl (12.0-15.5); MEAN CORPUSCULAR HEMOGLOBIN 30.2 pg (27.0-33.0); MEAN CORPUSCULAR VOLUME 104.1 fl (80.0-96.0); PLATELET COUNT, AUTOMATED 237 10^3/uL (150-450); RED BLOOD COUNT 3.18 10^6/uL (4.00-5.40); WHITE BLOOD COUNT 5.8 10^3/uL (4.0-10.0)
[2019-10-08 09:23] LABS: HEMOGLOBIN A1c 7.4 %
[2019-10-08 09:34] LABS: CALCIUM LEVEL 9.2 MG/DL (8.5-10.1); CHOLESTEROL RISK RATIO 3.093 (<5); CREATININE FOR GFR 1.52 MG/DL (0.55-1.30); GLOMERULAR FILTRATION RATE 37.4 (>51); POTASSIUM SERUM 4.2 MEQ/L (3.5-5.1)
== END ==
LOC: SKLAB2 07:30
PROVIDERS: ATTEND Internal Medicine
DX: E78.5 Hyperlipidemia, unspecified (principal); E11.9 Type 2 diabetes mellitus without complications; I10 Essential (primary) hypertension

== ENCOUNTER → 2019-10-11 | Outpatient (REF) ==
[2019-10-11 09:14] LABS: CREATININE FOR GFR 1.49 MG/DL (0.55-1.30); GLOMERULAR FILTRATION RATE 38.3 (>51); POTASSIUM SERUM 4.8 MEQ/L (3.5-5.1)
== END ==
LOC: SKLAB2 08:45
PROVIDERS: ATTEND Internal Medicine
DX: I50.9 Heart failure, unspecified (principal)

== ENCOUNTER → 2019-10-16 | Outpatient (REF) ==
[2019-10-16 07:38] LABS: CALCIUM LEVEL 9.1 MG/DL (8.5-10.1); CREATININE FOR GFR 1.45 MG/DL (0.55-1.30); GLOMERULAR FILTRATION RATE 39.5 (>51); POTASSIUM SERUM 4.9 MEQ/L (3.5-5.1)
== END ==
LOC: SKLAB2 07:00
PROVIDERS: ATTEND Internal Medicine
DX: I50.9 Heart failure, unspecified (principal)

== ENCOUNTER → 2019-10-23 | Outpatient (REF) ==
[2019-10-23 08:03] LABS: CREATININE FOR GFR 1.76 MG/DL (0.55-1.30); GLOMERULAR FILTRATION RATE 31.6 (>51); POTASSIUM SERUM 5.1 MEQ/L (3.5-5.1)
== END ==
LOC: SKLAB2 07:00
PROVIDERS: ATTEND Internal Medicine
DX: I50.9 Heart failure, unspecified (principal)

== ENCOUNTER → 2019-10-25 | Outpatient (REF) ==
[2019-10-25 07:06] LABS: ALBUMIN 3.1 GM/DL (3.2-5.2); CALCIUM LEVEL 8.9 MG/DL (8.5-10.1); CREATININE FOR GFR 1.82 MG/DL (0.55-1.30); GLOMERULAR FILTRATION RATE 30.4 (>51); PHOSPHORUS LEVEL 4.4 MG/DL (2.5-4.9); POTASSIUM SERUM 5.1 MEQ/L (3.5-5.1)
== END ==
LOC: SKLAB2 07:00
PROVIDERS: ATTEND Internal Medicine
DX: N18.9 Chronic kidney disease, unspecified (principal)

== ENCOUNTER → 2019-10-30 | Outpatient (REF) ==
[2019-10-30 08:02] LABS: CALCIUM LEVEL 8.9 MG/DL (8.5-10.1); CREATININE FOR GFR 1.95 MG/DL (0.55-1.30); GLOMERULAR FILTRATION RATE 28.1 (>51); POTASSIUM SERUM 5.7 MEQ/L (3.5-5.1)
[2019-10-30 14:56] LABS: CALCIUM LEVEL 9.8 MG/DL (8.5-10.1); CREATININE FOR GFR 2.07 MG/DL (0.55-1.30); GLOMERULAR FILTRATION RATE 26.2 (>51); POTASSIUM SERUM 6.1 MEQ/L (3.5-5.1)
== END ==
LOC: SKLAB2 07:00
PROVIDERS: ATTEND Internal Medicine
DX: I50.9 Heart failure, unspecified (principal)

== ENCOUNTER → 2019-10-30 | Outpatient (REF) | payer OTHER ==
--- NOTE | 2019-10-30 21:38 | ECGEPIP ---
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 Slightly different precordial lead placement otherwise similar to 09/20/19. Electronically Signed on 10-30-2019 21:38:27 EDT by Morris Terrazas
[2019-10-30 21:58] LABS: CALCIUM LEVEL 9.3 MG/DL (8.5-10.1); CREATININE FOR GFR 1.98 MG/DL (0.55-1.30); GLOMERULAR FILTRATION RATE 27.6 (>51); POTASSIUM SERUM 5.2 MEQ/L (3.5-5.1)
== END ==
LOC: SKLAB2 21:00
PROVIDERS: ATTEND Internal Medicine
DX: E87.6 Hypokalemia (principal); I45.10 Unspecified right bundle-branch block

== ENCOUNTER → 2019-10-31 | Outpatient (REF) | payer OTHER ==
[2019-10-31 07:09] LABS: DIGOXIN LEVEL 0.8 NG/ML (0.5-2.0)
[2019-10-31 12:40] LABS: CALCIUM LEVEL 8.9 MG/DL (8.5-10.1); CREATININE FOR GFR 1.99 MG/DL (0.55-1.30); GLOMERULAR FILTRATION RATE 27.4 (>51)
== END ==
LOC: SKLAB2 07:00
PROVIDERS: ATTEND Internal Medicine
DX: Z79.899 Other long term (current) drug therapy (principal)

== ENCOUNTER → 2019-11-01 | Outpatient (REF) | payer OTHER ==
[2019-11-01 09:41] LABS: CALCIUM LEVEL 8.9 MG/DL (8.5-10.1); CREATININE FOR GFR 1.9 MG/DL (0.55-1.30); GLOMERULAR FILTRATION RATE 28.9 (>51); POTASSIUM SERUM 5.2 MEQ/L (3.5-5.1)
== END ==
LOC: SKLAB2 07:00
PROVIDERS: ATTEND Internal Medicine
DX: N18.9 Chronic kidney disease, unspecified (principal)

== ENCOUNTER → 2019-11-02 | Outpatient (REF) | payer OTHER ==
[2019-11-02 08:19] LABS: CALCIUM LEVEL 9.7 MG/DL (8.5-10.1); CREATININE FOR GFR 1.7 MG/DL (0.55-1.30); GLOMERULAR FILTRATION RATE 32.9 (>51); POTASSIUM SERUM 5.2 MEQ/L (3.5-5.1)
== END ==
LOC: SKLAB2 08:00
PROVIDERS: ATTEND Internal Medicine
DX: N18.9 Chronic kidney disease, unspecified (principal)

== ENCOUNTER → 2019-11-03 | Outpatient (REF) ==
[2019-11-03 08:09] LABS: CALCIUM LEVEL 9.5 MG/DL (8.5-10.1); CREATININE FOR GFR 1.45 MG/DL (0.55-1.30); GLOMERULAR FILTRATION RATE 39.5 (>51); POTASSIUM SERUM 5.6 MEQ/L (3.5-5.1)
== END ==
LOC: SKLAB2 07:00
PROVIDERS: ATTEND Internal Medicine
DX: Z79.899 Other long term (current) drug therapy (principal)

== ENCOUNTER → 2019-11-05 | Outpatient (REF) | LOC: SKLAB2 10:41 | PROVIDERS: ATTEND Nurse Practitioner Family | DX: Z79.899 Other long term (current) drug therapy (principal) ==

== ENCOUNTER → 2019-11-06 | Outpatient (REF) ==
[2019-11-05 10:10] LABS: CALCIUM LEVEL 9.2 MG/DL (8.5-10.1); CREATININE FOR GFR 1.53 MG/DL (0.55-1.30); GLOMERULAR FILTRATION RATE 37.1 (>51)
[2019-11-06 08:18] LABS: CALCIUM LEVEL 8.5 MG/DL (8.5-10.1); CREATININE FOR GFR 1.4 MG/DL (0.55-1.30); GLOMERULAR FILTRATION RATE 41.1 (>51); POTASSIUM SERUM 4.8 MEQ/L (3.5-5.1)
== END ==
LOC: SKLAB2 07:00
PROVIDERS: ATTEND Internal Medicine
DX: Z51.81 Encounter for therapeutic drug level monitoring (principal); Z79.899 Other long term (current) drug therapy

== ENCOUNTER → 2019-11-09 | Outpatient (REF) | payer OTHER ==
[2019-11-09 07:32] LABS: BASO % 0.3 % (0.0-1.0); EOS # 0.1 10^3/uL (0.0-0.5); EOS % 2.1 % (0.0-3.0); HEMATOCRIT 30.8 % (36.0-47.0); HEMOGLOBIN 9.3 g/dl (12.0-15.5); LYMPH # 1.8 10^3/uL (1.5-5.0); LYMPH % 27.2 % (24.0-44.0); MEAN CORPUSCULAR HEMOGLOBIN 30.6 pg (27.0-33.0); MEAN CORPUSCULAR HGB CONC 30.2 g/dl (32.0-36.5); MEAN CORPUSCULAR VOLUME 101.3 fl (80.0-96.0); MONO # 0.6 10^3/uL (0.0-0.8); MONO % 9.3 % (0.0-5.0); NEUTROPHILS # 4.1 10^3/uL (1.5-8.5); NEUTROPHILS % 60.8 % (36.0-66.0); PLATELET COUNT, AUTOMATED 217 10^3/uL (150-450); RED BLOOD COUNT 3.04 10^6/uL (4.00-5.40); WHITE BLOOD COUNT 6.7 10^3/uL (4.0-10.0)
[2019-11-09 07:46] LABS: CALCIUM LEVEL 9.3 MG/DL (8.5-10.1); CREATININE FOR GFR 1.36 MG/DL (0.55-1.30); GLOMERULAR FILTRATION RATE 42.5 (>51); POTASSIUM SERUM 5.6 MEQ/L (3.5-5.1)
[2019-11-09 08:04] LABS: PTH INTACT 146.1 PG/ML (18.5-88.0)
[2019-11-09 09:19] LABS: APPEARANCE, URINE TURBID (CLEAR); BACTERIA, URINE AUTO 1+ (NEGATIVE); BILIRUBIN, URINE AUTO NEGATIVE (NEGATIVE); BLOOD, URINE BLOOD 1+ (NEGATIVE); COLOR, URINE YELLOW (YELLOW); GLUCOSE, URINE (UA) AUTO 3+ mg/dL (NEGATIVE); KETONE, URINE AUTO NEGATIVE (NEGATIVE); LEUKOCYTE ESTERASE, URINE AUTO 3+ (NEGATIVE); NITRITE, URINE AUTO NEGATIVE (NEGATIVE); PROTEIN, URINE AUTO 1+ mg/dL (NEGATIVE); RBC, URINE AUTO 61 /HPF (0-3); SPECIFIC GRAVITY URINE AUTO 1.012 (1.002-1.035); SQUAMOUS EPITHELIAL CELL UR AU 0 /HPF (0-6); UROBILINOGEN, URINE AUTO 0.2 mg/dL (0.0-2.0); WBC, URINE AUTO TNTC /HPF (0-3)
[2019-11-09 09:59] LABS: CREATININE, URINE 38.2 MG/DL; MAU/CREAT RATIO 581.1 MCG/MG (0.0-30.0)
== END ==
LOC: SKLAB2 08:00
PROVIDERS: ATTEND Internal Medicine
DX: I50.9 Heart failure, unspecified (principal)

== ENCOUNTER → 2019-11-13 | Outpatient (REF) | payer OTHER ==
[2019-11-16 12:04] LABS: PERCENT SATURATION 26.3 % (13.2-45.0)
== END ==
LOC: M LAB REF 11:45
PROVIDERS: ATTEND Nurse Practitioner Family
DX: D50.9 Iron deficiency anemia, unspecified (principal)

== ENCOUNTER → 2019-11-13 | Outpatient (REF) | payer OTHER ==
[2019-11-13 12:45] LABS: ALBUMIN 3.3 GM/DL (3.2-5.2); CALCIUM LEVEL 9.7 MG/DL (8.5-10.1); CREATININE FOR GFR 1.27 MG/DL (0.55-1.30); PHOSPHORUS LEVEL 3.2 MG/DL (2.5-4.9); POTASSIUM SERUM 4.8 MEQ/L (3.5-5.1)
== END ==
LOC: SKLAB2 08:56
PROVIDERS: ATTEND Internal Medicine
DX: N18.9 Chronic kidney disease, unspecified (principal)

== ENCOUNTER 2019-11-24 10:23 | Emergency (ER) | payer OTHER ==
[~2019-11-24 10:23] MED LIST changes: -LISI-1046 PO; +LISI2.5T2 PO
[2019-11-24] MEDS ORDERED: ENTR1TAB (10:39)
[2019-11-24] MEDS ORDERED: VITA1CAP25 (10:39)
[2019-11-24] MEDS ORDERED: PYRI1TAB5 PO (13:25)
[2019-11-24 13:41] LABS: BASO % 0.3 % (0.0-1.0); EOS # 0.1 10^3/uL (0.0-0.5); EOS % 1.3 % (0.0-3.0); HEMATOCRIT 31.6 % (36.0-47.0); HEMOGLOBIN 9.3 g/dl (12.0-15.5); LYMPH # 1.7 10^3/uL (1.5-5.0); LYMPH % 27.2 % (24.0-44.0); MEAN CORPUSCULAR HEMOGLOBIN 30.2 pg (27.0-33.0); MEAN CORPUSCULAR HGB CONC 29.4 g/dl (32.0-36.5); MEAN CORPUSCULAR VOLUME 102.6 fl (80.0-96.0); MONO # 0.6 10^3/uL (0.0-0.8); MONO % 9.4 % (0.0-5.0); NEUTROPHILS # 3.9 10^3/uL (1.5-8.5); NEUTROPHILS % 61.5 % (36.0-66.0); PLATELET COUNT, AUTOMATED 210 10^3/uL (150-450); RED BLOOD COUNT 3.08 10^6/uL (4.00-5.40); WHITE BLOOD COUNT 6.4 10^3/uL (4.0-10.0)
[2019-11-24] MEDS ORDERED: LEVO250T12 PO (14:31)
[2019-11-24] MEDS ORDERED: SOD POLYSTYRENE SULFONATE SUSP 15 GM/60 ML UD PO ONE (16:00)
[2019-11-24 16:03] VITALS: BP 116/56
--- NOTE | 2019-11-24 19:40 | ECGEPIP ---
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
== END 2019-11-24 16:41 | disposition home or self-care (01) ==
LOC: EDBD 10:23 → M ED 10:23
DX: N39.0 Urinary tract infection, site not specified (principal); L89.301 Pressure ulcer of unspecified buttock, stage 1; E11.9 Type 2 diabetes mellitus without complications; J44.9 Chronic obstructive pulmonary disease, unspecified; Z95.810 Presence of automatic (implantable) cardiac defibrillator; Z99.81 Dependence on supplemental oxygen

== ENCOUNTER 2019-11-24 21:23 | Emergency (ER) | payer OTHER ==
[~2019-11-24] VITALS: Ht 167.6 cm; Wt 92.7 kg
[~2019-11-24 21:23] MED LIST changes: +ENTR1TAB; +LEVO250T12 PO; +PYRI1TAB5 PO; +VITA1CAP25
[2019-11-24] MEDS ORDERED: PHENAZOPYRIDINE 100 MG TAB PO ONE (22:00)
[2019-11-24 22:48] VITALS: BP 126/60
== END 2019-11-25 01:46 | disposition home or self-care (01) ==
LOC: M ED 21:23 → EDBD 21:23 → M ED 11-25 01:46
DX: N39.0 Urinary tract infection, site not specified (principal); R33.9 Retention of urine, unspecified; I10 Essential (primary) hypertension; E11.9 Type 2 diabetes mellitus without complications; Z79.4 Long term (current) use of insulin; J44.9 Chronic obstructive pulmonary disease, unspecified; Z99.81 Dependence on supplemental oxygen; Z79.82 Long term (current) use of aspirin; Z95.0 Presence of cardiac pacemaker

== ENCOUNTER → 2019-11-26 | Outpatient (REF) | payer OTHER ==
[~2019-11-26] MED LIST changes: +LISI-1046 PO; -LISI2.5T2 PO
[2019-11-26 18:10] LABS: HEMOGLOBIN A1c 9.5 %
== END ==
LOC: M SHH 15:30
PROVIDERS: ATTEND Internal Medicine Endocrinology, Diabetes & Metabolism
DX: E11.22 Type 2 diabetes mellitus with diabetic chronic kidney disease (principal)

== ENCOUNTER → 2019-11-30 | Outpatient (REF) | payer OTHER ==
[~2019-11-30] MED LIST changes: +BACT800T5 PO; -LISI-1046 PO; +LISI2.5T2 PO
[2019-11-30 11:45] LABS: CALCIUM LEVEL 8.8 MG/DL (8.5-10.1); CREATININE FOR GFR 2.66 MG/DL (0.55-1.30); GLOMERULAR FILTRATION RATE 19.6 (>51)
[2019-11-30 13:25] LABS: POTASSIUM SERUM 6.4 MEQ/L (3.5-5.1)
== END ==
LOC: M SHH 10:46
PROVIDERS: ATTEND Physician Assistant
DX: I50.42 Chronic combined systolic (congestive) and diastolic (congestive) heart failure (principal)

== ENCOUNTER → 2019-12-03 | Outpatient (REF) | payer OTHER ==
[2019-12-03 11:36] LABS: CALCIUM LEVEL 8.8 MG/DL (8.5-10.1); CREATININE FOR GFR 1.47 MG/DL (0.55-1.30); GLOMERULAR FILTRATION RATE 38.9 (>51); POTASSIUM SERUM 5.3 MEQ/L (3.5-5.1)
== END ==
LOC: M SHH 11:11
PROVIDERS: ATTEND Physician Assistant
DX: I50.42 Chronic combined systolic (congestive) and diastolic (congestive) heart failure (principal)

== ENCOUNTER 2019-12-07 16:53 | Emergency (ER) | payer OTHER ==
[~2019-12-07 16:53] MED LIST changes: -BACT800T5 PO
[2019-12-07 19:59] LABS: BASO % 0.4 % (0.0-1.0); EOS # 0.1 10^3/uL (0.0-0.5); EOS % 1.4 % (0.0-3.0); HEMATOCRIT 30.6 % (36.0-47.0); LYMPH # 1.8 10^3/uL (1.5-5.0); LYMPH % 31.8 % (24.0-44.0); MEAN CORPUSCULAR HEMOGLOBIN 30.3 pg (27.0-33.0); MEAN CORPUSCULAR HGB CONC 29.4 g/dl (32.0-36.5); MONO # 0.5 10^3/uL (0.0-0.8); MONO % 9.4 % (0.0-5.0); NEUTROPHILS # 3.1 10^3/uL (1.5-8.5); NEUTROPHILS % 56.3 % (36.0-66.0); PLATELET COUNT, AUTOMATED 243 10^3/uL (150-450); RED BLOOD COUNT 2.97 10^6/uL (4.00-5.40); WHITE BLOOD COUNT 5.6 10^3/uL (4.0-10.0)
[2019-12-07] MEDS ORDERED: BACT800T5 PO (20:43)
[2019-12-07] MEDS ORDERED: PYRI1TAB5 PO (20:43)
[2019-12-07] MEDS ORDERED: LIDOCAINE 2% 5ML JELLY UROJET TOP ONE (20:45)
[2019-12-07] MEDS ORDERED: PHENAZOPYRIDINE 100 MG TAB PO ONE (20:45)
[2019-12-07 21:10] VITALS: BP 115/56
== END 2019-12-07 22:47 | disposition home or self-care (01) ==
LOC: M ED 16:53
DX: N39.0 Urinary tract infection, site not specified (principal); E11.9 Type 2 diabetes mellitus without complications; I50.9 Heart failure, unspecified; I10 Essential (primary) hypertension; J44.9 Chronic obstructive pulmonary disease, unspecified; Z99.81 Dependence on supplemental oxygen; Z95.0 Presence of cardiac pacemaker; Z79.899 Other long term (current) drug therapy; Z79.82 Long term (current) use of aspirin; Z79.4 Long term (current) use of insulin; Z88.8 Allergy status to other drugs, medicaments and biological substances

== ENCOUNTER → 2019-12-26 | Outpatient (REF) | payer OTHER ==
[~2019-12-26] MED LIST changes: +BACT800T5 PO; +FLUC150T PO; +KETO2CR TOP; +NIAC500T64 PO
[2019-12-26 16:55] LABS: CALCIUM LEVEL 8.8 MG/DL (8.5-10.1); CREATININE FOR GFR 1.23 MG/DL (0.55-1.30); GLOMERULAR FILTRATION RATE 47.7 (>51); POTASSIUM SERUM 4.5 MEQ/L (3.5-5.1)
== END ==
LOC: M SHH 15:56
PROVIDERS: ATTEND Physician Assistant
DX: I50.42 Chronic combined systolic (congestive) and diastolic (congestive) heart failure (principal)

== ENCOUNTER 2020-01-01 04:19 | Inpatient (IN) | payer OTHER ==
[~2020-01-01] VITALS: Ht 167.6 cm; Wt 95.0 kg
[~2020-01-01 04:19] MED LIST changes: -FLUC150T PO; -KETO2CR TOP; -NIAC500T64 PO
[2020-01-01] MEDS ORDERED: ISOVUE-370 76% 100ML VIAL As Ordered ONE (04:45)
[2020-01-01] MEDS ORDERED: NS 500 ML IV ONE (04:45)
[2020-01-01 05:34] LABS: BASO % 0.5 % (0.0-1.0); EOS # 0.1 10^3/uL (0.0-0.5); EOS % 1.4 % (0.0-3.0); HEMATOCRIT 29.2 % (36.0-47.0); HEMOGLOBIN 8.7 g/dl (12.0-15.5); LYMPH # 1.4 10^3/uL (1.5-5.0); LYMPH % 15.9 % (24.0-44.0); MEAN CORPUSCULAR HEMOGLOBIN 31.4 pg (27.0-33.0); MEAN CORPUSCULAR HGB CONC 29.8 g/dl (32.0-36.5); MEAN CORPUSCULAR VOLUME 105.4 fl (80.0-96.0); MONO # 0.9 10^3/uL (0.0-0.8); MONO % 9.9 % (0.0-5.0); NEUTROPHILS # 6.2 10^3/uL (1.5-8.5); NEUTROPHILS % 71.7 % (36.0-66.0); PLATELET COUNT, AUTOMATED 209 10^3/uL (150-450); RED BLOOD COUNT 2.77 10^6/uL (4.00-5.40); WHITE BLOOD COUNT 8.6 10^3/uL (4.0-10.0)
[2020-01-01] MEDS ORDERED: MORPHINE 2 MG/ML 1ML VIAL (J2270) IV ONE (06:15)
[2020-01-01 06:16] LABS: ALBUMIN 2.9 GM/DL (3.2-5.2); ALT/SGPT 128 U/L (12-78); AMYLASE 12 U/L (25-115); BILIRUBIN,DIRECT < 0.1 MG/DL (0.0-0.2); BILIRUBIN,TOTAL 0.5 MG/DL (0.2-1.0); CK-MB VALUE MASS 3.2 NG/ML (<3.6); CPK CREATINE PHOSPHOKINASE 185 U/L (26-192); LIPASE 117 U/L (73-393); MB/CK RELATIVE INDEX 1.73 (< OR =4); TOTAL PROTEIN 6.4 GM/DL (6.4-8.2); TROPONIN I 0.05 NG/ML (< 0.10)
--- NOTE | 2020-01-01 06:35 | REPVR ---
PROCEDURE INFORMATION: Exam: CT Abdomen And Pelvis With Contrast Exam date and time: 01/01/2020 4:34 AM Age: 59 years old Clinical indication: Abdominal pain; Flank; Left; Additional info: Left flank pain, luq pain TECHNIQUE: Imaging protocol: Computed tomography of the abdomen and pelvis with intravenous contrast. Radiation optimization: All CT scans at this facility use at least one of these dose optimization techniques: automated exposure control; mA and/or kV adjustment per patient size (includes targeted exams where dose is matched to clinical indication); or iterative reconstruction. Contrast material: ISO; Contrast volume: 100 ml; Contrast route: AC; COMPARISON: CT ABD PELVIS W/O CONTRAST 08/25/2018 3:09 PM FINDINGS: Tubes, catheters and devices: Pacemaker in position. Lungs: Mild left lower lobe and minimal right base fibro-atelectatic change. Liver: Normal. No mass. Gallbladder and bile ducts: The gallbladder is somewhat contracted and contains gas and is confluent with the proximal transverse colon which is retracted toward the gallbladder and may reflect fistulous communication. Pancreas: Innumerable pancreatic cysts with some enlargement of the pancreatic body which may reflect polycystic pancreas or multiple IPMNs. There are some coarse calcifications of the pancreatic body/neck. The cystic changes and pancreatic size is increased since the prior study and the coarse calcifications are new. Spleen: Normal. No splenomegaly. Adrenals: Right adrenal nodule measuring 18 mm which is similar to the prior study. Kidneys and ureters: Induration and stranding of the left renal collecting system with some thickening of the urothelium and to a lesser degree the right. Stomach and bowel: Unremarkable. No obstruction. No mucosal thickening. Appendix: A normal appendix is seen. Intraperitoneal space: Unremarkable. No free air. No significant fluid collection. Vasculature: Unremarkable. No abdominal aortic aneurysm. Lymph nodes: Unremarkable. No enlarged lymph nodes. Bladder: Urinary bladder wall thickening with perivesicular induration and stranding. Reproductive: Complex fatty mass of the pelvis anterior to the uterine fundus measuring 11.4 x 9.1 x 10.4 cm consistent with a dermoid. Bones/joints: Slight anterior wedge configuration of T11 and T12 which may be developmental. Soft tissues: Unremarkable. IMPRESSION: 1. Mild left lower lobe and minimal right base fibro-atelectatic change which is similar to 08/25/2018. 2. Contracted gallbladder which contains gas and is confluent with the adjacent proximal transverse colon with some retraction of the colon toward the gallbladder suggesting fistulous communication between the gallbladder and proximal transverse colon. 3. 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 4. Innumerable pancreatic cysts with some secondary pancreatic enlargement, particularly in the body which is new or increased since the prior study with new coarse calcification which may reflect multiple IPMNs or cystic tumor of the pancreas. 5. Right adrenal nodule measuring 18 mm which is similar to the prior study. No follow-up necessary. 6. Urinary bladder wall thickening with perivesicular induration suggesting cystitis. There is some urothelial thickening and stranding/induration of the left upper tract collecting system and to a lesser degree the right which may reflect UTIs or upper tract infections. Electronically signed by: Stu Lindo On 01/01/2020 06:35:14 AM
[2020-01-01] MEDS ORDERED: PIPERACILLIN/TAZOBACTAM SOD 3.375 GM in D5W MINI-BAG PLUS 50 ML IV ONE (07:30)
--- NOTE | 2020-01-01 07:54 | HPEPDOC ---
[facility] Medical History & Physical Date of Admission Jan 01, 2020 Date of Service: Jan 01, 2020 History and Physical CHIEF COMPLAINT: LEFT FLANK PAIN HISTORY OF PRESENT ILLNESS: 59 yo female with PMHx as indicated, presents for several week history of worsening left flank pain. She did follow up with an outpatient clinic, and treated for a UTI with fluconazole. Her symptoms worsened prompting her to come to the ED. She also notes polyuria, with some urinary incontinence, which is new for her. She notes she usually 2L supplemental oxygen continuously at baseline, and uses a wheelchair for ambulation. She also states that she was previously anti-coagulated with warfarin for her afib, but had a hard time keeping her INR stable, and therefore was continued on aspirin 81mg. She lives at home with her . She denies chest pain, shortness of breath, headaches, N/V/D. PAST MEDICAL HISTORY: 1. Nonischemic cardiomyopathy - combined systolic/diastolic dysfunction - LVEF - 20% 2. Biventricular AICD. 3. Atrial fibrillation. 4. Diabetes mellitus/group home insulin. 7. Chronic anemia. 8. Hyperlipidemia. 9. Vitamin D deficiency. 10. CKDIII 11. Chronic hypoxic respiratory failure - 2L supplemental O2 continuously ALLERGIES: Please see below. REVIEW OF SYSTEMS: Negative except as per HPI. HOME MEDICATIONS: Please see below. PHYSICAL EXAMINATION: VITAL SIGNS: See below General: NAD, lying comfortably in bed HEENT: NC/AT, EOMI Lungs: CTA B/L Heart: +S1S2, RRR Abd: soft, obese, NT, +BS Ext: trace edema LABORATORY DATA: See below. MICROBIOLOGY: Please see below. ASSESSMENT: 59 yo female with PMHx nonischemic CM - combined systolic/diastolic dysfunction - LVEF - 20%, afib/aspirin, IDDM, chronic anemia, HLD, CKDIII, chronic hypoxic resp failure/2L O2 presents for several history of worsening lef t flank pain, found to have UTI with colonic/gall bladder fistula, pancreatic cysts and calcifications. #UTI - UCx pending - Zosyn for now #colonic/GB fistula - pancreatic cysts/calcifications - fistula appears to be chronic - no history of instrumentation - d/w surgery - assistance appreciated - c/s pending - also with pancreatic inflammation/cysts - lipase WNL #afib - continue asa for a/c as per home meds, continue digoxin, check levels - NSR/paced #chronic iron deficiency anemia - continue oral supplements as per home Rx #IDDM - continue insulin sliding scale - CLD for now - possible imaging to d/w surgery #HLD - lipitor, niacin #CKDIII # Chronic hypoxic respiratory failure - 2L supplemental O2 continuously #DVT prophylaxis - mechanical Vital Signs Vital Signs Date Time Temp Pulse Resp B/P (MAP) Pulse Ox O2 Delivery O2 Flow Rate FiO2 01/01/20 07:05 80 18 100 Nasal Cannula 2.0 01/01/20 07:00 97.3 100/59 (73) Laboratory Data Labs 24H Laboratory Tests 2 01/01/20 05:22: Immature Granulocyte % (Auto) 0.6, Neutrophils (%) (Auto) 71.7H, Lymphocytes (%) (Auto) 15.9L, Monocytes (%) (Auto) 9.9H, Eosinophils (%) (Auto) 1.4, Basophils (%) (Auto) 0.5, Neutrophils # (Auto) 6.2, Lymphocytes # (Auto) 1.4L, Monocytes # (Auto) 0.9H, Eosinophils # (Auto) 0.1, Basophils # (Auto) 0.0, Nucleated Red Blood Cells % (auto) 0.0, Lactic Acid Level 1.0, Total Bilirubin 0.5, Direct Bilirubin < 0.1, Aspartate Amino Transf (AST/SGOT) 51H, Alanine Aminotransferase (ALT/SGPT) 128H, Alkaline Phosphatase 241H, Total Creatine Kinase 185, Creatine Kinase MB 3.2, Creatine Kinase MB Relative Index 1.73, Troponin I 0.05, Total Protein 6.4, Albumin 2.9L, Albumin/Globulin Ratio 0.8L, Amylase Level 12L, Lipase 117 01/01/20 05:26: POC Glucose (Misc Panel) 161H, POC Sodium (Misc Panel) 138, POC Potassium (Misc Panel) 4.7, POC Chloride (Misc Panel) 111H, POC Total CO2 (Misc Panel) 23.0, POC Blood Urea Nitrogen (Misc Panel 28H, POC Ionized Calcium (Misc Panel) 3.5*L, POC Creatinine (Misc Panel) 1.3, POC Hematocrit (Misc Panel) 26.0L 01/01/20 05:34: Urine Color YELLOW, Urine Appearance TURBIDH, Urine pH 6.0, Urine Specific [place] 1.011, Urine Protein 2+H, Urine Glucose (UA) 1+H, Urine Ketones NEGATIVE, Urine Blood 2+H, Urine Nitrite NEGATIVE, Urine Bilirubin NEGATIVE, Urine Urobilinogen 0.2, Urine Leukocyte Esterase 3+H, Urine WBC (Auto) TNTCH, Urine RBC (Auto) 110H, Urine Hyaline Casts (Auto) 0, Urine Bacteria (Auto) NEGATIVE, Urine Squamous Epithelial Cells 5, Urine Amorphous Sediment MODERATEH, Urine Sperm (Auto) CBC/BMP Laboratory Tests 01/01/20 05:22 Microbiology Microbiology 01/01/20 Urine Culture, Received Pending 01/01/20 Blood Culture, Received Pending 01/01/20 Blood Culture, Received Pending Home Medications Scheduled Aspirin (Aspirin EC) 81 Mg Tablet.dr, 81 MG PO DAILY Atorvastatin Calcium (Atorvastatin Calcium) 40 Mg Tab, 40 MG PO QHS Digoxin (Digoxin) 125 Mcg Tablet, 62.5 MCG PO DAILY Ergocalciferol (Vitamin D2) (Vitamin D2) 50,000 Units Cap, 50,000 UNITS PO QWEEK TUESDAY Ferrous Sulfate (Ferrous Sulfate) 325 Mg Tab, 325 MG PO QHS Fluconazole (Fluconazole) 150 Mg Tablet, 150 MG PO Q3RD Glimepiride (Glimepiride) 2 Mg Tab, 2 MG PO DAILY Insulin Glargine,Hum.rec.anlog (Basaglar Kwikpen U-100) 100 Unit/1 Ml Insuln.pen, 30 UNIT SC QHS Insulin Lispro (Admelog) 100 Unit/1 Ml Vial, 5 UNITS SC ACB Insulin Lispro (Admelog) 100 Unit/1 Ml Vial, 8 UNITS SC AC BEFORE LUNCH Insulin Lispro (Admelog) 100 Unit/1 Ml Vial, 8 UNIT SC ACS Ketoconazole (Ketoconazole) 15 Gm Cream..g., 1 APLCT TOP BID APPLY TO FEET Metoprolol Succinate (Metoprolol Succinate) 25 Mg Tab.er.24h, 25 MG PO DAILY Niacin (Niacin ER) 500 Mg Tab.er.24h, 500 MG PO QHS Nystatin (Nystatin Powder) 15 Gm Powder, 1 APLCT TOP BID APPLIES TO GROIN AREA AND UNDER BREASTS Allergies Coded Allergies: metformin (Verified Adverse Reaction, Severe, HX OF METABOLIC ACIDOSIS IN SETTING OF KWAEM, 01/01/20) HX OF METABOLIC ACIDOSIS IN SETTING OF KWAME REQUIRING ADMISSION sacubitril (Verified Adverse Reaction, Unknown, DIZZINESS, 01/01/20) valsartan (Verified Adverse Reaction, Unknown, DIZZINESS, 01/01/20) A-FIB/CHADSVASC A-FIB History Current/History of A-Fib/PAF?: Yes Current PO Anticoag Therapy: Yes MINH VASQUES MD Jan 01, 2020 07:54
[2020-01-01] MEDS ORDERED: FLUC150T PO (08:01)
[2020-01-01] MEDS ORDERED: NIAC500T64 PO (08:01)
[2020-01-01] MEDS ORDERED: DIGO0.123 PO (08:01)
[2020-01-01] MEDS ORDERED: ADME100I SC ×2 (08:01)
[2020-01-01] MEDS ORDERED: KETO2CR TOP (08:01)
[2020-01-01] MEDS ORDERED: BASA100I SC (08:01)
[2020-01-01] MEDS ORDERED: GLUCAGON INJ 1MG VIAL SC PRN (08:15)
[2020-01-01] MEDS ORDERED: DEXTROSE 50% 50 ML SYRINGE IV PRN (08:15)
[2020-01-01] MEDS ORDERED: GLUCOSE 4GM CHEW TABLET PO PRN (08:15)
[2020-01-01 10:20] VITALS: BP 132/77
[2020-01-01] MEDS: KETOCONAZOLE 2% CREAM TOP SCH ×2 (13:06→20:20)
[2020-01-01] MEDS: HumaLOG INSULIN (NovoLOG) PER UNIT SC SCH ×3 (13:06→20:19)
[2020-01-01] MEDS: NYSTATIN 100,000 UNITS/GM TOPICAL PWD 15 GM TOP SCH ×2 (13:06→20:19)
[2020-01-01] MEDS: METOPROLOL SUCC *XL* 25MG TAB (TopROL *XL*) PO SCH (13:07)
[2020-01-01] MEDS: DIGOXIN 0.125 MG TAB PO SCH (13:07)
[2020-01-01] MEDS: ASPIRIN 81 MG ENTERIC TAB PO SCH (13:07)
[2020-01-01] MEDS: PIPERACILLIN/TAZOBACTAM SOD 3.375 GM in D5W MINI-BAG PLUS 50 ML IV SCH ×2 (13:08→20:18)
[2020-01-01 14:00] VITALS: BP 109/59
--- NOTE | 2020-01-01 20:13 | ECGEPIP ---
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
[2020-01-01] MEDS: ATORVASTATIN 20 MG TAB PO SCH (20:19)
[2020-01-01] MEDS: NIACIN SR (NIASPAN) 500 MG TAB PO SCH (20:19)
[2020-01-01] MEDS: FERROUS SULFATE 325MG TAB PO SCH (20:19)
[2020-01-01 22:00] VITALS: BP 118/65
[2020-01-01] MEDS: ACETAMINOPHEN TAB 650MG DOSE (2X325MG) PO PRN (22:07)
[2020-01-02] MEDS: PIPERACILLIN/TAZOBACTAM SOD 3.375 GM in D5W MINI-BAG PLUS 50 ML IV SCH ×4 (02:08→20:01)
[2020-01-02] MEDS: ACETAMINOPHEN TAB 650MG DOSE (2X325MG) PO PRN ×3 (02:08→20:03)
[2020-01-02 06:00] VITALS: BP 94/62
[2020-01-02 06:11] LABS: HEMATOCRIT 27.7 % (36.0-47.0); HEMOGLOBIN 8.1 g/dl (12.0-15.5); MEAN CORPUSCULAR HEMOGLOBIN 30.8 pg (27.0-33.0); MEAN CORPUSCULAR HGB CONC 29.2 g/dl (32.0-36.5); MEAN CORPUSCULAR VOLUME 105.3 fl (80.0-96.0); PLATELET COUNT, AUTOMATED 174 10^3/uL (150-450); RED BLOOD COUNT 2.63 10^6/uL (4.00-5.40)
[2020-01-02 06:41] LABS: ALBUMIN 2.3 GM/DL (3.2-5.2); BILIRUBIN,TOTAL 0.5 MG/DL (0.2-1.0); CALCIUM LEVEL 8.6 MG/DL (8.5-10.1); CREATININE FOR GFR 1.33 MG/DL (0.55-1.30); GLOMERULAR FILTRATION RATE 43.6 (>51); POTASSIUM SERUM 4.3 MEQ/L (3.5-5.1); TOTAL PROTEIN 5.2 GM/DL (6.4-8.2)
[2020-01-02] MEDS: HumaLOG INSULIN (NovoLOG) PER UNIT SC SCH ×4 (07:43→21:00)
[2020-01-02] MEDS: ASPIRIN 81 MG ENTERIC TAB PO SCH (08:12)
[2020-01-02] MEDS: NYSTATIN 100,000 UNITS/GM TOPICAL PWD 15 GM TOP SCH ×2 (08:13→20:02)
[2020-01-02] MEDS: KETOCONAZOLE 2% CREAM TOP SCH ×2 (08:13→20:02)
[2020-01-02] MEDS: METOPROLOL SUCC *XL* 25MG TAB (TopROL *XL*) PO SCH (08:58)
[2020-01-02] MEDS: DIGOXIN 0.125 MG TAB PO SCH (08:58)
--- NOTE | 2020-01-02 13:29 | IPNPDOC ---
Text Note Date of Service The patient was seen on 01/02/20. NOTE SUBJECTIVE: COmplains of abdominal pain more on the left lower quadrant and left flank. She did have a bowel movement. She is WC bound. VITAL SIGNS: See below General: NAD, lying comfortably in bed HEENT: NC/AT, EOMI Lungs: CTA B/L Heart: +S1S2, RRR, no rub or murmur. Abd: soft, obese, NT, +BS Ext: trace edema LABORATORY DATA: Reviewed ASSESSMENT: 59 yo female with PMHx nonischemic CM - combined systolic/diastolic dysfunction - LVEF - 20%, afib/aspirin, IDDM, chronic anemia, HLD, CKDIII, chronic hypoxic resp failure/2L O2 presents for several history of worsening l eft flank pain, found to have UTI with colonic/gall bladder fistula, pancreatic cysts and calcifications. #UTI - UCx yeast 50 cfu will give fluconazole - Zosyn for now #Colonic/GB fistula - pancreatic cysts/calcifications/ transaminitis. - fistula appears to be chronic - no history of instrumentation - d/w surgery - assistance appreciated - c/s pending - also with pancreatic inflammation/cysts , ca 19-9 elevated ? pancreatic malignancy #afib - continue asa for a/c as per home meds, continue digoxin, check levels - NSR/paced #chronic iron deficiency anemia - continue oral supplements as per home Rx #IDDM - continue insulin sliding scale - CLD for now - possible imaging to d/w surgery #HLD - lipitor, niacin #CKDIII -creatinine stable. #Systolic and diastolic CHF WC bound continue home meds. # Chronic hypoxic respiratory failure - 2L supplemental O2 continuously #DVT prophylaxis - mechanical VS,Fishbone, I+O VS, Fishbone, I+O Laboratory Tests 01/02/20 05:39 Vital Signs Date Time Temp Pulse Resp B/P (MAP) Pulse Ox O2 Delivery O2 Flow Rate FiO2 01/02/20 08:00 2.0 01/02/20 06:00 98.2 60 18 94/62 (73) 93 Nasal Cannula I&O- Last 24 Hours up to 6 AM 01/02/20 06:00 Intake Total 1500 ml Output Total 100 ml Balance 1400 ml CHRISTAL TIMMONS MD Jan 02, 2020 13:29
[2020-01-02 14:00] VITALS: BP 117/67
[2020-01-02] MEDS: GLIMEPIRIDE 2 MG TAB PO SCH (14:08)
[2020-01-02] MEDS: FLUCONAZOLE 100 MG TAB PO SCH (14:08)
--- NOTE | 2020-01-02 15:30 | CR ---
DATE OF CONSULTATION: 01/02/2020 REASON FOR CONSULTATION: Abdominal pain. HISTORY OF PRESENT ILLNESS: The patient is a 59-year-old female who came into the hospital with a week long history of increasing left flank pain. She has had known history of urinary tract infections (UTIs) with nephrolithiasis in the past. These pains were very similar to her. She did try being followed at the outpatient clinic but her symptoms got worse so she came into the hospital. She complained of urinary incontinence and some polyuria. No other complaints. She denies upper abdominal pains. No right upper quadrant pain. No nausea, vomiting or fevers. No problems with bowel movements or diet. She has never had a prior history of pancreatitis. Denies any excessive alcohol usage. No problems with acid reflux, heartburn, unexplained weight loss, night sweats or any history of upper abdominal surgeries. In the emergency room (ER), she did have a CT showing some calcifications of the pancreas as well as some possible air inside of the gallbladder. However, upon review of her imaging she has had air in the gallbladder back as far she 2015, and she has had lesions in her pancreas on previous exam as well. They just appear to be larger and more calcified currently. PAST MEDICAL HISTORY: Cardiomyopathy. Biventricular automatic implantable cardioverter defibrillator (AICD). Atrial fibrillation (AFib). Diabetes. Anemia. Hyperlipidemia. Vitamin D deficiency. Chronic kidney disease. Chronic hypoxic respiratory failure. PAST SURGICAL HISTORY: AICD placement. ALLERGIES: METFORMIN, VALSARTAN, and SACUBITRIL. MEDICATIONS: Please see med rec. SOCIAL HISTORY: Denies drug, alcohol, or tobacco abuse. FAMILY HISTORY: Noncontributory. REVIEW OF SYSTEMS: Pertinent positive and negative as stated in the history of present illness. PHYSICAL EXAMINATION: GENERAL: Alert and oriented times three. No acute stress. VITAL SIGNS: Temperature 98.4, pulse 97, respirations 20, blood pressure 115/56, pulse oximetry 98% on 2 liters nasal cannula. HEENT: Pupils equal, round, react to light and accommodation. HEART: S1, S2, regular rate and rhythm. LUNGS: Clear to auscultation bilaterally. ABDOMEN: Soft, nontender, nondistended. No abdominal pain in the upper abdomen. Slight pain in the left lower flank only. No rebound or rigidity. No ventral hernias. EXTREMITIES: No clubbing, cyanosis or edema. LABORATORY DATA: White count 8.6, hemoglobin 8.7, platelets 209. AST 51, ALT 128. Alkaline phosphatase 241. Lipase 117. IMAGING: CT pelvis showed lower lobe and right base atelectasis similar to last year, contracted gallbladder with gas and appears to be confluent with the proximal transverse colon with some retraction of colon toward the gallbladder suggesting a fistulous communication. 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 Numerable pancreatic cysts with some secondary pancreatic enlargement, which is new from prior study. There is also a new course calcification, which may reflect multiple IPMNs or cystic tumor of the pancreas. Right adrenal nodule measuring 80 mm, which is similar to prior study. Urinary bladder wall thickening with perivesicular induration suggesting cystitis. There is also some urothelial thickening and stranding induration of the left upper tract collecting system and to a lesser degree the right which may reflect UTIs or upper tract infections. ASSESSMENT/PLAN: The patient is a 59-year-old female with left flank pain, polyuria likely secondary to urinary tract infection versus pyelonephritis. Incidentally on her CT she has air in her gallbladder concern for a fistula from the gallbladder to the colon. However, the air is unchanged from prior exam back in 2016. She also has no symptoms of upper abdominal pains and her LFTs are only marginally elevated. The most concerning point for right now to me would be the difference in exam of the pancreas from previous CT to now. I recommend checking tumor markers for the pancreas, AFP and CA 19-9. I discussed her CT with the radiologist. He does not feel there is any other imaging that we could do the be of any benefit at this point. She cannot tolerate an MRI because of her pacemaker. Therefore, once the tumor markers are back if there is any concern at all will recommend referral to a pancreatic specialist for further evaluation and treatment. She may likely end up needing an endoscopic ultrasound, which is something that they could arrange for her there. Although other than the tumor markers there is no surgical intervention necessary during this admission. I will have my office send a referral to [facility] to Dr. Efrain Sharif for her.
[2020-01-02] MEDS: NIACIN SR (NIASPAN) 500 MG TAB PO SCH (20:02)
[2020-01-02] MEDS: ATORVASTATIN 20 MG TAB PO SCH (20:02)
[2020-01-02] MEDS: FERROUS SULFATE 325MG TAB PO SCH (20:02)
[2020-01-02 22:57] VITALS: BP 116/67
[2020-01-02] MEDS: MORPHINE 2 MG/ML 1ML VIAL (J2270) IV PRN (23:03)
[2020-01-03] MEDS: PIPERACILLIN/TAZOBACTAM SOD 3.375 GM in D5W MINI-BAG PLUS 50 ML IV SCH ×4 (02:24→20:00)
[2020-01-03 06:10] VITALS: BP 100/56
[2020-01-03] MEDS: HumaLOG INSULIN (NovoLOG) PER UNIT SC SCH ×4 (08:37→21:00)
[2020-01-03] MEDS: FLUCONAZOLE 100 MG TAB PO SCH (08:37)
[2020-01-03] MEDS: ASPIRIN 81 MG ENTERIC TAB PO SCH (08:38)
[2020-01-03] MEDS: GLIMEPIRIDE 2 MG TAB PO SCH (08:38)
[2020-01-03] MEDS: NYSTATIN 100,000 UNITS/GM TOPICAL PWD 15 GM TOP SCH ×2 (08:40→20:25)
[2020-01-03] MEDS: DIGOXIN 0.125 MG TAB PO SCH (08:40)
[2020-01-03] MEDS: KETOCONAZOLE 2% CREAM TOP SCH ×2 (08:40→20:25)
[2020-01-03] MEDS: METOPROLOL SUCC *XL* 25MG TAB (TopROL *XL*) PO SCH (08:41)
--- NOTE | 2020-01-03 09:41 | IPNPDOC ---
Text Note Date of Service The patient was seen on 01/03/20. NOTE SUBJECTIVE: Improving left flank pain. No acute overnight events reported. No new medical complaints this morning. VITAL SIGNS: See below General: NAD, lying comfortably in bed HEENT: NC/AT, EOMI Lungs: CTA B/L Heart: +S1S2, RRR, no rub or murmur. Abd: soft, obese, NT, +BS Ext: trace edema LABORATORY DATA: Reviewed ASSESSMENT: 59 yo female with PMHx nonischemic CM - combined systolic/diastolic dysfunction - LVEF - 20%, afib/aspirin, IDDM, chronic anemia, HLD, CKDIII, chronic hypoxic resp failure/2L O2 presents for several history of worsening left flank pain, found to have UTI with colonic/gall bladder fistula, pancreatic cysts and calcifications. #UTI - UCx yeast 50 cfu will continue fluconazole - Zosyn for now - to complete 5 days course #Colonic/GB fistula - pancreatic cysts/calcifications/ transaminitis. - fistula appears to be chronic - no history of instrumentation - d/w surgery - assistance appreciated - c/s noted - also with pancreatic inflammation/cysts , ca 19-9 elevated ? pancreatic malignancy - outpatient f/u with pancreas specialist - d/w patient #afib - continue asa for a/c as per home meds, continue digoxin, check levels - NSR/paced #chronic iron deficiency anemia - continue oral supplements as per home Rx #IDDM - continue insulin sliding scale - CLD for now - possible imaging to d/w surgery #HLD - lipitor, niacin #CKDIII -creatinine stable. #Systolic and diastolic CHF - continue home meds. # Chronic hypoxic respiratory failure - baseline 2L supplemental O2 continuously #DVT prophylaxis - mechanical VS,Fishbone, I+O VS, Fishbone, I+O Vital Signs Date Time Temp Pulse Resp B/P (MAP) Pulse Ox O2 Delivery O2 Flow Rate FiO2 01/03/20 08:41 77 112/56 01/03/20 06:10 98.3 17 98 Nasal Cannula 1.0 I&O- Last 24 Hours up to 6 AM 01/03/20 06:00 Intake Total 1300 ml Output Total 150 ml Balance 1150 ml MINH VASQUES MD Jan 03, 2020 09:41
[2020-01-03] MEDS: MORPHINE 2 MG/ML 1ML VIAL (J2270) IV PRN ×2 (10:02→17:37)
[2020-01-03] MEDS: ACETAMINOPHEN TAB 650MG DOSE (2X325MG) PO PRN (10:02)
[2020-01-03 14:00] VITALS: BP 101/55
[2020-01-03 19:46] VITALS: BP 132/78
[2020-01-03] MEDS: NIACIN SR (NIASPAN) 500 MG TAB PO SCH (20:24)
[2020-01-03] MEDS: FERROUS SULFATE 325MG TAB PO SCH (20:24)
[2020-01-03] MEDS: ATORVASTATIN 20 MG TAB PO SCH (20:25)
[2020-01-04] MEDS: MORPHINE 2 MG/ML 1ML VIAL (J2270) IV PRN ×4 (00:02→18:52)
[2020-01-04] MEDS: PIPERACILLIN/TAZOBACTAM SOD 3.375 GM in D5W MINI-BAG PLUS 50 ML IV SCH ×4 (02:14→20:16)
[2020-01-04 06:30] VITALS: BP 114/61
[2020-01-04 07:17] LABS: BASO % 0.5 % (0.0-1.0); EOS # 0.2 10^3/uL (0.0-0.5); EOS % 3.8 % (0.0-3.0); HEMATOCRIT 29.2 % (36.0-47.0); HEMOGLOBIN 8.6 g/dl (12.0-15.5); LYMPH % 36.4 % (24.0-44.0); MEAN CORPUSCULAR HEMOGLOBIN 31.3 pg (27.0-33.0); MEAN CORPUSCULAR HGB CONC 29.5 g/dl (32.0-36.5); MEAN CORPUSCULAR VOLUME 106.2 fl (80.0-96.0); MONO # 0.6 10^3/uL (0.0-0.8); MONO % 11.4 % (0.0-5.0); NEUTROPHILS # 2.6 10^3/uL (1.5-8.5); NEUTROPHILS % 47.2 % (36.0-66.0); PLATELET COUNT, AUTOMATED 183 10^3/uL (150-450); RED BLOOD COUNT 2.75 10^6/uL (4.00-5.40); WHITE BLOOD COUNT 5.6 10^3/uL (4.0-10.0)
[2020-01-04] MEDS: ASPIRIN 81 MG ENTERIC TAB PO SCH (07:29)
[2020-01-04] MEDS: DIGOXIN 0.125 MG TAB PO SCH (07:30)
[2020-01-04] MEDS: GLIMEPIRIDE 2 MG TAB PO SCH (07:30)
[2020-01-04] MEDS: FLUCONAZOLE 100 MG TAB PO SCH (07:31)
[2020-01-04] MEDS: METOPROLOL SUCC *XL* 25MG TAB (TopROL *XL*) PO SCH (07:31)
[2020-01-04] MEDS: KETOCONAZOLE 2% CREAM TOP SCH ×2 (07:32→20:17)
[2020-01-04] MEDS: NYSTATIN 100,000 UNITS/GM TOPICAL PWD 15 GM TOP SCH ×2 (07:32→20:17)
[2020-01-04 07:40] LABS: CALCIUM LEVEL 9.1 MG/DL (8.5-10.1); CREATININE FOR GFR 1.58 MG/DL (0.55-1.30); GLOMERULAR FILTRATION RATE 35.8 (>51); POTASSIUM SERUM 4.1 MEQ/L (3.5-5.1)
[2020-01-04] MEDS: HumaLOG INSULIN (NovoLOG) PER UNIT SC SCH ×4 (08:07→20:27)
[2020-01-04 10:33] LABS: DIGOXIN LEVEL 0.2 NG/ML (0.5-2.0)
--- NOTE | 2020-01-04 12:50 | IPNPDOC ---
Text Note Date of Service The patient was seen on 01/04/20. NOTE SUBJECTIVE: Still complains of left flank pain. No acute overnight events rep orted. No new medical complaints this morning. VITAL SIGNS: See below General: NAD, lying comfortably in bed HEENT: NC/AT, EOMI Lungs: CTA B/L Heart: +S1S2, RRR, no rub or murmur. Abd: soft, obese, NT, +BS Ext: trace edema LABORATORY DATA: Reviewed ASSESSMENT: 59 yo female with PMHx nonischemic CM - combined systolic/diastolic dysfunction - LVEF - 20%, afib/aspirin, IDDM, chronic anemia, HLD, CKDIII, chronic hypoxic resp failure/2L O2 presents for several history of worsening left flank pain, found to have UTI with colonic/gall bladder fistula, pancreatic cysts and calcifications. #UTI - UCx yeast 50 cfu will continue fluconazole - Zosyn - day #10/27 #Colonic/GB fistula - pancreatic cysts/calcifications/ transaminitis. - fistula appears to be chronic - no history of instrumentation - d/w surgery - assistance appreciated - c/s noted - also with pancreatic inflammation/cysts , ca 19-9 elevated ? pancreatic malignancy - outpatient f/u with pancreas specialist - d/w patient #afib - continue asa for a/c as per home meds, continue digoxin, check levels - NSR/paced #chronic iron deficiency anemia - continue oral supplements as per home Rx #IDDM - continue insulin sliding scale - CLD for now - possible imaging to d/w surgery #HLD - lipitor, niacin #CKDIII -creatinine stable. #Systolic and diastolic CHF - continue home meds. # Chronic hypoxic respiratory failure - baseline 2L supplemental O2 continuously #DVT prophylaxis - mechanical VS,Fishbone, I+O VS, Fishbone, I+O Laboratory Tests 01/04/20 07:01 01/04/20 07:02 Vital Signs Date Time Temp Pulse Resp B/P (MAP) Pulse Ox O2 Delivery O2 Flow Rate FiO2 01/04/20 09:37 2.0 01/04/20 07:39 18 Nasal Cannula 01/04/20 07:31 74 114/61 01/04/20 06:30 98.9 97 I&O- Last 24 Hours up to 6 AM 01/04/20 06:00 Intake Total 1460 ml Output Total 51 ml Balance 1409 ml LALDIN,MINH S. MD Jan 04, 2020 12:50
[2020-01-04 14:00] VITALS: BP 112/59
[2020-01-04 20:00] VITALS: BP 136/70
[2020-01-04] MEDS: NIACIN SR (NIASPAN) 500 MG TAB PO SCH (20:16)
[2020-01-04] MEDS: ATORVASTATIN 20 MG TAB PO SCH (20:17)
[2020-01-04] MEDS: FERROUS SULFATE 325MG TAB PO SCH (20:17)
[2020-01-05] MEDS: MORPHINE 2 MG/ML 1ML VIAL (J2270) IV PRN ×4 (01:27→23:08)
[2020-01-05] MEDS: PIPERACILLIN/TAZOBACTAM SOD 3.375 GM in D5W MINI-BAG PLUS 50 ML IV SCH ×2 (01:28→08:20)
[2020-01-05 05:51] VITALS: BP 118/64
[2020-01-05] MEDS: GLIMEPIRIDE 2 MG TAB PO SCH (08:21)
[2020-01-05] MEDS: HumaLOG INSULIN (NovoLOG) PER UNIT SC SCH ×4 (08:21→20:14)
[2020-01-05] MEDS: METOPROLOL SUCC *XL* 25MG TAB (TopROL *XL*) PO SCH (08:22)
[2020-01-05] MEDS: DIGOXIN 0.125 MG TAB PO SCH (08:22)
[2020-01-05] MEDS: NYSTATIN 100,000 UNITS/GM TOPICAL PWD 15 GM TOP SCH ×2 (08:22→20:13)
[2020-01-05] MEDS: ASPIRIN 81 MG ENTERIC TAB PO SCH (08:22)
[2020-01-05] MEDS: FLUCONAZOLE 100 MG TAB PO SCH (08:22)
[2020-01-05] MEDS: KETOCONAZOLE 2% CREAM TOP SCH ×2 (08:23→20:13)
[2020-01-05 09:24] LABS: BASO % 0.5 % (0.0-1.0); EOS # 0.2 10^3/uL (0.0-0.5); HEMATOCRIT 27.8 % (36.0-47.0); HEMOGLOBIN 8.1 g/dl (12.0-15.5); LYMPH # 1.6 10^3/uL (1.5-5.0); LYMPH % 24.6 % (24.0-44.0); MEAN CORPUSCULAR HEMOGLOBIN 31.3 pg (27.0-33.0); MEAN CORPUSCULAR HGB CONC 29.1 g/dl (32.0-36.5); MEAN CORPUSCULAR VOLUME 107.3 fl (80.0-96.0); MONO # 0.6 10^3/uL (0.0-0.8); MONO % 9.5 % (0.0-5.0); NEUTROPHILS # 3.9 10^3/uL (1.5-8.5); NEUTROPHILS % 61.6 % (36.0-66.0); PLATELET COUNT, AUTOMATED 186 10^3/uL (150-450); RED BLOOD COUNT 2.59 10^6/uL (4.00-5.40); WHITE BLOOD COUNT 6.3 10^3/uL (4.0-10.0)
[2020-01-05 09:42] LABS: ALBUMIN 2.3 GM/DL (3.2-5.2); BILIRUBIN,TOTAL 0.2 MG/DL (0.2-1.0); CALCIUM LEVEL 8.5 MG/DL (8.5-10.1); CREATININE FOR GFR 1.69 MG/DL (0.55-1.30); GLOMERULAR FILTRATION RATE 33.1 (>51); POTASSIUM SERUM 3.9 MEQ/L (3.5-5.1); TOTAL PROTEIN 5.4 GM/DL (6.4-8.2)
--- NOTE | 2020-01-05 12:13 | IPNPDOC ---
Text Note Date of Service The patient was seen on 01/05/20. NOTE SUBJECTIVE: Still complains of left flank pain. No acute overnight events rep orted. No new medical complaints this morning. VITAL SIGNS: See below General: NAD, lying comfortably in bed HEENT: NC/AT, EOMI Lungs: CTA B/L Heart: +S1S2, RRR, no rub or murmur. Abd: soft, obese, NT, +BS Ext: trace edema LABORATORY DATA: Reviewed ASSESSMENT: 59 yo female with PMHx nonischemic CM - combined systolic/diastolic dysfunction - LVEF - 20%, afib/aspirin, IDDM, chronic anemia, HLD, CKDIII, chronic hypoxic resp failure/2L O2 presents for several day history of worsening left flank pain, found to have UTI with colonic/gall bladder fistula, pancreatic cysts and calcifications. #UTI - UCx yeast 50 cfu will continue fluconazole - Zosyn - day #11/26 #Colonic/GB fistula - pancreatic cysts/calcifications/ transaminitis. - fistula appears to be chronic - no history of instrumentation - d/w surgery - assistance appreciated - c/s noted - also with pancreatic inflammation/cysts , ca 19-9 elevated ? pancreatic malignancy - outpatient f/u with pancreas specialist - d/w patient #afib - continue asa for a/c as per home meds, continue digoxin - subtherapeutic - NSR/paced #chronic iron deficiency anemia - continue oral supplements as per home Rx #IDDM - continue insulin sliding scale - CLD for now - possible imaging to d/w surgery #HLD - lipitor, niacin #CKDIII -creatinine slowly increasing - low urine output - concern using iv fluids given low EF - CT a/p check for obstruction #Systolic and diastolic CHF - continue home meds. # Chronic hypoxic respiratory failure - baseline 2L supplemental O2 continuously #DVT prophylaxis - mechanical Dispo: transition to oral abx; renal US further eval oliguria/worsening renal function VS,Fishbone, I+O VS, Fishbone, I+O Laboratory Tests 01/05/20 09:00 Vital Signs Date Time Temp Pulse Resp B/P (MAP) Pulse Ox O2 Delivery O2 Flow Rate FiO2 01/05/20 08:34 18 01/05/20 08:22 73 120/68 01/05/20 05:51 99.7 96 Room Air 01/04/20 20:00 2.0 I&O- Last 24 Hours up to 6 AM 01/05/20 06:00 Intake Total 1560 ml Output Total 350 ml Balance 1210 ml MINH VASQUES MD Jan 05, 2020 12:13
[2020-01-05] MEDS ORDERED: NS 1,000 ML IV SCH (12:30)
[2020-01-05 14:00] VITALS: BP 102/60
[2020-01-05] MEDS ORDERED: DOCUSATE SODIUM 100 MG CAP PO PRN (15:15)
[2020-01-05] MEDS ORDERED: DIGOXIN 0.0625MG PER 1/2TABLET PO ONE (16:00)
--- NOTE | 2020-01-05 16:47 | REPVR ---
PROCEDURE INFORMATION: Exam: US Retroperitoneal Limited, Kidneys Exam date and time: 01/05/2020 3:59 PM Age: 59 years old Clinical indication: Abnormal findings; Abnormal lab test; Abnormal kidney function lab tests; Additional info: Oliguria, emerald TECHNIQUE: Imaging protocol: Real-time ultrasound of the retroperitoneum with image documentation. Examination was focused on the kidneys. COMPARISON: CT ABD/PEL W/IV CONTRAST ONLY 01/01/2020 5:58 AM FINDINGS: Right kidney: 10.9 cm in length. Mild nonspecific perinephric edema. No stones. No hydronephrosis. Left kidney: 12.1 cm in length. Mild nonspecific perinephric edema. No stones. No hydronephrosis. Bladder: Ureteral jets not identified. IMPRESSION: Mild nonspecific bilateral perinephric edema. Electronically signed by: Gabe Arango On 01/05/2020 16:46:55 PM
[2020-01-05] MEDS: FERROUS SULFATE 325MG TAB PO SCH (20:12)
[2020-01-05] MEDS: ACETAMINOPHEN TAB 650MG DOSE (2X325MG) PO PRN (20:13)
[2020-01-05] MEDS: ATORVASTATIN 20 MG TAB PO SCH (20:13)
[2020-01-05] MEDS: NIACIN SR (NIASPAN) 500 MG TAB PO SCH (20:16)
[2020-01-05 22:00] VITALS: BP 130/71
[2020-01-06] VITALS (13 sets, daily range): BP systolic 93–130; BP diastolic 50–72
[2020-01-06] MEDS: HumaLOG INSULIN (NovoLOG) PER UNIT SC SCH ×4 (07:30→21:00)
[2020-01-06 08:11] LABS: BASO % 0.4 % (0.0-1.0); EOS # 0.2 10^3/uL (0.0-0.5); EOS % 2.3 % (0.0-3.0); HEMATOCRIT 28.9 % (36.0-47.0); HEMOGLOBIN 8.6 g/dl (12.0-15.5); LYMPH # 1.9 10^3/uL (1.5-5.0); MEAN CORPUSCULAR HGB CONC 29.8 g/dl (32.0-36.5); MEAN CORPUSCULAR VOLUME 107.4 fl (80.0-96.0); MONO # 0.7 10^3/uL (0.0-0.8); MONO % 9.7 % (0.0-5.0); NEUTROPHILS # 4.7 10^3/uL (1.5-8.5); NEUTROPHILS % 61.9 % (36.0-66.0); PLATELET COUNT, AUTOMATED 185 10^3/uL (150-450); RED BLOOD COUNT 2.69 10^6/uL (4.00-5.40); WHITE BLOOD COUNT 7.5 10^3/uL (4.0-10.0)
[2020-01-06 08:38] LABS: INR 1.31
[2020-01-06 08:39] LABS: PARTIAL THROMBOPLASTIN TIME 25.8 SECONDS (25.0-38.4)
[2020-01-06 08:49] LABS: ALBUMIN 2.5 GM/DL (3.2-5.2); BILIRUBIN,TOTAL 0.2 MG/DL (0.2-1.0); CK-MB VALUE MASS 3.1 NG/ML (<3.6); CREATININE FOR GFR 1.7 MG/DL (0.55-1.30); DIGOXIN LEVEL 0.4 NG/ML (0.5-2.0); FREE THYROXINE INDEX 2.2 % (1.3-4.8); GLOMERULAR FILTRATION RATE 32.9 (>51); MB/CK RELATIVE INDEX 2.61 (< OR =4); POTASSIUM SERUM 4.4 MEQ/L (3.5-5.1); THYROID STIMULATING HORMONE 4.13 uIU/ML (0.358-3.740); THYROXINE (T4) 6.7 UG/DL (4.5-12.0); TOTAL PROTEIN 5.7 GM/DL (6.4-8.2); TROPONIN I 0.06 NG/ML (< 0.10)
[2020-01-06] MEDS: METOPROLOL SUCC *XL* 25MG TAB (TopROL *XL*) PO SCH (09:00)
[2020-01-06] MEDS: GLIMEPIRIDE 2 MG TAB PO SCH (09:12)
[2020-01-06] MEDS: FLUCONAZOLE 100 MG TAB PO SCH (09:13)
[2020-01-06] MEDS: ASPIRIN 81 MG ENTERIC TAB PO SCH (09:13)
[2020-01-06] MEDS: NYSTATIN 100,000 UNITS/GM TOPICAL PWD 15 GM TOP SCH ×2 (09:14→21:35)
[2020-01-06] MEDS: KETOCONAZOLE 2% CREAM TOP SCH ×2 (09:14→21:35)
[2020-01-06] MEDS: DIGOXIN 0.125 MG TAB PO SCH (09:32)
[2020-01-06] MEDS: MORPHINE 2 MG/ML 1ML VIAL (J2270) IV PRN ×2 (12:10→19:39)
--- NOTE | 2020-01-06 13:01 | IPNPDOC ---
Text Note Date of Service The patient was seen on 01/06/20. NOTE SUBJECTIVE: Notified this morning regarding bradycardia on telemetry monitors. Evaluated patient at bedside who was asymptomatic. Still complains of left flank pain. VITAL SIGNS: See below General: NAD, lying comfortably in bed HEENT: NC/AT, EOMI Lungs: CTA B/L Heart: +S1S2, RRR, no rub or murmur. Abd: soft, obese, NT, +BS Ext: trace edema LABORATORY DATA: Reviewed ASSESSMENT: 59 yo female with PMHx nonischemic CM - combined systolic/diastolic dysfunction - LVEF - 20%, afib/aspirin, IDDM, chronic anemia, HLD, CKDIII, chronic hypoxic resp failure/2L O2 presents for several day history of worsening left flank pain, found to have UTI with colonic/gall bladder fistula, pancreatic cysts and calcifications. #bradycardia on tele - d/w cardiology - PPM shows no bradycardic events - false reading on telemetry given EPS physiology - repeat card markers - likely transfer back to medical floor #UTI - UCx yeast 50 cfu will continue fluconazole - completed 5 days zosyn - repeat UA still grossly positive, with persistent left flank pain - will start meropenem #KWAME/CKD - treat UTI for now - caution with IV fluids #Colonic/GB fistula - pancreatic cysts/calcifications/ transaminitis. - fistula appears to be chronic - no history of instrumentation - d/w surgery - assistance appreciated - c/s noted - also with pancreatic inflammation/cysts , ca 19-9 elevated ? pancreatic malignancy - outpatient f/u with pancreas specialist - d/w patient #afib - continue asa for a/c as per home meds, continue digoxin - NSR/paced #chronic iron deficiency anemia - continue oral supplements as per home Rx #IDDM - continue insulin sliding scale - CLD for now - possible imaging to d/w surgery #HLD - lipitor, niacin #CHF - severe systolic failure - continue home meds. # Chronic hypoxic respiratory failure - baseline 2L supplemental O2 continuously #DVT prophylaxis - mechanical Dispo: check repeat card marker, telemetry monitoring, likely back to med/surg, start meropenem VS,Fishbone, I+O VS, Fishbone, I+O Laboratory Tests 01/06/20 07:59 Vital Signs Date Time Temp Pulse Resp B/P (MAP) Pulse Ox O2 Delivery O2 Flow Rate FiO2 01/06/20 12:10 20 100 Nasal Cannula 1.0 01/06/20 09:32 69 01/06/20 09:01 102/50 (67) 01/06/20 07:43 97.2 I&O- Last 24 Hours up to 6 AM 01/06/20 06:00 Intake Total 890 ml Output Total 0 ml Balance 890 ml MINH VASQUES MD Jan 06, 2020 13:01
--- NOTE | 2020-01-06 13:45 | CR ---
DATE OF CONSULTATION: 01/06/2020 HEADING BRIEF CARDIOLOGY CONSULTATION. REFERRING PHYSICIAN: Dr. Víctor Thompson INDICATION: Cardiac arrhythmia. Pacemaker/implantable cardioverted defibrillator (ICD) in situ. CLINICAL SUMMARY: This 59-year-old mother of three grown children, disabled resident of [place], [place] is well-known to our cardiology practice having a dilated cardiomyopathy (nonobstructive coronary disease by cardiac catheterization May 2016) complicated by abnormal EKG - left bundle branch block, first-degree AV block and congestive heart failure (systolic and diastolic dysfunction) dating back to 2001. Underwent original dual-chamber ICD implant in 2001 with upgrade to a biventricular ICD August 2011. Left ventricular lead repositioning July 2012 and ICD pulse generator change July 21, 2016. She has been followed on a regular basis through our office with last echocardiogram performed at [facility] September 20, 2019 showing a severely dilated and hypokinetic left ventricle, LVEF estimated at 20% at least mildly dilated right ventricle; it was also hypokinetic, severely dilated left atrium and right atrium without significant valvular abnormality. Estimated pulmonary arterial pressure and central venous pressures were extremely high. Has done remarkably well on combination antibiotics-failure therapy. Unfortunately, recent trial of Entresto vasodilator was not tolerated due to "dizziness" with hyperkalemia and elevated renal function. Last seen in our office December 12, 2019 and claimed to be feeling well. Has a stable effort dyspnea on chronic supplemental O2, wearing her oxygen 24/7. Has been doing exercises with physical therapy, but otherwise is quite sedentary. Denied orthopnea, chest pain, palpitations, syncope, embolic phenomenon or claudication. Since early November 2019 has been suffering recurrent urinary tract infections and was re-admitted with worsening left flank pain January 01, 2020, believed to be reflection of pyelonephritis. 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 She also had a large pelvic ovarian dermoid cyst with innumerable pancreatic cysts and calcification that apparently was associated with pancreatic enlargement, which was new or increased since her previous study with new course calcification, possibly related to cystic tumor of the pancreas. A small adrenal nodule, some thickening of the urinary bladder wall consistent with cystitis, along with ureteral thickening and stranding in the upper tract suggesting pyelonephritis. Clinically, her cardiovascular status was believed to be stable with weight 95 kg (since September 28, 2019). Chronic stable anemia attributed to chronic renal insufficiency (followed by Dr. Pryor nephrology). Electrolytes were essentially in balance with admission BUN of 27, creatinine 1.7. Pro-BNP level had been as high as 18,000 in August, 14,000 in September with last pro BNP level of 5900. Troponin I levels have been stable at 0.06 related to her renal insufficiency. Apparently tumor markers including CEA-19-9 antigen was markedly elevated. Her digoxin level was 0.2 and 0.4. CURRENT VITAL SIGNS: Heart rate 71, blood pressure 102/50, respiratory rate 16 with O2 saturation of 100% on supplemental oxygen by nasal prongs at 2 liters. She is currently afebrile, having received antibiotic therapy for her infection. Had been admitted to a telemetry unit in light of her cardiac history. Admission EKG showed appropriate, AB sequentially paced rhythm at 75 bpm, QRS complexes with a marked rightward axis and right bundle branch block in keeping with biventricular stimulation. There also frequent isolated PVCs with pacing artifact superimposed on the QRS complexes often consistent with safety pacing (a safety measure - appropriate behavior for her device). Despite the quality assurance monitor body indicating rates as slow as 38 beats per minute. This is actually artifact, no bradycardia has been documented. Short asymptomatic runs of accelerated idioventricular rhythm have been noted. The patient herself is essentially free of any cardiovascular complaint. IMPRESSION/PLAN: 1. Frequent isolated unifocal PVCs: This patient has advanced heart failure and appears to be doing actually quite well at this time with longstanding ventricular ectopic activity that may be slightly more frequent with her acute systemic illness. No symptomatic arrhythmia. As discussed, she has the most effective form of therapy for any ventricular rhythm disturbance, i.e. her biventricular implantable cardioverter defibrillator. Interestingly, she has never received a shock for ventricular rhythm disturbance since 2001. Treatment of her acute systemic illness would be considered cortez management. She remains on low-dose metoprolol succinate. 2. Biventricular implantable cardioverter defibrillator in situ: As mentioned above, her device is followed regularly through our office and she has been free of symptomatic arrhythmia. Last intracardiac electrograms showed excellent values and her pacing thresholds have also been excellent. Last battery check indicated longevity of 2.7 years. 3. Heart failure (systolic and diastolic dysfunction): A longstanding problem dating back to 2001 that has done remarkably well with her current combination medical therapy including low low-dose digoxin, metoprolol succinate, Lasix and controlled supplemental oxygen. Related to her other medical problems including obesity. She uses a wheelchair for ambulation. 4. Dilated cardiomyopathy/abnormal EKG - left bundle branch block: As mentioned, the patient does not have a history of coronary disease or hypertension, but longstanding obesity and non-insulin dependent diabetes mellitus with hypercholesterolemia. Last measured left ventricular ejection fraction of 20%, has actually been remarkably stable dating back to at least February 2018. Markedly dilated cardiac chambers are stable and she has no significant valvular disease. From our standpoint, we plan to continue monitoring her as an outpatient and she has a followup appointment with us January 31, 2020. No medication change would be deemed necessary from our standpoint. We thank you for allowing us to participate in the care of her care. I understand with her abdominal CT scan findings, she will be evaluated by the pancreatic specialist in [place], but it would appear her prognosis from that standpoint is quite poor.
[2020-01-06] MEDS: MEROPENEM INJ 1 GM in IV 1 EA IV SCH ×2 (14:41→21:34)
[2020-01-06 14:50] LABS: CK-MB VALUE MASS 3.7 NG/ML (<3.6); MB/CK RELATIVE INDEX 2.91 (< OR =4); TROPONIN I 0.06 NG/ML (< 0.10)
--- NOTE | 2020-01-06 19:07 | ECGEPIP ---
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
[2020-01-06] MEDS: NIACIN SR (NIASPAN) 500 MG TAB PO SCH (21:00)
[2020-01-06] MEDS: ATORVASTATIN 20 MG TAB PO SCH (21:34)
[2020-01-06] MEDS: FERROUS SULFATE 325MG TAB PO SCH (21:34)
[2020-01-07] MEDS: MORPHINE 2 MG/ML 1ML VIAL (J2270) IV PRN ×2 (05:00→11:17)
[2020-01-07] MEDS: MEROPENEM INJ 1 GM in IV 1 EA IV SCH ×3 (05:40→22:27)
[2020-01-07 06:00] VITALS: BP 113/62
[2020-01-07 07:52] LABS: HEMATOCRIT 30.5 % (36.0-47.0); HEMOGLOBIN 8.8 g/dl (12.0-15.5); MEAN CORPUSCULAR HEMOGLOBIN 31.4 pg (27.0-33.0); MEAN CORPUSCULAR HGB CONC 28.9 g/dl (32.0-36.5); MEAN CORPUSCULAR VOLUME 108.9 fl (80.0-96.0); PLATELET COUNT, AUTOMATED 221 10^3/uL (150-450); WHITE BLOOD COUNT 7.8 10^3/uL (4.0-10.0)
[2020-01-07 08:15] LABS: CALCIUM LEVEL 9.1 MG/DL (8.5-10.1); CREATININE FOR GFR 1.38 MG/DL (0.55-1.30); GLOMERULAR FILTRATION RATE 41.8 (>51); POTASSIUM SERUM 4.2 MEQ/L (3.5-5.1)
[2020-01-07 08:51] LABS: HEMATOCRIT 30.5 % (36.0-47.0)
[2020-01-07] MEDS: ASPIRIN 81 MG ENTERIC TAB PO SCH (08:57)
[2020-01-07] MEDS: GLIMEPIRIDE 2 MG TAB PO SCH (08:57)
[2020-01-07] MEDS: DIGOXIN 0.125 MG TAB PO SCH (08:57)
[2020-01-07] MEDS: FLUCONAZOLE 100 MG TAB PO SCH (08:58)
[2020-01-07] MEDS: METOPROLOL SUCC *XL* 25MG TAB (TopROL *XL*) PO SCH (08:58)
[2020-01-07] MEDS: HumaLOG INSULIN (NovoLOG) PER UNIT SC SCH ×4 (08:59→21:00)
[2020-01-07] MEDS ORDERED: NS 0.45% 1,000 ML IV SCH (09:00)
[2020-01-07 10:35] LABS: CREATININE,RANDOM URINE 88.1 MG/DL
[2020-01-07] MEDS: KETOCONAZOLE 2% CREAM TOP SCH ×2 (10:42→21:00)
[2020-01-07] MEDS: NYSTATIN 100,000 UNITS/GM TOPICAL PWD 15 GM TOP SCH ×2 (10:42→21:00)
[2020-01-07 14:00] VITALS: BP 122/68
--- NOTE | 2020-01-07 15:13 | IPNPDOC ---
Subjective Date Seen The patient was seen on 01/07/20. Subjective Chief Complaint/HPI Pt was examined at bedside. She reported left flank/back pain which has improved from before with improved appetite. It was noted that pt has urinary incontinence with urinary urgency which pt reported to be chronic. Denies any fever, chills, abdominal pain, nausea, or vomiting. Pt said she has been using the bedside toilet and urinating in her pull-ups. General: Denies: Chills Constitutional: Denies: Chills, Fever Pulmonary: Denies: Dyspnea Cardiovascular: Denies: Chest Pain, Palpitations Gastrointestinal: Denies: Nausea, Vomiting, Abdominal Pain Genitourinary: Reports: Incontinence, Other Symptoms (left flank/back pain); Denies: Dysuria Objective Physical Examination General Exam: Positive: Alert, Cooperative, Mild Distress Eye Exam: Positive: Conjunctiva & lids normal; Negative: Sclera icteric ENT Exam: Positive: Atraumatic Neck Exam: Positive: Supple Chest Exam: Positive: Clear to auscultation, Other (mild diminished air entry b/l); Negative: Normal air movement, Rales, Rhonchi, Wheezing Heart Exam: Positive: Rate Normal, Regular Rhythm; Negative: Murmurs Abdomen Exam: Positive: Normal bowel sounds, Soft; Negative: Tenderness Extremity Exam: Negative: Cyanosis, Edema, Swelling Skin Exam: Positive: Nl turgor and temperature Neuro Exam: Positive: Normal Speech, Normal Tone Psych Exam: Positive: Mental status NL, Memory Intact, Oriented x 3 Other physical findings pos CVA tenderness on left Assessment /Plan Assessment Pt is a 59 yo female with PMH of nonischemic CM with combined systolic/diastolic dysfunction, IDDM, CKDIII, chronic hypoxic resp failure on 2L O2 presented due to worsening left flank pain present for several days prior to admission found to have UTI with colonic/gall bladder fistula 1. Complicated UTI, cystitis with likely left pyelonephritis, fungal. Urine cx X2 grew yeast like organisms, cont fluconazole. CT abd/pelvis with contrast showed evidence with cystitis with left renal stranding. Per group discussion cont current tx meropenem and fluconazole. Depending clinical presentation, consider increasing fluconazole to 400mg QD vs starting amphotericin B for resistant fungal UTI. 2. Left flank pain, likely 2/2 complicated fungal pyelonephritis. Pt has hx of nephrolithiasis with left flank pain, 100+RBC on UAX2, renal US 01/05/2020 showed left renal edema likely indicating pyelo; no nephrolithiasis noted. CT abd/pelvis without contrast ordered to r/o nephrolithiasis 3. KWAME on CKD. Creatinine 1.38 compared to 1.70. Per group discussion oligouria may be 2/2 inaccurate measuring as pt cont to have incontinent voids; will hold off on starting IV fluid now pending clinical presentation. Strict I&O, encourage oral intake. FeUrea 30.3%<35%, indicating pre-renal disease. 4. Bradycardia on tele rtifact. Cardiology consulted, noted to be artifact. given EPS physiology. Pt has pacer with ICD 5. Chronic cholecystocolic fistula. Surgery consulted, given no abdominal pain and only marginally elevated LFTs. No further surgical intervention recommended this morning. 6. Pancreatic cyst with calcifications. Elevated CA 19-9 although not specific cannot r/o pancreatic malignancy. It was noted that CT abd/pelvis showed numerable pancreatic cysts with some secondary pancreatic enlargement; multiple IPMNs vs benign serous cystic neoplasm vs less likely mucinous cystic neoplasm. Surgery was consulted, recommended follow up with pancreatic specialist in [place]. 7. Afib on normal sinus rhythm/paced. Continue digoxin and metoprolol. Pt has pacer with biventricular ICD 8. Macrocytic anemia, PMH of iron deficiency anemia on iron supplements. B12 level wnl. Folate level pending. 9. IDDM. Continue insulin sliding scale, glucose checks, and hypoglycemia protocol 10. Hyperlipidemia. Cont home med lipitor, niacin 11. Chronic CHF, systolic combined with diastolic, LVEF 20%. S/p biventricular ICD placement 2011. Continue home meds metoprolol and digoxin 12. Chronic hypoxic respiratory failure. On baseline 2L, cont supplemental O2 12. Hypernatremia. Likely 2/2 decreased oral fluid intake. Encourage oral intake. Trend BMP DISPO:KWAME with UTI improving with meropenem and fluconazole. Encourage PO in take; strict I&O. CT abd/pelvis without contrast ordered to r/o nephrolithiasis Plan/VTE VTE Prophylaxis Ordered?: Yes Plan Diet: Continue Current Therapy: PT, OT Diagnostics: Check Labs, Repeat Labs in AM, CT Anticipated Discharge: Home VS, I&O, 24H, Fishbone Vital Signs/I&O Vital Signs Date Time Temp Pulse Resp B/P (MAP) Pulse Ox O2 Delivery O2 Flow Rate FiO2 01/07/20 14:00 97.3 94 20 122/68 (86) 99 Nasal Cannula 2.0 I&O- Last 24 Hours up to 6 AM 01/07/20 06:00 Intake Total 770 ml Output Total 100 ml Balance 670 ml Laboratory Data 24H LABS Laboratory Tests 2 01/06/20 17:25: Bedside Glucose (Misc Panel) 205H 01/06/20 20:24: Bedside Glucose (Misc Panel) 189H 01/07/20 06:31: Bedside Glucose (Misc Panel) 120H 01/07/20 07:20: 01/07/20 07:23: Nucleated Red Blood Cells % (auto) 0.4H, Anion Gap 6L, Glomerular Filtration Rate 41.8L, Calcium Level 9.1, Vitamin B12 Level 339 01/07/20 09:45: Urine Random Creatinine 88.1, Urine Random Urea Nitrogen 657 01/07/20 11:37: Bedside Glucose (Misc Panel) 246H CBC/BMP Laboratory Tests 01/07/20 07:20 01/07/20 07:23 Microbiology Microbiology 01/06/20 Urine Culture - Final, Complete Yeast Like Organism 01/01/20 Urine Culture - Final, Complete Yeast Like Organism 01/01/20 Blood Culture - Final, Complete NO GROWTH AFTER 5 DAYS 01/01/20 Blood Culture - Final, Complete NO GROWTH AFTER 5 DAYS GME ATTESTATION GME ATTESTATION My faculty preceptor for this patient encounter was physically present during the encounter and was fully available. All aspects of the patient interview, examination, medical decision making process, and medical care plan development were reviewed and approved by the faculty preceptor. The faculty preceptor is aware and concurs with the plan as stated in the body of this note and will attest to such by his/her cosignature. ATTENDING NOTE As preceptor for this patient I was fully available. All aspects of the patient interview, examination, medical decision making process, and medical care plan development were reviewed and approved. Aware and concur with the plan as stated in the body of this note and will attest to such by my cosignature. JORDON HOWELL DO Jan 07, 2020 15:13 MINH VASQUES MD Jan 14, 2020 12:27
--- NOTE | 2020-01-07 16:51 | REP ---
REASON FOR EXAM: Flank pain, renal disease. COMPARISON: Multiple, the latest six days ago. There is no change in the lung bases. There is four chamber cardiac enlargement. The solid intra-abdominal organs and gallbladder are unchanged. Air density persists in the gallbladder lumen. The pancreas, adrenal glands, and kidneys are unchanged. The bowel loops and their mesenteries are unchanged. There is no free fluid or free air. There is no adenopathy. There is a stable low density nodule in the right adrenal gland. There is a large fat and solid mass in the pelvis, which is unchanged. The osseous structures are unchanged. IMPRESSION: No change from the prior exam of 01/01/2020. Abnormal air density persists in the gallbladder lumen and there is evidence of a large dermoid mass in the pelvis, all stable. No new abnormalities are identified. Electronically Signed by Perry Vera DO 01/07/2020 04:53 P
[2020-01-07] MEDS ORDERED: PERCOCET 5MG/325MG TAB PO ONE (20:15)
[2020-01-07] MEDS: ATORVASTATIN 20 MG TAB PO SCH (20:36)
[2020-01-07] MEDS: NIACIN SR (NIASPAN) 500 MG TAB PO SCH (20:36)
[2020-01-07] MEDS: FERROUS SULFATE 325MG TAB PO SCH (20:36)
[2020-01-07 22:00] VITALS: BP 112/52
[2020-01-07] MEDS: HEPARIN SOD (PORCINE) 5000UNITS/ML VIAL (J1644 PER 1000UNITS) SQ SCH (22:26)
[2020-01-08] MEDS: MEROPENEM INJ 1 GM in IV 1 EA IV SCH ×3 (05:10→21:33)
[2020-01-08] MEDS: HEPARIN SOD (PORCINE) 5000UNITS/ML VIAL (J1644 PER 1000UNITS) SQ SCH ×3 (05:10→21:34)
[2020-01-08] MEDS: MORPHINE 2 MG/ML 1ML VIAL (J2270) IV PRN ×3 (05:10→21:36)
[2020-01-08 05:53] LABS: BASO % 0.5 % (0.0-1.0); EOS # 0.1 10^3/uL (0.0-0.5); EOS % 2.7 % (0.0-3.0); HEMATOCRIT 30.1 % (36.0-47.0); HEMOGLOBIN 8.7 g/dl (12.0-15.5); LYMPH # 0.9 10^3/uL (1.5-5.0); LYMPH % 19.7 % (24.0-44.0); MEAN CORPUSCULAR HEMOGLOBIN 31.3 pg (27.0-33.0); MEAN CORPUSCULAR HGB CONC 28.9 g/dl (32.0-36.5); MEAN CORPUSCULAR VOLUME 108.3 fl (80.0-96.0); MONO # 0.4 10^3/uL (0.0-0.8); MONO % 9.3 % (0.0-5.0); NEUTROPHILS % 66.9 % (36.0-66.0); PLATELET COUNT, AUTOMATED 190 10^3/uL (150-450); RED BLOOD COUNT 2.78 10^6/uL (4.00-5.40); WHITE BLOOD COUNT 4.4 10^3/uL (4.0-10.0)
[2020-01-08 06:00] VITALS: BP 104/54
[2020-01-08 06:17] LABS: CALCIUM LEVEL 8.8 MG/DL (8.5-10.1); CREATININE FOR GFR 1.4 MG/DL (0.55-1.30); GLOMERULAR FILTRATION RATE 41.1 (>51); POTASSIUM SERUM 4.3 MEQ/L (3.5-5.1)
[2020-01-08] MEDS: METOPROLOL SUCC *XL* 25MG TAB (TopROL *XL*) PO SCH (09:00)
[2020-01-08] MEDS: ASPIRIN 81 MG ENTERIC TAB PO SCH (09:43)
[2020-01-08] MEDS: FLUCONAZOLE 100 MG TAB PO SCH (09:45)
[2020-01-08] MEDS: GLIMEPIRIDE 2 MG TAB PO SCH (09:45)
[2020-01-08] MEDS: KETOCONAZOLE 2% CREAM TOP SCH ×2 (09:46→21:35)
[2020-01-08] MEDS: NYSTATIN 100,000 UNITS/GM TOPICAL PWD 15 GM TOP SCH ×2 (09:46→21:35)
[2020-01-08] MEDS: HumaLOG INSULIN (NovoLOG) PER UNIT SC SCH ×4 (09:48→21:33)
[2020-01-08] MEDS: DIGOXIN 0.125 MG TAB PO SCH (09:49)
[2020-01-08] MEDS ORDERED: FLUCONAZOLE 100 MG TAB PO ONE (12:00)
[2020-01-08 14:00] VITALS: BP 120/55
--- NOTE | 2020-01-08 20:36 | IPNPDOC ---
Subjective Date Seen The patient was seen on 01/08/20. Subjective Chief Complaint/HPI Pt was examined at bedside. She reported she has 8/10 left flank pain. She reported that she has been eating better. Pt reported that she has been feeling about the same compared to yesterday. Reported still having urinary urgency and frequency; denies dysuria, fever, or chills. Constitutional: Denies: Chills, Fever Pulmonary: Denies: Dyspnea Cardiovascular: Denies: Chest Pain, Palpitations Gastrointestinal: Denies: Abdominal Pain, Hematochezia Genitourinary: Reports: Frequency, Incontinence; Denies: Dysuria Objective Physical Examination General Exam: Positive: Alert, Cooperative, Mild Distress Eye Exam: Positive: Conjunctiva & lids normal, Other Eye Symptoms (sunken eyes); Negative: Sclera icteric ENT Exam: Positive: Atraumatic, Other ENT (dry mucous membrane) Neck Exam: Positive: Supple Chest Exam: Positive: Clear to auscultation, Other (mild diminished air entry b/l); Negative: Normal air movement, Rales, Rhonchi, Wheezing Heart Exam: Positive: Rate Normal, Regular Rhythm; Negative: Murmurs Abdomen Exam: Positive: Normal bowel sounds, Soft; Negative: Tenderness Extremity Exam: Negative: Cyanosis, Edema, Swelling Skin Exam: Positive: Other skin issue (poor skin turgor) Neuro Exam: Positive: Normal Speech, Normal Tone Psych Exam: Positive: Mental status NL, Memory Intact, Oriented x 3 Assessment /Plan Assessment Pt is a 59 yo female with PMH of nonischemic CM with combined systolic/diastolic dysfunction, IDDM, CKDIII, chronic hypoxic resp failure on 2L O2 presented due to worsening left flank pain present for several days prior to admission found to have UTI with colonic/gall bladder fistula 1. Complicated UTI, cystitis with likely left pyelonephritis, fungal. Urine cx X2 grew yeast like organisms, cont fluconazole. CT abd/pelvis with contrast showed evidence with cystitis with left renal stranding. Per group discussion cont current tx meropenem and fluconazole. Increasing fluconazole to 400mg QD, consider starting amphotericin B for resistant fungal UTI. 2. Left flank pain, likely 2/2 complicated fungal pyelonephritis, with oligouria. Pt has hx of nephrolithiasis with left flank pain, 100+RBC on UAX2, renal US 01/05/2020 showed left renal edema likely indicating pyelo; no nephrol ithiasis noted. CT abd/pelvis showed nephrolithiasis. Consider starting IVF 3. KWAME on CKD. Creatinine 1.38 compared to 1.70. Per group discussion oligouria may be 2/2 inaccurate measuring as pt cont to have incontinent voids; will hold off on starting IV fluid now pending clinical presentation. Strict I&O, encourage oral intake. FeUrea 30.3%<35%, indicating pre-renal disease. 4. Bradycardia on tele 2/2artifact. Cardiology consulted, noted to be artifact. given EPS physiology. Pt has pacer with ICD 5. Chronic cholecystocolic fistula. Surgery consulted, given no abdominal pain and only marginally elevated LFTs. No further surgical intervention recommended this morning. 6. Pancreatic cyst with calcifications. Elevated CA 19-9 although not specific cannot r/o pancreatic malignancy. It was noted that CT abd/pelvis showed numerable pancreatic cysts with some secondary pancreatic enlargement; multiple IPMNs vs benign serous cystic neoplasm vs less likely mucinous cystic neoplasm. Surgery was consulted, recommended follow up with pancreatic specialist in [place]. 7. Afib on normal sinus rhythm/paced. Continue digoxin and metoprolol. Pt has pacer with biventricular ICD 8. Macrocytic anemia, PMH of iron deficiency anemia on iron supplements. B12 level wnl. Folate level elevated; will d/c folic acid supplement. 9. IDDM. Continue insulin sliding scale, glucose checks, and hypoglycemia protocol 10. Hyperlipidemia. Cont home med lipitor, niacin 11. Chronic CHF, systolic combined with diastolic, LVEF 20%. S/p biventricular ICD placement 2011. Continue home meds metoprolol and digoxin 12. Chronic hypoxic respiratory failure. On baseline 2L, cont supplemental O2 12. Hypernatremia. Likely 2/2 decreased oral fluid intake. Encourage oral intake. Trend BMP DISPO:KWAME with UTI improving with meropenem; increased fluconazole. Encourage PO intake; strict I&O. Consider starting IVF Plan/VTE VTE Prophylaxis Ordered?: Yes Plan Diet: Continue Current Therapy: PT, OT Diagnostics: Repeat Labs in AM Anticipated Discharge: Home Disposition increase fluconazole to 400mg QD. Consider starting IVF for oligouria VS, I&O, 24H, Fishbone Vital Signs/I&O Vital Signs Date Time Temp Pulse Resp B/P (MAP) Pulse Ox O2 Delivery O2 Flow Rate FiO2 01/08/20 14:00 98.4 102 16 120/55 (76) 98 Nasal Cannula 2.0 I&O- Last 24 Hours up to 6 AM 01/08/20 06:00 Intake Total 860 ml Output Total 125 ml Balance 735 ml Laboratory Data 24H LABS Laboratory Tests 2 01/07/20 21:17: Bedside Glucose (Misc Panel) 246H 01/08/20 05:03: Immature Granulocyte % (Auto) 0.9, Neutrophils (%) (Auto) 66.9H, Lymphocytes (%) (Auto) 19.7L, Monocytes (%) (Auto) 9.3H, Eosinophils (%) (Auto) 2.7, Basophils (%) (Auto) 0.5, Neutrophils # (Auto) 3.0, Lymphocytes # (Auto) 0.9L, Monocytes # (Auto) 0.4, Eosinophils # (Auto) 0.1, Basophils # (Auto) 0.0, Nucleated Red Blood Cells % (auto) 0.7H, Anion Gap 4L, Glomerular Filtration Rate 41.1L, Calcium Level 8.8 01/08/20 12:16: Bedside Glucose (Misc Panel) 192H 01/08/20 17:20: Bedside Glucose (Misc Panel) 221H 01/08/20 20:22: Bedside Glucose (Misc Panel) 256H CBC/BMP Laboratory Tests 01/08/20 05:03 Microbiology Microbiology 01/06/20 Urine Culture - Final, Complete Yeast Like Organism 01/01/20 Urine Culture - Final, Complete Yeast Like Organism 01/01/20 Blood Culture - Final, Complete NO GROWTH AFTER 5 DAYS 01/01/20 Blood Culture - Final, Complete NO GROWTH AFTER 5 DAYS GME ATTESTATION E ATTESTATION My faculty preceptor for this patient encounter was physically present during the encounter and was fully available. All aspects of the patient interview, exa mination, medical decision making process, and medical care plan development were reviewed and approved by the faculty preceptor. The faculty preceptor is aware and concurs with the plan as stated in the body of this note and will attest to such by his/her cosignature. GME ATTESTATION E ATTESTATION My faculty preceptor for this patient encounter was physically present during the encounter and was fully available. All aspects of the patient interview, examination, medical decision making process, and medical care plan development were reviewed and approved by the faculty preceptor. The faculty preceptor is aware and concurs with the plan as stated in the body of this note and will attest to such by his/her cosignature. ATTENDING NOTE Pt seen and examined by me. Agree with the above assessment and plan. JORDON HOWELL DO Jan 08, 2020 20:36 KARLA YARBROUGH MD Jan 12, 2020 15:18
[2020-01-08] MEDS: ATORVASTATIN 20 MG TAB PO SCH (21:32)
[2020-01-08] MEDS: FERROUS SULFATE 325MG TAB PO SCH (21:33)
[2020-01-08] MEDS: NIACIN SR (NIASPAN) 500 MG TAB PO SCH (21:33)
[2020-01-08 22:00] VITALS: BP 116/62
[2020-01-09] MEDS: HEPARIN SOD (PORCINE) 5000UNITS/ML VIAL (J1644 PER 1000UNITS) SQ SCH ×3 (05:48→21:22)
[2020-01-09] MEDS: MEROPENEM INJ 1 GM in IV 1 EA IV SCH ×3 (05:48→21:22)
[2020-01-09] MEDS: MORPHINE 2 MG/ML 1ML VIAL (J2270) IV PRN (05:49)
[2020-01-09 06:00] VITALS: BP 132/76
[2020-01-09] MEDS: HumaLOG INSULIN (NovoLOG) PER UNIT SC SCH ×4 (07:22→21:00)
[2020-01-09 07:41] LABS: HEMATOCRIT 28.1 % (36.0-47.0); HEMOGLOBIN 8.2 g/dl (12.0-15.5); MEAN CORPUSCULAR HEMOGLOBIN 31.4 pg (27.0-33.0); MEAN CORPUSCULAR HGB CONC 29.2 g/dl (32.0-36.5); MEAN CORPUSCULAR VOLUME 107.7 fl (80.0-96.0); PLATELET COUNT, AUTOMATED 209 10^3/uL (150-450); RED BLOOD COUNT 2.61 10^6/uL (4.00-5.40)
[2020-01-09] MEDS: NYSTATIN 100,000 UNITS/GM TOPICAL PWD 15 GM TOP SCH ×2 (08:01→21:24)
[2020-01-09] MEDS: KETOCONAZOLE 2% CREAM TOP SCH ×2 (08:01→21:24)
[2020-01-09 08:02] LABS: CALCIUM LEVEL 9.5 MG/DL (8.5-10.1); CREATININE FOR GFR 1.16 MG/DL (0.55-1.30); GLOMERULAR FILTRATION RATE 51.1 (>51); POTASSIUM SERUM 4.2 MEQ/L (3.5-5.1)
[2020-01-09] MEDS: GLIMEPIRIDE 2 MG TAB PO SCH (08:03)
[2020-01-09] MEDS: FLUCONAZOLE 100 MG TAB PO SCH (08:03)
[2020-01-09] MEDS: ASPIRIN 81 MG ENTERIC TAB PO SCH (08:03)
[2020-01-09] MEDS: DIGOXIN 0.125 MG TAB PO SCH (08:04)
[2020-01-09] MEDS: METOPROLOL SUCC *XL* 25MG TAB (TopROL *XL*) PO SCH (09:00)
--- NOTE | 2020-01-09 09:07 | IPNPDOC ---
Subjective Date Seen The patient was seen on 01/09/20. Subjective Chief Complaint/HPI Pt reported left sided back pain is still 8/10, reported that her urine looks dirty without blood. She reported she has a good appetite although looks frail. She denies any fever, chills, nausea, or vomiting. It was noted that pt still have frequent small urination with bedside commode and on pull-ups. Denies any dysuria, suprapubic pain or abdominal pain. General: Reports: Normal Appetite; Denies: Chills Constitutional: Denies: Chills, Fever Pulmonary: Denies: Dyspnea Cardiovascular: Denies: Chest Pain, Palpitations Gastrointestinal: Denies: Nausea, Vomiting, Abdominal Pain Genitourinary: Reports: Frequency; Denies: Dysuria, Hematuria Objective Physical Examination General Exam: Positive: Alert, Cooperative, Mild Distress Eye Exam: Positive: Conjunctiva & lids normal, Other Eye Symptoms (sunken eys); Negative: Sclera icteric ENT Exam: Positive: Atraumatic, Mucous membr. moist/pink Neck Exam: Positive: Supple Chest Exam: Positive: Clear to auscultation, Normal air movement, Diminished; Negative: Rales, Rhonchi, Wheezing Heart Exam: Positive: Rate Normal, Regular Rhythm; Negative: Murmurs Abdomen Exam: Positive: Normal bowel sounds, Soft, Tenderness (in b/l lower quarants upon palpation) Extremity Exam: Negative: Cyanosis, Edema, Swelling Skin Exam: Positive: Nl turgor and temperature, Other skin issue (poor skin turgor) Neuro Exam: Positive: Normal Speech, Normal Tone Psych Exam: Positive: Mental status NL, Memory Intact, Oriented x 3 Other physical findings pos left CVA tenderness and suprapubic tenderness Assessment /Plan Assessment Pt is a 59 yo female with PMH of nonischemic CM with combined systolic/diastolic dysfunction, IDDM, CKDIII, chronic hypoxic resp failure on 2L O2 presented due to worsening left flank pain present for several days prior to admission found to have UTI with colonic/gall bladder fistula on fluconazole 1. Complicated UTI, cystitis with likely left pyelonephritis, fungal. Urine cx X2 grew yeast like organisms, cont fluconazole. CT abd/pelvis with contrast showed evidence with cystitis with left renal stranding. Per group discussion cont current tx meropenem and fluconazole. Increasing fluconazole to 400mg QD 01/08/2020. Discussed with microbiology lab, and pt's urine sample will be sent to [facility] yeast classification which may take 3 days. Consider starting amphotericin B/echinocandin for resistant fungal UTI. 2. Oligouria, likely 2/2 complicated fungal pyelonephritis, resolved as of 01/09/2020. Pt has hx of nephrolithiasis with left flank pain, 100+RBC on UAX2, renal US 01/05/2020 showed left renal edema likely indicating pyelo; no nephrolithiasis noted. CT abd/pelvis showed nephrolithiasis. Pt's 24 hour urine output>400ml with oligouria resolved on 01/09/2020. Given soft BP 95/50 this morning, a 500ml IV NS bolus was given with maintenance IV NS. 3. KWAME 2/2 pre-renal etiology, on top of CKD, resolved on 01/09/2020. FeUrea 30.3%<35%, indicating pre-renal disease. Creat 1.16 compared to 1.40 on 12/23. Strict I&O, encourage oral intake. Pt will be on IV NS maintenance fluid for soft BP 4. Bradycardia on tele 08/26 artifact. Cardiology was consulted, noted to be artifact. given EPS physiology. Pt has pacer with ICD 5. Chronic cholecystocolic fistula. Surgery consulted, given no abdominal pain and only marginally elevated LFTs. No further surgical intervention recommended this morning. 6. Pancreatic cyst with calcifications. Elevated CA 19-9 although not specific cannot r/o pancreatic malignancy. It was noted that CT abd/pelvis showed numerable pancreatic cysts with some secondary pancreatic enlargement; multiple IPMNs vs benign serous cystic neoplasm vs less likely mucinous cystic neoplasm. Surgery was consulted, recommended follow up with pancreatic specialist in [place]. 7. Afib on normal sinus rhythm/paced. Currently sinus rhythm without tachycardia. Continue digoxin. Decrease metoprolol succinate from 25mg QD to 12.5mg QD with holding parameters. Pt has pacer with biventricular ICD 8. Macrocytic anemia, questionable d/t liver/pancreatic disease vs COPD. PMH of iron deficiency anemia on iron supplements. B12 level wnl. Folate level elevated; will d/c folic acid supplement. High RDW thus less likely bone marrow suppression. LDH, haptoglobin, and peripheral smear ordered 9. IDDM. Continue insulin sliding scale, glucose checks, and hypoglycemia protocol 10. Hyperlipidemia. Cont home med lipitor, niacin 11. Chronic CHF, systolic combined with diastolic, LVEF 20%. S/p biventricular ICD placement 2011. Decrease metoprolol as pt does not have tachycardia; cont digoxin 12. Chronic hypoxic respiratory failure. On baseline 2L, cont supplemental O2 13. Hypernatremia, Likely 2/2 decreased oral fluid intake, resolved. Encourage oral intake. Trend BMP 14. DVT prophylaxis: Heparin. GI prophylaxis: not indicated DISPO:Fungal UTI on fluconazole, soft BP on IV NS. Likely d/c tmrw if BP stable without outpt fluconazole treatment Plan/VTE VTE Prophylaxis Ordered?: Yes Plan IVF: Initiate Diet: Continue Current Therapy: PT, OT Diagnostics: Check Labs, Repeat Labs in AM Anticipated Discharge: Home VS, I&O, 24H, Fishbone Vital Signs/I&O Vital Signs Date Time Temp Pulse Resp B/P (MAP) Pulse Ox O2 Delivery O2 Flow Rate FiO2 01/09/20 08:04 84 01/09/20 06:00 98.6 18 132/76 (94) 95 Nasal Cannula 2.0 I&O- Last 24 Hours up to 6 AM 01/09/20 05:58 Intake Total 1590 ml Output Total 451 ml Balance 1139 ml Laboratory Data 24H LABS Laboratory Tests 2 01/08/20 12:16: Bedside Glucose (Misc Panel) 192H 01/08/20 17:20: Bedside Glucose (Misc Panel) 221H 01/08/20 20:22: Bedside Glucose (Misc Panel) 256H 01/09/20 06:35: Bedside Glucose (Misc Panel) 99 01/09/20 07:25: Nucleated Red Blood Cells % (auto) 0.5H, Anion Gap 3L, Glomerular Filtration Rate 51.1, Calcium Level 9.5 CBC/BMP Laboratory Tests 01/09/20 07:25 Microbiology Microbiology 01/06/20 Urine Culture - Final, Complete Yeast Like Organism 01/01/20 Urine Culture - Final, Complete Yeast Like Organism 01/01/20 Blood Culture - Final, Complete NO GROWTH AFTER 5 DAYS 01/01/20 Blood Culture - Final, Complete NO GROWTH AFTER 5 DAYS GME ATTESTATION GME ATTESTATION My faculty preceptor for this patient encounter was physically present during the encounter and was fully available. All aspects of the patient interview, examination, medical decision making process, and medical care plan development were reviewed and approved by the faculty preceptor. The faculty preceptor is aware and concurs with the plan as stated in the body of this note and will attest to such by his/her cosignature. ATTENDING NOTE Pt seen and examined by me. Agree with the above assessment and plan. JORDON HOWELL DO Jan 09, 2020 09:06 KARLA YARBROUGH MD Jan 12, 2020 15:19
[2020-01-09 09:10] VITALS: BP 95/50
[2020-01-09] MEDS ORDERED: NS 500 ML IV ONE (09:30)
[2020-01-09 10:17] VITALS: BP 107/58
[2020-01-09] MEDS: NS 1,000 ML IV SCH (10:18)
[2020-01-09 14:00] VITALS: BP 109/58
[2020-01-09] MEDS ORDERED: METOPROLOL SUCC *XL* 12.5MG PER 1/2 TAB (TopROL *XL*) PO SCH ×2 (14:00→21:00)
[2020-01-09 16:00] VITALS: BP 110/60
[2020-01-09 16:02] LABS: CALCIUM LEVEL 9.1 MG/DL (8.5-10.1); CREATININE FOR GFR 1.18 MG/DL (0.55-1.30); GLOMERULAR FILTRATION RATE 50.1 (>51); POTASSIUM SERUM 4.4 MEQ/L (3.5-5.1)
[2020-01-09 16:22] LABS: HEMATOCRIT 28.8 % (36.0-47.0); HEMOGLOBIN 8.3 g/dl (12.0-15.5); MEAN CORPUSCULAR HEMOGLOBIN 31.3 pg (27.0-33.0); MEAN CORPUSCULAR HGB CONC 28.8 g/dl (32.0-36.5); MEAN CORPUSCULAR VOLUME 108.7 fl (80.0-96.0); PLATELET COUNT, AUTOMATED 195 10^3/uL (150-450); RED BLOOD COUNT 2.65 10^6/uL (4.00-5.40); WHITE BLOOD COUNT 5.8 10^3/uL (4.0-10.0)
[2020-01-09] MEDS: FERROUS SULFATE 325MG TAB PO SCH (21:22)
[2020-01-09] MEDS: ATORVASTATIN 20 MG TAB PO SCH (21:23)
[2020-01-09] MEDS: NIACIN SR (NIASPAN) 500 MG TAB PO SCH (21:23)
[2020-01-09 22:00] VITALS: BP 110/61
[2020-01-10] MEDS: NS 1,000 ML IV SCH ×2 (01:52→12:48)
[2020-01-10 02:00] VITALS: BP 117/69
[2020-01-10] MEDS: MEROPENEM INJ 1 GM in IV 1 EA IV SCH ×2 (05:17→14:00)
[2020-01-10] MEDS: HEPARIN SOD (PORCINE) 5000UNITS/ML VIAL (J1644 PER 1000UNITS) SQ SCH ×2 (05:17→14:00)
[2020-01-10 06:00] VITALS: BP 120/59
[2020-01-10] MEDS: HumaLOG INSULIN (NovoLOG) PER UNIT SC SCH ×2 (07:30→12:48)
[2020-01-10 08:08] VITALS: BP 132/75
[2020-01-10] MEDS: FLUCONAZOLE 100 MG TAB PO SCH (08:08)
[2020-01-10] MEDS: DIGOXIN 0.125 MG TAB PO SCH (08:09)
[2020-01-10] MEDS: GLIMEPIRIDE 2 MG TAB PO SCH (08:09)
[2020-01-10] MEDS: ASPIRIN 81 MG ENTERIC TAB PO SCH (08:09)
[2020-01-10] MEDS: NYSTATIN 100,000 UNITS/GM TOPICAL PWD 15 GM TOP SCH (08:10)
[2020-01-10] MEDS: KETOCONAZOLE 2% CREAM TOP SCH (08:10)
[2020-01-10 08:23] LABS: BASO % 0.3 % (0.0-1.0); EOS # 0.2 10^3/uL (0.0-0.5); EOS % 3.5 % (0.0-3.0); HEMATOCRIT 29.5 % (36.0-47.0); HEMOGLOBIN 8.8 g/dl (12.0-15.5); LYMPH # 1.1 10^3/uL (1.5-5.0); LYMPH % 16.7 % (24.0-44.0); MEAN CORPUSCULAR HEMOGLOBIN 32.5 pg (27.0-33.0); MEAN CORPUSCULAR HGB CONC 29.8 g/dl (32.0-36.5); MEAN CORPUSCULAR VOLUME 108.9 fl (80.0-96.0); MONO # 0.6 10^3/uL (0.0-0.8); NEUTROPHILS # 4.5 10^3/uL (1.5-8.5); NEUTROPHILS % 69.9 % (36.0-66.0); PLATELET COUNT, AUTOMATED 201 10^3/uL (150-450); RED BLOOD COUNT 2.71 10^6/uL (4.00-5.40); WHITE BLOOD COUNT 6.4 10^3/uL (4.0-10.0)
[2020-01-10 08:40] LABS: CALCIUM LEVEL 8.6 MG/DL (8.5-10.1); CREATININE FOR GFR 1.01 MG/DL (0.55-1.30); GLOMERULAR FILTRATION RATE 59.9 (>51); POTASSIUM SERUM 4.3 MEQ/L (3.5-5.1)
[2020-01-10] MEDS ORDERED: METOPROLOL SUCC *XL* 12.5MG PER 1/2 TAB (TopROL *XL*) PO SCH (09:00)
[2020-01-10] MEDS ORDERED: ACET1TAB55 PO (09:58)
[2020-01-10] MEDS ORDERED: FLUC100T PO (09:58)
[2020-01-10] MEDS ORDERED: METO1TAB32 PO (09:58)
[2020-01-10 10:00] VITALS: BP 120/64
[2020-01-10] MEDS ORDERED: OXYC-423 PO ×2 (10:02→11:06)
[2020-01-10 14:00] VITALS: BP 127/69
--- NOTE | 2020-01-10 18:56 | DS.PDOC ---
Discharge Summary General Date of Admission Jan 01, 2020 at 08:03 Date of Discharge 01/10/2020 Discharge Summary Admitting provider: Dr. Víctor Hernandez PROCEDURES PERFORMED DURING STAY: [None]. ADMITTING DIAGNOSES: 1. UTI 2. colonic/GB fistula - pancreatic cysts/calcifications 3. afib 4. Chronic iron deficiency anemia 5. IDDM 6. HLD 7. CKDIII 8. Chronic hypoxic respiratory failure - 2L supplemental O2 continuously DISCHARGE DIAGNOSES: 1. Complicated UTI, cystitis with likely left pyelonephritis, fungal 2. Oligouria, likely 2/2 complicated fungal pyelonephritis, resolved as of 01/09/2020 3. KWAME 2/2 pre-renal etiology, on top of CKD, resolved on 01/09/2020 4. Bradycardia on tele 08/26 artifact 5. Chronic cholecystocolic fistula 6. Pancreatic cyst with calcifications 7. Afib on normal sinus rhythm/paced 8. Macrocytic anemia, stable 9. IDDM 10. Hyperlipidemia 11. Chronic CHF, systolic combined with diastolic, LVEF 20%. S/p biventricular ICD placement 2011 12. Chronic hypoxic respiratory failure. On baseline 2L, cont supplemental O2 13. Hypernatremia, Likely 2/2 decreased oral fluid intake, resolved COMPLICATIONS/CHIEF COMPLAINT: Fistula Of Gallbladder. HISTORY OF PRESENT ILLNESS: Pt is a 59 yo female with recurrent UTI presented for several week history of worsening left flank pain. It was noted that pt was seen outpatient for UTI and started on fluconazole, and her symptoms continue to worsened thus pt presented to [facility]. Pt reported polyuria with some urinary incontinence. She usually 2L supplemental oxygen continuously at baseline, and uses a wheelchair for ambulation. She lives at home with her . Upon admission, pt denies chest pain, shortness of breath, headaches, N/V/D. HOSPITAL COURSE: Pt's urine cx showed yeast like organism with CT evidence of cystitis and possible pyelonephritis and pt was started on fluconazole 200mg daily. Ct abd pelvis showed chronic cholecystocolic fistula with innumerable pancreatic cysts, and surgery was consulted, recommended outpt follow up. Pt also noted to have KWAME upon admission. Pt's been having oligouria which was thought to be d/t inaccurate I&O, and strict I&O monitoring was started. Fluconazole was increased to 400mg daily on 01/08/2020, and KWAME and oligouria resolved on 01/09/2020. Pt also was started on IV NS. Pt's urine culture showed yeast like organismX2, and on 01/09/2020, phone call order to [facility] lab to send out urine sample to [place] for urine sample fungal sampling. On 01/10/2020, pt was determined to be stable for discharge with oral fluconazole with outpatient follow upt for urine culture result. On the day of discharge, pt denies any nausea, vomiting, decrease appetite, fever, chills. Reported left flank pain. DISCHARGE MEDICATIONS: Please see below. ALLERGIES: Please see below. PHYSICAL EXAMINATION ON DISCHARGE: VITAL SIGNS: Please see below. General Exam: Alert, Cooperative, minimal Distress Eye Exam: Conjunctiva & lids normal. No sclera icteric ENT Exam: Atraumatic, Mucous membr. moist/pink Neck Exam: Supple Chest Exam: Clear to auscultation, Normal air movement, Diminished. No rales, rhonchi, or wheezing Heart Exam: RRR, no murmurs Abdomen Exam: Positive: Normal bowel sounds, Soft, Tenderness (in b/l lower quarants upon palpation) Extremity Exam: Moving all 4 extremities Skin Exam: No obvious LE edema/swelling Neuro Exam: Normal Speech, Normal Tone Psych Exam: Mental status NL, Memory Intact, Oriented x 3 Genitourinary exam: pos left CVA tenderness and suprapubic tenderness LABORATORY DATA: Please see below. IMAGING: Abd/pelvis CT 01/07/2020 report "no change from the prior exam of 01/01/2020. Abnormal air density persists in the gallbladder lumen and there is evidence of a large dermoid mass in the pelvis" Renal US 01/05/2020 mild nonspecific bilateral perinephric edema. Abd/pelvis CT 01/01/2020 showed fistulous communication between the gallbladder and proximal transverse colon, large pelvic ovarian dermoid, innumerable pancreatic cysts with pancreatic enlargement right adrenal nodule, and urinary bladder wall thickening PROGNOSIS: [Fair] ACTIVITY: [As tolerated]. DIET: [As tolerate] DISPOSITION: Home Health Service. DISCHARGE PLAN AND INSTRUCTIONS: 1. Take medication as prescribed 2. Establish care with pancreatic specialist in [place] ITEMS TO FOLLOWUP ON ON OUTPATIENT: 1. Chronic cholecystocolic fistula 2. Pancreatic cyst with calcifications 3. Fungal UTI with sent out urine culture lab to [place] DISCHARGE CONDITION: [Stable]. TIME SPENT ON DISCHARGE: Greater than [38] minutes. Vital Signs/I&Os Vital Signs Date Time Temp Pulse Resp B/P (MAP) Pulse Ox O2 Delivery O2 Flow Rate FiO2 01/10/20 14:00 97.7 107 18 127/69 (88) 98 Nasal Cannula 2.0 I&O- Last 24 Hours up to 6 AM 01/10/20 06:00 Intake Total 2220 ml Output Total 900 ml Balance 1320 ml Laboratory Data Labs 24H Laboratory Tests 2 01/09/20 20:34: Bedside Glucose (Misc Panel) 144H 01/10/20 06:43: Bedside Glucose (Misc Panel) 80 01/10/20 07:52: Immature Granulocyte % (Auto) 0.6, Neutrophils (%) (Auto) 69.9H, Lymphocytes (%) (Auto) 16.7L, Monocytes (%) (Auto) 9.0H, Eosinophils (%) (Auto) 3.5H, Basophils (%) (Auto) 0.3, Neutrophils # (Auto) 4.5, Lymphocytes # (Auto) 1.1L, Monocytes # (Auto) 0.6, Eosinophils # (Auto) 0.2, Basophils # (Auto) 0.0, Nucleated Red Blood Cells % (auto) 0.0, Anion Gap 4L, Glomerular Filtration Rate 59.9, Calcium Level 8.6 01/10/20 12:19: Bedside Glucose (Misc Panel) 204H CBC/BMP Laboratory Tests 01/10/20 07:52 FSBS Laboratory Tests Test 01/09/20 20:34 01/10/20 06:43 01/10/20 12:19 Range/Units Bedside Glucose (Misc Panel) 144 80 204 70-105 MG/DL Microbiology Microbiology 01/06/20 Urine Culture - Preliminary, Resulted Yeast Like Organism 01/01/20 Urine Culture - Final, Complete Yeast Like Organism 01/01/20 Blood Culture - Final, Complete NO GROWTH AFTER 5 DAYS 01/01/20 Blood Culture - Final, Complete NO GROWTH AFTER 5 DAYS Discharge Medications Scheduled Aspirin (Aspirin EC) 81 Mg Tablet.dr, 81 MG PO DAILY, (Reported) Atorvastatin Calcium (Atorvastatin Calcium) 40 Mg Tab, 40 MG PO QHS, (Reported) Digoxin (Digoxin) 125 Mcg Tablet, 62.5 MCG PO DAILY, (Reported) Ergocalciferol (Vitamin D2) (Vitamin D2) 50,000 Units Cap, 50,000 UNITS PO QWEEK, (Reported) TUESDAY Ferrous Sulfate (Ferrous Sulfate) 325 Mg Tab, 325 MG PO QHS, (Reported) Fluconazole (Fluconazole) 100 Mg Tablet, 400 MG PO DAILY, (Reported) FOR 12 DAYS, STARTED 01/10 Glimepiride (Glimepiride) 2 Mg Tab, 2 MG PO DAILY, (Reported) Insulin Glargine,Hum.rec.anlog (Basaglar Kwikpen U-100) 100 Unit/1 Ml Insuln.pen, 30 UNIT SC QHS, (Reported) Insulin Lispro (Admelog) 100 Unit/1 Ml Vial, 5 UNITS SC ACB, (Reported) Insulin Lispro (Admelog) 100 Unit/1 Ml Vial, 8 UNITS SC AC, (Reported) BEFORE LUNCH Insulin Lispro (Admelog) 100 Unit/1 Ml Vial, 8 UNIT SC ACS, (Reported) Ketoconazole (Ketoconazole) 15 Gm Cream..g., 1 APLCT TOP BID, (Reported) APPLY TO FEET Metoprolol Succinate (Metoprolol Succinate) 25 Mg Tab.er.24h, 12.5 MG PO DAILY, (Reported) Niacin (Niacin ER) 500 Mg Tab.er.24h, 500 MG PO QHS, (Reported) Nystatin (Nystatin Powder) 15 Gm Powder, 1 APLCT TOP BID, (Reported) APPLIES TO GROIN AREA AND UNDER BREASTS Scheduled PRN Acetaminophen (Acetaminophen) 325 Mg Tablet, 650 MG PO Q6H PRN for PAIN, (Reported) Oxycodone HCl (Oxycodone HCl ER) 15 Mg Tab.er.12h, 15 MG PO BID PRN for PAIN, (Reported) Allergies Coded Allergies: metformin (Verified Adverse Reaction, Severe, HX OF METABOLIC ACIDOSIS IN SETTING OF KWAME, 01/01/20) HX OF METABOLIC ACIDOSIS IN SETTING OF KWAME REQUIRING ADMISSION sacubitril (Verified Adverse Reaction, Unknown, DIZZINESS, 01/01/20) valsartan (Verified Adverse Reaction, Unknown, DIZZINESS, 01/01/20) GME ATTESTATION GME ATTESTATION My faculty preceptor for this patient encounter was physically present during the encounter and was fully available. All aspects of the patient interview, examination, medical decision making process, and medical care plan development were reviewed and approved by the faculty preceptor. The faculty preceptor is aware and concurs with the plan as stated in the body of this note and will at test to such by his/her cosignature. GME ATTESTATION GME ATTESTATION My faculty preceptor for this patient encounter was physically present during the encounter and was fully available. All aspects of the patient interview, examination, medical decision making process, and medical care plan development were reviewed and approved by the faculty preceptor. The faculty preceptor is aware and concurs with the plan as stated in the body of this note and will attest to such by his/her cosignature. ATTENDING NOTE Pt seen and examined by me. Agree with the above assessment and plan. JORDON HOWELL DO Jan 10, 2020 18:56 KARLA YARBROUGH MD Jan 12, 2020 15:19
[2020-01-11] MEDS ORDERED: OXYC-423 PO (11:12)
[2020-01-11] MEDS ORDERED: FLUC100T PO (11:12)
[2020-01-11] MEDS ORDERED: APAP325T4 PO (11:12)
[2020-01-11] MEDS ORDERED: METO1TAB32 PO (11:12)
== END 2020-01-10 15:37 | disposition home health service (06) | DRG 463 ==
LOC: EDBD 04:19 → M ED 04:19 → M ED INP 08:03 → ENRESERV 08:30 → M MS5PR 10:40 → M ICU 01-06 07:40 → M MSPAV 01-06 16:55
PROVIDERS: ADMIT Internal Medicine; ATTEND Internal Medicine
DX: N30.00 Acute cystitis without hematuria (principal); J96.11 Chronic respiratory failure with hypoxia; Z95.811 Presence of heart assist device; K63.2 Fistula of intestine; N17.9 Acute kidney failure, unspecified; E87.0 Hyperosmolality and hypernatremia; N18.3 Chronic kidney disease, stage 3 (moderate); K86.2 Cyst of pancreas; I42.0 Dilated cardiomyopathy; E11.22 Type 2 diabetes mellitus with diabetic chronic kidney disease; Z99.81 Dependence on supplemental oxygen; I50.42 Chronic combined systolic (congestive) and diastolic (congestive) heart failure; I48.91 Unspecified atrial fibrillation; B37.49 Other urogenital candidiasis; N10 Acute pyelonephritis; D50.9 Iron deficiency anemia, unspecified; E78.5 Hyperlipidemia, unspecified; R74.0 Nonspecific elevation of levels of transaminase and lactic acid dehydrogenase [LDH]; I44.7 Left bundle-branch block, unspecified; E66.9 Obesity, unspecified; R32 Unspecified urinary incontinence; E55.9 Vitamin D deficiency, unspecified; Z79.4 Long term (current) use of insulin; Z79.82 Long term (current) use of aspirin; Z79.899 Other long term (current) drug therapy; Z88.8 Allergy status to other drugs, medicaments and biological substances; Z68.33 Body mass index [BMI] 33.0-33.9, adult

== ENCOUNTER 2020-01-11 09:33 | Inpatient (IN) | payer OTHER ==
[~2020-01-11] VITALS: Ht 167.6 cm; Wt 99.5 kg
[~2020-01-11 09:33] MED LIST changes: +ACET1TAB55 PO; +FLUC100T PO; +FLUC150T PO; +KETO2CR TOP; +NIAC500T64 PO; +OXYC-423 PO
--- NOTE | 2020-01-11 10:25 | REP ---
PORTABLE CHEST X-RAY: Single view. HISTORY: Sepsis, shock. COMPARISON CHEST X-RAY: September 26, 2019. FINDINGS: A multilead pacemaker is again noted in the heart via the left side. Cardiomegaly is observed. Oxygen delivery tubing and monitoring electrodes are seen. Air bronchograms are noted in the left base similar to the prior study. Aeration in the left base is improved however compared to the prior study. Some residual or recurrent atelectasis or infiltrate in the left lower lobe cannot be excluded. Pulmonary vasculature is somewhat congested. IMPRESSION: Cardiomegaly with pacemaker and vascular congestion. Air bronchograms left base question atelectasis or recurrent infiltrate. Electronically Signed by Vincent Burgos MD 01/11/2020 12:48 P
[2020-01-11 10:28] LABS: VENOUS BASE EXCESS 2.1 (-2.0-2.0); VENOUS HCO3 27.6 MEQ/L (23.0-27.0); VENOUS PARTIAL PRESSURE CO2 48.2 mmHg (38.0-50.0); VENOUS PARTIAL PRESSURE O2 50.4 mmHg (30.0-50.0); VENOUS PH 7.376 UNITS (7.330-7.430); VENOUS STANDARD HCO3 26.1 MEQ/L; VENOUS TOTAL CO2 29.1 MEQ/L (24.0-28.0)
[2020-01-11 10:34] LABS: BASO % 0.6 % (0.0-1.0); EOS # 0.1 10^3/uL (0.0-0.5); EOS % 2.5 % (0.0-3.0); HEMATOCRIT 28.5 % (36.0-47.0); HEMOGLOBIN 8.5 g/dl (12.0-15.5); LYMPH # 1.3 10^3/uL (1.5-5.0); LYMPH % 25.4 % (24.0-44.0); MEAN CORPUSCULAR HEMOGLOBIN 31.5 pg (27.0-33.0); MEAN CORPUSCULAR HGB CONC 29.8 g/dl (32.0-36.5); MEAN CORPUSCULAR VOLUME 105.6 fl (80.0-96.0); MONO # 0.6 10^3/uL (0.0-0.8); MONO % 10.8 % (0.0-5.0); NEUTROPHILS # 3.2 10^3/uL (1.5-8.5); NEUTROPHILS % 60.3 % (36.0-66.0); PLATELET COUNT, AUTOMATED 193 10^3/uL (150-450); WHITE BLOOD COUNT 5.3 10^3/uL (4.0-10.0)
[2020-01-11 10:45] LABS: INR 1.31
[2020-01-11 10:46] LABS: PARTIAL THROMBOPLASTIN TIME 27.1 SECONDS (25.0-38.4)
[2020-01-11 10:58] LABS: ALBUMIN 2.7 GM/DL (3.2-5.2); BILIRUBIN,DIRECT 0.1 MG/DL (0.0-0.2); BILIRUBIN,TOTAL 0.3 MG/DL (0.2-1.0); C REACTIVE PROTEIN QUANTITATIV 7.88 MG/DL (0.00-0.30); CALCIUM LEVEL 8.8 MG/DL (8.5-10.1); CREATININE FOR GFR 1.16 MG/DL (0.55-1.30); GLOMERULAR FILTRATION RATE 51.1 (>51); MB/CK RELATIVE INDEX 2.75 (< OR =4); POTASSIUM SERUM 3.9 MEQ/L (3.5-5.1); TOTAL PROTEIN 6.2 GM/DL (6.4-8.2); TROPONIN I 0.08 NG/ML (< 0.10)
[2020-01-11] MEDS ORDERED: OXYC-423 PO (11:12)
[2020-01-11] MEDS ORDERED: APAP325T4 PO (11:12)
[2020-01-11] MEDS ORDERED: METO1TAB32 PO (11:12)
[2020-01-11] MEDS ORDERED: FLUC100T PO (11:12)
[2020-01-11 12:39] LABS: DIGOXIN LEVEL 0.6 NG/ML (0.5-2.0)
[2020-01-11 15:32] LABS: FREE T4 1.04 NG/DL (0.76-1.46); THYROID STIMULATING HORMONE 2.62 uIU/ML (0.358-3.740)
[2020-01-11 15:58] VITALS: BP 120/67
--- NOTE | 2020-01-11 17:01 | HPEPDOC ---
[facility] Medical History & Physical Date of Admission Jan 11, 2020 Date of Service: Jan 11, 2020 Attending Physician: KARLA YARBROUGH MD History and Physical CHIEF COMPLAINT: Left flank pain, hypotension, confusion HISTORY OF PRESENT ILLNESS: Patient is a 59-year-old female with a past mental history significant for nonischemic cardiomyopathy with systolic and diastolic dysfunction with eft ventricular ejection fraction 20%, biventricular AICD, atrial fibrillation, diabetes mellitus type 2, chronic kidney disease and chronic hypoxic respiratory failure who was recently discharged from [facility] on 01/10/2020 after being treated for a presumed pyelonephritis. The patient presented to the [facility] emergency department with complaint of left flank pain. According to the patient she had left flank pain which was no different from previously. She was taking her oxycodone as prescribed, however, stated that her pain was not improving. Additionally she had difficulty getting around her house and her was unable to help her. She had called her home health care nurse who states she was unable to see the patient until later in the day. Patient states that her nurse then called EMS. When EMS arrived, the patient continued to complain of left flank pain. Ac cording to EMS, the patient was noted to be lethargic and hypotensive with a systolic blood pressure in the 70s. EMS started peripheral norepinephrine infusion at 6 mcg/m. On presentation to [facility] emergency department, the patient was vitally stable, mean arterial pressure remained above 65. She was afebrile with no leukocytosis. Labs did demonstrate mild elevation of her transaminases. Otherwise no significant findings. The patient herself states that her left flank pain is the same as it has been since her discharge. She denies any lightheadedness. She has any confusion. She denies any fevers, chills, nausea, vomiting or diarrhea. PAST MEDICAL HISTORY: 1. Nonischemic cardiomyopathy with systolic and diastolic dysfunction. Left ventricular ejection fraction 20%. 2., Biventricular AICD. 3., Atrial fibrillation. 4. Diabetes mellitus type 2. 5. Chronic macrocytic anemia without B12 or folate deficiency. 6. Hyperlipidemia. 7. Vitamin D deficiency. 8. Chronic kidney disease stage III. 9. Chronic hypoxic respiratory failure on 2 L nasal cannula at baseline PAST SURGICAL HISTORY: 1. Biventricular pacemaker with AICD. 2. Status post lithotripsy. 3. Bilateral cataract surgery. SOCIAL HISTORY: Patient was at home with her . Her helps care for her. She states that he helps with most of her ADLs. She denies any current smoking or alcohol use. She states that she does not have stairs in her house and does have a ramp to get in. ALLERGIES: Please see below. REVIEW OF SYSTEMS: CONSTITUTIONAL: Fevers, chills, unintentional weight loss or weight gain. HEENT:. Denies dysphagia or odynophagia. Denies change in vision CARDIOVASCULAR:. Denies chest pain, pressure or palpitations. RESPIRATORY:. Denies shortness of breath from baseline. Denies cough. Denies wheezing. GASTROINTESTINAL: Denies abdominal pain. Admits to left flank pain which is chronic. Denies diarrhea, denies constipation, denies nausea, vomiting. GENITOURINARY:. Denies discomfort with urination. Denies increased frequency, urgency. SKIN:. Denies any rashes or lesions. MUSCULOSKELETAL:. Admits to chronic weakness. NEUROLOGICAL:. Denies any changes in speech from baseline PSYCHIATRIC:. Admits to depression. Denies anxiety. ENDOCRINE: Admits to history of diabetes. HEMATOLOGIC/LYMPHATIC: Denies easy bruising, bleeding. Denies any history of DVT or pulling embolism. HOME MEDICATIONS: Please see below. PHYSICAL EXAMINATION: VITAL SIGNS: Temperature 96.9, pulse 77, respiratory rate 18, blood pressure 109\58, pulse oximetry 91% on 2L GENERAL APPEARANCE: Awake, alert, oriented, appears in no acute distress, lying comfortably in stretcher HEENT: Atraumatic, normocephalic. Eyes are nonicteric. Trachea is midline. Dentition is poor. CARDIOVASCULAR:. Normal S1, S2, regular rate and rhythm. 2/6 systolic ejection murmur present. No clicks or rubs. No JVD LUNGS: Clear vesicular breath sounds bilaterally. Good respiratory effort. No wheezes, rhonchi or rales. Diminished breath sounds in the bases bilaterally, symmetric chest expansion. ABDOMEN: Soft, nondistended, morbidly obese, nontender, normoactive bowel sounds. Slight tenderness on left flank. EXTREMITIES: No edema. Full and equal pulses in bilateral lower extremities. NEUROLOGICAL: No focal neurological deficits. PSYCHIATRIC:. Mood and affect appropriate. LABORATORY DATA: See below. IMAGING: PORTABLE CHEST X-RAY: Single view. HISTORY: Sepsis, shock. COMPARISON CHEST X-RAY: September 26, 2019. FINDINGS: A multilead pacemaker is again noted in the heart via the left side. Cardiomegaly is observed. Oxygen delivery tubing and monitoring electrodes are seen. Air bronchograms are noted in the left base similar to the prior study. Aeration in the left base is improved however compared to the prior study. Some residual or recurrent atelectasis or infiltrate in the left lower lobe cannot be excluded. Pulmonary vasculature is somewhat congested. IMPRESSION: Cardiomegaly with pacemaker and vascular congestion. Air bronchograms left base question atelectasis or recurrent infiltrate. Electronically Signed by Vincent Burgos MD 01/11/2020 12:48 P MICROBIOLOGY: Please see below. ASSESSMENT: Patient is a 59-year-old female with multiple comorbidities who presented [facility] emergency department with left flank pain and reported hypotension. . PLAN: 1. Altered mental status -Patient was reported to be lethargic with possible altered mental status ED summary report. Patient herself denies any confusion. She appears to be at her baseline mentation as she is known to me from her previous admission. 2. Hypotension -Patient was reportedly hypotensive. Per EMS report, with a systolic blood pressure of 70. She reportedly been started on peripheral norepinephrine. [facility] er, on presentation the department, the patient's mean arterial pressure has remained above 65. She is not tachycardic. She does not have an elevated white blood cell count. There has been no witnessed hypotension while present in the ED, will continue to monitor, although sepsis is unlikely as she was discharged from the hospital yesterday and has received both IV antibiotics as well as anti-fungals. She has been afebrile -Consider adrenal insufficiency. However, patient is no history of long-term steroid use. Additionally, she is hypernatremic making adrenal insufficiency unlikely. However, will order a random cortisol to assess. -Will continue to monitor 3. Left Flank Pain -Patient has had extensive work up for her left flank pain. She has received CT imaging during her previous hospitalization which has demonstrated a chronic gallbladder fistula. Additionally, a large pelvic ovarian dermoid measuring 11/4 x 9.1 x 10.4 cm as well as numberous pancreatic cysts with secondary pancreatic enlargement particularly in the body which is enlarged from previous imaging. -Patients Left Flank pain is likely chronic. During her recent hospitalization she has received 5 days of Meropenem, 5 days of Zosyn, and one week of oral fluconazole. Previous urine culture grew only yeast. She was treated with oral fluconazole although this is likely a commensal and not an acute fungal cystitis. At this point will not start antibiotics. Will continue her Fluconazole for the next 7 days to complete her previous treatment however this is unlikely to be an infectious issue 4. CT image Findings -Patient has innumerable pancreatic cysts with pancreatic enlargement particularly in the body of the pancreas which is new or enlarged from prior studies. This has been reported concerning for possible intraductal papillary mucinous neoplasm (IPMN). Patient had been informed about this during her recent hospitalization. She has been recommended to see a pancreatic specialist in [place] as IPMN may be pre-cancerous. -Previous hospitalization demonstrated elevated CA-19-9 5. Deconditioning -Patient is deconditioned. She is unable to care for herself at home. Her is unable to provide the level of care that is necessary. The patient herself has voiced this. She will need placement. -PFS consult has been placed 6. Transaminitis -Patient has elevated transaminases today. Cause is unclear. Reportedly she was hypotensive however shock liver typically presents with AST and ALT > 1000. This is likely secondary to medication. Patient was recently started on Fluconazole which is likely the source of her transaminitis. Additionally she is on a statin -Will hold statin -Continue Fluconazole for 1 more week -Will trend LFTs. Patient will likely need repeat in 3 months to ensure complete resolution -Will not order liver ultrasound as patient had recently received CT imaging of her abdomen which did not demonstrate any liver findings 7. Nonischemic Cardiomyopathy with Systolic and Diastolic Dysfunction LVEF 20% -Continue ASA -Continue Toprol XL 8. Atrial Fibrillation -Continue Digoxin and ASA. Patient is not on anticoagulation at home. Will inquire as to why 9. DVT Prophylaxis -Heparin SQ Vital Signs Vital Signs Date Time Temp Pulse Resp B/P (MAP) Pulse Ox O2 Delivery O2 Flow Rate FiO2 01/11/20 15:15 109/53 (71) 01/11/20 15:10 81 18 100 Room Air 01/11/20 12:05 2.0 01/11/20 09:46 96.9 Laboratory Data Labs 24H Laboratory Tests 2 01/11/20 09:44: Immature Granulocyte % (Auto) 0.4, Neutrophils (%) (Auto) 60.3, Lymphocytes (%) (Auto) 25.4, Monocytes (%) (Auto) 10.8H, Eosinophils (%) (Auto) 2.5, Basophils (%) (Auto) 0.6, Neutrophils # (Auto) 3.2, Lymphocytes # (Auto) 1.3L, Monocytes # (Auto) 0.6, Eosinophils # (Auto) 0.1, Basophils # (Auto) 0.0, Nucleated Red Blood Cells % (auto) 0.0, Prothrombin Time 16.0H, Prothromb Time International Ratio 1.31, Activated Partial Thromboplast Time 27.1, Anion Gap 5L, Glomerular Filtration Rate 51.1, Calcium Level 8.8, Total Bilirubin 0.3, Direct Bilirubin 0.1, Aspartate Amino Transf (AST/SGOT) 101H, Alanine Aminotransferase (ALT/SGPT) 131H, Alkaline Phosphatase 236H, Total Creatine Kinase 109, Creatine Kinase MB 3.0, Creatine Kinase MB Relative Index 2.75, Troponin I 0.08, C-Reactive Protein, Quantitative 7.88H, Total Protein 6.2L, Albumin 2.7L, Albumin/Globulin Ratio 0.8L, Amylase Level 13L, Digoxin Level 0.6 01/11/20 10:05: Blood Gas Bicarbonate Standard 26.1, Venous Blood pH 7.376, Venous Blood Partial Pressure CO2 48.2, Venous Blood Partial Pressure O2 50.4H, Venous Blood Total Carbon Dioxide 29.1H, Venous Blood HCO3 27.6H, Venous Blood Oxygen Saturation 86.0H, Venous Blood Base Excess 2.1H 01/11/20 10:54: Bedside Glucose (Misc Panel) 98 01/11/20 10:55: POC Lactate (Misc Panel) 1.19 01/11/20 11:12: POC pH (Misc Panel) 7.344L, POC Base Excess (Misc Panel) 2.0, POC Saturated Percent O2 (Misc) 95, POC pO2 (Misc Panel) 79.0L, POC pCO2 (Misc Panel) 50.3H, POC HCO3 (Misc Panel) 27.4H, POC Total CO2 (Misc Panel) 29.0H 01/11/20 14:43: Ammonia < 10, Thyroid Stimulating Hormone (TSH) 2.620, Free Thyroxine 1.04 CBC/BMP Laboratory Tests 01/11/20 09:44 Microbiology Microbiology 01/11/20 Blood Culture, Received Pending 01/11/20 Blood Culture, Received Pending Home Medications Scheduled Aspirin (Aspirin EC) 81 Mg Tablet.dr, 81 MG PO DAILY Atorvastatin Calcium (Atorvastatin Calcium) 40 Mg Tab, 40 MG PO QHS Digoxin (Digoxin) 125 Mcg Tablet, 62.5 MCG PO DAILY Ergocalciferol (Vitamin D2) (Vitamin D2) 50,000 Units Cap, 50,000 UNITS PO QWEEK TUESDAY Ferrous Sulfate (Ferrous Sulfate) 325 Mg Tab, 325 MG PO QHS Fluconazole (Fluconazole) 100 Mg Tablet, 400 MG PO DAILY FOR 12 DAYS, STARTED 01/10 Glimepiride (Glimepiride) 2 Mg Tab, 2 MG PO DAILY Insulin Glargine,Hum.rec.anlog (Basaglar Kwikpen U-100) 100 Unit/1 Ml Insuln.pen, 30 UNIT SC QHS Insulin Lispro (Admelog) 100 Unit/1 Ml Vial, 5 UNITS SC ACB Insulin Lispro (Admelog) 100 Unit/1 Ml Vial, 8 UNITS SC AC BEFORE LUNCH Insulin Lispro (Admelog) 100 Unit/1 Ml Vial, 8 UNIT SC ACS Ketoconazole (Ketoconazole) 15 Gm Cream..g., 1 APLCT TOP BID APPLY TO FEET Metoprolol Succinate (Metoprolol Succinate) 25 Mg Tab.er.24h, 12.5 MG PO DAILY Niacin (Niacin ER) 500 Mg Tab.er.24h, 500 MG PO QHS Nystatin (Nystatin Powder) 15 Gm Powder, 1 APLCT TOP BID APPLIES TO GROIN AREA AND UNDER BREASTS Scheduled PRN Acetaminophen (Acetaminophen) 325 Mg Tablet, 650 MG PO Q6H PRN for PAIN Oxycodone HCl (Oxycodone HCl ER) 15 Mg Tab.er.12h, 15 MG PO BID PRN for PAIN Allergies Coded Allergies: metformin (Verified Adverse Reaction, Severe, HX OF METABOLIC ACIDOSIS IN SETTING OF KWAME, 01/01/20) HX OF METABOLIC ACIDOSIS IN SETTING OF KWAME REQUIRING ADMISSION sacubitril (Verified Adverse Reaction, Unknown, DIZZINESS, 01/01/20) valsartan (Verified Adverse Reaction, Unknown, DIZZINESS, 01/01/20) A-FIB/CHADSVASC A-FIB History Current/History of A-Fib/PAF?: Yes Current PO Anticoag Therapy: No Age/Risk Factor Scoring CHADSVASC: CHADSVASC Response (Comments) Value Age Risk Factor Age < 65 years old 0 Gender Risk Factor Female 1 Hx of CHF Yes 1 Hx of HTN No 0 Hx of Stroke/TIA/or VTE No 0 Hx of Diabetes Yes 1 Hx of Vascular Disease No 0 Total 3 Treatment Treatment ordered: NONE, Other (ASA) Other anticoagulant ordered: ASA Reason Anticoagulant not given: Other (Discontinued by patients outside provider ) Other reason anticoagulant not: Discontinued by Patients concessionist. ASA GME ATTESTATION GME ATTESTATION My faculty preceptor for this patient encounter was physically present during the encounter and was fully available. All aspects of the patient interview, examination, medical decision making process, and medical care plan development were reviewed and approved by the faculty preceptor. The faculty preceptor is aware and concurs with the plan as stated in the body of this note and will attest to such by his/her cosignature. ATTENDING NOTE Pt seen and examined by me. Agree with the above assessment and plan. ANIYAH ASHBY DO Jan 11, 2020 17:01 KARLA YARBROUGH MD Jan 12, 2020 15:13
[2020-01-11 17:17] LABS: CORTISOL BASELINE 18.6 UG/DL (4.3-22.4)
[2020-01-11] MEDS: HEPARIN SOD (PORCINE) 5000UNITS/ML VIAL (J1644 PER 1000UNITS) SQ SCH (20:28)
[2020-01-11] MEDS: FERROUS SULFATE 325MG TAB PO SCH (20:28)
[2020-01-11 22:00] VITALS: BP 117/64
[2020-01-12] MEDS: oxyCODONE 15 MG CR TAB PO PRN ×2 (00:31→17:49)
[2020-01-12] MEDS: HEPARIN SOD (PORCINE) 5000UNITS/ML VIAL (J1644 PER 1000UNITS) SQ SCH ×3 (05:16→20:58)
[2020-01-12 06:00] VITALS: BP 113/61
--- NOTE | 2020-01-12 08:01 | ECGEPIP ---
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
[2020-01-12 08:32] LABS: HEMATOCRIT 27.2 % (36.0-47.0); HEMOGLOBIN 7.9 g/dl (12.0-15.5); MEAN CORPUSCULAR HEMOGLOBIN 31.5 pg (27.0-33.0); MEAN CORPUSCULAR VOLUME 108.4 fl (80.0-96.0); PLATELET COUNT, AUTOMATED 202 10^3/uL (150-450); RED BLOOD COUNT 2.51 10^6/uL (4.00-5.40); WHITE BLOOD COUNT 5.7 10^3/uL (4.0-10.0)
[2020-01-12 08:53] VITALS: BP 115/55
[2020-01-12] MEDS: DIGOXIN 0.0625MG PER 1/2TABLET PO SCH (09:00)
[2020-01-12] MEDS: METOPROLOL SUCC *XL* 12.5MG PER 1/2 TAB (TopROL *XL*) PO SCH (09:00)
[2020-01-12] MEDS: FLUCONAZOLE 100 MG TAB PO SCH (09:01)
[2020-01-12] MEDS: ASPIRIN 81 MG ENTERIC TAB PO SCH (09:01)
[2020-01-12 09:05] LABS: ALBUMIN 2.4 GM/DL (3.2-5.2); BILIRUBIN,TOTAL 0.2 MG/DL (0.2-1.0); CALCIUM LEVEL 8.7 MG/DL (8.5-10.1); CREATININE FOR GFR 1.12 MG/DL (0.55-1.30); GLOMERULAR FILTRATION RATE 53.2 (>51); TOTAL PROTEIN 5.7 GM/DL (6.4-8.2)
[2020-01-12] MEDS ORDERED: GLUCOSE 4GM CHEW TABLET PO PRN (10:15)
[2020-01-12] MEDS ORDERED: GLUCAGON INJ 1MG VIAL SC PRN (10:15)
[2020-01-12] MEDS ORDERED: DEXTROSE 50% 50 ML SYRINGE IV PRN (10:15)
--- NOTE | 2020-01-12 11:43 | IPNPDOC ---
Date Seen The patient was seen on 01/12/20. Progress Note SUBJECTIVE: Patient was seen and examined this morning. There has been no acute events overnight. Patient has continued left flank pain which is unchanged from her chronic pain. She states that she is aware of this. She denies any other symptoms. She denies lightheadedness. She denies nausea, vomiting, diarrhea, or constipation. Patient states that she is aware that she needs to see a pancreat ic specialist in [place] however she is unsure if her insurance will cover this OBJECTIVE PHYSICAL EXAMINATION: VITAL SIGNS: Please see below. GENERAL: Awake, alert, oriented, appears in no acute distress, lying comfortably in stretcher HEENT: Atraumatic, normocephalic. Eyes are nonicteric. Trachea is midline. Dentition is poor. CARDIOVASCULAR:. Normal S1, S2, regular rate and rhythm. 2/6 systolic ejection murmur present. No clicks or rubs. No JVD LUNGS: Clear vesicular breath sounds bilaterally. Good respiratory effort. No wheezes, rhonchi or rales. Diminished breath sounds in the bases bilaterally, symmetric chest expansion. ABDOMEN: Soft, nondistended, morbidly obese, nontender, normoactive bowel sounds. Slight tenderness on left flank. EXTREMITIES: No edema. Full and equal pulses in bilateral lower extremities. NEUROLOGICAL: No focal neurological deficits. PSYCHIATRIC:. Mood and affect appropriate. LABORATORY DATA, IMAGING STUDIES, MICROBIOLOGY: Please see below. DVT prophylaxis ordered?: Heparin SQ ASSESSMENT: Patient is a 59-year-old female with multiple comorbidities who presented [facility] emergency department with left flank pain and reported hypotension. . PLAN: 1. Altered mental status -Resolved. Question as to whether patient was ever altered. She has alert and oriented x3 since admission. She does have a baseline speech slurring which is consistent with her previous admission 2. Hypotension -Patient runs soft BPs at her baseline. She was reportedly hypotensive per EMS. MAPs have all been greater 65 while in hospital. 3. Left Flank Pain -Patient has had extensive work up for her left flank pain. She has received CT imaging during her previous hospitalization which has demonstrated a chronic gallbladder fistula. Additionally, a large pelvic ovarian dermoid measuring 11/4 x 9.1 x 10.4 cm as well as numberous pancreatic cysts with secondary pancreatic enlargement particularly in the body which is enlarged from previous imaging. -Left flank pain is chronic. No indications for antibiotics. Her pain is not from pyelonephritis. 4. CT image Findings -Patient has innumerable pancreatic cysts with pancreatic enlargement particu larly in the body of the pancreas which is new or enlarged from prior studies. This has been reported concerning for possible intraductal papillary mucinous neoplasm (IPMN). Patient had been informed about this during her recent hospitalization. She has been recommended to see a pancreatic specialist in [place] as IPMN may be pre-cancerous. -Previous hospitalization demonstrated elevated CA-19-9 5. Deconditioning -Patient is deconditioned. She is unable to care for herself at home. Her moodyand is unable to provide the level of care that is necessary. The patient herself has voiced this. She will need placement. -PFS consult has been placed 6. Transaminitis -Liver enzymes are trending down. Likely due to statin and fluconazole. Will continue to trend 7. Nonischemic Cardiomyopathy with Systolic and Diastolic Dysfunction LVEF 20% -Continue ASA -Continue Toprol XL 8. Atrial Fibrillation -Continue Digoxin and ASA. Patient is not on anticoagulation at home. Will inquire as to why 9. DVT Prophylaxis -Heparin SQ DISPOSITION: Patient will need placement for [facility] care. She is unable to care for herself at home VS, I&O, 24H, Laureanobone Vital Signs/I&O Vital Signs Date Time Temp Pulse Resp B/P (MAP) Pulse Ox O2 Delivery O2 Flow Rate FiO2 01/12/20 09:00 53 115/55 01/12/20 06:00 98.1 14 97 Nasal Cannula 2.0 I&O- Last 24 Hours up to 6 AM 01/12/20 06:00 Intake Total 720 ml Output Total 200 ml Balance 520 ml Laboratory Data 24H LABS Laboratory Tests 2 01/11/20 10:05: Blood Gas Bicarbonate Standard 26.1, Venous Blood pH 7.376, Venous Blood Partial Pressure CO2 48.2, Venous Blood Partial Pressure O2 50.4H, Venous Blood Total Carbon Dioxide 29.1H, Venous Blood HCO3 27.6H, Venous Blood Oxygen Saturation 86.0H, Venous Blood Base Excess 2.1H 01/11/20 10:54: Bedside Glucose (Misc Panel) 98 01/11/20 10:55: POC Lactate (Misc Panel) 1.19 01/11/20 11:12: POC pH (Misc Panel) 7.344L, POC Base Excess (Misc Panel) 2.0, POC Saturated Percent O2 (Misc) 95, POC pO2 (Misc Panel) 79.0L, POC pCO2 (Misc Panel) 50.3H, POC HCO3 (Misc Panel) 27.4H, POC Total CO2 (Misc Panel) 29.0H 01/11/20 14:43: Ammonia < 10, Thyroid Stimulating Hormone (TSH) 2.620, Free Thyroxine 1.04, Cortisol Baseline 18.6 01/12/20 07:27: Nucleated Red Blood Cells % (auto) 0.0, Anion Gap 4L, Glomerular Filtration Rate 53.2, Calcium Level 8.7, Total Bilirubin 0.2, Aspartate Amino Transf (AST/SGOT) 54H, Alanine Aminotransferase (ALT/SGPT) 92H, Alkaline Phosphatase 197H, Total Protein 5.7L, Albumin 2.4L, Albumin/Globulin Ratio 0.7L CBC/BMP Laboratory Tests 01/12/20 07:27 Microbiology Microbiology 01/11/20 Blood Culture, Received Pending 01/11/20 Blood Culture, Received Pending GME ATTESTATION GME ATTESTATION My faculty preceptor for this patient encounter was physically present during the encounter and was fully available. All aspects of the patient interview, examination, medical decision making process, and medical care plan development were reviewed and approved by the faculty preceptor. The faculty preceptor is aware and concurs with the plan as stated in the body of this note and will attest to such by his/her cosignature. ATTENDING NOTE Pt seen and examined by me. Agree with the above assessment and plan. ANIYAH ASHBY DO Jan 12, 2020 10:06 KARLA YARBROUGH MD Jan 12, 2020 15:14
[2020-01-12] MEDS: HumaLOG INSULIN (NovoLOG) PER UNIT SC SCH ×3 (12:19→20:58)
[2020-01-12 14:00] VITALS: BP 94/42
[2020-01-12 15:29] VITALS: BP 94/42
[2020-01-12] MEDS: MIDODRINE 2.5 MG TAB PO SCH (17:02)
[2020-01-12 20:00] VITALS: BP 98/54
[2020-01-12] MEDS: FERROUS SULFATE 325MG TAB PO SCH (20:57)
[2020-01-13] MEDS: HEPARIN SOD (PORCINE) 5000UNITS/ML VIAL (J1644 PER 1000UNITS) SQ SCH ×3 (05:42→21:47)
[2020-01-13 06:04] VITALS: BP 104/66
[2020-01-13] MEDS: HumaLOG INSULIN (NovoLOG) PER UNIT SC SCH ×4 (07:45→21:00)
[2020-01-13] MEDS: MIDODRINE 2.5 MG TAB PO SCH ×3 (07:46→16:41)
[2020-01-13] MEDS: ASPIRIN 81 MG ENTERIC TAB PO SCH (07:46)
[2020-01-13] MEDS: METOPROLOL SUCC *XL* 12.5MG PER 1/2 TAB (TopROL *XL*) PO SCH (07:46)
[2020-01-13] MEDS: FLUCONAZOLE 100 MG TAB PO SCH (07:46)
[2020-01-13] MEDS: DIGOXIN 0.0625MG PER 1/2TABLET PO SCH (07:47)
[2020-01-13 07:56] LABS: HEMATOCRIT 30.7 % (36.0-47.0); HEMOGLOBIN 8.8 g/dl (12.0-15.5); MEAN CORPUSCULAR HEMOGLOBIN 31.9 pg (27.0-33.0); MEAN CORPUSCULAR HGB CONC 28.7 g/dl (32.0-36.5); MEAN CORPUSCULAR VOLUME 111.2 fl (80.0-96.0); PLATELET COUNT, AUTOMATED 236 10^3/uL (150-450); RED BLOOD COUNT 2.76 10^6/uL (4.00-5.40); WHITE BLOOD COUNT 9.8 10^3/uL (4.0-10.0)
[2020-01-13] MEDS: oxyCODONE 15 MG CR TAB PO PRN (13:29)
--- NOTE | 2020-01-13 15:45 | IPNPDOC ---
Date Seen The patient was seen on 01/13/20. Progress Note SUBJECTIVE: Patient appeared weak and does not move around much. Does not report any new complaints today but states that she still get occasional L. flank pain that has been relatively chronic for her. Denies any fever, chills, nausea, vomiting or other complaints however. Na 150 today, LFTs trending down. Afebrile overnight. OBJECTIVE PHYSICAL EXAMINATION: VITAL SIGNS: Please see below. General: No acute distress, Alert, generalized malaise Eyes: Normal sclera, EOMI HENT: Atraumatic Cardiovascular: Normal rate, normal rhythm. Pulmonary: Clear to auscultation b/l, no wheezing GI: Soft, nontender, nondistended MSK: L. sided flank soreness/tenderness Skin: Warm and dry Neuro: CN grossly intact. No focal deficits. Strengths equal b/l. Psych: oriented x 3 LABORATORY DATA, IMAGING STUDIES, MICROBIOLOGY: Please see below. DVT prophylaxis ordered?: HSQ ASSESSMENT AND PLAN: 59 yo female presented to [facility] with reported hypotension and L. flank pain 1. L. flank pain - Reportedly chronic and has had previous work up including CT abdomen showing chronic GB fistula, pelvic ovarian dermoid and numerous pancreatic cysts. - Has been afebrile with relatively stable BP since admission without use of antibiotics. - Blood cultures negative x2. Recently completed treatment for presumed pyelonephritis and discharged from [facility] on 01/10/20 with ant in urine. - No evidence of infection on this admission. 2. Hypotension - Lower BP at baseline, fluctuates during hospitalization but MAP >65. 3. Pancreatic cysts - Concern for Papilary mucinous neoplasm and was recommended to see pancreatic specialist in [place] as IPMN may be precancerous on previous admission. - Elevated CA 19-9 during previous admission. - Need f/u post discharge. 4. Deconditioning - PSF consult. PT/OT. Likely will need placement. 5. Transaminitis - Trending down. likely 2/2 statin and fluconazole. 6. NICM with systolic and diastolic dysfunction LVEF 20% - c/w ASA and metoprolol. 7. afib - Controlled on digoxin. not on AC. DISPOSITION: Likely prison placement. VS, I&O, 24H, Fishbone Vital Signs/I&O Vital Signs Date Time Temp Pulse Resp B/P (MAP) Pulse Ox O2 Delivery O2 Flow Rate FiO2 01/13/20 13:29 17 01/13/20 08:20 2.0 01/13/20 07:47 99 01/13/20 07:46 127/63 01/13/20 06:04 98.6 98 Nasal Cannula I&O- Last 24 Hours up to 6 AM 01/13/20 06:00 Intake Total 600 ml Output Total 300 ml Balance 300 ml Laboratory Data 24H LABS Laboratory Tests 2 01/12/20 16:59: Bedside Glucose (Misc Panel) 132H 01/12/20 20:56: Bedside Glucose (Misc Panel) 129H 01/13/20 06:38: Bedside Glucose (Misc Panel) 113H 01/13/20 06:51: Nucleated Red Blood Cells % (auto) 0.2H 01/13/20 11:31: Bedside Glucose (Misc Panel) 160H CBC/BMP Laboratory Tests 01/13/20 06:51 Microbiology Microbiology 01/11/20 Blood Culture - Preliminary, Resulted No Growth after 48 hours. All Specime... 01/11/20 Blood Culture - Preliminary, Resulted No Growth after 48 hours. All Specime... TEJINDER COBB MD Jan 13, 2020 15:45
[2020-01-13 16:00] VITALS: BP 108/63
[2020-01-13] MEDS: FERROUS SULFATE 325MG TAB PO SCH (21:47)
[2020-01-13 22:00] VITALS: BP 99/69
[2020-01-14] VITALS (47 sets, daily range): BP systolic 81–130; BP diastolic 41–85; O2SAT 99
[2020-01-14] MEDS: HEPARIN SOD (PORCINE) 5000UNITS/ML VIAL (J1644 PER 1000UNITS) SQ SCH ×3 (05:08→20:37)
[2020-01-14 06:42] LABS: HEMATOCRIT 30.4 % (36.0-47.0); HEMOGLOBIN 8.5 g/dl (12.0-15.5); MEAN CORPUSCULAR HEMOGLOBIN 31.5 pg (27.0-33.0); MEAN CORPUSCULAR VOLUME 112.6 fl (80.0-96.0); PLATELET COUNT, AUTOMATED 251 10^3/uL (150-450); WHITE BLOOD COUNT 12.2 10^3/uL (4.0-10.0)
[2020-01-14] MEDS: HumaLOG INSULIN (NovoLOG) PER UNIT SC SCH ×5 (07:30→23:27)
[2020-01-14 07:38] LABS: ALBUMIN 2.6 GM/DL (3.2-5.2); BILIRUBIN,TOTAL 0.4 MG/DL (0.2-1.0); CALCIUM LEVEL 9.2 MG/DL (8.5-10.1); CREATININE FOR GFR 1.68 MG/DL (0.55-1.30); GLOMERULAR FILTRATION RATE 33.3 (>51); POTASSIUM SERUM 4.4 MEQ/L (3.5-5.1); TOTAL PROTEIN 6.4 GM/DL (6.4-8.2)
[2020-01-14] MEDS: MIDODRINE 2.5 MG TAB PO SCH ×3 (08:00→17:12)
[2020-01-14] MEDS ORDERED: NS 500 ML IV ONE ×2 (08:15→08:45)
[2020-01-14 08:41] LABS: ABG HCO3 26.1 MEQ/L (22.0-26.0); ABG O2 SATURATION 92.9 % (95.0-99.0); ABG PARTIAL PRESSURE O2 67.8 mmHg (75.0-100.0); ABG STANDARD HCO3 21.9 MEQ/L (22.0-26.0); ABG TOTAL CO2 28.3 MEQ/L (22.0-29.0)
[2020-01-14 08:46] LABS: ABG PARTIAL PRESSURE CO2 72.3 mmHg (35.0-45.0); ABG pH (ARTERIAL) 7.175 UNITS (7.350-7.450)
[2020-01-14 08:54] LABS: C REACTIVE PROTEIN QUANTITATIV 8.93 MG/DL (0.00-0.30)
[2020-01-14 08:57] LABS: BASO % 0.3 % (0.0-1.0); EOS # 0.1 10^3/uL (0.0-0.5); EOS % 1.3 % (0.0-3.0); HEMATOCRIT 30.5 % (36.0-47.0); HEMOGLOBIN 8.6 g/dl (12.0-15.5); LYMPH # 0.9 10^3/uL (1.5-5.0); LYMPH % 8.2 % (24.0-44.0); MEAN CORPUSCULAR HEMOGLOBIN 31.6 pg (27.0-33.0); MEAN CORPUSCULAR HGB CONC 28.2 g/dl (32.0-36.5); MEAN CORPUSCULAR VOLUME 112.1 fl (80.0-96.0); MONO # 0.8 10^3/uL (0.0-0.8); MONO % 7.4 % (0.0-5.0); NEUTROPHILS # 8.9 10^3/uL (1.5-8.5); NEUTROPHILS % 81.5 % (36.0-66.0); PLATELET COUNT, AUTOMATED 253 10^3/uL (150-450); RED BLOOD COUNT 2.72 10^6/uL (4.00-5.40); WHITE BLOOD COUNT 10.9 10^3/uL (4.0-10.0)
[2020-01-14] MEDS: ASPIRIN 81 MG ENTERIC TAB PO SCH (09:00)
[2020-01-14] MEDS: FLUCONAZOLE 100 MG TAB PO SCH (09:00)
[2020-01-14] MEDS: DIGOXIN 0.0625MG PER 1/2TABLET PO SCH (09:00)
[2020-01-14] MEDS: METOPROLOL SUCC *XL* 12.5MG PER 1/2 TAB (TopROL *XL*) PO SCH (09:00)
[2020-01-14] MEDS: CHLORHEXIDINE GLUCONATE 0.12 % 15ML UDC (PERIDEX ORAL RINSE) MT SCH ×2 (09:00→20:37)
[2020-01-14] MEDS: FUROSEMIDE 40MG/4ML VIAL (J1940) IV SCH ×2 (10:45→16:53)
[2020-01-14] MEDS: PIPERACILLIN/TAZOBACTAM SOD 3.375 GM in D5W MINI-BAG PLUS 50 ML IV SCH ×3 (10:45→20:37)
[2020-01-14 10:47] LABS: ABG BASE EXCESS -6.5 (-2.0-2.0); ABG HCO3 22.1 MEQ/L (22.0-26.0); ABG PARTIAL PRESSURE O2 67.6 mmHg (75.0-100.0); ABG STANDARD HCO3 19.1 MEQ/L (22.0-26.0); ABG TOTAL CO2 24.1 MEQ/L (22.0-29.0)
[2020-01-14 10:50] LABS: ABG pH (ARTERIAL) 7.168 UNITS (7.350-7.450)
[2020-01-14 10:51] LABS: ABG PARTIAL PRESSURE CO2 62.4 mmHg (35.0-45.0)
[2020-01-14] MEDS ORDERED: SUCCINYLCHOLINE INJ 200 MG/10 ML VIAL (J0330) IV ONE (11:00)
[2020-01-14] MEDS ORDERED: ETOMIDATE INJ 20MG/10ML VIAL IV ONE (11:00)
[2020-01-14] MEDS ORDERED: ETOMIDATE INJ 20MG/10ML VIAL As Ordered ONE (11:03)
[2020-01-14] MEDS ORDERED: SUCCINYLCHOLINE INJ 200 MG/10 ML VIAL (J0330) As Ordered ONE (11:04)
[2020-01-14] MEDS ORDERED: PROPOFOL 1,000 MG/100 ML VIAL As Ordered ONE (11:07)
--- NOTE | 2020-01-14 11:25 | REP ---
Portable chest x-ray: Single view. History: Dyspnea. Sepsis. Comparison study: January 11, 2020. Findings: A multi lead pacemaker is again noted. Cardiomegaly is observed. Patient is rotated to the left for the current exposure. Oxygen delivery tubing is seen. Vascular interstitial markings remain somewhat prominent. The left hemidiaphragm is obscured question left pleural effusion. There are air bronchograms in the left base. This suggests infiltrate and/or atelectasis. This is unchanged. Electronically Signed by Vincent Burgos MD 01/14/2020 08:29 A
[2020-01-14] MEDS ORDERED: propofoL 1,000 MG in IV 1 EA IV SCH (11:52)
[2020-01-14 12:44] LABS: ABG BASE EXCESS -0.2 (-2.0-2.0); ABG HCO3 22.8 MEQ/L (22.0-26.0); ABG PARTIAL PRESSURE CO2 30.5 mmHg (35.0-45.0); ABG PARTIAL PRESSURE O2 90.1 mmHg (75.0-100.0); ABG STANDARD HCO3 24.3 MEQ/L (22.0-26.0); ABG TOTAL CO2 23.7 MEQ/L (22.0-29.0); ABG pH (ARTERIAL) 7.491 UNITS (7.350-7.450)
--- NOTE | 2020-01-14 13:20 | RO ---
DATE OF PROCEDURE: 01/14/2020 Endotracheal intubation procedure note. INDICATION: Acute on chronic hypercarbic respiratory failure. PREPROCEDURE DIAGNOSIS: Acute on chronic hypercarbic respiratory failure. POSTPROCEDURE DIAGNOSIS: Acute on chronic hypercarbic respiratory failure. ATTENDING PHYSICIAN: Dr. Graf CONSENT: Due to the emergent nature of the procedure, consent was implied. The patient had previously documented FULL CODE. PROCEDURE SUMMARY: Time-out was performed. The patient was placed on a engine monitor including continuous pulse oximetry. Rapid synchronous intubation was conducted. The patient received 30 mg of etomidate for induction and 60 mg of succinylcholine for adequate paralysis. Using a size 4 MAC laryngoscope and a size 7.5 endotracheal tube with stylette, the patient was intubated on the first pass attempt. The stylette was removed and the cuff balloon was inflated. Appropriate endotracheal tube position was confirmed by direct visualization of vocal passage, fogging of the tube, CO2 colorimetric indicator, and symmetric breath sounds. The tube was carried 23 cm at the lips. Post intubation chest x-ray showed endotracheal tube (ET) tube in good position.
[2020-01-14] MEDS: PANTOPRAZOLE 40MG VIAL (C9113 PER 1) IV SCH (13:52)
--- NOTE | 2020-01-14 14:01 | CR ---
CRITICAL CARE CONSULT DATE OF CONSULTATION: 01/14/2020 CHIEF COMPLAINT: Altered mental status, acute on chronic hypercapnic respiratory failure. HISTORY OF PRESENT ILLNESS: Ms. Marie is a 59-year-old female with a history of nonischemic cardiomyopathy with biventricular heart failure and a biventricular automatic implantable cardioverter-defibrillator (AICD), atrial fibrillation, diabetes, chronic kidney disease (CKD), chronic hypoxemic and hypercarbic respiratory failure, a history of recurrent urinary tract infections (UTIs), who presents with complaint of left-sided flank pain and hypotension. The patient was recently admitted at [facility] and discharged a day prior to her presentation again to the emergency department (ED) for complaint of left-sided flank pain and treated for pyelonephritis at her most recent admission. The patient's urine culture had grown yeast, and she was discharged with fluconazole. 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 There was also a large polyp ovarian dermoid cyst with innumerable pancreatic cyst and calcifications associated with pancreatic enlargement that was new or increased from her previous study, possibly related to a cystic tumor of the pancreas. The patient was recommended to followup with a pancreatic specialist in [place] for a possible intraductal papillary mucinous neoplasm as she did have an elevated CA19-9 at her previous hospitalization. She has not seen the specialist yet. She also had some thickening of the urinary bladder wall consistent with cystitis and ureteral thickening and stranding in the upper tract suggesting pyelonephritis. At that admission, the patient was also given broad-spectrum antibiotics, as well as medications for pain control with oxycodone which reportedly she had been taking as prescribed since her discharge, but it was not improving the pain. Additionally, the patient was having difficulty getting around the house, and her at home was unable to help her. Her home healthcare nurse also had been unavailable to see the patient until later in the day, and so emergency medical services (EMS) was called. When EMS arrived, the patient was noted to be lethargic and hypotensive with a systolic blood pressure in the 70s. She was started on peripheral Levophed at 6 mcg per minute. In the ED, she was able to be weaned off the Levophed. The patient was weaned off of the peripheral Levophed. She was started on midodrine for her hypotension. The patient was continued on fluconazole, which she was discharged with. The patient was also being referred to patient and family services (PFS) for placement. Today, the patient was noted to be more lethargic, as well as noted to have some myoclonic jerking movements. She had a repeat arterial blood gas (ABG), which showed acute on chronic hypercarbic respiratory failure. Her initial ABG on admission had shown appropriately compensated blood gas for her hypercarbic respiratory failure with the pCO2 in the 50s. On this repeat ABG, the patient's pCO2 was in the 70s, and her pH was 7.175. The patient was transferred to the intensive care unit (ICU) and placed on a bilateral positive airway pressure (BiPAP) with settings of 14 over 6, respiratory rate of 12, and FIO2 of 30%. On BiPAP, the patient did improve initially in terms of her mental status. However, then became lethargic again and somewhat difficult to arouse. Repeat ABG did not show significant improvement in her pH or in her PCO2; and after being on BiPAP for an hour, and so she was intubated and placed on mechanical ventilation. The patient was also given Lasix 40 mg IV and had minimal urine output. She had a Mcleod catheter placed and then had a large amount of very white cloudy urine in the Mcleod bag with output of approximately 350-400 mL of urine immediately after placement of Mcleod catheter. PAST MEDICAL AND SURGICAL HISTORY: Nonischemic cardiomyopathy with heart failure with reduced ejection fraction (EF) with biventricular heart failure, left EF reportedly 20%, biventricular AICD, atrial fibrillation, diabetes, chronic microcytic anemia, hyperlipidemia, vitamin D deficiency, CKD, chronic hypoxemic and hypercarbic respiratory failure on 2 liters nasal cannula, status post lithotripsy, bilateral cataract surgery. HOME MEDICATIONS: aspirin, atorvastatin, digoxin, vitamin D2, ferrous sulfate, fluconazole, glimepiride, insulin glargine, insulin lispro, ketoconazole cream, metoprolol, niacin, nystatin, oxycodone 15 mg twice a day as needed for pain. ALLERGIES: METFORMIN, SACUBITRIL, VALSARTAN. SOCIAL HISTORY: The patient denies a previous history of smoking or alcohol use. She uses a wheelchair at home and occasionally a walker. She does need help with most of her activities of daily living (ADLs). REVIEW OF SYSTEMS: Unable to be obtained, as the patient is lethargic. PHYSICAL EXAMINATION: Temperature 98.6, pulse 103, respiration 17, blood pressure 98/51, oxygen (O2) saturation 91% on 2 liters nasal cannula. Intake 1.5 liters, output 450 mL. General: The patient is an obese female, is lying in bed, appears lethargic and somnolent, is difficult to arouse. HEENT: Normocephalic, atraumatic. Pupils are reactive to light bilaterally. There is dry mucous membranes while wearing BiPAP. Neck is supple. Trachea is midline. Unable to appreciate jugular venous distention (JVD) due to neck habitus. Cardiac: Regular rate and rhythm. Normal S1, S2. Somewhat distant heart sounds. Unable to appreciate any murmurs. Point of maximal impulse (PMI) is displaced laterally. There is an AICD implanted in the left side of the chest. Pulmonary: Somewhat diminished breath sounds bilaterally. There are some crackles at the bases of the lung and decreased breath sounds on the left side more than the right. There is no wheezing or rhonchi noted. Abdomen is obese, soft, nontender, nondistended. Unable to palpate any masses. Extremities: There is no significant lower extremity edema in the bilateral lower extremities. Pulses are somewhat diminished, and extremities are cool. LABORATORY DATA: WBC 10.9, hemoglobin 8.6, platelets are 253. Chemistry: Sodium is 146, potassium is 4.4, chloride is 109, bicarbonate is 30, BUN 37, creatinine is 1.68, glucose is 120, AST 90, ALT 70, alkaline phosphatase increased at 224, albumin 2.6. ABG initially on admission: pH was 7.344, pCO2 of 50.3, pO2 of 79. Repeat ABG this morning: pH is 7.175, pCO2 of 72.3, pO2 of 67.8. IMAGING STUDIES: Chest x-ray this morning shows poor inspiratory effort. There is cardiomegaly noted, as well an AICD in the left chest with multiple leads in the heart. There is evidence of pulmonary vascular congestion, which appears slightly increased, more prominent compared to yesterday. There is also some atelectasis versus consolidation with air bronchograms in the left lower lobe. ASSESSMENT AND PLAN: Ms. Mraie is a 59-year-old female with a past medical history of nonischemic cardiomyopathy with biventricular heart failure with a reduced EF, history of biventricular AICD, atrial fibrillation, diabetes, hyperlipidemia, CKD, history of recurrent UTI who was recently admitted for left-sided flank pain and presumed pyelonephritis. The patient was treated with broad-spectrum antibiotics, as well as fluconazole, as a urine culture had grown yeast. Her CT at that time had also shown evidence of a large pelvic ovarian dermoid, as well as numerous pancreatic cysts with secondary pancreatic enlargement suspicious for possible intraductal papillary mucinous neoplasm. The patient was to followup with a specialist in [place] after her hospitalization, which she did not have done. She returned a day after discharge with the same left-sided flank pain, as well as with hypotension. Was briefly treated with Levophed peripherally on admission but was weaned off and continued with midodrine for blood pressure support. This morning, the patient was noted to be more lethargic. Her repeat ABG showed acute on chronic hypercarbic respiratory failure, and she was transferred to the ICU and placed on BiPAP. The patient was placed on BiPAP for an hour. However, her repeat ABG did not show any significant improvement in her pH or in her hypercarbia, and so she was intubated in the ICU and placed on mechanical ventilation. Acute on chronic hypercarbic and hypoxemic respiratory failure. The patient's chest x-ray does show evidence of some pulmonary vascular congestion which may be more prominent today than previous. She has only been on spironolactone for a diuretic. Previously had been on Lasix chronically given her a biventricular heart failure and reduced EF. Suspect she has a component of acute on chronic heart failure contributing to her decompensated respiratory status. The patient has also been receiving opioid medications, which likely have also contributed to her worsening chronic hypercarbic respiratory failure. - Will continue the patient on mechanical ventilation with pressure-regulated volume control (PRVC) with settings of 430/18/35 and 6. Will repeat ABG and continue to wean down FIO2 as tolerated. - Continue with daily chest x-rays and ABGs while intubated and vent bundle care with head of bed elevation and chlorhexidine mouthwash. - Continue the patient on propofol for sedation and titrate for a Jet of II to III. - Will start the patient on Lasix 40 mg IV twice a day and will monitor intake and output and continue to diurese as her blood pressure tolerates. - The patient will continue with her home medications of digoxin, as well as metoprolol. - The patient was started on midodrine for likely chronic hypotension in the setting of her congestive heart failure (CHF) with reduced EF. Will continue with midodrine for now. Left-sided flank pain, likely multifactorial. She has a history of a dermoid lesion, as well as a pancreatic cyst and also history of pyelonephritis. She was initially continued only on fluconazole. However, as she has increased leukocytosis, the patient was started on Zosyn. - Will continue with Zosyn for now, her broad-spectrum antibiotics, and fluconazole. - Will followup results of her repeat blood and urine cultures. Her urinalysis (UA) did appear dirty and almost pus-like in the Mcleod catheter tubing. She does have a history of previous recurrent UTIs. Acute kidney injury on chronic kidney disease, likely in the setting of cardiorenal syndrome. Will continue to monitor her renal function, however, with diuresis and continue to monitor electrolytes and replete as needed. - Will continue Mcleod catheter for monitoring her intake and output. She did appear to have some urinary retention initially on placement of the Mcleod catheter and so may need continued monitoring for urinary retention. Transaminitis, likely secondary to medication use with the fluconazole as well as her statin. Her statin is on hold and continuing with fluconazole, but her transaminitis has been improving. Will continue to monitor. History of diabetes. Will continue with fingerstick glucose checks but will change to every 4 hours, as the patient is currently nothing by mouth. Would likely be able to start tube feeds tomorrow. Deep venous thrombosis (DVT) prophylaxis, heparin. Gastrointestinal (GI) prophylaxis. Will start Protonix. CODE STATUS: FULL CODE. TOTAL CRITICAL CARE TIME SPENT: Not including procedures, approximately 2 hours.
--- NOTE | 2020-01-14 14:24 | REP ---
REASON FOR EXAM: Status post intubation. COMPARISON: Multiple, the latest 01/14/2020 obtained at 12:00 a.m. Since the last examination, a nasogastric tube is in place, the tip of which is beyond the scope of the radiograph beneath the diaphragmatic surface of the left lung. Since the last exam, an endotracheal tube is in place the tip of which is in satisfactory position at the level of the clavicular heads. The right lower lung field has not been included on the radiograph. With that exception, the lung wagner are unchanged. A dual-chamber bipolar pacemaker device if unchanged. The osseous structures are unchanged. IMPRESSION: Status post intubation as described above. No significant change in the appearance of the lung wagner. Findings and limitations as described above. Electronically Signed by Perry Vera DO 01/14/2020 04:38 P
[2020-01-14] MEDS ORDERED: NS 250 ML IV ONE (17:00)
[2020-01-14] MEDS ORDERED: MIDAZOLAM INJ 2MG/2ML VIAL (J2250 PER 1MG) IV ONE (17:15)
[2020-01-14] MEDS: MIDAZOLAM INJ 2MG/2ML VIAL (J2250 PER 1MG) IV PRN ×3 (17:42→23:21)
--- NOTE | 2020-01-14 18:29 | IPNPDOC ---
Date Seen The patient was seen on 01/14/20. Progress Note SUBJECTIVE: Patient was seen and examined this morning. Nursing staff had called reporting patient was lethargic and appearing confused this morning. On evaluation at bedside the patient was lethargic. She was arousable and answering questions appropriately. She was noted to be tachycardic at the time. Her AM labs demonstrated a leukocytosis, hypernatremia, and elevated creatinine. Lactic acid was 1.0. Patient was otherwise vitally stable. She received a total of 1L bolus. An ABG demonstrated a pH of 7.13, PCO2 of 72.3, and serum HCO3 of 30. Patient was transferred to the ICU where BiPAP was initiated. She subsequently failed bipap and was intubated. Mcleod catheter was placed in the ICU which did result in purulent urine. OBJECTIVE PHYSICAL EXAMINATION: VITAL SIGNS: Please see below. GENERAL: Patient appears critically ill. Intubated with mechanical ventilation. HEENT: Atraumatic, normocephalic. Eyes are nonicteric. Trachea is midline. ET tube in place CARDIOVASCULAR: Normal S1, S2. Regular rate and rhythm. 2/6 systolic ejection murmur present RESPIRATORY: Clear vesicular breath sounds bilaterally. No wheezes, rhonchi, or rales. Intubated with mechanical ventilation ABDOMINAL: Soft, nondistended. Nontender. Morbidly obese. NG tube in place EXTREMITIES: No edema. Cold upper and lower extremities. Full and equal pulses in bilateral upper and lower extremities NEUROLOGICAL: No focal neurological deficits. Patient was confused and unable to fully follow commands for full neurological assessment PSYCHOLOGICAL: Mood and affect appropriate LABORATORY DATA, IMAGING STUDIES, MICROBIOLOGY: Please see below. DVT prophylaxis ordered?: Heparin ASSESSMENT AND PLAN: Patient is a 59 year old female with multiple comorbidities who presented to [facility] with left flank pain and reported hypotension. She was pending placement to intermodal customer service care facility and developed lethargy and acute on chronic respiratory failure. She failed NIPPV and was subsequently intubated PROBLEMS: 1. Acute on chronic hypercarbic respiratory failure 2/2 medication use vs decompensated acute on chronic congestive heart failure LVEF 20% -Patient had pH of 7.13, PCO2 of 72.3, and serum HCO3 of 30. Appears to be a primary respiratory acidosis. She has been receiving Oxycodone for her left fl ank pain which may have decreased respiratory drive resulting in obtundation. -Patient has received IV lasix for possible decompensated acute on chronic CHF. Her BNP was elevated however she does have KWAME and decreased urinary output. Possibly due to decreased perfusion from poor Cardiac output vs obstructive uropathy. Clinically the patient did not appear volume overloaded. There was no JVD. Chest X-ray did demonstrated vascular congestion although this appeared similar to her chest x-ray on admission -Will hold opioids -Pulmonary Critical Care has been consulted and is following patient. Recommendations and assistance is appreciated 2. Sepsis 2/2 UTI -Patient was tachycardic with elevated WBC. Consider possible sepsis. She has a history of chronic UTI/pyelonephritis. Mcleod bag did have purulent urine. She was previously hospitalized with UTI and received IV Zosyn, Meropenem, and continued on Fluconazole for a fungal UTI -Lactic Acid 1.0 -Blood cultures x2 pending -Urine culture pending -Fungal smear and culture blood pending -Procalcitonin Pending -CRP of 8.93. Will trend 3. Acute on Chronic Decompensated Congestive Heart Failure LVEF 20% -Patients outpatient records indicate that she was previously on Entresto however she had failed to tolerate this medication. She was only on Spironolactone on readmission. It was documented by Cardiology that she should be on lasix. -She does not appear volume overloaded. Patient received IV lasix. She has diuresed. -Mcleod in place. I&O's for critical monitoring 4. Acute on Chronic Kidney Injury -Patient had elevation of Cr to 1.68 this morning. Possibly secondary to cardiorenal from decompensated CHF vs poor perfusion from reduced cardiac output. -Patient does have urinary retention with purulent urine may be secondary to obstructive uropathy. -Will continue to monitor 5. Hypotension -Patient has been noted to be hypotensive. Previously MAPs run in the low 60's. S/P intubation patient was reported to be hypotensive. She has received diuresis. Will hold off on additional Lasix today. Patient is intubated and on propofol which could both contribute to hypotension -Patient received Midodrine via NG tube. 6. Transaminitis -Liver enzymes are trending down. Likely due to statin and fluconazole. Will continue to trend 8. Atrial Fibrillation -Continue Digoxin and ASA. Patient is not on anticoagulation at home. 9. CT image Findings -Patient has innumerable pancreatic cysts with pancreatic enlargement particularly in the body of the pancreas which is new or enlarged from prior studies. This has been reported concerning for possible intraductal papillary mucinous neoplasm (IPMN). Patient had been informed about this during her recent hospitalization. She has been recommended to see a pancreatic specialist in [place] as IPMN may be pre-cancerous. -Previous hospitalization demonstrated elevated CA-19-9 10. DVT Prophylaxis -Heparin SQ 11. GI Prophylaxis -Protonix Daily VS, I&O, 24H, Fishbone Vital Signs/I&O Vital Signs Date Time Temp Pulse Resp B/P (MAP) Pulse Ox O2 Delivery O2 Flow Rate FiO2 01/14/20 15:16 77 14 100 21 01/14/20 13:00 97/55 (69) Ventilator 01/14/20 12:00 99.4 01/14/20 09:09 2.0 I&O- Last 24 Hours up to 6 AM 01/14/20 06:00 Intake Total 1530 ml Output Total 450 ml Balance 1080 ml Laboratory Data 24H LABS Laboratory Tests 2 01/13/20 20:39: Bedside Glucose (Misc Panel) 90 01/14/20 06:28: Nucleated Red Blood Cells % (auto) 0.8H, Anion Gap 7L, Glomerular Filtration Rate 33.3L, Calcium Level 9.2, Total Bilirubin 0.4#, Aspartate Amino Transf (AST/SGOT) 40H, Alanine Aminotransferase (ALT/SGPT) 70, Alkaline Phosphatase 224H, C-Reactive Protein, Quantitative 8.93H, BX-Fbe-O-Type Natriuretic Peptide 25730A, Total Protein 6.4, Albumin 2.6L, Albumin/Globulin Ratio 0.7L 01/14/20 08:23: Bedside Glucose (Misc Panel) 123H 01/14/20 08:30: Nucleated Red Blood Cells % (auto) 0.8H, Immature Granulocyte % (Auto) 1.3, Neutrophils (%) (Auto) 81.5H, Lymphocytes (%) (Auto) 8.2L, Monocytes (%) (Auto) 7.4H, Eosinophils (%) (Auto) 1.3, Basophils (%) (Auto) 0.3, Neutrophils # (Auto) 8.9H, Lymphocytes # (Auto) 0.9L, Monocytes # (Auto) 0.8, Eosinophils # (Auto) 0.1, Basophils # (Auto) 0.0, Lactic Acid Level 1.0 01/14/20 08:34: Blood Gas Bicarbonate Standard 21.9L, Arterial Blood pH 7.175*L, Arterial Blood Partial Pressure CO2 72.3*H, Arterial Blood Partial Pressure O2 67.8L, Arterial Blood Total CO2 28.3, Arterial Blood HCO3 26.1H, Arterial Blood Base Excess - 3.0L, Arterial Blood Oxygen Saturation 92.9L 01/14/20 08:55: Procalcitonin 0.77 01/14/20 09:42: Urine Color YELLOW, Urine Appearance TURBIDH, Urine pH 5.0, Urine Specific [place] 1.016, Urine Protein 2+H, Urine Glucose (UA) NEGATIVE, Urine Ketones NEGATIVE, Urine Blood 2+H, Urine Nitrite NEGATIVE, Urine Bilirubin NEGATIVE, Urine Urobilinogen 0.2, Urine Leukocyte Esterase 3+H, Urine WBC (Auto) TNTCH, Urine RBC (Auto) 52H, Urine Hyaline Casts (Auto) 0, Urine Bacteria (Auto) 2+H, Urine Squamous Epithelial Cells 7, Urine Sperm (Auto) 01/14/20 10:34: Blood Gas Bicarbonate Standard 19.1L, Arterial Blood pH 7.168*L, Arterial Blood Partial Pressure CO2 62.4*H, Arterial Blood Partial Pressure O2 67.6L, Arterial Blood Total CO2 24.1, Arterial Blood HCO3 22.1, Arterial Blood Base Excess - 6.5L, Arterial Blood Oxygen Saturation 92.0L 01/14/20 12:29: Bedside Glucose (Misc Panel) 126H 01/14/20 12:31: Blood Gas Bicarbonate Standard 24.3, Arterial Blood pH 7.491H, Arterial Blood Partial Pressure CO2 30.5L, Arterial Blood Partial Pressure O2 90.1, Arterial Blood Total CO2 23.7, Arterial Blood HCO3 22.8, Arterial Blood Base Excess -0.2, Arterial Blood Oxygen Saturation 98.0 CBC/BMP Laboratory Tests 01/14/20 06:28 01/14/20 08:30 Microbiology Microbiology 01/14/20 Urine Culture, Received Pending 01/14/20 Blood Fungal Culture, Received Pending 01/14/20 Blood Culture, Received Pending 01/14/20 Blood Culture, Received Pending 01/11/20 Blood Culture - Preliminary, Resulted No Growth after 72 hours. All specime... 01/11/20 Blood Culture - Preliminary, Resulted No Growth after 72 hours. All specime... GME ATTESTATION My faculty preceptor for this patient encounter was physically present during the encounter and was fully available. All aspects of the patient interview, examination, medical decision making process, and medical care plan development were reviewed and approved by the faculty preceptor. The faculty preceptor is aware and concurs with the plan as stated in the body of this note and will attest to such by his/her cosignature. ATTENDING NOTE I have personally evaluated and examined the patient. Discussed with resident/student regarding plan of care and agree with the above assessment and plan. ANIYAH ASHBY DO Jan 14, 2020 18:29 TEJINDER COBB MD Jan 15, 2020 18:29
[2020-01-14] MEDS: FERROUS SULFATE 325MG TAB PO SCH (20:04)
[2020-01-15] VITALS (76 sets, daily range): BP systolic 86–117; BP diastolic 49–66; O2SAT 93–100
[2020-01-15] MEDS ORDERED: AMIODARONE HCL 150 MG in IV 1 EA IV ONE ×2 (00:30→00:45)
[2020-01-15 00:59] LABS: ALBUMIN 2.1 GM/DL (3.2-5.2); BILIRUBIN,TOTAL 0.8 MG/DL (0.2-1.0); CALCIUM LEVEL 8.5 MG/DL (8.5-10.1); CREATININE FOR GFR 1.87 MG/DL (0.55-1.30); GLOMERULAR FILTRATION RATE 29.4 (>51); MAGNESIUM LEVEL 1.9 MG/DL (1.8-2.4); POTASSIUM SERUM 3.8 MEQ/L (3.5-5.1); TOTAL PROTEIN 5.2 GM/DL (6.4-8.2); TROPONIN I 0.66 NG/ML (< 0.10)
[2020-01-15] MEDS ORDERED: AMIODARONE HCL 360 MG in IV 1 EA IV SCH ×2 (01:00→07:00)
[2020-01-15] MEDS ORDERED: fentaNYL 100 MCG/2 ML INJECTION (J3010) IV PRN (01:00)
[2020-01-15] MEDS ORDERED: KCL 10MEQ/100ML SWI (KRUN) 10 MEQ in IV 1 EA IV ONE (01:30)
[2020-01-15] MEDS ORDERED: MAG SULF 1GM/100ML (MAG RUN) 1 GM in IV 1 EA IV ONE (01:30)
[2020-01-15] MEDS: MIDAZOLAM INJ 2MG/2ML VIAL (J2250 PER 1MG) IV PRN ×11 (03:29→18:45)
[2020-01-15] MEDS: PIPERACILLIN/TAZOBACTAM SOD 3.375 GM in D5W MINI-BAG PLUS 50 ML IV SCH ×4 (03:29→21:01)
[2020-01-15 04:45] LABS: HEMATOCRIT 22.7 % (36.0-47.0); MEAN CORPUSCULAR HEMOGLOBIN 32.3 pg (27.0-33.0); MEAN CORPUSCULAR HGB CONC 30.8 g/dl (32.0-36.5); MEAN CORPUSCULAR VOLUME 104.6 fl (80.0-96.0); PLATELET COUNT, AUTOMATED 210 10^3/uL (150-450); RED BLOOD COUNT 2.17 10^6/uL (4.00-5.40); WHITE BLOOD COUNT 8.8 10^3/uL (4.0-10.0)
[2020-01-15 05:08] LABS: BILIRUBIN,TOTAL 0.7 MG/DL (0.2-1.0); CALCIUM LEVEL 8.4 MG/DL (8.5-10.1); CREATININE FOR GFR 1.91 MG/DL (0.55-1.30); GLOMERULAR FILTRATION RATE 28.7 (>51); POTASSIUM SERUM 3.7 MEQ/L (3.5-5.1); TOTAL PROTEIN 5.2 GM/DL (6.4-8.2); TROPONIN I 0.57 NG/ML (< 0.10)
[2020-01-15] MEDS: ACETAMINOPHEN 325 MG/10.15 ML UDC GT PRN (05:14)
[2020-01-15 05:20] LABS: ABG BASE EXCESS 1.5 (-2.0-2.0); ABG HCO3 24.7 MEQ/L (22.0-26.0); ABG O2 SATURATION 91.2 % (95.0-99.0); ABG PARTIAL PRESSURE CO2 32.9 mmHg (35.0-45.0); ABG STANDARD HCO3 25.7 MEQ/L (22.0-26.0); ABG TOTAL CO2 25.7 MEQ/L (22.0-29.0); ABG pH (ARTERIAL) 7.494 UNITS (7.350-7.450)
[2020-01-15] MEDS: HumaLOG INSULIN (NovoLOG) PER UNIT SC SCH ×3 (05:47→18:08)
[2020-01-15] MEDS: HEPARIN SOD (PORCINE) 5000UNITS/ML VIAL (J1644 PER 1000UNITS) SQ SCH ×3 (05:47→21:01)
[2020-01-15 07:13] LABS: BASO % 0.2 % (0.0-1.0); EOS % 0.1 % (0.0-3.0); HEMATOCRIT 24.6 % (36.0-47.0); HEMOGLOBIN 7.6 g/dl (12.0-15.5); LYMPH # 1.2 10^3/uL (1.5-5.0); LYMPH % 13.7 % (24.0-44.0); MEAN CORPUSCULAR HEMOGLOBIN 31.8 pg (27.0-33.0); MEAN CORPUSCULAR HGB CONC 30.9 g/dl (32.0-36.5); MEAN CORPUSCULAR VOLUME 102.9 fl (80.0-96.0); MONO # 0.5 10^3/uL (0.0-0.8); MONO % 6.1 % (0.0-5.0); NEUTROPHILS # 6.7 10^3/uL (1.5-8.5); NEUTROPHILS % 79.1 % (36.0-66.0); PLATELET COUNT, AUTOMATED 205 10^3/uL (150-450); RED BLOOD COUNT 2.39 10^6/uL (4.00-5.40); WHITE BLOOD COUNT 8.4 10^3/uL (4.0-10.0)
[2020-01-15] MEDS: LEVALBUTEROL HFA 45MCG/ACT 15 GM INHALER INH SCH ×4 (07:54→20:14)
--- NOTE | 2020-01-15 08:19 | REP ---
Portable chest x-ray: Single view. History: Intubated patient. Comparison study: January 14, 2020. Findings: Monitoring electrodes overlie the chest. A multi lead pacemaker is seen in place as before. Endotracheal tube is noted in good position at the level of proximal clavicles. A nasogastric tube is seen entering the left upper quadrant. There is a skin fold projecting along the left lateral chest. No definite infiltrate is seen. No pleural effusion noted. Cardiac enlargement again seen unchanged. Electronically Signed by Vincent Burgos MD 01/15/2020 08:11 A
[2020-01-15] MEDS: METOPROLOL TART 12.5 MG PER 1/2 TAB NG SCH (09:57)
[2020-01-15] MEDS: CHLORHEXIDINE GLUCONATE 0.12 % 15ML UDC (PERIDEX ORAL RINSE) MT SCH ×2 (09:57→21:00)
[2020-01-15] MEDS: PANTOPRAZOLE 40MG VIAL (C9113 PER 1) IV SCH (09:57)
[2020-01-15] MEDS: fentaNYL 100 MCG/2 ML INJECTION (J3010) IV PRN ×3 (09:58→21:28)
--- NOTE | 2020-01-15 10:25 | CR.PDOC ---
General Date of Consultation: Jan 15, 2020 Referring Provider: TO SWENSON MD Attending Physician: Brandon Etienne Consultation DATE OF CONSULTATION: 01/15/2020 REFERRING PHYSICIAN: Dr. To Swenson REASON FOR CONSULTATION: Ventricular Fibrillation HISTORY OF PRESENT ILLNESS: Patient is a 59-year-old female who carries a past medical history significant for nonischemic cardiomyopathy with biventricular heart failure and a biventricular AICD, atrial fibrillation, insulin-dependent diabetes mellitus type 2, CKD stage IIIB, chronic hypoxemic and hypercarbic respiratory failure, and recurrent urinary tract infections. During patient's recent hospitalization, CT of abdomen and pelvis also demonstrated contracted gallbladder, fistulectomy gallbladder transverse colon chronic nature. Large ovarian dermoid cyst and innumerable pancreatic cysts calcifications associated pancreatic enlargement with possibility of carcinoma. She was also found to have an elevated CA-19-9 her hospitalization. Follow-up with pancreatic specialist scheduled as an outpatient. Patient originally presented to the emergency department on 01/11/20 with a chief complaint of left-sided flank pain, after being discharged from the hospital on 01/10/2020 s/p treatment for presumed pyelonephritis. Initially, patient was treated with broad-spectrum antibiotics. Patient's urine culture was found to have grown yeast and she was discharged on fluconazole with oxycodone for pain. Patient also reported that she was having difficulty getting around her house, with her unable to appropriately assist her. Home health was unable to see the patient later this week, and EMS was contacted by the patient's home health nurse. EMS reported hypotension and complaints of left- sided flank pain. It appears peripheral Levothroid was started at 6 mcg/m. Upon presentation to the emergency department, patient's vitals remained stable with a mean arterial pressure above 65. Patient was afebrile, no leukocytosis with a mild transaminitis. She was weaned off the levophed and started on midodrine for hypotension. Initial ABG consistent with compensated hypercarbic respiratory failure. Following admission, patient became lethargic and difficult to arouse. ABG demonstrated pH of 7.13, PCO2 of 72.3 serum bicarbonate of 30. She was subsequently transferred to the ICU and placed on BiPAP without any notable impr ovement. Given this, sample dye mixer intubated the patient midday on 01/14/20. Mcleod catheter placed status post intubation which did reveal purulent urine. Last evening at approximately 00:00, patient went into V. fib/V. tach with palpable pulses. AICD fired 3 times. Vitals remained stable. At that time, the nighttime hospitalist contacted cardiology for management recommendations. Patient was started on IV amiodarone with supplementation of magnesium and potassium. Patient has not had any subsequent events of ventricular fibrillation or tachycardia since. CARDIAC HISTORY: Patient established with Dr. Terrazas on 03/30/2011. Patient underwent implantation of an AICD in 2001 for ventricular tachycardia. Patient was diagnosed with left bundle branch block, left axis deviation, first- degree AV block addition to nonischemic dilated cardiomyopathy with systolic and diastolic heart failure. She had a cardiac catheterization and a [place], [place] in 2001, which showed normal coronary arteries. Her first ICD implant was at [employer] dual-chamber ICD. She had an ICD pulse generator change at [facility] in [facility] to a [employer] dual-chamber ICD device in 08/2007. Patient's biventricular ICD was upgraded in 2011. Patient also suffers from systemic hypertension. Echocardiogram Doppler (09/20/2019): Imaging study demonstrated a severely dilated left ventricle (6.7 cm) with global hypokinesis and left ventricular ejection fraction of 20%. Abnormal septal wall motion was present. Right ventricle was poorly visualized but it was thought to be dilated and hypokinetic. Severe left atrial dilation. Right atrium enlarged. Mild aortic valve sclerosis. Mild age degenerative changes of the mitral valve. Small noncompressive pericardial effusion. Dilated inferior vena cava with no appreciable respiratory collapse suggestive of elevated central venous pressure. Mild mitral regurgitation. Mild tricuspid regurgitation. Related pulmonary artery systolic pressure of at least 30. Grade 2 left ventricular diastolic dysfunction. Echocardiogram Doppler (07/25/2018): Left ventricle diastole 6.6 cm and left ventricular ejection fraction of 15%. Echocardiogram Doppler (02/24/2018): Left ventricle diastole 6.45 centimeters with left ventricular ejection fraction estimated to be 15%. Adenosine SPECT (04/2016): Fixed, very large, moderate intensity myocardial perfusion defect involving the inferoseptal, inferior, anterior septal and anterior lateral regions from base to apex suggesting the possibility of prior infarction in the distribution of the left circumflex and right coronary arteries. Observed defects appear to have contribution from breast tissue attenuation and dilated left ventricular blood pool attenuation. No reversible perfusion defects. Dilated left ventricle with severe reduction in overall LV systolic function. Extensive and multiple regional wall motion abnormalities. Calculated LVEF of 37%. Echocardiogram Doppler (04/03/2015) is: Left ventricle diastole 6.1 cm and left ventricular ejection fraction estimated to be 30% Adenosine SPECT (04/04): Estimated left ventricular ejection fraction of 32%. Dilated left ventricle with severe global hypokinesis and severe reduction in overall left ventricular systolic function. Appearance of a fixed mild size anterior apical defect most likely due to breast tissue attenuation. ALLERGIES: Metformin, sacubitril, valsartan MEDICATIONS PRIOR TO ADMISSION: Aspirin Atorvastatin 40 mg daily Digoxin 62.5 g daily Vitamin D2 50,000 units weekly Ferrous sulfate 325 mg daily Fluconazole 400 mg by mouth daily Glimepiride 2 mg by mouth daily Insulin glargine 30 units nightly Insulin lispro sliding scale Ketoconazole cream topically to feet twice daily Metoprolol 12.5 mg daily Niacin 500 mg nightly Nystatin topically to groin and under breasts twice daily Oxycodone 50 mg twice daily when necessary for pain MEDICATIONS IN HOSPITAL: Amiodarone 200 mls @ 17 mls/h Midodrine 2.5 mg Metoprolol 12.5 mg Xopenex 2 puffs 4 times a day Fentanyl 25 g every hour when necessary Tylenol 650 every 4 hours when necessary Humalog every 6 hours SC Midazolam 2 mg Q1HPRN Zosyn 50 ml @ 50 mls/hr Pantoprazole 40 mg QD Heparin 5,000 Q8H SQ PAST MEDICAL HISTORY: Nonischemic cardiomyopathy, HFrEF with biventricular failure LVEF 20% Atrial fibrillation Type 2 diabetes, on chronic insulin Hypercholesterolemia Obesity Chronic kidney disease stage IIIB Chronic microcytic anemia Hyperlipidemia Vitamin D deficiency Chronic hypoxemic and hypercarbic respiratory failure, 2 L via nasal cannula PAST SURGICAL HISTORY: Lithotripsy Bilateral cataract surgery FAMILY HISTORY: Patient's father due to crepitations pneumonia at age 67. Mother due to colon cancer age 55. Sister of a heart attack at age 55. Another sister with a history of migraines and depression. Family history of stroke SOCIAL HISTORY: Patient is , unemployed. Utilizes home health on a weekly basis. Per medical record, patient denies any previous history of nicotine or alcohol abuse. Patient utilizes a wheelchair at home, occasionally a walker. Patient does require assistance with the majority of her activities of daily living. REVIEW OF SYSTEMS: Unable to be obtained secondary to intubation. PHYSICAL EXAMINATION: VITAL SIGNS: Temperature 98.2 F, pulse 60, respiratory rate 15, blood pressure 101/58 (72), pulse ox 100% via ventilator with an FiO2 of 35, I: 1040, O:695 GENERAL APPEARANCE: Obese female appearing stated age, lying in hospital bed in the ICU in no apparent distress. Patient is intubated and unable to participate in examination. HEENT: No muscle, atraumatic, pupils remain reactive bilaterally. Membranes moist. NECK: Supple, trachea midline, habitus limits accurate evaluation of JVD. RESPIRATORY: Breath sounds coarse 2/2 to ventilation. Fair air movement with decreased breath sounds at the bases bilaterally. No wheezing or rhonci appreciated. CARDIOVASCULAR: Regular rate and rhythm, normal S1 and S2. Distant heart sounds secondary to body habitus. No appreciable murmurs. AICD noted in the left chest. ABDOMEN: Obese, soft, nontender, nondistended. No masses appreciable. EXTREMITIES: No significant lower extremity edema bilaterally. NEUROLOGICAL: Sedated LABORATORY DATA: WBC of 8.4. H/H of 7.6/24.6. MCV of 102.9. Sodium of 147, potassium of 3.7, Chloride of 110, BUN/Cr of 42/1.91, GFR of 28.7, fasting glucose of 161, calcium of 8.4, magnesium of 1.9 Elevated AST/ALT of 44/201, troponin of 0.57, decreased from 0.66 the night last evening PH of 7.49, PCO2 32.9, PO2 56.0, IMAGING STUDIES: Chest x-ray (01/11/20): Cardiomegaly with pacemaker and vascular congestion. Air bronchograms left base question atelectasis or current infiltrate Chest x-ray (01/14/20): Multilead pacemaker is again noted. Cardiomegaly is observed. Patient is rotated to the left for the current exposure. Oxygen delivery tubing is seen. Vascular interstitial markings remain somewhat prominent. The left hemidiaphragm is obscured question left pleural effusion. There are air bronchograms in the left base. This suggests infiltrate and/or atelectasis. This is unchanged. Chest x-ray (01/14/20): Status post intubation as described above. No significant change in the appearance of lung wagner. Findings limitations as described above. Chest x-ray (01/15/20): Monitoring electrodes overlie the chest. A multilead pacemaker is seen in place above. Endotracheal tube is noted in good position at the level of the proximal clavicles. Nasogastric tube is seen entering the left upper quadrant. There is a skin fold projecting along the left lateral chest. No definitive infiltrate is seen. No pleural effusion noted. Cardiac enlargement is again seen and unchanged. ASSESSMENT/PLAN: #Ventricular tachycardia/fibrillation with AICD firing. -Patient's vitals remained stable. No events since last evening. Patient placed on IV amiodarone to reduce the chance of recurrence. -Hold digoxin as this itself can be pro-arrhythmogenic. Continue close monitoring of patient's electrolytes, potassium and magnesium. #Acute on chronic decompensated congestive heart failure -Exam negative for signs of volume overload. -Appears to have been on spironolactone in the past, unable to tolerate Entresto. The patients medications indicate the patient should be on 40 mg of Lasix daily. -Lopressor 12.5 mg. -Continue to monitor I's and O's with Mcleod catheter. #Paroxysmal atrial fibrillation No evidence of atrial fibrillation and recent documentations. Patient is on aspirin as an outpatient. #Dilated cardiomyopathy She does carry a history of obesity and insulin-dependent diabetes mellitus addition to hypercholesterolemia. -Patient carries a LVEF of 20%, stable since February 2018. Patient has been doing well with low-dose digoxin, metoprolol and Lasix with additional oxygen supplementation. #Hypercholesterolemia Continue statin therapy. Continue to recommend heart healthy, plant-based and whole foods diet #Left bundle branch block Status post biventricular ICD in situ. Vital Signs/I&O Vital Signs Date Time Temp Pulse Resp B/P (MAP) Pulse Ox O2 Delivery O2 Flow Rate FiO2 01/15/20 08:00 35 01/15/20 07:50 60 14 99 01/15/20 06:00 100.6 112/52 (72) Ventilator 01/14/20 09:09 2.0 I&O- Last 24 Hours up to 6 AM 01/15/20 06:00 Intake Total 1830 ml Output Total 1550 ml Balance 280 ml Laboratory Data Labs 24H Laboratory Tests 2 01/14/20 09:42: Urine Color YELLOW, Urine Appearance TURBIDH, Urine pH 5.0, Urine Specific [place] 1.016, Urine Protein 2+H, Urine Glucose (UA) NEGATIVE, Urine Ketones NEGATIVE, Urine Blood 2+H, Urine Nitrite NEGATIVE, Urine Bilirubin NEGATIVE, Urine Urobilinogen 0.2, Urine Leukocyte Esterase 3+H, Urine WBC (Auto) TNTCH, Urine RBC (Auto) 52H, Urine Hyaline Casts (Auto) 0, Urine Bacteria (Auto) 2+H, Urine Squamous Epithelial Cells 7, Urine Sperm (Auto) 01/14/20 10:34: Blood Gas Bicarbonate Standard 19.1L, Arterial Blood pH 7.168*L, Arterial Blood Partial Pressure CO2 62.4*H, Arterial Blood Partial Pressure O2 67.6L, Arterial Blood Total CO2 24.1, Arterial Blood HCO3 22.1, Arterial Blood Base Excess - 6.5L, Arterial Blood Oxygen Saturation 92.0L 01/14/20 12:29: Bedside Glucose (Misc Panel) 126H 01/14/20 12:31: Blood Gas Bicarbonate Standard 24.3, Arterial Blood pH 7.491H, Arterial Blood Partial Pressure CO2 30.5L, Arterial Blood Partial Pressure O2 90.1, Arterial Blood Total CO2 23.7, Arterial Blood HCO3 22.8, Arterial Blood Base Excess -0.2, Arterial Blood Oxygen Saturation 98.0 01/14/20 17:45: Bedside Glucose (Misc Panel) 128H 01/14/20 20:06: Bedside Glucose (Misc Panel) 103 01/14/20 23:22: Bedside Glucose (Misc Panel) 94 01/15/20 00:07: Anion Gap 7L, Glomerular Filtration Rate 29.4L, Calcium Level 8.5, Magnesium Level 1.9, Total Bilirubin 0.8#, Aspartate Amino Transf (AST/SGOT) 43H, Alanine Aminotransferase (ALT/SGPT) 50, Alkaline Phosphatase 195H, Troponin I 0.66H, Total Protein 5.2L, Albumin 2.1L, Albumin/Globulin Ratio 0.7L 01/15/20 04:14: Nucleated Red Blood Cells % (auto) 0.2H, Anion Gap 11, Glomerular Filtration Rate 28.7L, Calcium Level 8.4L, Total Bilirubin 0.7, Aspartate Amino Transf (AST/SGOT) 44H, Alanine Aminotransferase (ALT/SGPT) 50, Alkaline Phosphatase 201H, Troponin I 0.57H, Total Protein 5.2L, Albumin 2.0L, Albumin/Globulin Ratio 0.6L 01/15/20 05:01: Blood Gas Bicarbonate Standard 25.7, Arterial Blood pH 7.494H, Arterial Blood Partial Pressure CO2 32.9L, Arterial Blood Partial Pressure O2 56.0L, Arterial Blood Total CO2 25.7, Arterial Blood HCO3 24.7, Arterial Blood Base Excess 1.5, Arterial Blood Oxygen Saturation 91.2L 01/15/20 07:03: Nucleated Red Blood Cells % (auto) 0.4H, Immature Granulocyte % (Auto) 0.8, Neutrophils (%) (Auto) 79.1H, Lymphocytes (%) (Auto) 13.7L, Monocytes (%) (Auto) 6.1H, Eosinophils (%) (Auto) 0.1, Basophils (%) (Auto) 0.2, Neutrophils # (Auto) 6.7, Lymphocytes # (Auto) 1.2L, Monocytes # (Auto) 0.5, Eosinophils # (Auto) 0.0, Basophils # (Auto) 0.0 CBC/BMP Laboratory Tests 01/15/20 00:07 01/15/20 04:14 01/15/20 07:03 Microbiology Microbiology 01/14/20 Urine Culture, Received Pending 01/14/20 Blood Fungal Culture, Received Pending 01/14/20 Blood Culture - Preliminary, Resulted No growth after 24 hours . All specim... 01/14/20 Blood Culture - Preliminary, Resulted No growth after 24 hours . All specim... 01/11/20 Blood Culture - Preliminary, Resulted No Growth after 72 hours. All specime... 01/11/20 Blood Culture - Preliminary, Resulted No Growth after 72 hours. All specime... Allergies Coded Allergies: metformin (Verified Adverse Reaction, Severe, HX OF METABOLIC ACIDOSIS IN SETTING OF KWAME, 01/01/20) HX OF METABOLIC ACIDOSIS IN SETTING OF KWAME REQUIRING ADMISSION sacubitril (Verified Adverse Reaction, Unknown, DIZZINESS, 01/01/20) valsartan (Verified Adverse Reaction, Unknown, DIZZINESS, 01/01/20) Home Medications Scheduled Aspirin (Aspirin EC) 81 Mg Tablet.dr, 81 MG PO DAILY, (Reported) Atorvastatin Calcium (Atorvastatin Calcium) 40 Mg Tab, 40 MG PO QHS, (Reported) Digoxin (Digoxin) 125 Mcg Tablet, 62.5 MCG PO DAILY, (Reported) Ergocalciferol (Vitamin D2) (Vitamin D2) 50,000 Units Cap, 50,000 UNITS PO QWEEK, (Reported) TUESDAY Ferrous Sulfate (Ferrous Sulfate) 325 Mg Tab, 325 MG PO QHS, (Reported) Fluconazole (Fluconazole) 100 Mg Tablet, 400 MG PO DAILY, (Reported) FOR 12 DAYS, STARTED 01/10 Glimepiride (Glimepiride) 2 Mg Tab, 2 MG PO DAILY, (Reported) Insulin Glargine,Hum.rec.anlog (Basaglar Kwikpen U-100) 100 Unit/1 Ml Insuln.pen, 30 UNIT SC QHS, (Reported) Insulin Lispro (Admelog) 100 Unit/1 Ml Vial, 5 UNITS SC ACB, (Reported) Insulin Lispro (Admelog) 100 Unit/1 Ml Vial, 8 UNITS SC AC, (Reported) BEFORE LUNCH Insulin Lispro (Admelog) 100 Unit/1 Ml Vial, 8 UNIT SC ACS, (Reported) Ketoconazole (Ketoconazole) 15 Gm Cream..g., 1 APLCT TOP BID, (Reported) APPLY TO FEET Metoprolol Succinate (Metoprolol Succinate) 25 Mg Tab.er.24h, 12.5 MG PO DAILY, (Reported) Niacin (Niacin ER) 500 Mg Tab.er.24h, 500 MG PO QHS, (Reported) Nystatin (Nystatin Powder) 15 Gm Powder, 1 APLCT TOP BID, (Reported) APPLIES TO GROIN AREA AND UNDER BREASTS Scheduled PRN Acetaminophen (Acetaminophen) 325 Mg Tablet, 650 MG PO Q6H PRN for PAIN, (Reported) Oxycodone HCl (Oxycodone HCl ER) 15 Mg Tab.er.12h, 15 MG PO BID PRN for PAIN, (Reported) GME ATTESTATION GME ATTESTATION My faculty preceptor for this patient encounter was physically present during the encounter and was fully available. All aspects of the patient interview, examination, medical decision making process, and medical care plan development were reviewed and approved by the faculty preceptor. The faculty preceptor is aware and concurs with the plan as stated in the body of this note and will attest to such by his/her cosignature. KIMBERLY SARKAR DO Jan 15, 2020 10:24
[2020-01-15] MEDS: MIDODRINE 2.5 MG TAB NG SCH ×2 (12:14→16:09)
--- NOTE | 2020-01-15 13:26 | CCN ---
DATE: 01/15/2020 The patient was seen, examined this morning during bedside rounds. Overnight the patient had gone into ventricular fibrillation (V-fib)/ventricular tachycardia (V-tach) arrhythmia with somewhat difficult to palpate pulses at the time. Her automatic implantable cardioverter defibrillator (AICD) had fired approximately four times overnight. The patient was then started on amiodarone IV with the loading dose. She was also given magnesium and potassium supplementation. The patient was also noted to have evidence of desaturation and some mucus plugging. She did require some saline instillation through the endotracheal tube (ET) tube and suctioning to help with her desaturation events. The patient was also noted to be febrile at this morning with a maximum temperature (Tmax) of 101.2. The patient is on Versed as needed for sedation, and she is opening her eyes and moving extremities to pain and somewhat intermittently following commands. PHYSICAL EXAMINATION: General: Tmax is 101.2, T-current 100.6, pulse 60, respirations 22, blood pressure 112/52, oxygen saturation 100% on 35% FiO2. Ins 1.4 liters, out 1.3 liters. General: This patient is intubated and is on as-needed medications for sedation. She is the opening eyes occasionally and responsive to painful stimuli and is following commands intermittently. HEENT is normocephalic, atraumatic. Pupils reactive to light bilaterally. There are somewhat dry mucous membranes. Neck is supple. Trachea is midline. Unable to appreciate jugular venous distention (JVD) due to neck habitus. Cardiac: Regular rate and rhythm. Normal S1, S2. Unable to appreciate any murmurs with somewhat distant heart sounds. Point of maximum impulse (PMI) is displaced laterally. There is an AICD implanted in the left side of the chest. Pulmonary: There is increased rhonchorous breath sounds bilaterally with some crackles. There is no significant wheezing noted. Abdomen is obese, soft, nontender, nondistended. Unable palpate any masses. Extremities: There is no significant lower extremity edema in the bilateral lower extremities. Pulses are somewhat diminished. Extremities are cool. LABORATORY DATA: WBC is 8.8, hemoglobin is 7.0, and platelets are 210. Chemistry: Sodium is 147, potassium 3.7, chloride is 110, bicarbonate 20, BUN 42, creatinine is 1.91, glucose is 161. AST, ALT 44 and 50. Alkaline phosphatase is 201. Troponin 0.57. Albumin is 2.0. Procalcitonin was 0.77. ABG: pH 7.494, pCO2 of 32.9, pO2 of 56.0. Chest x-ray this morning had shown ET tube in good position with orogastric (OG) tube entering into the left upper quadrant. There is cardiomegaly and an AICD in place on the left side of the chest. There are no focal opacities. Possible left lower lobe atelectasis. ASSESSMENT AND PLAN: Ms. Maire is a 59-year female with a past medical history of nonischemic cardiomyopathy with biventricular heart failure with reduced ejection fraction (EF), history of a biventricular AICD, atrial fibrillation, diabetes, hyperlipidemia, chronic kidney disease (CKD), history of recurrent urinary tract infection (UTI) who had recently been admitted with complaints of left-sided flank pain and presumed pyelonephritis. The patient had a urinalysis (UA) which was positive during her previous admission and a urine culture that was positive for yeast. 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 The patient was discharged with fluconazole and with the pain medications. She presented today after with recurrent left-sided flank pain as well as hypotension. The patient's had stated that he was unable to care for her at home and so she was brought to the [facility] ([facility] During this admission, the patient was noted to have acute on chronic hypercarbic respiratory failure as well as lethargy and altered mental status. She was initially trialed on bilevel positive airway pressure (BiPAP) which she failed and required intubation and placement on mechanical ventilation. Acute on chronic hypercarbic and hypoxemic respiratory failure. The patient's chest x-ray initially had shown some evidence of pulmonary vascular congestion, which may have been more prominent on the day of her transfer to the intensive care unit (ICU). She had been reportedly on spironolactone and Lasix as home medication, but here has only been on spironolactone. Her Lasix appeared to be on hold possibly due to her initial hypotension. The patient does have chronic hypercarbic respiratory failure and her acute decompensation may have been in the setting of some pulmonary edema as well as possibly from the opioid medications that she was receiving for pain control. - The patient is currently on mechanical ventilator with settings of PRBC with 430/18/35 and 6. Will continue her on the same settings and wean down FiO2 as tolerated. - Continue with daily chest x-rays and ABGs while intubated as well as vent bundle care with head of bed elevation and chlorhexidine mouthwash. - The patient was noted on exam today to have more rhonchorous breath sounds as well as evidence of bronchospasm and mucus secretions on the ventilator wave forms. Will start her on nebulized bronchodilator with levalbuterol. - The patient was unable to tolerate propofol for sedation due to hypotension in the setting of her cardiomyopathy. She was placed on Versed as needed for sedation and will continue with Versed as needed to titrate for a Jet of 2-3 and will also add fentanyl as needed for pain control as well. - The patient was given IV Lasix 40 mg yesterday and was then noted to have episodes of hypotension in the afternoon. Her evening Lasix was on hold and she was given a small IV fluid bolus with improvement in her blood pressure. Will hold off on further diuresis at this time as she did have a fever and suspect that she has sepsis currently, and she does not have any overt signs of worsening edema or point vascular congestion currently. Patient with a history of nonischemic cardiomyopathy with biventricular heart failure with reduced EF and a biventricular AICD. She was noted overnight to have V-fib/VT and had required four shocks of her AICD. - The patient was given amiodarone loading dose as well as electrolyte replacement and cardiology was consulted. - Her digoxin was discontinued, but her metoprolol was continued. - The patient is still on midodrine for her likely chronic hypotension in the setting of her congestive heart failure (CHF) with reduced EF. She has been currently maintaining a blood pressure above 65 without need of other vasopressors. Will continue to monitor and if she does required vasopressor administration w Will need placement of a central line. Sepsis with a previous history of UTI and urine culture growing yeast. The patient's repeat UA also appears positive was almost pus-like urine in her Mcleod bag. - Will continue to followup her urine culture as well as blood culture results. Her antibiotics have been broadened to Zosyn and her fluconazole was changed to micafungin. - The patient did have a fever early this morning. Has not had any increased leukocytosis. Will continue to monitor results of cultures. - The patient also has a history of left-sided flank pain and previous pyelonephritis. If she continues to have persistent fevers, will consider repeat CT. She does also has a history of pancreatic cysts. Acute kidney injury (KWAME) on CKD. - The patient likely with a component of worsening renal function in the setting of hypoperfusion with her reduced EF as well as with her VT and V-fib events overnight. - Will continue to monitor her renal function as well as her ins and outs. - Will continue to monitor electrolytes and replete as needed with a magnesium above 2 and a potassium above 4 given her arrhythmias. Heme. Patient with a history of anemia of chronic disease. Her hemoglobin has trended down this morning. Will repeat a CBC as well as get a type and screen and will transfuse if hemoglobin is less than 7. - Will continue with DVT prophylaxis with heparin.. Gastrointestinal (GI) prophylaxis with Protonix. Will start tube feeds and will monitor for residuals. The patient has history of diabetes. Will continue monitoring fingerstick glucose checks with sliding scale coverage. CODE STATUS: FULL CODE. Will attempt to contact the patient's next of kin for discussion of goals of care. Total critical care time spent, not including procedures, approximately 40 minutes. MTDD
[2020-01-15] MEDS: MICAFUNGIN SODIUM 100 MG in D5W MINI-BAG PLUS 100 ML IV SCH (14:10)
[2020-01-15] MEDS: AMIODARONE 200 MG TAB (PACERONE) GT SCH ×2 (14:18→21:00)
--- NOTE | 2020-01-15 14:30 | IPNPDOC ---
Date Seen The patient was seen on 01/15/20. Progress Note SUBJECTIVE: Patient was seen and examined this morning. Overnight the patient was noted to develop ventricular fibrillation. She does have an AICD in place which was reported to have discharged three time. At the time the patients energy and sustainability manager was contacted and she was started on Amiodarone. She does appear to be worsening this morning and has likely had more decompensation due to her ventricular arrhythmia. Currently she remains intubated with mechanical ventilation. The cause of her decompensation is unclear but likely related to sepsis. I have been able to make contact with the patients , Aubrey today. I have explained at length her poor prognosis given her multiple comorbidities. He has expressed that in regards to DNR/DNI that he believes that she would like everything done if the measures are only temporary. The patients will attempt to present at bedside tomorrow. OBJECTIVE PHYSICAL EXAMINATION: VITAL SIGNS: Please see below. GENERAL: Lightly sedated. Appears critically ill. Intubated and mechanically ventilated HEENT: Atraumatic, normocephalic. Eyes are nonicteric. Trachea is midline. Endotracheal tube in place. Nasogastric tube in place. CARDIOVASCULAR: Normal S1, S2. Regular rate and rhythm. Distant heart sounds. No clicks or rubs RESPIRATORY: Diffuse crackles and rhonchi present bilaterally. Intubated and mechanically ventilated. Symmetric chest expansion ABDOMINAL: Soft, nondistended. Normoactive bowel sounds. EXTREMITIES: No edema. Full and equal pulses bilaterally in upper and lower extremities NEUROLOGICAL: No focal neurological deficits. Moves all limbs spontaneously LABORATORY DATA, IMAGING STUDIES, MICROBIOLOGY: Please see below. DVT prophylaxis ordered?: Heparin ASSESSMENT AND PLAN: Patient is a 59 year old female with multiple comorbidities who presented to [facility] with left flank pain and reported hypotension. She was pending placement to intermediate project manager care facility and developed lethargy and acute on chronic respiratory failure. She failed NIPPV and was subsequently intubated. Last night she had developed ventricular fibrillation and subsequently received three discharged from her AICD PROBLEMS: 1. Acute on chronic hypercarbic respiratory failure 2/2 medication use vs decompensated acute on chronic congestive heart failure LVEF 20% -Currently patient remains intubated with mechanical ventilation. She had re ceived IV lasix yesterday and developed some hypotension. Her evening dose was held and she received a 250ml bolus. Overnight the patient developed ventricular fibrillation however her AICD was discharged a total of 3 times. This has likely contributed to further decompensation. She has been started on IV amiodarone loading. She has not received subsequent lasix due to soft blood pressure -Pulmonary Critical Care has been consulted and is following patient. Recommendations and assistance is appreciated -Cardiology has been consulted. Recommendations and assistance is appreciated 2. Sepsis 2/2 UTI -Patient was tachycardic with elevated WBC. Consider possible sepsis. She has a history of chronic UTI/pyelonephritis. Mcleod bag did have purulent urine. She was previously hospitalized with UTI and received IV Zosyn, Meropenem, and continued on Fluconazole for a fungal UTI -Procalcitonin of 0.77 -Blood cultures with no growth -Urine culture pending -Fungal smear and culture blood pending -Currently on Zosyn. Micafungin was added for fungal coverage. Her urine had previously grown yeast. Culture was sent to [facility] at previous hospitalization and is pending. She was on oral Fluconazole as an outpatient. She would not be a good candidate for Itraconazole given her CHF and association with decompensation. Additionally she appears to have failed Azole therapy. Will start Micafungin while awaiting urine and fungal cultures 3. Acute on Chronic Decompensated Congestive Heart Failure LVEF 20% -As stated above. Likely decompensated secondary to sepsis possibly from pyelonephritis. -She has received lasix and diuresed. Her blood pressure has been soft and she has sine been off of lasix -Mcleod in place. I&O's for critical monitoring -Cardiology is following. Recommendations and assistance is appreciated 4. Acute on Chronic Kidney Injury -Cr has worsened today to 1.91 from 1.68 yesterday. This is likely multifactorial and related to sepsis and poor perfusion from HFrEF. Additionally the patient had developed ventricular fibrillation last night which likely contributed to poor cardiac output and subsequently prerenal azotemia -Will continue to monitor -UA is pending 5. Hypotension -Likely multifactorial and related to HFrEF with LVEF 20%, intubation, and sedation. -Continue Midodrine -Patient has had adequate mean arterial pressures. Currently no indication for pressor support. She does not have central venous access at this time 6. Transaminitis -Liver enzymes are stable. Will continue to trend 8. Atrial Fibrillation -Continue Digoxin and ASA. Patient is not on anticoagulation at home. 9. CT image Findings -Patient has innumerable pancreatic cysts with pancreatic enlargement particularly in the body of the pancreas which is new or enlarged from prior studies. This has been reported concerning for possible intraductal papillary mucinous neoplasm (IPMN). Patient had been informed about this during her recent hospitalization. She has been recommended to see a pancreatic specialist in [place] as IPMN may be pre-cancerous. -Previous hospitalization demonstrated elevated CA-19-9 10. DVT Prophylaxis -Heparin SQ 11. GI Prophylaxis -Protonix Daily DISPOSITION: Patients overall prognosis is poor and guarded. Her Aubrey was contacted today. I have spoken to him in regards to the patiens prognosis an d he voiced understanding. In regards to goals of care, plans will need to be made to have the patients visit tomorrow. Unfortunately he is only available in the morning and arrangements outside of COVID visiting hours will have to be made. [facility] has been made aware of this and is working on coordination of this. Assistance in the matter is appreciated VS, I&O, 24H, Laureanobone Vital Signs/I&O Vital Signs Date Time Temp Pulse Resp B/P (MAP) Pulse Ox O2 Delivery O2 Flow Rate FiO2 01/15/20 12:30 66 116/56 (76) 99 Ventilator 35 01/15/20 12:01 99.0 15 01/14/20 09:09 2.0 I&O- Last 24 Hours up to 6 AM 01/15/20 06:00 Intake Total 1830 ml Output Total 1550 ml Balance 280 ml Laboratory Data 24H LABS Laboratory Tests 2 01/14/20 17:45: Bedside Glucose (Misc Panel) 128H 01/14/20 20:06: Bedside Glucose (Misc Panel) 103 01/14/20 23:22: Bedside Glucose (Misc Panel) 94 01/15/20 00:07: Anion Gap 7L, Glomerular Filtration Rate 29.4L, Calcium Level 8.5, Magnesium Le mimi 1.9, Total Bilirubin 0.8#, Aspartate Amino Transf (AST/SGOT) 43H, Alanine Aminotransferase (ALT/SGPT) 50, Alkaline Phosphatase 195H, Troponin I 0.66H, Total Protein 5.2L, Albumin 2.1L, Albumin/Globulin Ratio 0.7L 01/15/20 04:14: Nucleated Red Blood Cells % (auto) 0.2H, Anion Gap 11, Glomerular Filtration Rate 28.7L, Calcium Level 8.4L, Total Bilirubin 0.7, Aspartate Amino Transf (AST/SGOT) 44H, Alanine Aminotransferase (ALT/SGPT) 50, Alkaline Phosphatase 201H, Troponin I 0.57H, Total Protein 5.2L, Albumin 2.0L, Albumin/Globulin Ratio 0.6L 01/15/20 05:01: Blood Gas Bicarbonate Standard 25.7, Arterial Blood pH 7.494H, Arterial Blood Partial Pressure CO2 32.9L, Arterial Blood Partial Pressure O2 56.0L, Arterial Blood Total CO2 25.7, Arterial Blood HCO3 24.7, Arterial Blood Base Excess 1.5, Arterial Blood Oxygen Saturation 91.2L 01/15/20 07:03: Nucleated Red Blood Cells % (auto) 0.4H, Immature Granulocyte % (Auto) 0.8, Neut rophils (%) (Auto) 79.1H, Lymphocytes (%) (Auto) 13.7L, Monocytes (%) (Auto) 6.1H, Eosinophils (%) (Auto) 0.1, Basophils (%) (Auto) 0.2, Neutrophils # (Auto) 6.7, Lymphocytes # (Auto) 1.2L, Monocytes # (Auto) 0.5, Eosinophils # (Auto) 0.0, Basophils # (Auto) 0.0 01/15/20 11:32: Bedside Glucose (Misc Panel) 144H CBC/BMP Laboratory Tests 01/15/20 00:07 01/15/20 04:14 01/15/20 07:03 Microbiology Microbiology 01/14/20 Urine Culture, Received Pending 01/14/20 Blood Fungal Culture, Received Pending 01/14/20 Blood Culture - Preliminary, Resulted No growth after 24 hours . All specim... 01/14/20 Blood Culture - Preliminary, Resulted No growth after 24 hours . All specim... 01/11/20 Blood Culture - Preliminary, Resulted No Growth after 72 hours. All specime... 01/11/20 Blood Culture - Preliminary, Resulted No Growth after 72 hours. All specime... GME ATTESTATION My faculty preceptor for this patient encounter was physically present during the encounter and was fully available. All aspects of the patient interview, examination, medical decision making process, and medical care plan development were reviewed and approved by the faculty preceptor. The faculty preceptor is aware and concurs with the plan as stated in the body of this note and will a ttest to such by his/her cosignature. I have personally evaluated and examined the patient. Discussed with resident/student regarding plan of care and agree with the above assessment and plan. ANIYAH ASHBY DO Jan 15, 2020 14:30 TEJINDER COBB MD Jan 15, 2020 18:34
[2020-01-15] MEDS ORDERED: AMIODARONE 200 MG TAB (PACERONE) PO SCH (16:00)
[2020-01-15] MEDS ORDERED: MIDAZOLAM INJ 2MG/2ML VIAL (J2250 PER 1MG) IV STA (18:37)
[2020-01-15] MEDS ORDERED: REFRIGERATOR IV KEYS XX PRN (18:45)
[2020-01-15] MEDS: MIDAZOLAM HCL 100 MG in D5W 80 ML IV SCH (20:36)
[2020-01-16] VITALS (53 sets, daily range): BP systolic 85–103; BP diastolic 50–64; O2SAT 98–100
[2020-01-16] MEDS: ACETAMINOPHEN 325 MG/10.15 ML UDC GT PRN
--- NOTE | 2020-01-16 00:37 | ECGEPIP ---
[facility] Test Date: 2020-01-14 Pat Name: GLADYS RODARTE Department: Room: [place] [address] Gender: Female Director [facility]: : 1960 Requested By: ANIYAH ASHBY Order Number: [id number] Reading MD: Denny Carey Measurements Intervals [place] Rate: 114 P: 134 OK: 175 QRS: 173 QRSD: 167 T: 95 QT: 378 QTc: 521 Interpretive Statements ELECTRONIC VENTRICULAR PACEMAKER ARM LEADS REVERSED, PROBABLY RELATED TO A BiV PACEMAAKER ABNORMAL RHYTHM ECG Electronically Signed on 01-16-2020 0:36:47 EDT by Denny Carey
[2020-01-16] MEDS: fentaNYL 100 MCG/2 ML INJECTION (J3010) IV PRN ×3 (00:40→05:27)
[2020-01-16] MEDS: PIPERACILLIN/TAZOBACTAM SOD 3.375 GM in D5W MINI-BAG PLUS 50 ML IV SCH ×4 (03:47→20:10)
[2020-01-16 05:04] LABS: BASO % 0.3 % (0.0-1.0); EOS # 0.1 10^3/uL (0.0-0.5); EOS % 0.6 % (0.0-3.0); HEMATOCRIT 21.7 % (36.0-47.0); LYMPH # 1.5 10^3/uL (1.5-5.0); LYMPH % 18.9 % (24.0-44.0); MEAN CORPUSCULAR HEMOGLOBIN 31.6 pg (27.0-33.0); MEAN CORPUSCULAR HGB CONC 30.9 g/dl (32.0-36.5); MEAN CORPUSCULAR VOLUME 102.4 fl (80.0-96.0); MONO # 0.7 10^3/uL (0.0-0.8); MONO % 8.4 % (0.0-5.0); NEUTROPHILS # 5.5 10^3/uL (1.5-8.5); NEUTROPHILS % 71.3 % (36.0-66.0); PLATELET COUNT, AUTOMATED 193 10^3/uL (150-450); RED BLOOD COUNT 2.12 10^6/uL (4.00-5.40); WHITE BLOOD COUNT 7.8 10^3/uL (4.0-10.0)
[2020-01-16 05:06] LABS: HEMOGLOBIN 6.7 g/dl (12.0-15.5)
[2020-01-16] MEDS: HEPARIN SOD (PORCINE) 5000UNITS/ML VIAL (J1644 PER 1000UNITS) SQ SCH ×3 (05:27→21:49)
[2020-01-16 05:35] LABS: ALBUMIN 1.8 GM/DL (3.2-5.2); BILIRUBIN,TOTAL 0.5 MG/DL (0.2-1.0); CALCIUM LEVEL 8.2 MG/DL (8.5-10.1); CREATININE FOR GFR 2.12 MG/DL (0.55-1.30); GLOMERULAR FILTRATION RATE 25.5 (>51); POTASSIUM SERUM 3.6 MEQ/L (3.5-5.1); TOTAL PROTEIN 4.9 GM/DL (6.4-8.2)
[2020-01-16] MEDS: HumaLOG INSULIN (NovoLOG) PER UNIT SC SCH ×5 (05:46→23:57)
[2020-01-16 06:05] LABS: ABG BASE EXCESS 3.4 (-2.0-2.0); ABG HCO3 24.9 MEQ/L (22.0-26.0); ABG O2 SATURATION 99.2 % (95.0-99.0); ABG PARTIAL PRESSURE CO2 25.5 mmHg (35.0-45.0); ABG PARTIAL PRESSURE O2 142.8 mmHg (75.0-100.0); ABG STANDARD HCO3 27.6 MEQ/L (22.0-26.0); ABG TOTAL CO2 25.7 MEQ/L (22.0-29.0)
[2020-01-16 06:09] LABS: ABG pH (ARTERIAL) 7.607 UNITS (7.350-7.450)
[2020-01-16] MEDS: LEVALBUTEROL HFA 45MCG/ACT 15 GM INHALER INH SCH ×4 (07:32→19:36)
--- NOTE | 2020-01-16 08:05 | REP ---
Portable chest x-ray: Single view. History: Intubated patient. Comparison chest x-ray: January 15, 2020. Findings: The patient is rotated somewhat to the left for the current exposure. Endotracheal and nasogastric tubes remain in place unchanged. A multi lead pacemaker is again seen in the heart. There is mild plate-like atelectasis in the right perihilar region. Right lung is otherwise clear. The left hemidiaphragm is obscured consistent with pleural effusion and in combination with atelectasis. Increased density is seen behind the heart. This appears more prominent today than on yesterday's radiograph. Electronically Signed by Vincent Burgos MD 01/16/2020 07:57 A
[2020-01-16] MEDS: METOPROLOL TART 12.5 MG PER 1/2 TAB NG SCH (08:10)
[2020-01-16] MEDS: MIDODRINE 2.5 MG TAB NG SCH ×3 (08:18→15:59)
[2020-01-16] MEDS: AMIODARONE 200 MG TAB (PACERONE) GT SCH ×3 (08:18→20:10)
[2020-01-16] MEDS: CHLORHEXIDINE GLUCONATE 0.12 % 15ML UDC (PERIDEX ORAL RINSE) MT SCH ×2 (08:19→20:10)
[2020-01-16] MEDS: PANTOPRAZOLE 40MG VIAL (C9113 PER 1) IV SCH (08:19)
[2020-01-16] MEDS ORDERED: MIDAZOLAM INJ 2MG/2ML VIAL (J2250 PER 1MG) As Ordered ONE (09:44)
[2020-01-16] MEDS: FUROSEMIDE 20MG/2ML VIAL (J1940) IV SCH ×2 (10:40→21:49)
--- NOTE | 2020-01-16 10:46 | REP ---
PORTABLE CHEST X-RAY: Single view. 10:06 a.m. film. HISTORY: Line placement. COMPARISON CHEST X-RAY: January 16, 2020 at the 6:01 a.m. FINDINGS: The patient is rotated to the left for the current exposure. A right internal jugular central venous line has been inserted into the expected location of the superior vena cava. There is no evidence of pneumothorax. Nasogastric and endotracheal tube are again noted in place unchanged. A multilead pacemaker is noted. Increased density persists in the left base which may be pleural and/or parenchymal. The left hemidiaphragm is obscured as before. IMPRESSION: Right internal jugular central venous line in place. No evidence of pneumothorax. Electronically Signed by Vincent Burgos MD 01/16/2020 02:56 P
[2020-01-16] MEDS: MICAFUNGIN SODIUM 100 MG in D5W MINI-BAG PLUS 100 ML IV SCH (12:27)
[2020-01-16] MEDS: MIDAZOLAM INJ 2MG/2ML VIAL (J2250 PER 1MG) IV PRN (13:02)
--- NOTE | 2020-01-16 13:04 | RO ---
DATE OF PROCEDURE: 01/16/2020 PROCEDURE: Internal jugular central line. INDICATION: Venous access. PREPROCEDURE DIAGNOSIS: Heart failure, respiratory failure, sepsis. POSTPROCEDURE DIAGNOSIS: Heart failure, respiratory failure, sepsis. ATTENDING PHYSICIAN: Dr. Natividad Graf CONSENT: The procedure was performed emergently and the permission was implied due to the emergent nature of the procedure. PROCEDURE SUMMARY: A central line insertion practice form was completed by independent observer. A time out was performed. Full sterile technique was maintained throughout the procedure including surgical cap, mask, protective eye wear, full gown and sterile gloves. The patient was placed in Trendelenburg position. The right neck region was prepped using chlorhexidine scrub and draped in a sterile fashion using a fenestrated drape and a sterile probe cover was employed. The right internal jugular vein was identified using ultrasound. Anesthesia achieved over the vein using 1% lidocaine. Using real time out of plane guidance, the introducer needle was inserted into the right internal jugular vein under direct ultrasound visualization. Venous blood was withdrawn. The syringe was removed and a guidewire was advanced into the introducer needle. The introducer needle was removed over the guidewire. A small incision was made at the skin surface with the scalpel and a dilator was exchanged over the guidewire. After appropriate dilation was obtained, the dilator was exchanged over the wire for a triple lumen central venous catheter. The wire was removed and the catheter was sutured in place at 17.5 cm. A sterile chlorhexidine impregnated dressing was placed over the catheter at the insertion site. The patient tolerated the procedure without any hemodynamic compromise. At time of procedure completion, all ports were aspirated and flushed properly. Postprocedure chest x-ray showed the right IJ triple lumen in good position. There was no evidence of pneumothorax. Estimated blood loss less than 5 mL. MTDD
[2020-01-16 17:09] LABS: HEMATOCRIT 23.3 % (36.0-47.0); HEMOGLOBIN 7.1 g/dl (12.0-15.5); MEAN CORPUSCULAR HEMOGLOBIN 31.7 pg (27.0-33.0); MEAN CORPUSCULAR HGB CONC 30.5 g/dl (32.0-36.5); PLATELET COUNT, AUTOMATED 200 10^3/uL (150-450); RED BLOOD COUNT 2.24 10^6/uL (4.00-5.40); WHITE BLOOD COUNT 8.9 10^3/uL (4.0-10.0)
--- NOTE | 2020-01-16 17:23 | IPNPDOC ---
Date Seen The patient was seen on 01/16/20. Progress Note SUBJECTIVE: Patient was seen and examined this morning. There were no adverse events reported overnight. This morning she did appear to be anemic with a hbg of 6.7. She does remain critically ill. BP continues to remain soft. She does appear to have more crackles this morning likely due to worsening pulmonary edema. The patients has been contacted and arrangement made for him to come in today. Discussion was had at bedside with the patients and Pulmonary/Critical Care in regard to care goals. The patients Aubrey was made aware of the patients poor prognosis. Decision was made to have the patient made DNR/DNI. The patients had stated that he would like to hold off on PRINCIPAL STRATEGIST at this time until he is able to speak with his children OBJECTIVE PHYSICAL EXAMINATION: VITAL SIGNS: Please see below. GENERAL: Appears critically ill. Intubated and mechanically ventilated HEENT: Atraumatic, normocephalic. Eyes are nonicteric. Trachea is midline. Endotracheal tube in place. Nasogastric tube in place. CARDIOVASCULAR: Normal S1, S2. Regular rate and rhythm. Distant heart sounds. No clicks or rubs RESPIRATORY: Diffuse crackles and rhonchi present bilaterally, increased from previous examination. Intubated and mechanically ventilated. Symmetric chest expansion ABDOMINAL: Soft, nondistended. Normoactive bowel sounds. EXTREMITIES: increased peripheral edema. Full and equal pulses bilaterally in upper and lower extremities NEUROLOGICAL: No focal neurological deficits. Moves all limbs spontaneously LABORATORY DATA, IMAGING STUDIES, MICROBIOLOGY: Please see below. DVT prophylaxis ordered?: Heparin ASSESSMENT AND PLAN: Patient is a 59 year old female with multiple comorbidities who presented to [facility] with left flank pain and reported hypotension. She was [facility] and developed lethargy and acute on chronic respiratory failure. She failed NIPPV and was subsequently intubated. Last night she had developed ventricular fibrillation and subsequently received three discharged from her AICD. Patient has been visited by with CODE STATUS changed to DNR/DNI PROBLEMS: 1. Acute on chronic hypercarbic respiratory failure 2/2 medication use vs decompensated acute on chronic congestive heart failure LVEF 20% -Patient remains intubated with mechanical ventilation. Her respiratory issue is likely secondary to decompensated CHF with pulmonary edema. She appears more volume overloaded today. Additional lasix will be given however she does have soft pressures. Pressor support such as dobutamine or milrinone has been discussed with cardiology given the tachyarrhythmias associated with it. Dobutamine and milrinone will are plausible bridging therapies to more permanent options such as LVAD and heart transplant however the patient is currently not a candidate for either. At this time, plan it to diuresis patient -She remains intubated. If extubated she will likely develop flash pulmonary edema from increased venous return in the setting of her already decompensated congestive heart failure. She would need NIPPV to bridge her however she has been unable to tolerate Bilevel in the past. Discussion with patients with plans to consider PRINCIPAL STRATEGIST after discussing with his children. At that point the patient would be extubated -Pulmonary Critical Care has been consulted and is following patient. Recommendations and assistance is appreciated -Cardiology has been consulted. Recommendations and assistance is appreciated 2. Sepsis 2/2 UTI -Patients cause of decompensated congestive heart failure is likely secondary to sepsis. She does have a urine culture positive for Enterococcus faecalis. This was not grown at her previous hospitalization. She has been receiving Zosyn which is appropriate coverage. Question as to whether she may have some sort of colovesicular fistula as she has had recurrent UTI's. -Procalcitonin of 0.77. Repeated today and pending -Blood cultures with no growth -Urine culture demonstrating Entercoccus faecalis -Fungal smear and culture blood pending -Currently on Zosyn. Micafungin was added for fungal coverage. Her urine had previously grown yeast. Culture was sent to [facility] at previous hospitalization and is pending. 3. Acute on Chronic Decompensated Congestive Heart Failure LVEF 20% -As stated above. Likely decompensated secondary to sepsis possibly from pyelonephritis. -Additional lasix given today. Will monitor electrolytes. -Patient has been made DNR/DNI today. Dr. Etienne of Cardiology has turned off the patients AICD given her DNR status. If she were to be made PRINCIPAL STRATEGIST, cardiac meds such as amiodarone would be discontinued -Mcleod in place. I&O's for critical monitoring -Cardiology is following. Recommendations and assistance is appreciated 4. Ventricular Fibrillation -Patient had episodes of ventricular fibrillation two nights ago. Her AICD did fire 4 times. She had been seen by Cardiology with adjustment to medications at the time. Currently she has been made DNR/DNI. AICD has been turned off by Cardiology. 5. Acute on Chronic Kidney Injury -Cr continues to worsen. This is likely multifactorial and related to sepsis and poor perfusion from HFrEF. Additionally the patient had epsisodes of ventricular fibrillation last night which likely contributed to poor cardiac output and subsequently prerenal azotemia -Cannot completely rule out ATN at this time. If patient continues to worsen she may need CRRT however there may be futility as the patients most pressing issue is her cardiac function which will likely not recover -Will continue to monitor 7. Transaminitis -Liver enzymes are stable. Will continue to trend 8. Atrial Fibrillation -Continue Digoxin and ASA. Patient is not on anticoagulation at home. 9. CT image Findings -Patient has innumerable pancreatic cysts with pancreatic enlargement particularly in the body of the pancreas which is new or enlarged from prior studies. This has been reported concerning for possible intraductal papillary mucinous neoplasm (IPMN). Patient had been informed about this during her recent hospitalization. She has been recommended to see a pancreatic specialist in [place] as IPMN may be pre-cancerous. -Previous hospitalization demonstrated elevated CA-19-9 -Patient may very well have pancreatic cancer. This may also be driving her disease process 10. DVT Prophylaxis -Heparin SQ 11. GI Prophylaxis -Protonix Daily DISPOSITION: Patients prognosis remains very poor and guarded. She is critically ill with multiple comorbidities. Discussion have been made with the patients Aubrey and the patient has been made DNR/DNI at this point in time. He would like to contact his children regarding the patients status. We will rev isit goals of care in regards to PRINCIPAL STRATEGIST tomorrow. If decision is to be PRINCIPAL STRATEGIST then patient will be extubated VS[facility] V[facility] Signs/I&O Vital Signs Date Time Temp Pulse Resp B/P (MAP) Pulse Ox O2 Delivery O2 Flow Rate FiO2 01/16/20 15:24 61 18 98 30 01/16/20 13:00 96/59 (71) Ventilator 01/16/20 12:00 98.9 01/14/20 09:09 2.0 I&O- Last 24 Hours up to 6 AM 01/16/20 06:00 Intake Total 2191 ml Output Total 810 ml Balance 1381 ml Laboratory Data 24H LABS Laboratory Tests 2 01/15/20 17:49: Bedside Glucose (Misc Panel) 143H 6/23/20 23:43: Bedside Glucose (Misc Panel) 180H 01/16/20 04:36: Immature Granulocyte % (Auto) 0.5, Neutrophils (%) (Auto) 71.3H, Lymphocytes (%) (Auto) 18.9L, Monocytes (%) (Auto) 8.4H, Eosinophils (%) (Auto) 0.6, Basophils (%) (Auto) 0.3, Neutrophils # (Auto) 5.5, Lymphocytes # (Auto) 1.5, Monocytes # (Auto) 0.7, Eosinophils # (Auto) 0.1, Basophils # (Auto) 0.0, Nucleated Red Blood Cells % (auto) 0.3H, Anion Gap 11, Glomerular Filtration Rate 25.5L, Calcium Level 8.2L, Total Bilirubin 0.5, Aspartate Amino Transf (AST/SGOT) 49H, Alanine Aminotransferase (ALT/SGPT) 47, Alkaline Phosphatase 199H, Total Protein 4.9L, Albumin 1.8L, Albumin/Globulin Ratio 0.6L 01/16/20 05:57: Blood Gas Bicarbonate Standard 27.6H, Arterial Blood pH 7.607*H, Arterial Blood Partial Pressure CO2 25.5L, Arterial Blood Partial Pressure O2 142.8H, Arterial Blood Total CO2 25.7, Arterial Blood HCO3 24.9, Arterial Blood Base Excess 3.4H, Arterial Blood Oxygen Saturation 99.2H 01/16/20 12:20: Bedside Glucose (Misc Panel) 172H CBC/BMP Laboratory Tests 01/16/20 04:36 Microbiology Microbiology 01/14/20 Urine Culture - Final, Complete Enterococcus Faecalis 01/14/20 Blood Fungal Culture, Received Pending 01/14/20 Blood Culture - Preliminary, Resulted No Growth after 48 hours. All Specime... 01/14/20 Blood Culture - Preliminary, Resulted No Growth after 48 hours. All Specime... 01/11/20 Blood Culture - Final, Complete NO GROWTH AFTER 5 DAYS 01/11/20 Blood Culture - Final, Complete NO GROWTH AFTER 5 DAYS GME ATTESTATION My faculty preceptor for this patient encounter was physically present during the encounter and was fully available. All aspects of the patient interview, examination, medical decision making process, and medical care plan development were reviewed and approved by the faculty preceptor. The faculty preceptor is aware and concurs with the plan as stated in the body of this note and will attest to such by his/her cosignature. I have personally evaluated and examined the patient. Discussed with resident/student regarding plan of care and agree with the above assessment and plan. ANIYAH ASHBY DO Jan 16, 2020 17:23 TEJINDER COBB MD Jan 16, 2020 18:15
[2020-01-16 17:26] LABS: CALCIUM LEVEL 8.5 MG/DL (8.5-10.1); CREATININE FOR GFR 2.22 MG/DL (0.55-1.30); GLOMERULAR FILTRATION RATE 24.2 (>51); POTASSIUM SERUM 3.6 MEQ/L (3.5-5.1)
[2020-01-16] MEDS: MIDAZOLAM HCL 100 MG in D5W 80 ML IV SCH (17:56)
[2020-01-17] VITALS (20 sets, daily range): BP systolic 90–107; BP diastolic 50–61
[2020-01-17] MEDS: fentaNYL 100 MCG/2 ML INJECTION (J3010) IV PRN ×3 (00:12→10:10)
[2020-01-17] MEDS: PIPERACILLIN/TAZOBACTAM SOD 3.375 GM in D5W MINI-BAG PLUS 50 ML IV SCH ×2 (03:15→09:09)
[2020-01-17 05:20] LABS: HEMATOCRIT 21.5 % (36.0-47.0); MEAN CORPUSCULAR HEMOGLOBIN 31.4 pg (27.0-33.0); MEAN CORPUSCULAR HGB CONC 30.7 g/dl (32.0-36.5); MEAN CORPUSCULAR VOLUME 102.4 fl (80.0-96.0); PLATELET COUNT, AUTOMATED 185 10^3/uL (150-450); WHITE BLOOD COUNT 6.7 10^3/uL (4.0-10.0)
[2020-01-17 05:33] LABS: HEMOGLOBIN 6.6 g/dl (12.0-15.5)
[2020-01-17 05:46] LABS: ALBUMIN 1.8 GM/DL (3.2-5.2); BILIRUBIN,TOTAL 0.4 MG/DL (0.2-1.0); CALCIUM LEVEL 8.4 MG/DL (8.5-10.1); CREATININE FOR GFR 2.19 MG/DL (0.55-1.30); GLOMERULAR FILTRATION RATE 24.5 (>51); POTASSIUM SERUM 3.2 MEQ/L (3.5-5.1); TOTAL PROTEIN 5.2 GM/DL (6.4-8.2)
[2020-01-17 05:56] LABS: ABG BASE EXCESS 1.7 (-2.0-2.0); ABG HCO3 24.6 MEQ/L (22.0-26.0); ABG O2 SATURATION 98.6 % (95.0-99.0); ABG PARTIAL PRESSURE O2 114.2 mmHg (75.0-100.0); ABG TOTAL CO2 25.6 MEQ/L (22.0-29.0); ABG pH (ARTERIAL) 7.518 UNITS (7.350-7.450)
[2020-01-17] MEDS: HEPARIN SOD (PORCINE) 5000UNITS/ML VIAL (J1644 PER 1000UNITS) SQ SCH (06:54)
[2020-01-17] MEDS: HumaLOG INSULIN (NovoLOG) PER UNIT SC SCH (06:54)
[2020-01-17] MEDS ORDERED: KCL 20MEQ IN 100ML SWI (KRUN) 20 MEQ in IV 1 EA IV ONE ×2 (07:00)
[2020-01-17] MEDS: LEVALBUTEROL HFA 45MCG/ACT 15 GM INHALER INH SCH (07:15)
[2020-01-17] MEDS: MIDODRINE 2.5 MG TAB NG SCH (08:00)
--- NOTE | 2020-01-17 08:16 | REP ---
Portable chest x-ray: Single view. History: Intubated patient. Comparison chest x-ray: January 16, 2020. Findings: A multi lead pacemaker is again noted. Endotracheal tube is seen in good position at the level of proximal clavicles. A right IJ line terminates in the expected location of the SVC. A nasogastric tube enters the left upper quadrant. The patient is again noted to be rotated to the left. There is pleuroparenchymal opacity left base obscuring left hemidiaphragm as before. Plate-like atelectasis is seen in the left perihilar region. There is some plate-like atelectasis in the right perihilar region as well. Electronically Signed by Vincent Burgos MD 01/17/2020 08:07 A
[2020-01-17] MEDS: METOPROLOL TART 12.5 MG PER 1/2 TAB NG SCH (08:30)
[2020-01-17] MEDS: PANTOPRAZOLE 40MG VIAL (C9113 PER 1) IV SCH (09:07)
[2020-01-17] MEDS: CHLORHEXIDINE GLUCONATE 0.12 % 15ML UDC (PERIDEX ORAL RINSE) MT SCH (09:07)
[2020-01-17] MEDS: FUROSEMIDE 20MG/2ML VIAL (J1940) IV SCH (09:07)
[2020-01-17] MEDS: AMIODARONE 200 MG TAB (PACERONE) GT SCH (09:08)
[2020-01-17] MEDS: MIDAZOLAM INJ 2MG/2ML VIAL (J2250 PER 1MG) IV PRN (10:10)
[2020-01-17] MEDS ORDERED: LEVALBUTEROL HFA 45MCG/ACT 15 GM INHALER INH PRN (10:45)
[2020-01-17] MEDS ORDERED: ACETAMINOPHEN 650 MG SUPP PR PRN (10:45)
--- NOTE | 2020-01-17 11:27 | CCN ---
DATE: 01/16/2020 CRITICAL CARE PROGRESS NOTE: The patient is seen and examined this morning during bedside rounds. Overnight, there was a possible episodes of tachycardia. However, upon review of rhythm strips it was artifact. The patient has not had any further episodes of ventricular fibrillation (VFib) or venous thromboembolism (VT) since her initial episode the night before. Overnight, the patient has had some episodes of agitation requiring increased amounts of Versed for sedation. She is also being given fentanyl for pain control. However, her blood pressures have been somewhat soft and it limits the amount of sedation she can receive. The patient is moving extremities and withdrawing to pain and intermittently following commands. PHYSICAL EXAMINATION: Temperature 99.0, pulse 60, respirations 14, blood pressure 90/54, oxygen saturation sat 100% on 35% FiO2. Ins 2.3 liters, out 890 mL. General: Patient is intubated and on sedation. She is intermittently following commands and responsive to painful stimuli. HEENT: Normocephalic, atraumatic. Pupils reactive to light bilaterally. There is moist mucous membranes noted. Neck is supple. Trachea is midline. Unable to appreciate any jugular venous distention (JVD). Cardiac is regular rate and rhythm. Normal S1-2. Somewhat distant heart sounds. Unable to appreciate murmurs. There is an automatic implantable cardioverter defibrillator (AICD) implanted on the left side of the chest and the point of maximum impulse (PMI) is displaced laterally. Pulmonary: There is some rhonchorous breath sounds noted with a few crackles bilaterally. Abdomen: Obese, soft, nontender, nondistended. Unable palpate any masses. Extremities: There is increased pitting edema noted in the lower extremities bilaterally. LABORATORY DATA: WBC 7.4, hemoglobin 6.7, platelets are 193. Chemistry: Sodium 145, potassium 3.6, chloride is 109, bicarbonate 25, BUN 40, creatinine 2.12, glucose is 218, calcium is 8.2, alkaline phosphatase 199, AST 49, ALT 47, albumin is 1.8. ABG: pH was 7.607, pCO2 of 25.5, pO2 of 142.8. Micro urine culture positive for Enterococcus faecalis. IMAGING: Chest x-ray shows endotracheal tube (ET) tube and orogastric (OG) tube in good position. The patient is rotated somewhat to the left. There is a multi-lead pacemaker noted. There is increased opacity in the left base. ASSESSMENT AND PLAN: Ms. Marie is a 59-year female with a past history of nonischemic cardiomyopathy with biventricular failure with reduced ejection fraction (EF) and a history of biventricular AICD, atrial fibrillation, diabetes, hyperlipidemia, chronic kidney disease (CKD), history of recurrent urinary tract infection (UTI), as well as a pancreatic cystic lesion, who presented 1 day after being discharged for an admission of pyelonephritis and left flank pain. The patient re-presented with similar complaints as well as with worsening weakness. As per patient's , she has been having worsening weakness and deconditioning in the past month or two and after her most recent discharge had been unable to walk or perform her activities of daily living (ADL) at home. On this admission, the patient was noted to have metabolic encephalopathy and altered mental status with acute on chronic hypercarbic respiratory failure. She is also found to have a UTI as well. The patient was initially trialed on bilevel positive airway pressure (BiPAP) which she failed and required intubation and placement on mechanical ventilation. Acute on chronic hypercarbic hypoxemic respiratory failure. The patient likely had acute decompensation in the setting of UTI and possible sepsis as well as a component of pulmonary vascular congestion as she had been unable to get her home Lasix due to hypotension during this admission. The patient was also receiving opioid pain medications given her left-sided flank pain, which may also contributed to her decompensation of her hypercarbic respiratory failure. - The patient is on mechanical ventilator with pressure regulated volume control (PRVC). Her respiratory rate was decreased as she does have a metabolic alkalosis on her ABG. - Will continue daily chest x-rays and ABGs while intubated, as well as vent bundle care with head of bed elevation and chlorhexidine mouthwash. - The patient has required increased sedation for periods of agitation as well as fentanyl as needed for pain control. Her blood pressures have been somewhat borderline and so this does impact the amount of sedation she can get. - Will place a right internal jugular (IJ) triple lumen for venous access as well as for administration of vasopressors if needed. - Will continue nebulized bronchodilators. - The patient's diuretics have been on hold and she was noted to have some increased lower extremity edema on exam today and has been significantly net positive. Will start her on Lasix 20 mg IV twice a day if her blood pressure tolerates. History of nonischemic cardiomyopathy with biventricular heart failure with reduced ejection fraction (EF) and a biventricular AICD. The patient had episodes of a V-fib/VT during this admission and had required four shocks of her AICD. She was loaded with amiodarone and has not any further episodes. - Continue with amiodarone and metoprolol as per cardiology. Digoxin was discontinued. - The patient is on midodrine for chronic hypotension likely related to her congestive heart failure (CHF). She will have a right IJ triple lumen placed and will start on vasopressors if needed to maintain a mean arterial pressure (MAP) above 65. We had discussed the possibility of dobutamine or other on inotropes to help with her cardiac output and with diuresis. However, given her arrhythmias the patient is not a candidate for inotropes at this time as per cardio - Her prognosis is poor with her chronic end-stage heart failure. The patient is not a candidate for cardiac transplant. Sepsis with a previous history of UTI. The patient's urine culture on this admission was positive for Enterococcus faecalis. - Will continue with Zosyn. Her fluconazole was changed to micafungin. Her fungal blood cultures are still pending. Acute kidney injury (KWAME) on CKD. The patient likely with worsening renal failure in the setting of hypoperfusion with a reduced EF as well as with her episodes of VT and V-fib. Her renal function continues to worsen and she may have component acute tubal necrosis (ATN) at this time as well. - Will continue monitor renal function, ins and outs. - Will start diuresis and will monitor electrolytes and repeat as needed and attempt to maintain a MAP above 2 and a potassium above 4 given her arrhythmias. Heme. Patient with a history of anemia of chronic disease. Her hemoglobin had trended down this morning. Will get a repeat CBC later and will transfuse if hemoglobin less than 7. The patient's has consented for blood transfusion as needed. Deep venous thrombosis (DVT) prophylax, heparin. Gastrointestinal (GI) prophylaxis, Protonix. Continue with tube feeds and monitoring residuals. Continue fingerstick glucose checks as needed. CODE STATUS: The patient's had come in for a family meeting earlier today. We had discussed with the about her multiple comorbidities, including her end-stage heart failure and repeat need for intubation and mechanical ventilation. The patient had previously had episodes of CHF exacerbation related to end-stage heart failure and had previously been on BiPAP, however had failed at that prior admission and had required intubation. The patient does not tolerate BiPAP well when it is placed on her and then on this admission again the patient had difficulty tolerating and again had failed and required mechanical ventilation. We discussed with her that if patient were to be extubated that she would likely need to be extubated to BiPAP, which she does not tolerate well and she also is noncompliant with. The patient's has also mentioned that she has been clinically declining in the past few months. There is also a question of a cystic pancreatic lesion, which may be an intraductal papillary mucinous neoplasm, which she is unable to get evaluated currently. With all of this the patient's had stated that she had previously described her wishes were not to be on prolonged mechanical ventilation. The decision was therefore made to make the patient DO NOT RESUSCITATE, DO NOT INTUBATE with consideration of palliative extubation and comfort measures only tomorrow. He would like to contact his children who live throughout the [facility] and then will followup with the tomorrow about possibility of comfort measure only (TAX TECHNICIAN). Total critical care time spent, not including procedures, approximately 55 minutes. JOSE
[2020-01-17] MEDS ORDERED: SCOPOLAMINE 1MG TRANSDERMAL PATCH TOP SCH (12:30)
[2020-01-17] MEDS ORDERED: MORPHINE 2 MG/ML 1ML VIAL (J2270) IV PRN (16:15)
[2020-01-17] MEDS ORDERED: LORazepam 2 MG/ML VIAL IV PRN (16:15)
--- NOTE | 2020-01-17 16:39 | CCN ---
DATE: 01/17/2020 The patient was seen and examined this morning during bedside rounds. The patient did not have any acute events overnight. She did not have any fevers. She is continued on Versed for sedation with fentanyl as needed. The patient's blood pressures have remained with mean arterial pressure (MAP) above 65. She did not require any vasopressor administration. She is on midodrine however, still for chronic hypotension. PHYSICAL EXAMINATION: Temperature 98.3, pulse 60, respirations 15, blood pressure 93/55, oxygen saturation 99% on 25% FiO2. Ins 1.5 liters, out 1.7 liters. General: Patient is intubated and sedated. She follows commands intermittently. HEENT: Normocephalic, atraumatic. Pupils are reactive. Mucous membranes are moist. Neck is supple. Trachea is midline. Unable to appreciate any jugular venous distention (JVD). There is a right internal jugular (IJ) triple lumen in place. Cardiac: Regular rate and rhythm. Normal S1, S2. Somewhat distant heart sounds. Unable to appreciate any murmurs. Respiratory: Improvement from previous with coarse ventilated breath sounds and improvement in the previous rhonchi and crackles but still with some occasional rhonchi and crackles noted. Abdomen is obese, soft, nontender, nondistended. There is normal active bowel sounds. Extremities: There is improvement in the pitting edema noted yesterday. LABORATORY DATA: WBC 6.7, hemoglobin 6.6, platelets 185. Chemistry: Sodium is 145, potassium 3.2, chloride is 106, bicarbonate 28, BUN 41, creatinine 2.19, glucose is 201. Alkaline phosphatase 220. Albumin 1.8. AST, ALT 36 and 40. ABG: pH 7.518, pCO2 of 31, pO2 of 114.2. IMAGING: Chest x-ray shows endotracheal tube (ET) tube in good position. There is an orogastric (OG) tube and a right internal jugular (IJ) in place. The patient is rotated to the left. There is opacity in the left lower lobe questioning atelectasis and a component of possible effusion. There is some perihilar atelectasis noted. ASSESSMENT AND PLAN: Ms. Marie is a 59-year female with a past medical history of nonischemic cardiomyopathy with biventricular heart failure with reduced ejection fraction (EF) and a history of biventricular automatic implantable cardioverter defibrillator (AICD), atrial fibrillation, diabetes, hyperlipidemia, chronic kidney disease (CKD), history of recurrent urinary tract infection (UTI), and recent admission for pyelonephritis. The patient presented again with complaints of weakness and left-sided flank pain. Her had been unable to care for at home as the patient has been having progressive weakness in the past few months. During this admission, the patient was noted to have acute on chronic hypercarbic respiratory failure as well as altered mental status and metabolic encephalopathy. She was initially trialed on bilevel positive airway pressure (BiPAP) which she failed and had required intubation and placement on mechanical ventilation. The patient was also noted to have episodes of ventricular fibrillation (VFib)/venous thromboembolism (VT) and had required four shocks of her AICD and loading with amiodarone. The patient was also found to have urine culture, which was positive for Enterococcus faecalis, and she was on antibiotics for her UTI and likely pyelonephritis. There was a family meeting performed yesterday with the patient's at the bedside. We discussed with the patient's her multiple comorbidities, including her end-stage heart failure as well as a possibility of a pancreatic cystic lesion, which may be possibly neoplasm, that she has not been able to have evaluation for. After further discussion with the patient's about her goals of care, he stated that patient would not have wanted prolonged mechanical ventilation or intubation and she would not have wanted BiPAP. The patient was therefore made DO NOT RESUSCITATE/DO NOT INTUBATE yesterday after a family meeting. After followup with the this morning, decision was made for COMFORT MEASURES ONLY. - Will palliatively extubate patient to nasal cannula oxygen supplementation. - Will discontinue all medications except those related for comfort only. - The patient's AICD was turned off yesterday by cardiology. CODE STATUS: DO NOT RESUSCITATE/DO NOT INTUBATE, COMFORT MEASURES ONLY. Total critical care time spent, not in any procedures, approximately 30 minutes. Please do not hesitate to call if any further questions or concerns.
--- NOTE | 2020-01-17 17:13 | IPNPDOC ---
Date Seen The patient was seen on 01/17/20. Progress Note SUBJECTIVE: Patient was seen and examined this morning. She remains critically ill. Her hgb has dropped again this morning. She has been ordered PRBC by night team. The patient was made DNR/DNI yesterday. Patients was contacted this morning in regards to Comfort Measure Only Care. 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 Patients had stated that he does not want to be present when the patient is extubated. He was informed that the patient will be extubated. OBJECTIVE PHYSICAL EXAMINATION: VITAL SIGNS: Please see below. GENERAL: Appears critically ill. Intubated and mechanically ventilated HEENT: Atraumatic, normocephalic. Eyes are nonicteric. Trachea is midline. Endotracheal tube in place. Nasogastric tube in place. CARDIOVASCULAR: Normal S1, S2. Regular rate and rhythm. Distant heart sounds. No clicks or rubs RESPIRATORY: Diffuse crackles and rhonchi present bilaterally, increased from previous examination. Intubated and mechanically ventilated. Symmetric chest expansion ABDOMINAL: Soft, nondistended. Normoactive bowel sounds. EXTREMITIES: increased peripheral edema. Full and equal pulses bilaterally in upper and lower extremities NEUROLOGICAL: No focal neurological deficits. Moves all limbs spontaneously LABORATORY DATA, IMAGING STUDIES, MICROBIOLOGY: Please see below. ASSESSMENT AND PLAN: Patient is a 59 year old female with multiple comorbidities who presented to [facility] with left flank pain and reported hypotension. 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 She failed NIPPV and was subsequently intubated. Last night she had developed ventricular fibrillation and subsequently received three discharged from her AICD. Patients CODE STATUS changed to DNR/DNI and Comfort Measures Only. AICD has been deactivated by Cardiology PROBLEMS: 1. Comfort Measures Only -Patient has been made comfort measures only care today after discussions this morning with the patients . Plans for patient to be extubated today. Medications to be discontinued and patient to be transferred to med/surg for ongoing care. -AICD has been deactivated by cardiology DISPOSITION: Patients prognosis was discussed with the patients this morning. Unfortunately given her current condition and multiple comorbidities her [facility] prognosis is very poor. Decision was made to make the patient comfort measures only today. Patient will be extubated and transferred to Med/surg VS, I&O, 24H, Fishbone Vital Signs/I&O Vital Signs Date Time Temp Pulse Resp B/P (MAP) Pulse Ox O2 Delivery O2 Flow Rate FiO2 01/17/20 10:20 98 Nasal Cannula 2.0 01/17/20 10:00 99/53 (68) 99 01/17/20 09:31 16 25 01/17/20 08:00 99.2 I&O- Last 24 Hours up to 6 AM 01/17/20 06:00 Intake Total 1548 ml Output Total 2085 ml Balance -537 ml Laboratory Data 24H LABS Laboratory Tests 2 01/16/20 16:50: Nucleated Red Blood Cells % (auto) 0.0, Anion Gap 11, Glomerular Filtration Rate 24.2L, Calcium Level 8.5 01/16/20 18:09: Bedside Glucose (Misc Panel) 210H 01/16/20 23:53: Bedside Glucose (Misc Panel) 194H 01/17/20 04:10: Nucleated Red Blood Cells % (auto) 0.3H, Anion Gap 11, Glomerular Filtration Rate 24.5L, Calcium Level 8.4L, Total Bilirubin 0.4, Aspartate Amino Transf (AST/SGOT) 36, Alanine Aminotransferase (ALT/SGPT) 44, Alkaline Phosphatase 220H, Total Protein 5.2L, Albumin 1.8L, Albumin/Globulin Ratio 0.5L 01/17/20 05:26: Blood Gas Bicarbonate Standard 26.0, Arterial Blood pH 7.518H, Arterial Blood Partial Pressure CO2 31.0L, Arterial Blood Partial Pressure O2 114.2H, Arterial Blood Total CO2 25.6, Arterial Blood HCO3 24.6, Arterial Blood Base Excess 1.7, Arterial Blood Oxygen Saturation 98.6 01/17/20 05:34: Bedside Glucose (Misc Panel) 195H CBC/BMP Laboratory Tests 01/16/20 16:50 01/17/20 04:10 Microbiology Microbiology 01/14/20 Urine Culture - Final, Complete Enterococcus Faecalis 01/14/20 Blood Fungal Culture, Received Pending 01/14/20 Blood Culture - Preliminary, Resulted No Growth after 72 hours. All specime... 01/14/20 Blood Culture - Preliminary, Resulted No Growth after 72 hours. All specime... 01/11/20 Blood Culture - Final, Complete NO GROWTH AFTER 5 DAYS 01/11/20 Blood Culture - Final, Complete NO GROWTH AFTER 5 DAYS GME ATTESTATION My faculty preceptor for this patient encounter was physically present during the encounter and was fully available. All aspects of the patient interview, examination, medical decision making process, and medical care plan development were reviewed and approved by the faculty preceptor. The faculty preceptor is aware and concurs with the plan as stated in the body of this note and will attest to such by his/her cosignature. I have personally evaluated and examined the patient. Discussed with resident/student regarding plan of care and agree with the above assessment and plan. ANIYAH ASHBY DO Jan 17, 2020 17:13 TEJINDER COBB MD Jan 18, 2020 08:15
--- NOTE | 2020-01-17 18:10 | ECGEPIP ---
[facility] Test Date: 2020-01-15 Pat Name: GLADYS RODARTE Department: Room: [place] [address] Gender: Female Family Support Coordinator: CLARISA : 1960 Requested By: TO Gilbert Order Number: [id number] Reading MD: Denny aCrey Measurements Intervals [place] Rate: 59 P: -26 MA: 104 QRS: 172 QRSD: 126 T: 117 QT: 386 QTc: 385 Interpretive Statements ELECTRONIC ATRIAL PACEMAKER ELECTRONIC VENTRICULAR PACEMAKER PVCs COMPARED TO THE LAST 2 TRACINGS, NO SIGNIFICANT CHANGES Electronically Signed on 01-17-2020 18:10:30 EDT by Denny Carey
--- NOTE | 2020-01-18 13:26 | CCN ---
DATE: 01/16/2020 The patient was seen and examined this morning during bedside rounds. Overnight the patient had some episodes of agitation. She was requiring increasing amounts of Versed as well as fentanyl as needed, however has had somewhat soft blood pressures. This morning the patient is sedated but is arousable and able to follow commands appropriately, intermittently. She has not had any fevers overnight. She has been tolerating her tube feeds. PHYSICAL EXAMINATION: Maximum temperature (Tmax) 99.8, T-current 99, pulse 61, respirations 14, blood pressure 95/59, oxygen saturation 100% on 35% FiO2. In 2.1 liters, out 890 mL. GENERAL: Patient is intubated and on sedation. She is occasionally agitated but is following commands appropriately, intermittently. HEENT: Normocephalic, atraumatic. Pupils react to light bilaterally. There is moist mucous membranes. NECK: Is supple. Trachea is midline. Unable to evaluate jugular venous distention (JVD). CARDIAC: Regular rate and rhythm. Normal S1, S2. Somewhat distant heart sounds and unable appreciate any murmurs. Point of maximum impulse (PMI) is displaced laterally. There is an automatic implantable cardioverter defibrillator (AICD) implanted in the left side of the chest PULMONARY: There is improvement in her breath sounds bilaterally but still some rhonchi and crackles noted. ABDOMEN: Is obese, soft, nontender, nondistended. Unable to palpate any masses. EXTREMITIES: There is some increased with trace to +1 pitting edema in the bilateral lower extremities. Extremities are cool and pulses are diminished. LABORATORY DATA: WBC 7.8, hemoglobin 6.7, platelets are 193. Chemistries: Sodium is 145, potassium 3.6, chloride is 109, bicarbonate 25, BUN 40, creatinine is 2.12, glucose is 218, calcium 8.2, AST 49, ALT 47, alkaline phosphatase 199, albumin 1.8. ABG: pH is 7.607, pCO2 of 25.5, pO2 of 142.8. MICROBIOLOGY: Urine culture was positive for Enterococcus. IMAGING: Chest x-ray shows endotracheal tube (ET) tube and orogastric (OG) tube in place. There is a left-sided atelectasis and likely effusion. There is right perihilar atelectasis. ASSESSMENT AND PLAN: Ms. Marie is a 59-year-old female with a past medical history of nonischemic cardiomyopathy with site biventricular heart failure with reduced ejection fraction (EF), history of biventricular AICD, atrial fibrillation, diabetes, hyperlipidemia, chronic kidney disease (CKD), history of recurrent urinary tract infection (UTI), and previous episodes of pyelonephritis. 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 The patient was recently admitted with pyelonephritis and UTI and was discharged with fluconazole after receiving broad-spectrum antibiotics. The patient was home for only a day before she returned as she was falling at home and her was unable to care for her. The patient was noted on this admission to have acute on chronic hypercarbic respiratory failure as well as encephalopathy. The patient was a initially trialed on bilevel positive airway pressure (BiPAP) which she was unable to tolerate with no improvement and had required intubation and mechanical ventilation. Acute on chronic hypercarbic and hypoxemic respiratory failure. The patient likely with worsening respiratory failure in the setting of altered mental status from sepsis from a UTI as well as a possible component of pulmonary vascular congestion given her history of heart failure. She had not been on Lasix during this admission as she was having episodes of hypotension and had been requiring midodrine. - The patient is currently on mechanical ventilator with settings of pressure regulated volume control (PRVC) with 430/12/35 and 6. Her ABG this morning had shown respiratory alkalosis and her respiratory rate was decreased. - The patient has continued to have episodes of agitation and has required increased amount of Versed for sedation. She was unable to tolerate propofol due to hypotension in the setting of her cardiomyopathy. The patient is also receiving fentanyl as needed for pain. However, she continues to have soft blood pressures. - Will continue with Versed as well as fentanyl and if her mean arterial pressure (MAP) is below [address] her on vasopressor support. - The patient had a right internal jugular (IJ) triple lumen in place for venous access as well as for potential administration of vasopressors. - The patient is noted to have some more crackles on exam as well as rhonchi and increased lower extremity edema. She has been net positive during this admission and has had decreased urine output. - Will start the patient on Lasix at 20 mg IV twice a day. If she has evidence of hypotension, then she may need additional pressors. Inotropes will be difficult given risk of increased arrhythmias. Patient with a history of nonischemic cardiomyopathy with biventricular heart failure with reduced EF and a biventricular AICD. The patient had an episodes of ventricular fibrillation (V-fib )/venous thromboembolism (VT) and had required four shocks from her AICD. - The patient was started on amiodarone and has not had any further episodes currently. - She is on beta-michael and her digoxin was discontinued. - The patient is still on midodrine for hypotension secondary to her CHF with reduced EF. She may require vasopressor support to maintain a MAP above 65, however, inotropes were discussed with cardiology and given the risk of arrhythmias she was felt not to be a candidate for inotropes. - The patient has end-stage heart failure at this point and medical interventions for her heart failure are somewhat limited Sepsis with a history of recurrent UTI. The patient's repeat urine culture was positive for Enterococcus. - Will continue with Zosyn. The patient is on micafungin as well as a previous urine culture had shown yeast. Her fungal blood cultures are still pending. Acute kidney injury (KWAME) on CKD. - patient with the worsening renal failure possibly initially cardiorenal and now secondary to hypoperfusion with her recent arrhythmias and the potential component acute tubal necrosis (ATN) now. - Will continue to monitor electrolytes and replete as needed to maintain a magnesium above 2 and a potassium above 4 if possible. Heme: Patient with a history of anemia of chronic disease. Her hemoglobin has been trending down. Will keep active type and screen and will get consent for blood transfusion if needed. Deep venous thrombosis (DVT) prophylax, heparin. Gastrointestinal (GI) prophylaxis, Protonix. - Continue with tube feeds and fingerstick glucose check and sliding scale coverage. Will likely hold tube feeds tomorrow as there is a discussion and plan in place for palliative extubation most likely. CODE STATUS: DO NOT RESUSCITATE/DO NOT INTUBATE. - Discussed with the patient's today about her prognosis particularly given her end-stage heart failure and her continued decline in the past few months. This is her second intubation. She also, as per , has been weaker and weaker at home. The patient also has had recurrent issues with infection and UTI and there is also potential concern for a pancreatic malignancy, which she has not had fully evaluated. With all of her chronic medical conditions and in particularly her poor prognosis from her end-stage heart failure the patient's has stated that the patient would not have wanted prolonged mechanical ventilation or recurrent resuscitation attempts. Will therefore make her DO NOT RESUSCITATE/DO NOT INTUBATE. He also discussed a plan for a potential palliative extubation tomorrow after he contacts her children today. Total critical care time spent, not including procedures, approximately 45 minutes. Duplicate note for this patient for this date. JOSE
--- NOTE | 2020-01-18 13:51 | DS.PDOC ---
Discharge Summary General Date of Admission Jan 11, 2020 at 14:09 Date of Discharge 01/18/20 Attending Physician: TEJINDER COBB MD Specialist/Consultants Involve: AUGUST DOE MD Specialist/Consultants Involve Dr. Etienne Cardiology Discharge Summary Discharge/ Note PROCEDURES PERFORMED DURING STAY: Endotracheal intubation; Right internal jugular vein catheter ADMITTING DIAGNOSES: 1. Left Flank pain 2. Hypotension 3. Altered Mental Status 4. Chronic nonischemic systolic congestive heart failure LVEF 20% 5. CKD Stage 3 6. Chronic Hypoxic Respiratory Failure on 2L NC 7. Atrial Fibrillation 8. Pancreatic mass/cysts w/ elevated CA-19-9 DISCHARGE DIAGNOSES: 1. Acute on Chronic Decompensated Congestive Heart Failure 2. Acute on chronic hypoxic hypercarbic respiratory failure requiring endotracheal intubation with mechanical ventilation 3. Ventricular Fibrillation with discharge of AICD 4. Urinary Tract Infection/Chronic Pyelonephritis COMPLICATIONS/CHIEF COMPLAINT: Weakness. HISTORY OF PRESENT ILLNESS: Patient is a 59 year old female with a past medial history significant for nonischemic cardiomyopathy with biventricular heart failure and a biventricular automatic implantable cardioverter-defibrillator, atrial fibrillation, diabetes mellitus type 2, CKD Stage 3, chronic recurrent UTI/ pyelonephritis, and chronic hypoxemic hypercarbic respiratory failure who presented to [facility] with complaint of left flank pain. She was recently admitted to [facility] at which point she was treated for a pyelonephritis and treated with antibiotics and discharged on fluconazole for fungal UTI. 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 Additionally, she had a large ovarian dermoid cyst with innumerable pancreatic cysts and calcifications associated with pancreatic enlargement that was new or increased from her previous study. She had received CA-19-9 testing which was elevated. On discharge she was recommended for follow-up with Pancreatic specialist at [facility] as there was concern for possible pancreatic malignancy. One day after discharge the patient returned to the [facility] ER with complaint of worsening left flank pain. At the time the patient had stated that her left flank pain was at its baseline and that she came to the hospital to help with placement as her was unable to provide the care that she required. However, EMS had stated that the patient was hypotensive on presentation and required peripheral levophed to be started. On presentation in the ER the patient was vitally stable. She was not on Levophed. The patient was admitted to hospitalist service for further management On admission the patient was vitally stable. social services director was contacted that the patient was planned for placement. On day 4 of her hospitalization nursing staff had noted that the patient appeared to be lethargic and confused. She was arousable and answered questions appropriately. The patient appeared clinically hypovolemic and thought to be in sepsis. She received two 500cc boluses and her mentation did improve. An ABG was obtained which demonstrated a respiratory acidosis with pH of 7.175 and PCO2 72.3 and HCO3 of 30. The patient was transferred to ICU where she was placed on bilevel. Unfortunately she had failed bilevel therapy and the patient was subsequently intubated. She was started on empiric antibiotics for presumed sepsis. A fuentes catheter was placed in the patient which resulted in cloudy urine with purulence. During the course of her hospitalization she developed acute on chronic decompensated congestive heart failure exacerbation likely secondary to sepsis. She required IV diuresis however she continued to have soft blood pressures. Her renal function started to decline. The patient then developed ventricular fibrillation resulting in her AICD firing off. This occurred 3 times. The patient was seen by Cardiology and her medications were adjusted. Regarding her worsening cardiac and renal function Cardiology had stated that at this time there would be no benefit to dobutamine or milrinone as this would be a bridging therapy and there was no chance that she would be receiving a heart transplant and her overall prognosis is poor. Given the patients multiple comorbidities and poor prognosis her was contacted in regards to goals of care. The patients presented at bedside and discussion was had between hospitalist team, Pulmonary/Critical Care, and patients . At that time decision was made to have the patient made DNR/DNI. The patients had stated that he would like to call his children. The following day goals of care were addressed with the at which point he had stated that he would like her to be comfort measures only. The patient stated that he would not like to be present for the extubation. The patient was subsequently extubated and placed on nasal cannula. All life sustaining measures were discontinued. Cardiology turned off the patients AICD. The patient was transferred to Med/Surg for Comfort Measures Care. Within the next 24 hours the patient . DISCHARGE MEDICATIONS: Please see below. ALLERGIES: Please see below. PHYSICAL EXAMINATION ON DISCHARGE: Physical Exam not performed as patient was [employer] and at time of discharge VITAL SIGNS: Please see below. LABORATORY DATA: Please see below. IMAGING: PORTABLE CHEST X-RAY: Single view. HISTORY: Sepsis, shock. COMPARISON CHEST X-RAY: September 26, 2019. FINDINGS: A multilead pacemaker is again noted in the heart via the left side. Cardiomegaly is observed. Oxygen delivery tubing and monitoring electrodes are seen. Air bronchograms are noted in the left base similar to the prior study. Aeration in the left base is improved however compared to the prior study. Some residual or recurrent atelectasis or infiltrate in the left lower lobe cannot be excluded. Pulmonary vasculature is somewhat congested. IMPRESSION: Cardiomegaly with pacemaker and vascular congestion. Air bronchograms left base question atelectasis or recurrent infiltrate. Electronically Signed by Vincent Burgos MD 01/11/2020 12:48 P Portable chest x-ray: Single view. History: Dyspnea. Sepsis. Comparison study: January 11, 2020. Findings: A multi lead pacemaker is again noted. Cardiomegaly is observed. Patient is rotated to the left for the current exposure. Oxygen delivery tubing is seen. Vascular interstitial markings remain somewhat prominent. The left hemidiaphragm is obscured question left pleural effusion. There are air bronchograms in the left base. This suggests infiltrate and/or atelectasis. This is unchanged. Electronically Signed by Vincent Burgos MD 01/14/2020 08:29 A REASON FOR EXAM: Status post intubation. COMPARISON: Multiple, the latest 01/14/2020 obtained at 12:00 a.m. Since the last examination, a nasogastric tube is in place, the tip of which is beyond the scope of the radiograph beneath the diaphragmatic surface of the left lung. Since the last exam, an endotracheal tube is in place the tip of which is in satisfactory position at the level of the clavicular heads. The right lower lung field has not been included on the radiograph. With that exception, the lung wagner are unchanged. A dual-chamber bipolar pacemaker device if unchanged. The osseous structures are unchanged. IMPRESSION: Status post intubation as described above. No significant change in the appearance of the lung wagner. Findings and limitations as described above. Electronically Signed by Perry Vera DO 01/14/2020 04:38 P Portable chest x-ray: Single view. History: Intubated patient. Comparison study: January 14, 2020. Findings: Monitoring electrodes overlie the chest. A multi lead pacemaker is seen in place as before. Endotracheal tube is noted in good position at the level of proximal clavicles. A nasogastric tube is seen entering the left upper quadrant. There is a skin fold projecting along the left lateral chest. No definite infiltrate is seen. No pleural effusion noted. Cardiac enlargement again seen unchanged. Electronically Signed by Vincent Burgos MD 01/15/2020 08:11 A Portable chest x-ray: Single view. History: Intubated patient. Comparison chest x-ray: January 15, 2020. Findings: The patient is rotated somewhat to the left for the current exposure. Endotracheal and nasogastric tubes remain in place unchanged. A multi lead pacemaker is again seen in the heart. There is mild plate-like atelectasis in the right perihilar region. Right lung is otherwise clear. The left hemidiaphragm is obscured consistent with pleural effusion and in combination with atelectasis. Increased density is seen behind the heart. This appears more prominent today than on yesterday's radiograph. Electronically Signed by Vincent Brugos MD 01/16/2020 07:57 A DD: Vincent Burgos MD 01/16/20 0752 PORTABLE CHEST X-RAY: Single view. 10:06 a.m. film. HISTORY: Line placement. COMPARISON CHEST X-RAY: January 16, 2020 at the 6:01 a.m. FINDINGS: The patient is rotated to the left for the current exposure. A right internal jugular central venous line has been inserted into the expected location of the superior vena cava. There is no evidence of pneumothorax. Nasogastric and endotracheal tube are again noted in place unchanged. A multilead pacemaker is noted. Increased density persists in the left base which may be pleural and/or parenchymal. The left hemidiaphragm is obscured as before. IMPRESSION: Right internal jugular central venous line in place. No evidence of pneumothorax. Electronically Signed by Vincent Burgos MD 01/16/2020 02:56 P Portable chest x-ray: Single view. History: Intubated patient. Comparison chest x-ray: January 16, 2020. Findings: A multi lead pacemaker is again noted. Endotracheal tube is seen in good position at the level of proximal clavicles. A right IJ line terminates in the expected location of the SVC. A nasogastric tube enters the left upper quadrant. The patient is again noted to be rotated to the left. There is pleuroparenchymal opacity left base obscuring left hemidiaphragm as before. Plate-like atelectasis is seen in the left perihilar region. There is some plate-like atelectasis in the right perihilar region as well. Electronically Signed by Vincent Burgos MD 01/17/2020 08:07 A PROGNOSIS: DISPOSITION: 20 . DISCHARGE CONDITION: TIME SPENT ON DISCHARGE: 40 minutes. I have personally evaluated and examined the patient. Discussed with resident/student regarding plan of care and agree with the above assessment and plan. Vital Signs/I&Os Vital Signs Date Time Temp Pulse Resp B/P (MAP) Pulse Ox O2 Delivery O2 Flow Rate FiO2 01/17/20 10:20 98 Nasal Cannula 2.0 01/17/20 10:00 99/53 (68) 99 01/17/20 09:31 16 25 01/17/20 08:00 99.2 I&O- Last 24 Hours up to 6 AM 01/18/20 06:00 Intake Total 368 ml Output Total 1150 ml Balance -782 ml Microbiology Microbiology 01/14/20 Urine Culture - Final, Complete Enterococcus Faecalis 01/14/20 Blood Fungal Culture, Received Pending 01/14/20 Blood Culture - Preliminary, Resulted No Growth after 72 hours. All specime... 01/14/20 Blood Culture - Preliminary, Resulted No Growth after 72 hours. All specime... 01/11/20 Blood Culture - Final, Complete NO GROWTH AFTER 5 DAYS 01/11/20 Blood Culture - Final, Complete NO GROWTH AFTER 5 DAYS Discharge Medications Scheduled Aspirin (Aspirin EC) 81 Mg Tablet.dr, 81 MG PO DAILY, (Reported) Atorvastatin Calcium (Atorvastatin Calcium) 40 Mg Tab, 40 MG PO QHS, (Reported) Digoxin (Digoxin) 125 Mcg Tablet, 62.5 MCG PO DAILY, (Reported) Ergocalciferol (Vitamin D2) (Vitamin D2) 50,000 Units Cap, 50,000 UNITS PO QWEEK , (Reported) TUESDAY Ferrous Sulfate (Ferrous Sulfate) 325 Mg Tab, 325 MG PO QHS, (Reported) Fluconazole (Fluconazole) 100 Mg Tablet, 400 MG PO DAILY, (Reported) FOR 12 DAYS, STARTED 01/10 Glimepiride (Glimepiride) 2 Mg Tab, 2 MG PO DAILY, (Reported) Insulin Glargine,Hum.rec.anlog (Basaglar Kwikpen U-100) 100 Unit/1 Ml Insuln.pen, 30 UNIT SC QHS, (Reported) Insulin Lispro (Admelog) 100 Unit/1 Ml Vial, 5 UNITS SC ACB, (Reported) Insulin Lispro (Admelog) 100 Unit/1 Ml Vial, 8 UNITS SC AC, (Reported) BEFORE LUNCH Insulin Lispro (Admelog) 100 Unit/1 Ml Vial, 8 UNIT SC ACS, (Reported) Ketoconazole (Ketoconazole) 15 Gm Cream..g., 1 APLCT TOP BID, (Reported) APPLY TO FEET Metoprolol Succinate (Metoprolol Succinate) 25 Mg Tab.er.24h, 12.5 MG PO DAILY, (Reported) Niacin (Niacin ER) 500 Mg Tab.er.24h, 500 MG PO QHS, (Reported) Nystatin (Nystatin Powder) 15 Gm Powder, 1 APLCT TOP BID, (Reported) APPLIES TO GROIN AREA AND UNDER BREASTS Scheduled PRN Acetaminophen (Acetaminophen) 325 Mg Tablet, 650 MG PO Q6H PRN for PAIN, (Reported) Oxycodone HCl (Oxycodone HCl ER) 15 Mg Tab.er.12h, 15 MG PO BID PRN for PAIN, (Reported) Allergies Coded Allergies: metformin (Verified Adverse Reaction, Severe, HX OF METABOLIC ACIDOSIS IN SETTING OF KWAME, 01/01/20) HX OF METABOLIC ACIDOSIS IN SETTING OF KWAME REQUIRING ADMISSION sacubitril (Verified Adverse Reaction, Unknown, DIZZINESS, 01/01/20) valsartan (Verified Adverse Reaction, Unknown, DIZZINESS, 01/01/20) ANIYAH ASHBY DO Jan 18, 2020 13:51 TEJINDER COBB MD Jan 18, 2020 16:08
== END 2020-01-17 21:00 | disposition expired | DRG 207 ==
LOC: M ED 09:33 → EDBD 09:33 → M ED INP 14:09 → M MS5PR 15:33 → M ICU 01-14 09:00 → M MSPAV 01-17 15:50
PROVIDERS: ADMIT Internal Medicine; ATTEND Student in an Organized Health Care Education/Training Program
PROC: 0BH17EZ Insertion of Endotracheal Airway into Trachea, Via Natural or Artificial Opening (ICD-10-PCS; principal; 2020-01-14)
PROC: 5A1945Z Respiratory Ventilation, 24-96 Consecutive Hours (ICD-10-PCS; 2020-01-14)
PROC: 02HV33Z Insertion of Infusion Device into Superior Vena Cava, Percutaneous Approach (ICD-10-PCS; 2020-01-16)
DX: I95.9 Hypotension, unspecified (principal); J96.21 Acute and chronic respiratory failure with hypoxia; I50.23 Acute on chronic systolic (congestive) heart failure; G93.41 Metabolic encephalopathy; A41.9 Sepsis, unspecified organism; I47.2 Ventricular tachycardia; N17.9 Acute kidney failure, unspecified; N18.3 Chronic kidney disease, stage 3 (moderate); J96.22 Acute and chronic respiratory failure with hypercapnia; Z51.5 Encounter for palliative care; Z66 Do not resuscitate; K82.3 Fistula of gallbladder; K86.2 Cyst of pancreas; I42.0 Dilated cardiomyopathy; E11.22 Type 2 diabetes mellitus with diabetic chronic kidney disease; I13.0 Hypertensive heart and chronic kidney disease with heart failure and stage 1 through stage 4 chronic kidney disease, or unspecified chronic kidney disease; Z99.81 Dependence on supplemental oxygen; E66.9 Obesity, unspecified; D63.8 Anemia in other chronic diseases classified elsewhere; R10.32 Left lower quadrant pain; R41.82 Altered mental status, unspecified; T37.8X5A Adverse effect of other specified systemic anti-infectives and antiparasitics, initial encounter; I49.01 Ventricular fibrillation; I48.0 Paroxysmal atrial fibrillation; R74.0 Nonspecific elevation of levels of transaminase and lactic acid dehydrogenase [LDH]; D50.9 Iron deficiency anemia, unspecified; E78.5 Hyperlipidemia, unspecified; Z95.810 Presence of automatic (implantable) cardiac defibrillator; Z87.442 Personal history of urinary calculi; Z98.41 Cataract extraction status, right eye; Z98.42 Cataract extraction status, left eye; Z79.82 Long term (current) use of aspirin; Z79.4 Long term (current) use of insulin; Z79.899 Other long term (current) drug therapy; Z88.8 Allergy status to other drugs, medicaments and biological substances; Z68.33 Body mass index [BMI] 33.0-33.9, adult